=== PATIENT | female | born 1960 | race Caucasian/White ===

== ENCOUNTER → 2017-09-03 14:48 | Outpatient (CLI) | payer MEDICAID, SELFPAY ==
--- NOTE | 2017-09-03 14:54 | MM_ITS ---
MM Dig screening mamm BI w/CAD CAD Screening ORDERING PHYSICIAN : Roge Richard MD PATIENT AGE: 57 years GENDER: Female INDICATION: Takes Premarin.. No new complaints. Noncontributory family history COMPARISON: Previous mammograms: August 2016, August 2015,, November 2010 and 2009 TECHNIQUE: Standard CC and MLO images were obtained. R2 CAD reviewed. FINDINGS:========= Moderate breast density. Bilateral RIGHT BREAST: . Moderately dense but no no new areas of concern. Follow-up right mammogram 1 year. LEFT BREAST: Small 4 mm nodular density deep central left breast.,, with small calcifications. The small additional calcifications here draw attention to this area which may have been present on previous studies, including 2016 MLO view. This most likely is benign features such as a benign fibroadenoma. But it is more apparent with additional small calcifications would recommend close follow-up or additional evaluation. Suggest magnification spot views CC, 90 degree when it is convenient for this patient, left breast ultrasound. A Reasonable alternative would be a 6 month follow-up left mammogram. IMPRESSION: LEFT BREAST: Small 4 mm nodule deep breast with progression of minimal calcification... This nodule more likely this age benign density but would benefit from magnification spot view cc 90 degrees &. Along with ultrasound to further evaluate. Right breast:. Follow-up in one year BI-RADS Category: 0 Need Additional Imaging Evaluaiton . RECOMMENDED FOLLOW-UP: IMM - IMMEDIATE FOLLOW-UP RECOMMENDED Magnification spot views of small 4 mm nodule with additional calcifications (A letter has been sent to the patient regarding results of the study.)
--- NOTE | 2017-09-03 14:54 | XR_ITS ---
XR DEXA axial skeleton HISTORY: ITS.REASON: Post Menopausal ORDERING PHYSICIAN: Roge Richard MD PATIENT AGE: 57 years COMPARISON: 04/27/2017 FINDINGS: The BMD measured at the left femoral neck is 0.818 g/cm squared with a T score of -1.6 . This is considered Osteopenic according to the World Health Organization criteria. Fracture risk is Moderate. Treatment is advised. L1 L4 density has a T score of -0.2 which is within normal limits and has increased by 3.5% compared to the previous exam. The hip density has decreased by 0.7%. IMPRESSION: Osteopenia as described above. Recommend follow-up exam August 2019
== END ==
PROVIDERS: Family Provider Emergency Medicine; PCP Emergency Medicine; Visit Provider Obstetrics & Gynecology
DX: Z78.0 Asymptomatic menopausal state (principal)
CPT/HCPCS: 77067; 77080

== ENCOUNTER → 2017-10-29 12:19 | Outpatient (CLI) | payer MEDICAID, SELFPAY ==
--- NOTE | 2017-10-29 12:20 | MM_ITS ---
MM Dig spot mag LT CAD Screening ORDERING PHYSICIAN : Roge Richard MD PATIENT AGE: 57 years GENDER: Female COMPARISON: Previous mammograms: 3 11/06/2016, 08/30/2016, August 2015 INDICATION: Further evaluate calcifications associated with it small nodular density left breast TECHNIQUE: Standard CC and MLO images were obtained. R2 CAD reviewed. FINDINGS: LEFT BREAST: The patient has had a small nodular density at the medial left breast. Long-standing. Small calcifications seen here since 2016. The dense calcifications associated are nonspecific. More likely benign. Questionable Vague nodular density here measuring 3 mm. Is smaller than 2017 exam At this point I suggest follow-up left mammogram 6 months IMPRESSION: Small most likely benign calcifications associated with the small decreasing 3 mm nodular density at the medial left breast Most likely benign feature. Follow-up left mammogram study 6 months left breast to confirm such BI-RADS Category: 3 Benign Finding Short Term Follow-up RECOMMENDED FOLLOW-UP: 6M - 6 MONTH FOLLOW-UP Left mammogram 6 months (A letter has been sent to the patient regarding results of the study.)
== END ==
PROVIDERS: Family Provider Emergency Medicine; PCP Emergency Medicine; Visit Provider Obstetrics & Gynecology
DX: R92.8 Other abnormal and inconclusive findings on diagnostic imaging of breast (principal)
CPT/HCPCS: 77065

== ENCOUNTER → 2018-04-09 12:51 | Outpatient (CLI) | payer MEDICAID, SELFPAY ==
--- NOTE | 2018-04-09 12:53 | MM_ITS ---
MM Dig mamm DX unilat LT CAD INDICATION: Follow-up abnormal mammogram, calcifications ORDERING PHYSICIAN: Roge Richard MD PATIENT AGE: 57 years COMPARISON: 10/29/2017 and 09/03/2017 TECHNIQUE: Standard images performed along with spot compression mag views FINDINGS: There is average fibroglandular tissue. The calcifications noted in the medial aspect of the left breast are not significant change and are felt to be benign. There is however, an asymmetric density in the medial aspect of left breast which was not noticed when checking the mammograms for the calcifications. This measures 6 x 3 mm and may contain some faint calcifications. This is however only well seen on the cc view and could represent summation artifact. Suggest that the patient return additional problem-solving views of this area at no additional charge. Ultrasound may also be needed. IMPRESSION: The calcifications of original interest are unchanged and benign appearing. There is however, question of a new nodule with faint calcifications in the central aspect of the left breast which was not noticed during the checking of the mammogram. Suggest that the patient return for rolled cc views and a straight ML view and possible breast ultrasound BI-RADS Category: 0 Need Additional Imaging Evaluation RECOMMENDED FOLLOW-UP: IMM - IMMEDIATE FOLLOW-UP RECOMMENDED (A letter has been sent to the patient regarding results of the study.)
--- NOTE | 2018-04-09 12:53 | US_ITS ---
US transvaginal HISTORY: ITS.REASON: abdominal pain ORDERING PHYSICIAN: Roge Richard MD PATIENT AGE: 57 years Comparison: None FINDINGS: The uterus and ovaries are not identified and are presumed surgically absent. No obvious adnexal mass. The vaginal cuff has an unremarkable appearance. No pelvic fluid apparent. IMPRESSION: Prior total hysterectomy otherwise negative ultrasound pelvis
--- NOTE | 2018-04-09 12:53 | XR_ITS ---
XR chest 2V HISTORY: ITS.REASON: cough, smoker ORDERING PHYSICIAN: Roge Richard MD PATIENT AGE: 57 years COMPARISON: 02/17/2017 FINDINGS: Unremarkable cardiovascular structures. There is evidence of old granulomatous disease. There is diffuse coarsening of the bronchovascular markings with faint reticular nodular opacities. Hyperinflation with attenuation of the upper lobe vessels. No lobar consolidation or collapse.. No effusions. No acute bony anomalies. IMPRESSION: COPD with diffuse faint reticular nodular opacities which may be seen with smoking related lung disease/interstitial pneumonitis. Chest CT with high-resolution images may provide further evaluation. No evidence of pneumonia
== END ==
PROVIDERS: Family Provider Emergency Medicine; PCP Emergency Medicine; Visit Provider Obstetrics & Gynecology
DX: R05 Cough (principal); R92.8 Other abnormal and inconclusive findings on diagnostic imaging of breast; Z85.41 Personal history of malignant neoplasm of cervix uteri
CPT/HCPCS: 71046; 76830; 77065

== ENCOUNTER → 2018-05-02 12:56 | Outpatient (CLI) | payer MEDICAID, SELFPAY ==
--- NOTE | 2018-05-02 12:58 | MM_ITS ---
MM Dig mamm DX unilat LT CAD, US breast LT complete INDICATION: Follow-up abnormal mammogram. Possible nodule in the medial aspect of the left breast ORDERING PHYSICIAN: Roge Richard MD PATIENT AGE: 57 years COMPARISON: 04/09/2018, and 09/03/2017, 10/29/2017 TECHNIQUE: Spot compression views rolled views and ML view of the left breast FINDINGS: No discrete nodules evident in the area of interest. No malignant appearing mass or malignant appearing microcalcification. Benign-appearing calcifications noted Left breast ultrasound: Echodense fibroglandular elements. No discrete mass. IMPRESSION: Benign findings, no evidence of malignancy. Recommend resuming screening mammogram in August 2018 BI-RADS Category: 2 Benign Finding(s) RECOMMENDED FOLLOW-UP: 6M - 6 MONTH FOLLOW-UP (A letter has been sent to the patient regarding results of the study.)
== END ==
PROVIDERS: PCP Emergency Medicine; Visit Provider Obstetrics & Gynecology
DX: R92.8 Other abnormal and inconclusive findings on diagnostic imaging of breast (principal)
CPT/HCPCS: 76641; 77065

== ENCOUNTER 2019-11-09 10:17 | Emergency (ER) | payer MEDICAID, SELFPAY ==
[2019-11-09] VITALS (26 sets, daily range): BP systolic 75–134; BP diastolic 45–84; PULSE 78–130; RESP 16–50; TEMP 36.9–37.3; O2SAT 65–100; BMI 32.3; BMI 27.4
--- NOTE | 2019-11-09 10:21 | XR_ITS ---
PROCEDURE: XR CHEST PORTABLE CLINICAL HISTORY: SOA, smoking history COMPARISON: CXR2V XR chest 2V from 04/09/2018 CXR2V XR chest 2V from 09/14/2018 XR CHEST 2V from 05/31/2019 FINDINGS: This is a slightly poor inspiration. Diffuse bilateral primarily interstitial reticulonodular infiltrates are seen in both lung dooley representing a definite change from the most recent chest film 05/31/2019. Review of the previous chest film from 05/31/2019 showed a very subtle diffuse nodular interstitial pattern at that time. Cardiac size is normal. The vascularity is difficult to evaluate due to the diffuse interstitial findings. There are monitor lines overlying the chest. IMPRESSION: Prominent bilateral diffuse primarily interstitial appearing infiltrates and smoking-related chronic interstitial disease is certainly a possibility although in this current environment superimposed covid- 19 pneumonia cannot be excluded Dictated by: Dr. Ever Hooker MD 11/09/2019 11:[address] Ever Hooker MD in [place] 11/09/2019 11:17
--- NOTE | 2019-11-09 10:25 | PC.NURSE ---
Rad at bedside
--- NOTE | 2019-11-09 10:28 | PC.NURSE ---
Rt at bedside
--- NOTE | 2019-11-09 10:41 | PC.NURSE ---
christo nurse called she is calling lab
--- NOTE | 2019-11-09 10:45 | PC.NURSE ---
Pt to rad.
[2019-11-09 10:49] LABS: ABG Base Excess 1.5 mmol/L (-2.4-2.3); ABG HCO3 25.6 mmhg (22.0-26.0); ABG Oxygen Saturation 85 % (90-100); ABG PCO2 38.3 mmhg (35.0-45.0); ABG PH 7.44 mmol/L (7.35-7.45); ABG PO2 50.2 mmhg (80-100); ABG TCO2 26.8 mmhg (23-27)
[2019-11-09 10:50] LABS: Allen's Test ACCEPTABLE; Oxygen 100 %; Source Left Radial
--- NOTE | 2019-11-09 10:51 | CT_ITS ---
PROCEDURE: CT CHEST WO CON CLINICAL INDICATION: sob COMPARISON: No exams were available for comparison TECHNIQUE: Axial images obtained with sagittal and coronal reformats. All CT scans at the facility use one or more dose reduction, viz: automated exposure control, ma/kV adjustment per patient size (including targeted exams where dose is matched to indication, i.e. head), or iterative reconstruction technique. FINDINGS: HEART AND MEDIASTINAL STRUCTURES: There is borderline cardiomegaly with moderate aortic tortuosity. There is no pericardial effusion. LUNGS AND PLEURAL SPACES: Prominent diffuse bilateral interstitial infiltrates are seen primarily involving the lung bases but also diffusely involving the left upper lobe. There are areas of honeycombing and minimal traction bronchiectasis seen as well primarily at the lung bases. There are calcified right hilar nodes. BONY STRUCTURES: No acute bony abnormalities apparent. UPPER ABDOMEN: Unremarkable. ADDITIONAL FINDINGS: There is a moderate-sized sliding hiatal hernia. IMPRESSION: Combination of pulmonary findings most suggestive of Usual interstitial pneumonia particularly in view of the smoking history and previous films showing subtle interstitial nodular appearance. However in this environment testing for Covid-19 pneumonia should be definitely considered. Dictated by: Dr. Ever Hooker MD 11/09/2019 11:[address] Ever Hooker MD in [facility] 11/09/2019 11:30
--- NOTE | 2019-11-09 11:03 | PC.NURSE ---
pt return from ct
--- NOTE | 2019-11-09 11:22 | ECG_ITS ---
APPROVED REPORT Exam: Resting ECG HR:105 bpm ECG Measurements Heart Rate 105 AXES [place] 150 P 60 QRSd 66 QRS 57 QT 332 T 32 QTc 438 <Conclusion> Sinus tachycardia Otherwise normal ECG Electronically signed by : Rahul Gardner, 11/10/2019 14:07:45
--- NOTE | 2019-11-09 11:26 | PC.NURSE ---
RT at bedside as well as MD and nursing staff to intubate pt.
--- NOTE | 2019-11-09 11:34 | PC.NURSE ---
Rad called for tube placement xray.
--- NOTE | 2019-11-09 11:35 | PC.NURSE ---
pt intubated per dr roque
--- NOTE | 2019-11-09 11:35 | XR_ITS ---
PROCEDURE: XR CHEST PORTABLE CLINICAL HISTORY: Tube Placement COMPARISON: CXR2V XR chest 2V from 09/14/2018 XR CHEST 2V from 05/31/2019 CT CHEST WO CON from 11/09/2019 XR CHEST PORTABLE from 11/09/2019 FINDINGS: Endotracheal tube is seen in place with the tip right at the carleen and projecting towards the the left mainstem bronchus. The diffuse bilateral interstitial pulmonary findings are unchanged from the earlier film. IMPRESSION: Somewhat low position of endotracheal tube as noted. Dictated by: Dr. Ever Hooker MD 11/09/2019 11:[address] Ever Hooker MD in [place] 11/09/2019 11:58
--- NOTE | 2019-11-09 11:38 | PC.NURSE ---
dr oz ramirez
--- NOTE | 2019-11-09 11:40 | PC.NURSE ---
propofol drip at 20mcg/kg
[2019-11-09 11:41] LABS: Adenovirus,PCR Not Detected (NotDetected); Basophils % 0.4 % (0.1-2.0); Bordetella Pertussis Not Detected (NotDetected); Chlamydophila Pneumoniae, PCR Not Detected (NotDetected); Coronavirus 19, PCR Not Detected (NotDetected); Coronavirus 229E Not Detected (NotDetected); Coronavirus NL63 Not Detected (NotDetected); Coronavirus OC43 Not Detected (NotDetected); Coronovirus HKU1,PCR Not Detected (NotDetected); Eosinophils # 0.1 K/mm3 (0.0-0.4); Eosinophils % 0.7 % (0.1-12.0); Hematocrit 31.8 % (37.0-47.0); Hemoglobin 10.2 g/dL (12.2-16.2); Human Metapneumovirus Not Detected (NotDetected); Influenza A, PCR Not Detected (NotDetected); Influenza AH1, 2009 Not Detected (NotDetected); Influenza AH1, PCR Not Detected (NotDetected); Influenza AH3,PCR Not Detected (NotDetected); Influenza B, PCR Not Detected (NotDetected); Lymphocytes # 1.8 K/mm3 (0.7-4.5); Lymphocytes % 22.7 % (10-50); Mean Corpuscular HGB Conc 32.2 g/dL (31.8-35.4); Mean Corpuscular Hemoglobin 32.8 pg (27.0-31.2); Mean Corpuscular Volume 101.8 fl (81-99); Mean Platelet Volume 7.6 fl (7.4-10.4); Monocytes # 0.5 K/mm3 (0.1-1.0); Monocytes % 6.8 % (1.7-9.3); Mycoplasma Pneumoniae, PCR Not Detected (NotDected); Neutrophils # 5.6 K/mm3 (1.8-7.8); Neutrophils % 69.5 % (37.0-80.0); Parainfluenza 1, PCR Not Detected (NotDetected); Parainfluenza 2, PCR Not Detected (NotDetected); Parainfluenza 3, PCR Not Detected (NotDetected); Parainfluenza 4, PCR Not Detected (NotDetected); Platelet Count 312 K/mm3 (142-424); Red Blood Count 3.12 M/mm3 (4.20-5.40); Red Cell Distribution Width 13.8 % (11.5-17.5); Respiratory Syncytial Virus Not Detected (NotDetected); Rhinovirus/Enterovirus Not Detected (NotDetected)
--- NOTE | 2019-11-09 11:41 | PC.NURSE ---
xray at bedside
[2019-11-09 11:43] LABS: Chloride 107 mmol/L (98-107); Potassium 3.5 mmoL/L (3.5-5.1); Sodium 135 mmol/L (136-145)
--- NOTE | 2019-11-09 11:43 | PC.NURSE ---
rad at BS for portable xray
--- NOTE | 2019-11-09 11:44 | PC.NURSE ---
ET tube pulled back to 22 lip. pt with navya bs noted cxr obtained
--- NOTE | 2019-11-09 11:44 | XR_ITS ---
PROCEDURE: XR CHEST PORTABLE CLINICAL HISTORY: ETT placement COMPARISON: XR CHEST 2V from 05/31/2019 CT CHEST WO CON from 11/09/2019 XR CHEST PORTABLE from 11/09/2019 XR CHEST PORTABLE from 11/09/2019 FINDINGS: The endotracheal tube is been withdrawn approximately 1.7 cm and is now in good position above the carleen. IMPRESSION: Satisfactory positioning of endotracheal tube Dictated by: Dr. Ever Hooker MD 11/09/2019 11:[address] Ever Hooker MD in [place] 11/09/2019 11:59
--- NOTE | 2019-11-09 11:44 | PC.NURSE ---
XIOMY CASTRO speaking with Dr. Francis who is compensation coordinator for Dr. Wright
[2019-11-09 11:46] LABS: Alanine Aminotransferase 13 U/L (12-78); Albumin Level 3.2 g/dl (3.5-5.0); Albumin/Globulin Ratio 0.9 (1.1-1.8); Alkaline Phosphatase 77 U/L (38-126); Anion Gap 7.5 mEq/L (5-15); Aspartate Amino Transferase 28 U/L (14-36); Bilirubin,Total 0.4 mg/dl (0.2-1.3); Blood Urea Nitrogen 20 mg/dl (7-17); Calcium 8.7 mg/dl (8.4-10.2); Carbon Dioxide 24 mmol/L (22.0-30.0); Creatinine Clearance Estimated 61 mL/min (50-200); Estimated Glomerular Filt Rate 51 ml/min (>60); GFR (African American) 62 ML/MIN (>60); Globulin 3.7 g/dL (1.3-3.2); Glucose 137 mg/dl (74-100); Lactic Acid 1.6 mmol/L (0.7-2.1); Total Protein,Serum 6.9 g/dl (6.3-8.2)
--- NOTE | 2019-11-09 11:46 | PC.NURSE ---
propofol drip increased to 30mcg/kg
--- NOTE | 2019-11-09 12:00 | PC.NURSE ---
propofol drip increased to 40mcg/kg
[2019-11-09 12:03] LABS: Troponin I 0.13 ng/ml (0.00-0.034)
--- NOTE | 2019-11-09 12:07 | PC.NURSE ---
pt coughing, not tolerating et tube propofol drip increased to 50mcg/kg
--- NOTE | 2019-11-09 12:10 | PC.NURSE ---
propofol drip decreased to 40mcg/kg
--- NOTE | 2019-11-09 12:16 | PC.NURSE ---
propofol drip decreased to 35mcg/kg
--- NOTE | 2019-11-09 12:20 | PC.NURSE ---
spoke with Donte in pharmacy for Rocuronium dosing per ER MD request, Donte states 40 mg, ER MD notified
--- NOTE | 2019-11-09 12:25 | [facility].EDSOB ---
ED Disposition Clinical Impression: SARS virus pneumonia, Respiratory failure Disposition: Xfer Short-Term Hosp Condition on Discharge: Critical Referrals: Bright Wright MD [Primary Care Provider] - Forms: Transfer Record - ED - Critical Care Critical Care Time: Yes (Respiratory failure) Attestation: On 11/09/19, the high probability of a clinically significant, sudden or life threatening deterioration of the following system(s) required my full and direct attention, intervention and personal management. The time I documented below is in addition to time spent performing reported procedures but includes the following listed in this critical care notation. Total Critical Care Time: 75 Vital system(s) involved:: Circulatory Failure, Respiratory Failure My critical care processes included: Assessment & monitoring of V/S, Initial and Re-exams, Data Review/Interpretation, Coordinating Care, Medication Orders and management, Documentation Medical Decision Making - Medical Records Medical records reviewed: Yes: I reviewed the patient's medical records. - Narayan Inquiry Pt receiving controlled substance: No Vital Signs: 11/09/19 10:21 11/09/19 11:28 11/09/19 11:35 Temperature 98.5 F Temperature Source Oral Pulse Rate [Left Radial] 85 116 H 115 H Respiratory Rate 50 H Blood Pressure [Right Arm] 88/55 L 114/75 89/52 L Blood Pressure Mean [Right Arm] 66 88 64 Blood Pressure Source [Right Arm] Blood Pressure Position [Right Arm] Sitting 02 Sat by Pulse Oximetry 96 91 L 94 L Oxygen Delivery Method Mechanical Ventilation Non-Rebreather Mechanical Ventilation Oxygen Flow Rate (LPM) 15 15 11/09/19 11:36 11/09/19 11:40 11/09/19 11:44 Temperature Temperature Source Pulse Rate [Left Radial] 117 H 112 H 107 H Respiratory Rate Blood Pressure [Right Arm] 121/74 122/84 Blood Pressure Mean [Right Arm] 89 96 Blood Pressure Source [Right Arm] Blood Pressure Position [Right Arm] Sitting Sitting 02 Sat by Pulse Oximetry 94 L 100 Oxygen Delivery Method Mechanical Ventilation Mechanical Ventilation Oxygen Flow Rate (LPM) 11/09/19 11:52 11/09/19 12:03 11/09/19 12:05 Temperature Temperature Source Pulse Rate [Left Radial] 100 H 107 H 88 Respiratory Rate Blood Pressure [Right Arm] 134/81 103/72 L 107/67 L Blood Pressure Mean [Right Arm] 98 82 80 Blood Pressure Source [Right Arm] Blood Pressure Position [Right Arm] Sitting Sitting 02 Sat by Pulse Oximetry 96 94 L Oxygen Delivery Method Mechanical Ventilation Mechanical Ventilation Oxygen Flow Rate (LPM) 11/09/19 12:10 11/09/19 12:16 11/09/19 12:20 Temperature 99.2 F Temperature Source Rectal Pulse Rate [Left Radial] 105 H 109 H 114 H Respiratory Rate 16 Blood Pressure [Right Arm] 75/45 L 93/59 L 93/59 L Blood Pressure Mean [Right Arm] 55 70 70 Blood Pressure Source [Right Arm] Automatic Cuff Blood Pressure Position [Right Arm] Supine Sitting 02 Sat by Pulse Oximetry 95 94 L Oxygen Delivery Method Mechanical Ventilation Mechanical Ventilation Oxygen Flow Rate (LPM) 11/09/19 12:25 11/09/19 12:30 11/09/19 12:40 Temperature Temperature Source Pulse Rate [Left Radial] 115 H 92 H 93 H Respiratory Rate Blood Pressure [Right Arm] 90/60 L 78/50 L 78/51 L Blood Pressure Mean [Right Arm] 70 59 60 Blood Pressure Source [Right Arm] Blood Pressure Position [Right Arm] 02 Sat by Pulse Oximetry 96 96 96 Oxygen Delivery Method Mechanical Ventilation Mechanical Ventilation Mechanical Ventilation Oxygen Flow Rate (LPM) 11/09/19 12:46 11/09/19 13:03 11/09/19 13:33 Temperature Temperature Source Pulse Rate [Left Radial] 96 H 91 H 88 Respiratory Rate Blood Pressure [Right Arm] 80/56 L 80/52 L 95/60 L Blood Pressure Mean [Right Arm] 64 61 71 Blood Pressure Source [Right Arm] Automatic Cuff Automatic Cuff Blood Pressure Position [Right Arm] Supine Supine 02 Sat by Pulse Ox
--- NOTE | 2019-11-09 12:30 | PC.NURSE ---
propofol drip at 30mcg/kg
--- NOTE | 2019-11-09 12:53 | PC.NURSE ---
Calling [facility] at this time.
--- NOTE | 2019-11-09 13:26 | PC.NURSE ---
XIOMY CASTRO speaking with [facility] at this time.
--- NOTE | 2019-11-09 13:59 | PC.NURSE ---
Bed assignment given by Ludmila at . Contacting [facility] at this time.
--- NOTE | 2019-11-09 14:13 | PC.NURSE ---
[facility] has lifted and en route.
--- NOTE | 2019-11-09 14:17 | PC.NURSE ---
attempted to call report no answer
--- NOTE | 2019-11-09 14:30 | PC.NURSE ---
[facility] at bedside
--- NOTE | 2019-11-09 15:05 | PC.NURSE ---
report to [facility]
== END 2019-11-09 15:32 | disposition short-term general hospital (02) ==
PROVIDERS: Emergency Provider Family Medicine; PCP Emergency Medicine
DX: J12.81 Pneumonia due to SARS-associated coronavirus (principal); F17.210 Nicotine dependence, cigarettes, uncomplicated; J96.00 Acute respiratory failure, unspecified whether with hypoxia or hypercapnia; J44.9 Chronic obstructive pulmonary disease, unspecified; F41.9 Anxiety disorder, unspecified; F20.9 Schizophrenia, unspecified
CPT/HCPCS: 31500; 71045; 71250; 80053; 82803; 83605; 84484; 85025; 87040; 87275; 87276; 87581; 87633; 87798; 93005; 96365; 96367; 96375; 99285; J0330; J0456; J2704

== ENCOUNTER 2019-12-29 10:16 | Outpatient (CLI) | payer MEDICAID, SELFPAY ==
[2019-12-29] VITALS (11 sets, daily range): BP systolic 115–141; BP diastolic 78–91; PULSE 59–109; RESP 18
--- NOTE | 2019-12-29 13:55 | PC.NURSE ---
1345-called bhumika chang for pt ride.
--- NOTE | 2019-12-29 14:15 | PC.NURSE ---
1415-called again to check on pt ride said they would be there in a few mins.
== END 2019-12-29 14:30 | disposition home or self-care (01) ==
LOC: INF 10:16
DX: L95.9 Vasculitis limited to the skin, unspecified (principal); A41.9 Sepsis, unspecified organism; I26.99 Other pulmonary embolism without acute cor pulmonale; R79.89 Other specified abnormal findings of blood chemistry; D64.9 Anemia, unspecified; J10.1 Influenza due to other identified influenza virus with other respiratory manifestations
CPT/HCPCS: 96413; 96415; J9312

== ENCOUNTER 2020-01-05 09:57 | Outpatient (CLI) | payer MEDICAID, SELFPAY ==
[2020-01-05] VITALS (12 sets, daily range): BP systolic 106–134; BP diastolic 73–85; PULSE 81–99; RESP 16–20; TEMP 36.6; O2SAT 94
== END 2020-01-05 13:45 | disposition home or self-care (01) ==
LOC: INF 09:57
PROVIDERS: Visit Provider Emergency Medicine
DX: L95.9 Vasculitis limited to the skin, unspecified (principal); A41.9 Sepsis, unspecified organism; I26.99 Other pulmonary embolism without acute cor pulmonale; R79.89 Other specified abnormal findings of blood chemistry; D64.9 Anemia, unspecified; J10.1 Influenza due to other identified influenza virus with other respiratory manifestations
CPT/HCPCS: 96413; 96415; J9312

== ENCOUNTER 2020-01-09 14:11 | Inpatient (IN) | payer MEDICAID, SELFPAY ==
[2020-01-09] VITALS (40 sets, daily range): BP systolic 90–178; BP diastolic 50–103; PULSE 93–145; RESP 15–35; TEMP 36.3–37.9; O2SAT 78–100; BMI 25.0; BMI 26.6
--- NOTE | 2020-01-09 14:30 | PC.NURSE ---
notified of pt becoming in more RT distress
--- NOTE | 2020-01-09 14:35 | PC.NURSE ---
MD at bedside assessing pt, stated we need to prepare to intubate, RT notified.
[2020-01-09 14:41] LABS: ABG Base Excess -3.8 mmol/L (-2.4-2.3); ABG Oxygen Saturation 99 % (90-100); ABG PCO2 28.7 mmhg (35.0-45.0); ABG PH 7.46 mmol/L (7.35-7.45); ABG PO2 171.9 mmhg (80-100); ABG TCO2 20.9 mmhg (23-27)
--- NOTE | 2020-01-09 14:45 | PC.NURSE ---
Addendum entered by Sarah Meehan RN 01/09/20 18:20: wrong time Original Note: MD notified of pt becoming in more respiratory distress, sats in the 70s.
--- NOTE | 2020-01-09 14:50 | PC.NURSE ---
Called Donte from pharmacy to mix fentanyl drip, stated to start drip out at 5ml/hr (50mcg)
--- NOTE | 2020-01-09 14:50 | PC.NURSE ---
Pt intubated per ER MD with 7 ET 23 @ the lip (see mar for RSI medications for intubation), bilateral breath sounds noted, rad notified of need for xray of verification of ET, 16F NG @ 74 inserted in the right nare auscultation noted and aspiration of gastric contents noted.
--- NOTE | 2020-01-09 14:55 | PC.NURSE ---
Fentanyl drip started at 5ml/hr per MD
--- NOTE | 2020-01-09 14:58 | XR_ITS ---
PROCEDURE: XR CHEST PORTABLE CLINICAL HISTORY: cough Endotracheal tube placement COMPARISON: CT CHEST WO CON from 11/09/2019 XR CHEST PORTABLE from 11/09/2019 XR CHEST PORTABLE from 11/09/2019 XR CHEST PORTABLE from 11/09/2019 FINDINGS: Endotracheal tube tip is at the ostium of the right mainstem bronchus. NG tube tip is not visible on the film but below the GE junction. There is diffuse bilateral alveolar opacification. This appears slightly worse on the right and may be in slightly improved on the left compared to previous exam. No acute bony abnormalities. IMPRESSION: Endotracheal tube tip is low at the ostium of the right mainstem bronchus. Diffuse bilateral alveolar disease slightly worse on the right and slightly improved on left. Nasogastric tube tip not visible on the film but below the diaphragm Dictated by: Ildefonso Durand MD 01/09/2020 16:09 Electronically signed by Ildefonso Durand MD in [place] 01/09/2020 16:09
--- NOTE | 2020-01-09 15:00 | PC.NURSE ---
advised respiratory to put ET 21 @ lip.
[2020-01-09 15:05] LABS: Microscopic, Urine URINE MICROSCOPIC (MICROSCOPIC)
[2020-01-09 15:06] LABS: Appearance,Urine CLOUDY (Clear); Blood, Urine Negative (Negative); Color,Urine YELLOW (Yellow); Glucose,Urine (UA) Negative (Negative); Ketones,Urine TRACE (Negative); Leukocyte Esterase,Urine 1+ (Negative); Nitrate,Urine POSITIVE (Negative); PH,Urine 6.5 (5.0-8.5); Protein,Urine 2+ (Negative); Specific Gravity, Urine >= 1.030 (1.005-1.030)
[2020-01-09 15:13] LABS: Basophils % 0.2 % (0.1-2.0); Eosinophils % 0.3 % (0.1-12.0); Hematocrit 32.9 % (37.0-47.0); Hemoglobin 10.7 g/dL (12.2-16.2); Lymphocytes # 1.5 K/mm3 (0.7-4.5); Lymphocytes % 9.4 % (10-50); Mean Corpuscular HGB Conc 32.6 g/dL (31.8-35.4); Mean Corpuscular Hemoglobin 33.3 pg (27.0-31.2); Mean Platelet Volume 8.3 fl (7.4-10.4); Monocytes # 0.6 K/mm3 (0.1-1.0); Monocytes % 3.9 % (1.7-9.3); Neutrophils # 13.4 K/mm3 (1.8-7.8); Neutrophils % 86.2 % (37.0-80.0); Platelet Count 323 K/mm3 (142-424); Red Blood Count 3.22 M/mm3 (4.20-5.40); Red Cell Distribution Width 15.7 % (11.5-17.5); White Blood Count 15.6 K/mm3 (4.8-10.8)
[2020-01-09 15:14] LABS: Oxygen 100% %
[2020-01-09 15:14] LABS: Bilirubin,Urine Negative (Negative)
[2020-01-09 15:15] LABS: MANUAL DIFFERENTIAL MANUAL DIFFERENTIAL (MANUAL DIFF)
[2020-01-09 15:15] LABS: Source R BRACHIAL
[2020-01-09 15:16] LABS: Chloride 106 mmol/L (98-107); Sodium 137 mmol/L (136-145)
[2020-01-09 15:17] LABS: Potassium 3.9 mmoL/L (3.5-5.1)
--- NOTE | 2020-01-09 15:18 | CT_ITS ---
PROCEDURE: CT ANGIO CHEST CLINCIAL INDICATION: hypoxia Hypoxia, cough, fever COMPARISON: CT CHEST WO CON from 11/09/2019 TECHNIQUE: IV Contrast: 70ML OPTIRAY 350 Axial images obtained with sagittal and coronal reformats. All CT scans at the facility use one or more dose reduction, viz: automated exposure control, ma/kV adjustment per patient size (including targeted exams where dose is matched to indication, i.e. head), or iterative reconstruction technique. FINDINGS: Endotracheal tube is present with the tip at ostium of the right mainstem bronchus. There is fluid in the trachea above inflated cuff. There is no evidence of aortic aneurysm or dissection. The pulmonary arteries are not optimally opacified. However, there does appear to be and occluding thrombus in the proximal aspect of the right upper lobe pulmonary artery. There is an NG tube present with the tip in the region the antrum of the stomach. There is diffuse bilateral alveolar opacification superimposed upon interstitial lung disease resulting in a crazy paving pattern. This is worse on the right and may be slightly improved on the left compared to 11/09/2019. No effusions are evident. The liver demonstrates diffuse heterogeneous decreased attenuation centrally and in the right hepatic lobe. There are some small nodes in the mediastinum not significantly changed. The. No acute bony findings. IMPRESSION: 1. Pulmonary embolus noted in the ascending branch of the right pulmonary artery.. 2. Diffuse bilateral alveolar opacification superimposed upon prominent interstitium resulting in a crazy paving pattern. This is worse on the right and slightly improved on the left. This is nonspecific and could be seen with pneumonia including bacterial and viral pneumonia as well as other etiologies including interstitial lung disease, ARDS. 3. Heterogeneous decreased attenuation of the liver. This is of unknown etiology. 4. Low position of endotracheal tube. 5. The ER was notified of these findings by telephone 01/09/2020 at 4:15 p.m. Dictated by: Ildefonso Durand MD 01/09/2020 16:32 Electronically signed by Ildefonso Durand MD in [place] 01/09/2020 16:32
[2020-01-09 15:19] LABS: Alanine Aminotransferase 36 U/L (12-78); Albumin Level 3.1 g/dl (3.5-5.0); Albumin/Globulin Ratio 1.1 (1.1-1.8); Alkaline Phosphatase 81 U/L (38-126); Anion Gap 11.9 mEq/L (5-15); Aspartate Amino Transferase 29 U/L (14-36); Bilirubin,Total 0.8 mg/dl (0.2-1.3); Blood Urea Nitrogen 20 mg/dl (7-17); Calcium 8.9 mg/dl (8.4-10.2); Carbon Dioxide 23 mmol/L (22.0-30.0); Estimated Glomerular Filt Rate 39 ml/min (>60); GFR (African American) 47 ML/MIN (>60); Globulin 2.9 g/dL (1.3-3.2); Glucose 173 mg/dl (74-100); Lipase 12 U/L (23-300)
--- NOTE | 2020-01-09 15:21 | PC.NURSE ---
notified that pt meets criteria for severe sepsis
[2020-01-09 15:22] LABS: Activated Partial Thrombo Time 20.5 seconds (23.6-34.0); INR 1.11 (0.9-1.1); Lactic Acid 3.9 mmol/L (0.7-2.1); Prothrombin Time 11.3 seconds (9.4-11.8)
[2020-01-09 15:23] LABS: Adenovirus,PCR Not Detected (NotDetected); Bordetella Pertussis Not Detected (NotDetected); Chlamydophila Pneumoniae, PCR Not Detected (NotDetected); Coronavirus 19, PCR Not Detected (NotDetected); Coronavirus 229E Not Detected (NotDetected); Coronavirus NL63 Not Detected (NotDetected); Coronavirus OC43 Not Detected (NotDetected); Coronovirus HKU1,PCR Not Detected (NotDetected); Human Metapneumovirus Not Detected (NotDetected); Influenza AH1, 2009 Not Detected (NotDetected); Influenza AH1, PCR Not Detected (NotDetected); Influenza AH3,PCR Not Detected (NotDetected); Influenza B, PCR Not Detected (NotDetected); Mycoplasma Pneumoniae, PCR Not Detected (NotDected); Parainfluenza 1, PCR Not Detected (NotDetected); Parainfluenza 2, PCR Not Detected (NotDetected); Parainfluenza 3, PCR Not Detected (NotDetected); Parainfluenza 4, PCR Not Detected (NotDetected); Respiratory Syncytial Virus Not Detected (NotDetected); Rhinovirus/Enterovirus Not Detected (NotDetected)
[2020-01-09 15:26] LABS: Bacteria,Urine 1+ /lpf
[2020-01-09 15:28] LABS: Anisocytosis 1+; Lymphocytes % 17 % (10-50); Macrocytosis 1+; Monocytes % 2 % (2-9); NT Pro Brain Natriuretic Pep. 10100 pg/mL (0-125); Neutrophils % 81 % (42-76); Platelet Estimate Normal; Total Cells Counted 100
[2020-01-09 15:29] LABS: Nucleated Red Blood Cells 3
--- NOTE | 2020-01-09 15:29 | HMH.EDSOB ---
ED Disposition Clinical Impression: Community acquired pneumonia, Acute exacerbation of chronic obstructive airways disease, Pulmonary embolism, UTI (urinary tract infection), COPD (chronic obstructive pulmonary disease), Respiratory failure, Sepsis, Influenza A Disposition: Admitted As Inpatient Condition on Discharge: Critical Referrals: Bright Wright MD [Primary Care Provider] - Time of Disposition: 17:07 - Critical Care Critical Care Time: Yes Attestation: On 01/09/20, the high probability of a clinically significant, sudden or life threatening deterioration of the following system(s) required my full and direct attention, intervention and personal management. The time I documented below is in addition to time spent performing reported procedures but includes the following listed in this critical care notation. Vital system(s) involved:: Circulatory Failure, Metabolic Failure, Respiratory Failure, Renal Failure, Shock (Septic) My critical care processes included: Assessment & monitoring of V/S, Initial and Re-exams, Data Review/Interpretation, Coordinating Care, Medication Orders and management, Documentation Medical Decision Making - Narayan Inquiry Pt receiving controlled substance: Yes Narayan was queried for this patient: No Reason not queried -: Emergent pt cond-no time Risks and benefits of using a controlled substance: were discussed with pt by me Vital Signs: 01/09/20 14:12 Temperature 100.2 F H Temperature Source Oral Pulse Rate [Right] 145 H Respiratory Rate 35 H Blood Pressure [Right Arm] 111/73 Blood Pressure Mean [Right Arm] 85 02 Sat by Pulse Oximetry 93 L Oxygen Delivery Method Non-Rebreather Oxygen Flow Rate (LPM) 15 - Lab Data Lab Results 01/09/20 14:26: Urine Color Yellow, Urine Appearance Cloudy, Urine pH 6.5, Ur Specific [place] >= 1.030, Urine Protein 2+, Urine Glucose (UA) Negative, Urine Ketones Trace, Urine Blood Negative, Urine Nitrate Positive, Urine Bilirubin Negative, Urine Urobilinogen 1.0, Ur Leukocyte Esterase 1+ A, Urine WBC 10-20, Ur Squamous Epith Cells 3-5, Urine Bacteria 1+ 01/09/20 14:26: WBC 15.6 H, RBC 3.22 L, Hgb 10.7 L, Hct 32.9 L, MCV 102.0 H, MCH 33.3 H, MCHC 32.6, RDW 15.7, Plt Count 323, MPV 8.3, Neut % (Auto) 86.2 H, Lymph % (Auto) 9.4 L, [place] % (Auto) 3.9, Eos % (Auto) 0.3, Baso % (Auto) 0.2, Neut # (Auto) 13.4 H, Lymph # (Auto) 1.5, [place] # (Auto) 0.6, Eos # (Auto) 0.0, Baso # (Auto) 0.0, Total Counted 100, Neutrophils % (Manual) 81 H, Lymphocytes % (Manual) 17, Monocytes % (Manual) 2, Nucleated RBCs 3, Platelet Estimate Normal, RBC Morphology Not Reportable, Anisocytosis 1+, Macrocytosis 1+ 01/09/20 14:26: Sodium 137, Potassium 3.9, Chloride 106, Carbon Dioxide 23, Anion Gap 11.9, BUN 20 H, Creatinine 1.40 H, Estimated GFR 39 L, Est GFR ( Amer) 47 L, Glucose 173 H, Calcium 8.9, Total Bilirubin 0.8, AST 29, ALT 36, Alkaline Phosphatase 81, Troponin I 0.07 H, Total Protein 6.0 L, Albumin 3.1 L, Globulin 2.9, Albumin/Globulin Ratio 1.1, Lipase 12 L 01/09/20 14:26: Lactate 3.9 H 01/09/20 14:26: PT 11.3, INR 1.11 H, APTT 20.5 L, D-Dimer 664 H* 01/09/20 14:26: NT-Pro-B Natriuret Pep 75130 H 01/09/20 14:39: Specimen Source R brachial, O2 % 100%, ABG pH 7.46 H, ABG pCO2 28.7 L, ABG pO2 171.9 H, ABG HCO3 20.0 L, ABG Total CO2 20.9 L, ABG O2 Saturation 99, ABG Base Excess -3.8 L 01/09/20 15:15: Chlamy pneumoniae PCR Not detected, Adenovirus (PCR) Not detected, B. pertussis DNA (PCR) Not detected, Coronavirus OC43 (PCR) Not detected, Coronavirus HKU1 (PCR) Not detected, Coronavirus 229E (PCR) Not detected, COVID-19 PCR Not detected, Coronavirus NL63 (PCR) Not detected, Human Metapneumovir PCR Not detected, Influenza A (H1) PCR Not detected, Influ A (H1N1/09) PCR Not detected, Influenza A (H3) PCR Not detected, Influenza Type A (PCR) Detected A, Influenza Type B (PCR) Not detected, M. pneumoniae (PCR) Not detected, Parainfluenza 1 (PCR) Not detected, Parainfluenza 2 (PCR) Not detected, P
--- NOTE | 2020-01-09 15:30 | PC.NURSE ---
Pt tolerating vent well, pt responsive to painful stimuli and occasional eye opening, tolerating fentanyl drip well. Lung sound diminished with expiratory wheezes. F/C in place draining dark yellow urine. FIO2 remains at 100%, RR @ 16, TV 400. and in AC. PERRLA present. HOB @ 30 degrees. No distress noted at this time. RT remains at bedside. VSS. Will continue to monitor.
[2020-01-09 15:32] LABS: Troponin I 0.07 ng/ml (0.00-0.034)
--- NOTE | 2020-01-09 15:39 | PC.NURSE ---
Pt left for CT with rad, respiratory and ELENITA Herrera and ELENITA Clayton at bedside
[2020-01-09 15:48] LABS: ABG Base Excess -4.9 mmol/L (-2.4-2.3); ABG HCO3 22.4 mmhg (22.0-26.0); ABG Oxygen Saturation 99 % (90-100); ABG PH 7.25 mmol/L (7.35-7.45)
--- NOTE | 2020-01-09 15:53 | PC.NURSE ---
patient returned to ct, reattached to all monitoring devices, RT at the bedside to reconnect the vent
--- NOTE | 2020-01-09 15:58 | ECG_ITS ---
APPROVED REPORT Exam: Resting ECG HR:125 bpm ECG Measurements Heart Rate 125 AXES MD 140 P 63 QRSd 74 QRS 72 QT 324 T 69 QTc 467 <Conclusion> Sinus tachycardia Low voltage QRS Borderline ECG Electronically signed by : Rahul Gardner, 01/10/2020 09:05:07
[2020-01-09 16:11] LABS: Oxygen 100% %; PEEP 5; Source R BRACHIAL; Tidal Volume 400; Vent Rate 16
[2020-01-09 16:12] LABS: ABG PCO2 52.2 mmhg (35.0-45.0)
--- NOTE | 2020-01-09 16:15 | PC.NURSE ---
No distress noted during transport to CT, RT and Luisana RN remained at bedside during transport. VS remained stable during transport. Pt now back in room resting and tolerating vent well.
[2020-01-09 16:24] LABS: D-Dimer 664 ng/mL (0-400)
--- NOTE | 2020-01-09 16:30 | PC.NURSE ---
Called Ramya from pharmacy for dosing of heparin drip, stated they would mix drip and bring it down.
--- NOTE | 2020-01-09 16:30 | PC.NURSE ---
MD notified that pt is opening her eyes and moving her head to verbal response, MD stated to initiate propofol @ 10mcg/min
--- NOTE | 2020-01-09 16:35 | PC.NURSE ---
Dr. Jacek ramirez
--- NOTE | 2020-01-09 16:45 | PC.NURSE ---
Verified with pharmacy that all medications but propofol is compatible with each other, fentanyl and heparin administering together.
--- NOTE | 2020-01-09 16:47 | PC.NURSE ---
SPEAKING TO AT THIS TIME.
--- NOTE | 2020-01-09 16:50 | PC.NURSE ---
Dr Read agreed to admit if pt COVID19 test came back negative, still waiting for the results of the PCR at this time.
[2020-01-09 16:55] LABS: Influenza A, PCR Detected (NotDetected)
--- NOTE | 2020-01-09 17:05 | PC.NURSE ---
RT turned FIO2 down to 65%, pt tolerating well.
--- NOTE | 2020-01-09 17:20 | PC.NURSE ---
SPT collected at 1500 by RT in ER.
--- NOTE | 2020-01-09 17:40 | PC.NURSE ---
Propofol drip titrated to 20mcg notified
--- NOTE | 2020-01-09 18:00 | PC.NURSE ---
Report given to Aliyah KWONG in ICU
--- NOTE | 2020-01-09 18:10 | PC.NURSE ---
RT notified of pt sats dropping to 88 after initiating FIO2 @ 65% on vent settings.
[2020-01-09 18:17] LABS: Reflex Lactic Add Lactic Reflex
--- NOTE | 2020-01-09 18:20 | PC.NURSE ---
RT here to titrate FIO2, turned it up to 80%
[2020-01-09 18:29] LABS: Lactic Acid Follow Up (RFLX 1) 0.9 mmol/L (0.7-2.1)
--- NOTE | 2020-01-09 18:35 | PC.NURSE ---
Aliyah here to transport pt to ICU
[2020-01-09 18:41] LABS: Troponin I 0.08 ng/ml (0.00-0.034)
--- NOTE | 2020-01-09 19:57 | PC.NURSE ---
Addendum entered by Aliyah Fregoso RN 01/09/20 20:03: received in report that pt was intubated in er at approx 1450 Original Note: pt arrived to unit at approx 1840. intubated and sedated with propofol and fentanyl. heparin drip infusing as well. pt had ns fluids as well. lungs contain rhonchi throughout. zhang catheter present, ng tube present, when connected to liws thick green substance was noted to come out of ng. pt was able to move around in bed and cooperate when asked to turn. rectal temp was obtained 98.6 rectal. bedside report given to s call rn at 1910. drips verified with oncoming rn.
--- NOTE | 2020-01-09 20:10 | PC.NURSE ---
small bug bite areas to navya buttock noted. not opened slightly healed and scarred in appearance. pt skin is pale and has scattered scratches and scabs noted. pt has clubbed fingers and toes as well. hair is oily and dirty in appearance at time of admission.
--- NOTE | 2020-01-09 20:37 | HMH.HP ---
*Admission Date: 01/09/20 *Chief complaint: sob *History of present illness: [facility] - pt has hx of resp illness in 11/18 and was treated at -This is a 59-year-old female presented to the emergency department with difficulty breathing. On initial presentation, the patient is in severe respiratory distress. She is initially hypoxic into the low 80s. She has had a fever at home as well as a cough. Patient states that she was unable to catch her breath and she called EMS today. She denies any chest pain has had some associated palpitations. Denies any abdominal pain or vomiting. No headache, no change in vision, no focal weakness. Patient has a longstanding history of COPD.pt required intubation in the ed and was covid 19 neg -pt was admitted for treatment [facility] History I have reviewed the patient's past medical history: Yes Medical History: Reports:: Anxiety, Chronic Obstructive Pulmonary Disease (COPD), Gastroesophageal Reflux Disease(GERD), Hyperlipidemia Denies:: Diabetes Mellitus Type 1 *Have you ever received a pneumonia vaccine?: Yes *Have you received a flu vaccine this season?: Yes Other Surgeries: Yes: Other Amputation: No Fractures: No - *Social History Smoking Status: Current every day smoker Tobacco Type: cigarettes # Packs/Day (cigarettes): 1 Alcohol Intake: never Alcohol Intake Frequency:: other Substance Use Type: denies use *Occupational Status:: disabled Housing: assisted living facility Household Members: other *Travel in the last 8 weeks: None - Psychiatric History Pschychiatric History:: Reports:: Anxiety, Schizophrenia Family Hx:: No significant family history SEED TECHNICIAN history: No SEED TECHNICIAN history Review of Systems - Review of Systems Review of systems:: unable to obtain - *Neurologic Denies headache(s) Meds Home Medications Medication Instructions Recorded Confirmed Type atorvastatin 40 mg tablet 40 mg PO DAILY 08/02/17 01/09/20 History clonazepam 0.5 mg tablet 0.5 mg PO BID 08/02/17 01/09/20 History ferrous sulfate 325 mg (65 mg 325 mg PO DAILY tab 08/02/17 01/09/20 History iron) tablet haloperidol 10 mg tablet 10 mg PO DAILY 08/02/17 01/09/20 History oxybutynin chloride 10 mg 10 mg PO DAILY 08/02/17 01/09/20 History tablet,extended release 24 hr venlafaxine 150 mg 150 mg PO BID 08/02/17 01/09/20 History capsule,extended release 24 hr venlafaxine 75 mg tablet 75 mg PO BID 08/02/17 01/09/20 History Pantoprazole Sodium [Protonix 40mg 40 mg PO DAILY 05/31/19 01/09/20 History tablet] Cholecalciferol (Vitamin D3) 1,000 unit PO DAILY 01/09/20 01/09/20 History [Vitamin D3 1,000 Unit Cap] Estrogens, Conjugated [Premarin 0.625 mg PO DAILY 01/09/20 01/09/20 History 0.625mg tablet] Triamterene/Hydrochlorothiazid 1 each PO DAILY 01/09/20 01/09/20 History [Triamterene-Hctz 37.5-25 mg Tb] Ziprasidone HCl 60 mg PO BID 01/09/20 01/09/20 History levETIRAcetam [Levetiracetam] 500 mg PO BID 01/09/20 01/09/20 History Allergies Allergy/AdvReac Type Severity Reaction Status Date / Time No Known Allergies Allergy Verified 09/14/18 21:14 Exam Vital signs and Labs for Last 24 Hours: Temp Pulse Resp BP Pulse Ox 98.4 F 108 H 18 107/79 L 95 01/09/20 19:00 01/09/20 19:05 01/09/20 19:05 01/09/20 19:05 01/09/20 19:05 Laboratory Results - last 24 hr 01/09/20 14:26: Urine Color Yellow, Urine Appearance Cloudy, Urine pH 6.5, Ur Specific [place] >= 1.030, Urine Protein 2+, Urine Glucose (UA) Negative, Urine Ketones Trace, Urine Blood Negative, Urine Nitrate Positive, Urine Bilirubin Negative, Urine Urobilinogen 1.0, Ur Leukocyte Esterase 1+ A, Urine WBC 10-20, Ur Squamous Epith Cells 3-5, Urine Bacteria 1+ 01/09/20 14:26: WBC 15.6 H, RBC 3.22 L, Hgb 10.7 L, Hct 32.9 L, MCV 102.0 H, MCH 33.3 H, MCHC 32.6, RDW 15.7, Plt Count 323, MPV 8.3, Neut % (Auto) 86.2 H, Lymph % (Auto) 9.4 L, [place] % (Auto) 3.9, Eos % (Auto) 0.3, Baso % (Auto) 0.2, N
--- NOTE | 2020-01-09 20:52 | PC.NURSE ---
She responds to verbal stimuli and opens her eyes spontaneously. She follows commands and is able to move all extremities. Gag reflex present. She denies pain. Continues in droplet precautions. Ventilator settings SIMV, TV 400, R 16, PEEP 5, PS 7, FiO2 70%. HOB elevated. Oral care and turn and reposition q 2 hours and PRN. NG present in right nare @ 74 with LIWS with yellow drainage present. Voiding per #16 Fr f/c. Urine is yellow, clear. Coarse lung sounds present. Hypoactive bowel sounds. She continues on propofol, fentanyl, heparin, and LR.
[2020-01-09 21:59] LABS: Troponin I 0.06 ng/ml (0.00-0.034)
--- NOTE | 2020-01-09 22:10 | PC.NURSE ---
Urine has changed to yellow and cloudy.
[2020-01-09 22:25] LABS: Activated Partial Thrombo Time 117.8 seconds (23.6-34.0)
--- NOTE | 2020-01-09 23:06 | PC.NURSE ---
Addendum entered by Nancy Paul RN 01/10/20 00:31: Correction: Rate was changed to 14. Original Note: Vent settings changed at this time to SIMV, TV 400, PS 0, PEEP 5, RATE 16, FiO2 60%.
[2020-01-09 23:41] LABS: POC Glucose,Bedside 121 (70-110)
[2020-01-10] VITALS (56 sets, daily range): BP systolic 101–158; BP diastolic 50–99; PULSE 80–130; RESP 14–28; TEMP 36.4–37.7; O2SAT 87–100; BMI 26.6
--- NOTE | 2020-01-10 01:12 | PC.NURSE ---
FiO2 decreased to 55% at this time.
--- NOTE | 2020-01-10 03:27 | PC.NURSE ---
FiO2 decreased to 55%.
--- NOTE | 2020-01-10 05:00 | XR_ITS ---
PROCEDURE: XR CHEST PORTABLE CLINICAL HISTORY: Intubated Respiratory failure COMPARISON: XR CHEST PORTABLE from 11/09/2019 XR CHEST PORTABLE from 11/09/2019 XR CHEST PORTABLE from 01/09/2020 CT ANGIO CHEST from 01/09/2020 FINDINGS: Endotracheal tube is present. The tip is approximately 1.5 cm above the carleen and could be withdrawn 2 cm. Nasogastric tube tip is not visible on the film but is distal to the body of the stomach. There is diffuse bilateral consolidation composed of both interstitial and alveolar component greater on the right compared to the left not significantly changed. There is mild cardiomegaly. IMPRESSION: Overall no significant change in the cardiopulmonary findings as described above Endotracheal tube tip 1.5 cm above the carleen Dictated by: Ildefonso Durand MD 01/10/2020 07:15 Electronically signed by Ildefonso Durand MD in [place] 01/10/2020 07:15
[2020-01-10 06:11] LABS: POC Glucose,Bedside 76 (70-110)
[2020-01-10 06:13] LABS: Chloride 109 mmol/L (98-107)
[2020-01-10 06:14] LABS: Potassium 3.6 mmoL/L (3.5-5.1); Sodium 136 mmol/L (136-145)
[2020-01-10 06:17] LABS: Anion Gap 8.6 mEq/L (5-15); Blood Urea Nitrogen 17 mg/dl (7-17); Carbon Dioxide 22 mmol/L (22.0-30.0); Creatinine Clearance Estimated 77 mL/min (50-200); Estimated Glomerular Filt Rate 65 ml/min (>60); GFR (African American) 78 ML/MIN (>60); Glucose 67 mg/dl (74-100)
[2020-01-10 06:28] LABS: ABG Base Excess -5.5 mmol/L (-2.4-2.3); ABG HCO3 19.5 mmhg (22.0-26.0); ABG Oxygen Saturation 93 % (90-100); ABG PCO2 32.9 mmhg (35.0-45.0); ABG PH 7.39 mmol/L (7.35-7.45); ABG PO2 73.1 mmhg (80-100); ABG TCO2 20.5 mmhg (23-27)
[2020-01-10 06:30] LABS: Oxygen 50% %; Tidal Volume 400; Vent Rate 16
[2020-01-10 06:31] LABS: Allen's Test Non Applicable; PEEP 5; Source Left Radial
[2020-01-10 06:48] LABS: Activated Partial Thrombo Time 82.8 seconds (23.6-34.0)
[2020-01-10 06:49] LABS: Basophils % 0.3 % (0.1-2.0); Eosinophils # 0.2 K/mm3 (0.0-0.4); Hematocrit 24.4 % (37.0-47.0); Lymphocytes % 22.9 % (10-50); Mean Corpuscular HGB Conc 32.7 g/dL (31.8-35.4); Mean Corpuscular Hemoglobin 32.7 pg (27.0-31.2); Mean Corpuscular Volume 100.1 fl (81-99); Mean Platelet Volume 9.6 fl (7.4-10.4); Monocytes # 0.5 K/mm3 (0.1-1.0); Monocytes % 5.6 % (1.7-9.3); Neutrophils # 6.1 K/mm3 (1.8-7.8); Neutrophils % 69.2 % (37.0-80.0); Platelet Count 196 K/mm3 (142-424); Red Blood Count 2.43 M/mm3 (4.20-5.40); White Blood Count 8.9 K/mm3 (4.8-10.8)
--- NOTE | 2020-01-10 08:42 | HMH.ACPN2 ---
Internal Medicine - PN: Subj *Date: 01/10/20 *Time: 21:08 Interval history: alert - discussed with dr steinberg with resp management - urine culture with gram neg and low hgb- will transfuse Exam Vital signs and Labs for Last 24 Hours: Temp Pulse Resp BP Pulse Ox 97.9 F 84 21 122/79 100 01/10/20 07:58 01/10/20 07:58 01/10/20 07:58 01/10/20 07:58 01/10/20 07:58 Laboratory Results - last 24 hr 01/09/20 14:26: Urine Color Yellow, Urine Appearance Cloudy, Urine pH 6.5, Ur Specific [place] >= 1.030, Urine Protein 2+, Urine Glucose (UA) Negative, Urine Ketones Trace, Urine Blood Negative, Urine Nitrate Positive, Urine Bilirubin Negative, Urine Urobilinogen 1.0, Ur Leukocyte Esterase 1+ A, Urine WBC 10-20, Ur Squamous Epith Cells 3-5, Urine Bacteria 1+ 01/09/20 14:26: WBC 15.6 H, RBC 3.22 L, Hgb 10.7 L, Hct 32.9 L, MCV 102.0 H, MCH 33.3 H, MCHC 32.6, RDW 15.7, Plt Count 323, MPV 8.3, Neut % (Auto) 86.2 H, Lymph % (Auto) 9.4 L, [place] % (Auto) 3.9, Eos % (Auto) 0.3, Baso % (Auto) 0.2, Neut # (Auto) 13.4 H, Lymph # (Auto) 1.5, [place] # (Auto) 0.6, Eos # (Auto) 0.0, Baso # (Auto) 0.0, Total Counted 100, Neutrophils % (Manual) 81 H, Lymphocytes % (Manual) 17, Monocytes % (Manual) 2, Nucleated RBCs 3, Platelet Estimate Normal, RBC Morphology Not Reportable, Anisocytosis 1+, Macrocytosis 1+ 01/09/20 14:26: Sodium 137, Potassium 3.9, Chloride 106, Carbon Dioxide 23, Anion Gap 11.9, BUN 20 H, Creatinine 1.40 H, Estimated GFR 39 L, Est GFR ( Amer) 47 L, Glucose 173 H, Calcium 8.9, Total Bilirubin 0.8, AST 29, ALT 36, Alkaline Phosphatase 81, Troponin I 0.07 H, Total Protein 6.0 L, Albumin 3.1 L, Globulin 2.9, Albumin/Globulin Ratio 1.1, Lipase 12 L 01/09/20 14:26: Lactate 3.9 H 01/09/20 14:26: PT 11.3, INR 1.11 H, APTT 20.5 L, D-Dimer 664 H* 01/09/20 14:26: NT-Pro-B Natriuret Pep 72601 H 01/09/20 14:39: Specimen Source R brachial, O2 % 100%, ABG pH 7.46 H, ABG pCO2 28.7 L, ABG pO2 171.9 H, ABG HCO3 20.0 L, ABG Total CO2 20.9 L, ABG O2 Saturation 99, ABG Base Excess -3.8 L 01/09/20 15:15: Chlamy pneumoniae PCR Not detected, Adenovirus (PCR) Not detected, B. pertussis DNA (PCR) Not detected, Coronavirus OC43 (PCR) Not detected, Coronavirus HKU1 (PCR) Not detected, Coronavirus 229E (PCR) Not detected, COVID-19 PCR Not detected, Coronavirus NL63 (PCR) Not detected, Human Metapneumovir PCR Not detected, Influenza A (H1) PCR Not detected, Influ A (H1N1/09) PCR Not detected, Influenza A (H3) PCR Not detected, Influenza Type A (PCR) Detected A, Influenza Type B (PCR) Not detected, M. pneumoniae (PCR) Not detected, Parainfluenza 1 (PCR) Not detected, Parainfluenza 2 (PCR) Not detected, Parainfluenza 3 (PCR) Not detected, Parainfluenza 4 (PCR) Not detected, RSV (PCR) Not detected, Entero/Rhino (PCR) Not detected 01/09/20 15:45: Specimen Source R brachial, O2 % 100%, ABG pH 7.25 L, ABG pCO2 52.2 H, ABG pO2 257.0 H, ABG HCO3 22.4, ABG Total CO2 24.0, ABG O2 Saturation 99, ABG Base Excess -4.9 L, Vent Rate 16, Tidal Volume 400, PEEP 5 01/09/20 18:13: Troponin I 0.08 H 01/09/20 18:13: Lactate 0.9 01/09/20 21:30: Troponin I 0.06 H 01/09/20 21:30: APTT 117.8 H* D 01/09/20 23:25: POC Glucose 121 H 01/10/20 05:05: WBC 8.9 D, RBC 2.43 L, Hgb 8.0 L D, Hct 24.4 L, MCV 100.1 H, MCH 32.7 H, MCHC 32.7, RDW 16.0, Plt Count 196 D, MPV 9.6, Neut % (Auto) 69.2, Lymph % (Auto) 22.9, [place] % (Auto) 5.6, Eos % (Auto) 2.0, Baso % (Auto) 0.3, Neut # (Auto) 6.1, Lymph # (Auto) 2.0, [place] # (Auto) 0.5, Eos # (Auto) 0.2, Baso # (Auto) 0.0 01/10/20 05:05: Sodium 136, Potassium 3.6, Chloride 109 H, Carbon Dioxide 22, Anion Gap 8.6, BUN 17, Creatinine 0.90 D, Estimated Creat Clear 77, Estimated GFR 65, Est GFR ( Amer) 78 D, Glucose 67 L D 01/10/20 05:05: APTT 82.8 H* D 01/10/20 05:05: POC Glucose 76 01/10/20 06:25: Specimen Source Left radial, O2 % 50%, ABG pH 7.39, ABG pCO2 32.9 L, ABG pO2 73.1 L, ABG HCO3 19.5 L, ABG Total CO2 20.5 L, ABG O2 Saturation 93, ABG Base Excess -5.5 L, Ildefonso Test
--- NOTE | 2020-01-10 08:48 | PC.NURSE ---
Dr. Read phoned about pt's current vent settings. States to decrease FIO2 to 40%. RT notified at this time.
--- NOTE | 2020-01-10 09:10 | PC.NURSE ---
0900- FIO2 decreased to 40% at this time and suctioned by RT. Pt tolerated well. SPO2 now at 98%. Propofol decreased to 15 mcg/kg/min
--- NOTE | 2020-01-10 09:28 | PC.NURSE ---
0928 - Propofol off at this time per Dr. Read. Pt tolerating well, VSS, no agitation at this time.
[2020-01-10 09:49] LABS: POC Glucose,Bedside 83 (70-110)
--- NOTE | 2020-01-10 10:07 | DIET.NUTRFU ---
Nutritional assessment completed. Upon MD's order, recommend initiating continuous tube feeding regimen of Jevity 1.2 at 20ml/hr and advance by 10ml/hr q 8 hours as tolerated until goal rate of 67 ml/hr is reached. Additional fluid needs are met through IV and 30ml water flushes woth TF/meds. If IV is discontinued, add water flushes of 150 ml q 6 hours. This regimen will provide 1780 kcal, 82 g protein, 251 g carbohydrates, 58 g fat, and 1197 ml free water.
[2020-01-10 10:20] LABS: Calcium 7.5 mg/dl (8.4-10.2)
--- NOTE | 2020-01-10 10:30 | PC.NURSE ---
1030 - Breathing trial initiated by RT Daisy at this time. Pt tolerating well. VSS Will continue to monitor.
--- NOTE | 2020-01-10 10:47 | HMH.PHAHEP ---
[facility] Pharmacy Heparin Dosing - Demographic Data Admission date:: 01/09/20 Date: 01/10/20 Time: 10:47 Allergies/Adverse Reactions: Allergies Allergy/AdvReac Type Severity Reaction Status Date / Time No Known Allergies Allergy Verified 09/14/18 21:14 Height: 1.63 m Weight: 70.9 kg - Indication Medication therapy:: Heparin Current Indications:: PE Patient Problems: Current Active Problems UTI (urinary tract infection) (Acute) COPD (chronic obstructive pulmonary disease) (Acute) Respiratory failure (Acute) Community acquired pneumonia (Acute) Acute exacerbation of chronic obstructive airways disease (Acute) Pulmonary embolism (Acute) Sepsis (Acute) Influenza A (Acute) Severe sepsis with acute organ dysfunction (Acute) Anemia (Acute) Elevated troponin level not due myocardial infarction (Acute) CVA?: No Bleeding problem?: No Kidney disease?: No [place]?: No Desired PTT range:: 60-80 seconds - Labs Anticoagulation Lab Results:: 01/09/20 01/10/20 14:26 05:05 Hgb 10.7 L 8.0 L D Hct 32.9 L 24.4 L Plt Count 323 196 D - Monitoring Dose Monitor 1 Date: 01/09/20 Time: 16:30 PTT Result:: 20.5 (BASELINE) Infusion Rate:: 24 ML/HR Comment:: 5000 UNIT BOLUS Dose Monitor 2 Date: 01/09/20 Time: 22:00 PTT Result:: 117.8 Infusion Rate:: RATE DECREASED TO 21 ML/HR Dose Monitor 3 Date: 01/10/20 Time: 05:00 PTT Result:: 82.8 Infusion Rate:: 21 ML/HR Dose Monitor 4 Date: 01/10/20 Time: 12:00 Dose Monitor 5 Date: 01/10/20 Time: 18:00 PTT Result:: 47.5 Infusion Rate:: INCREASE RATE TO 24 ML/HR Dose Monitor 6 Date: 01/11/20 Time: 00:25 PTT Result:: 82.8 Infusion Rate:: DECREASE RATE TO 23 ML/HR Dose Monitor 7 Date: 01/11/20 Time: 07:20 PTT Result:: 74.3 Infusion Rate:: CONTINUE CURRENT RATE Comment:: DRIP STOPPED 01/10 @ 0830 AND PATIENT STARTED ON ELIQUIS - Core Measures Is INR > or = 2 at discharge?: No Most Recent Labs:: Laboratory Results - last 24 hr 01/09/20 14:26: Urine Color Yellow, Urine Appearance Cloudy, Urine pH 6.5, Ur Specific [place] >= 1.030, Urine Protein 2+, Urine Glucose (UA) Negative, Urine Ketones Trace, Urine Blood Negative, Urine Nitrate Positive, Urine Bilirubin Negative, Urine Urobilinogen 1.0, Ur Leukocyte Esterase 1+ A, Urine WBC 10-20, Ur Squamous Epith Cells 3-5, Urine Bacteria 1+ 01/09/20 14:26: WBC 15.6 H, RBC 3.22 L, Hgb 10.7 L, Hct 32.9 L, MCV 102.0 H, MCH 33.3 H, MCHC 32.6, RDW 15.7, Plt Count 323, MPV 8.3, Neut % (Auto) 86.2 H, Lymph % (Auto) 9.4 L, [place] % (Auto) 3.9, Eos % (Auto) 0.3, Baso % (Auto) 0.2, Neut # (Auto) 13.4 H, Lymph # (Auto) 1.5, [place] # (Auto) 0.6, Eos # (Auto) 0.0, Baso # (Auto) 0.0, Total Counted 100, Neutrophils % (Manual) 81 H, Lymphocytes % (Manual) 17, Monocytes % (Manual) 2, Nucleated RBCs 3, Platelet Estimate Normal, RBC Morphology Not Reportable, Anisocytosis 1+, Macrocytosis 1+ 01/09/20 14:26: Sodium 137, Potassium 3.9, Chloride 106, Carbon Dioxide 23, Anion Gap 11.9, BUN 20 H, Creatinine 1.40 H, Estimated GFR 39 L, Est GFR ( Amer) 47 L, Glucose 173 H, Calcium 8.9, Total Bilirubin 0.8, AST 29, ALT 36, Alkaline Phosphatase 81, Troponin I 0.07 H, Total Protein 6.0 L, Albumin 3.1 L, Globulin 2.9, Albumin/Globulin Ratio 1.1, Lipase 12 L 01/09/20 14:26: Lactate 3.9 H 01/09/20 14:26: PT 11.3, INR 1.11 H, APTT 20.5 L, D-Dimer 664 H* 01/09/20 14:26: NT-Pro-B Natriuret Pep 95300 H 01/09/20 14:39: Specimen Source R brachial, O2 % 100%, ABG pH 7.46 H, ABG pCO2 28.7 L, ABG pO2 171.9 H, ABG HCO3 20.0 L, ABG Total CO2 20.9 L, ABG O2 Saturation 99, ABG Base Excess -3.8 L 01/09/20 15:15: Chlamy pneumoniae PCR Not detected, Adenovirus (PCR) Not detected, B. pertussis DNA (PCR) Not detected, Coronavirus OC43 (PCR) Not detected, Coronavirus HKU1 (PCR) Not detected, Coronavirus 229E (PCR) Not detected, COVID-19 PCR Not detected, Coronavirus NL63 (PCR) Not detected, Human Metapneumovir
--- NOTE | 2020-01-10 11:51 | P.PN_ITS ---
Critical Care Event Note Code activated: No Narrative: This case had a high probability of a clinically significant, sudden, or life threatening deterioration of this patient's condition which required my full and direct attention, intervention and personal management. 59-year-old female admitted for acute on chronic respiratory failure with hypercarbia. Has had recent similar episodes needing intubation. Reviewed previous imaging shows usual interstitial pneumonia on CT performed last month. We are consulted by Dr. Wright for ventilator management. Patient's current settings of volume control, rate of 16, volume of 400, PEEP of 5, have done well overnight with improvement in her blood gas and decrease in her hypercarbia. Respiratory acidosis is resolved. On exam this morning she has diffuse crackles bilaterally consistent with her image findings. Is on antibiotics and antiviral medication for flu. She is alert and oriented, following directions well. Oxygen support has decreased to 40% overnight with saturations in the mid 90s. Discussed transitioning to pressure support for spontaneous breathing trial this morning with respiratory therapist. Patient tolerated pressure support for over an hour with an RSBI less than 50. Given her minimal pressure needs, normalization of blood gas, FiO2 requirement of 40 or less, decision was made to extubate. Patient able to follow commands, cough, stick tongue out. On no sedation. Extubated to Ventimask initially with poor oxygenation. Transitioned to BiPAP. We will continue to monitor through the day. Additionally initiated steroids and breathing treatments with mt pack for her UIP and COPD/extensive smoking history. Recommend continuing steroids with taper over 4 to 6 weeks. Would benefit from referral to pulmonology. Anticipate she will likely need continuous oxygen at time of discharge. Heart rate tachycardic, regular, no murmurs. Lungs with diffuse coarse crackles but no rhonchi. Abdomen soft, nondistended. Alert and oriented to person and place. Cooperative on exam. Capillary refill of 2 to 3 seconds peripherally. Pulses palpable on peripheral extremities. 1+ edema in bilateral lower extremities. Will defer management for chronic conditions to the admitting provider. Please get the opportunity to assist in patient care. Critical care time: 30 - 74 mins [facility] Critical Care Exam Vital signs: Temp Pulse Resp BP Pulse Ox 97.9 F 106 H 25 H 108/60 L 96 01/10/20 07:58 01/10/20 11:00 01/10/20 11:00 01/10/20 11:00 01/10/20 11:00
--- NOTE | 2020-01-10 12:07 | PC.NURSE ---
1140 - Pt extubated @ this time. RT at bedside. Pt suctioned, tolerated well. Pt placed on 50% venturi mask, SPO2 only in mid 80's. Dr. Read aware of this and states to place pt on Bipap. 1156 - BIPAP initiated at this time @ 100% by RT.
--- NOTE | 2020-01-10 12:08 | P.CONPHA_ITS ---
[facility] Pharmacy VTE Monitoring - Patient Demographics Admission date: 01/09/20 Report Date: 01/10/20 Time: 12:08 Allergies/Adverse Reactions: Patient Allergies No Known Allergies Allergy (Verified 09/14/18 21:14) Height: 1.63 m Weight: 70.9 kg Patient Problems: Current Active Problems UTI (urinary tract infection) (Acute) COPD (chronic obstructive pulmonary disease) (Acute) Respiratory failure (Acute) Community acquired pneumonia (Acute) Acute exacerbation of chronic obstructive airways disease (Acute) Pulmonary embolism (Acute) Sepsis (Acute) Influenza A (Acute) Severe sepsis with acute organ dysfunction (Acute) Anemia (Acute) Elevated troponin level not due myocardial infarction (Acute) - VTE Risk Labs: VTE Related Lab Results Hgb 8.0 g/dL (12.2-16.2) L D 01/10/20 05:05 Hct 24.4 % (37.0-47.0) L 01/10/20 05:05 Plt Count 196 K/mm3 (142-424) D 01/10/20 05:05 PT 11.3 seconds (9.4-11.8) 01/09/20 14:26 INR 1.11 (0.9-1.1) H 01/09/20 14:26 APTT 82.8 seconds (23.6-34.0) H* D 01/10/20 05:05 BUN 17 mg/dl (7-17) 01/10/20 05:05 Creatinine 0.90 mg/dl (0.52-1.04) D 01/10/20 05:05 Estimated Creat Clear 77 mL/min (50-200) 01/10/20 05:05 Was VTE Risk Assessment Performed: Yes VTE Score: 9 VTE Risk Level: Moderate Risk - Prophylaxis VTE Prophylaxis Ordered?: Yes Types of VTE Prophylaxis: TEDS Knee High, Pharmacological Location of Applied Device: Bilateral Lower Extremeties Pharmacologic Type: Heparin - VTE Diagnosis Confirmed Treatment or plan recommended: Continue Current Treatment
[2020-01-10 13:02] LABS: Activated Partial Thrombo Time 62.6 seconds (23.6-34.0)
--- NOTE | 2020-01-10 13:35 | PC.NURSE ---
1322 - Heparin increased to 22 mls/hr per Ildefonso Montalvo PharmD
[2020-01-10 14:28] LABS: ABG Base Excess -7.1 mmol/L (-2.4-2.3); ABG HCO3 18.2 mmhg (22.0-26.0); ABG Oxygen Saturation 99 % (90-100); ABG PCO2 31.9 mmhg (35.0-45.0); ABG PH 7.37 mmol/L (7.35-7.45); ABG PO2 192.4 mmhg (80-100); ABG TCO2 19.1 mmhg (23-27)
[2020-01-10 14:30] LABS: Allen's Test Acceptable; Oxygen 100% %; PEEP 6; Pressure Support 14; Vent Rate 14
[2020-01-10 14:31] LABS: Source Left Radial
--- NOTE | 2020-01-10 14:50 | HMH.PHAINT ---
MEDICATION RECONCILIATION COMPLETED ON PATIENT USING MAR FROM LONGTERM. -AME [place], NATALID
--- NOTE | 2020-01-10 14:56 | XR_ITS ---
PROCEDURE: XR CHEST PORTABLE CLINICAL HISTORY: Increase work of breathing Respiratory failure COMPARISON: XR CHEST PORTABLE from 11/09/2019 CT ANGIO CHEST from 01/09/2020 XR CHEST PORTABLE from 01/09/2020 XR CHEST PORTABLE from 01/10/2020 FINDINGS: Endotracheal tube is been removed. Nasogastric tube is present with the tip not visible on the film mid at least at or distal to the gastric antrum. Mild cardiomegaly without failure There remains diffuse bilateral alveolar opacification consistent with diffuse bilateral pneumonia which is greater on the right compared to the left with some increased opacification in the right mid to lower lung zone compared to the previous exam. IMPRESSION: 1. Endotracheal tube removed. 2. Diffuse bilateral alveolar disease consistent with diffuse pneumonia slightly worse on the right Dictated by: Ildefonso Durand MD 01/10/2020 15:23 Electronically signed by Ildefonso Durand MD in [place] 01/10/2020 15:23
[2020-01-10 15:07] LABS: POC Glucose,Bedside 112 (70-110)
--- NOTE | 2020-01-10 15:10 | PC.NURSE ---
1500 -Bipap decreased to 60% by RT
--- NOTE | 2020-01-10 15:59 | PC.NURSE ---
Addendum entered by Kathi Meehan RN 01/10/20 16:53: Oral care performed Q2h, as well as suctioning as needed. Original Note: Pt resting comfortably at this time. HOB remains atleast 30 degrees for aspiration precautions. Remains on BIPAP @ 60%, tolerating well, SPO2 currently 97%. Pt is A&O x4. Pt does have noted tremor, that she states she has always had. NG remains in place to (R) nare to ittermitent low-wall suction, has had 250 cc of bile colored contents out thus far this shift. Has been NSR/sinus tach w/ pulse rate ranging 100-120 at times since pt has been extubated, is aware of this. Pt has been asymptomatic and denies chest pain. Abdomen soft w/ hypo BS. No BM this shift, but is passing flatus. Pt's coccyx area is C/D/I. Has been turned and repositioned q2h. Pt is able to participate in repositioning. Pt follows direction very well and has been cooperative w/ care this shift. Dorantes cath to drain at bedside w/ cloudy bright yellow urine, has had 268 cc out thus far. FC care performed per protocol by staff. Heel protectors in place, have been removed this shift and replaced for skin integrity. Meds given per AUG. Bed alarm in place. Call oneyda w/in reach. Will continue to monitor.
[2020-01-10 18:32] LABS: Activated Partial Thrombo Time 47.5 seconds (23.6-34.0)
--- NOTE | 2020-01-10 18:37 | PC.NURSE ---
Heparin gtt increased to 24 mls/hr per Humble Fregoso. Repeat PTT to be gotten in 6 hours.
--- NOTE | 2020-01-10 18:41 | PC.NURSE ---
1814 - BIPAP weaned to 50% FIO2 at this time by Liam Roberts,RT
[2020-01-10 20:29] LABS: POC Glucose,Bedside 165 (70-110)
[2020-01-10 21:02] LABS: Hematocrit 33.8 % (37.0-47.0)
[2020-01-10 21:07] LABS: Hemoglobin 11.5 g/dL (12.2-16.2)
[2020-01-11] VITALS (26 sets, daily range): BP systolic 121–154; BP diastolic 43–96; PULSE 70–110; RESP 14–30; TEMP 36.7–37.1; O2SAT 89–97; BMI 27.3
[2020-01-11 01:00] LABS: Activated Partial Thrombo Time 82.8 seconds (23.6-34.0)
--- NOTE | 2020-01-11 01:09 | PC.NURSE ---
0100 new order received from pharmacist, Ildefonso Montalvo, to decrease heparin drip to 23 mL/hr, per PTT results
[2020-01-11 03:20] LABS: POC Glucose,Bedside 155 (70-110)
--- NOTE | 2020-01-11 05:27 | PC.NURSE ---
shift summary, pt desats to 79% during coughing spells, respirations 35-40 per minute, becomes anxious, tachycardic, and slow to recover, pt remains neurologically intact except for tremor in RUE, which is baseline for pt, blood transfusion completed earlier in the shift with no reactions noted
[2020-01-11 08:00] LABS: Activated Partial Thrombo Time 74.3 seconds (23.6-34.0)
[2020-01-11 08:49] LABS: POC Glucose,Bedside 143 (70-110)
--- NOTE | 2020-01-11 09:23 | XR_ITS ---
PROCEDURE: XR CHEST PORTABLE CLINICAL HISTORY: sob COMPARISON: CT ANGIO CHEST from 01/09/2020 XR CHEST PORTABLE from 01/09/2020 XR CHEST PORTABLE from 01/10/2020 XR CHEST PORTABLE from 01/10/2020 FINDINGS: Cardiomegaly. No change diffuse bilateral alveolar disease. Nasogastric tube is present with tip in the region of the antrum of the stomach No acute bony abnormalities. IMPRESSION: No change diffuse bilateral airspace disease Dictated by: Ildefonso Durand MD 01/11/2020 12:53 Electronically signed by Ildefonso Durand MD in [place] 01/11/2020 12:53
--- NOTE | 2020-01-11 09:24 | HMH.ACPN2 ---
Internal Medicine - PN: Subj *Date: 01/12/20 *Time: 06:48 Interval history: doing better - positive uti and will start xarelto Exam Vital signs and Labs for Last 24 Hours: Temp Pulse Resp BP Pulse Ox 98.5 F 81 22 143/88 H 94 L 01/11/20 08:00 01/11/20 09:00 01/11/20 09:00 01/11/20 09:00 01/11/20 09:00 Laboratory Results - last 24 hr 01/10/20 05:05: Calcium 7.5 L D 01/10/20 08:50: Blood Type A Positive, Antibody Screen Negative, Crossmatch (AHG) See Detail 01/10/20 09:40: POC Glucose 83 01/10/20 09:50: Blood Type Confirm A Positive 01/10/20 12:30: APTT 62.6 H* D 01/10/20 14:26: Specimen Source Left radial, O2 % 100%, ABG pH 7.37, ABG pCO2 31.9 L, ABG pO2 192.4 H, ABG HCO3 18.2 L, ABG Total CO2 19.1 L, ABG O2 Saturation 99, ABG Base Excess -7.1 L, Ildefonso Test Acceptable, Vent Rate 14, PEEP 6 01/10/20 15:00: POC Glucose 112 H 01/10/20 18:10: APTT 47.5 H D 01/10/20 20:21: POC Glucose 165 H 01/10/20 20:50: Hgb 11.5 L D, Hct 33.8 L 01/11/20 00:25: APTT 82.8 H* D 01/11/20 03:12: POC Glucose 155 H 01/11/20 07:20: APTT 74.3 H* D 01/11/20 08:34: POC Glucose 143 H I & O for Last 24 hours: Intake & Output 01/08/20 01/09/20 01/10/20 01/11/20 11:59 11:59 11:59 11:59 Intake Total 8920 / 9729 3511 / 3511 Output Total 718 / 733 1311 / 1311 Balance 4172 / 4286 2200 / 2200 Weight 156 lb 4.924 oz 160 lb Microbiology Reports for the Last 24 Hours: Microbiology 01/09/20 14:26 Urine,Catheterized Urine Culture - Final Providencia stuartii - Constitutional no acute distress - *Routine HEENT Exam Head: Present: normocephalic Eye: Present: EOMI, PERRL ENT: Present: mucous membranes dry - *Routine Neck Exam Absent: JVD - *Routine Respiratory Exam Present: decreased breath sounds - *Routine Cardiovascular Exam Present: RRR - *Routine Abdominal Exam Present: soft - *Routine Extremities Exam Absent: calf tenderness - *Routine Skin Exam Present: intact - *Routine Neurological Exam Present: alert, CN II-XII intact - Routine Psychiatric Exam Present: normal affect Assessment and Plan (1) Acute exacerbation of chronic obstructive airways disease Current visit: Yes Status: Acute Category: Medical Code(s): J44.1 - Chronic obstructive pulmonary disease with (acute) exacerbation (2) Community acquired pneumonia Current visit: Yes Status: Acute Qualifiers: Laterality: unspecified laterality Qualified Code(s): J18.9 - Pneumonia, unspecified organism Category: Medical Code(s): J18.9 - Pneumonia, unspecified organism (3) Influenza A Current visit: Yes Status: Acute Category: Medical Code(s): J10.1 - Influenza due to other identified influenza virus with other respiratory manifestations (4) Pulmonary embolism Current visit: Yes Status: Acute Qualifiers: Pulmonary embolism type: single subsegmental (without acute cor pulmonale) Qualified Code(s): I26.93 - Single subsegmental pulmonary embolism without acute cor pulmonale Category: Medical Code(s): I26.99 - Other pulmonary embolism without acute cor pulmonale (5) Respiratory failure Current visit: Yes Status: Acute Qualifiers: Chronicity: acute Respiratory failure complication: unspecified whether with hypoxia or hypercapnia Qualified Code(s): J96.00 - Acute respiratory failure, unspecified whether with hypoxia or hypercapnia Category: Medical Code(s): J96.90 - Respiratory failure, unspecified, unspecified whether with hypoxia or hypercapnia (6) UTI (urinary tract infection) Current visit: Yes Status: Acute Qualifiers: Urinary tract infection type: site unspecified Hematuria presence: without hematuria Qualified Code(s): N39.0 - Urinary tract infection, site not specified Category: Medical Code(s): N39.0 - Urinary tract infection, site not specified (7) Severe sepsis with acute organ dysfunction Current visit: Yes
[2020-01-11 10:11] LABS: Chloride 107 mmol/L (98-107); Potassium 3.5 mmoL/L (3.5-5.1); Sodium 137 mmol/L (136-145)
[2020-01-11 10:14] LABS: Anion Gap 9.5 mEq/L (5-15); Blood Urea Nitrogen 16 mg/dl (7-17); Carbon Dioxide 24 mmol/L (22.0-30.0); Creatinine Clearance Estimated 89 mL/min (50-200); Estimated Glomerular Filt Rate 74 ml/min (>60); GFR (African American) 89 ML/MIN (>60); Glucose 136 mg/dl (74-100)
[2020-01-11 10:15] LABS: Calcium 8.9 mg/dl (8.4-10.2)
[2020-01-11 10:17] LABS: Eosinophils % 0.1 % (0.1-12.0); Hematocrit 33.4 % (37.0-47.0); Hemoglobin 11.4 g/dL (12.2-16.2); Lymphocytes # 0.8 K/mm3 (0.7-4.5); Lymphocytes % 7.4 % (10-50); Mean Corpuscular HGB Conc 34.1 g/dL (31.8-35.4); Mean Corpuscular Hemoglobin 31.4 pg (27.0-31.2); Mean Corpuscular Volume 92.1 fl (81-99); Mean Platelet Volume 9.2 fl (7.4-10.4); Monocytes # 0.4 K/mm3 (0.1-1.0); Monocytes % 3.6 % (1.7-9.3); Neutrophils % 88.8 % (37.0-80.0); Platelet Count 189 K/mm3 (142-424); Red Blood Count 3.63 M/mm3 (4.20-5.40); Red Cell Distribution Width 18.8 % (11.5-17.5); White Blood Count 10.2 K/mm3 (4.8-10.8)
[2020-01-11 10:19] LABS: MANUAL DIFFERENTIAL MANUAL DIFFERENTIAL (MANUAL DIFF)
[2020-01-11 10:47] LABS: Lymphocytes % 7 % (10-50); Monocytes % 5 % (2-9); Neutrophils % 88 % (42-76); Platelet Estimate Normal; RBC Morphology Normal; Total Cells Counted 100
[2020-01-11 15:22] LABS: POC Glucose,Bedside 129 (70-110)
--- NOTE | 2020-01-11 15:30 | PC.NURSE ---
Pt transferred from ICU to step-down per MD orders this shift. Pt is resting in bed at this time. Has been awake majority of shift, only resting for short periods of time. Remains on BIPAP, currently on 40% w/ SPO2 92%. Resp rate ranges 20-24. Denies being SOA. When pt has coughing episodes her sats do decrease to low 80's, and high 70's, pt is slow to recover during this time. Oral care has been performed by staff q2hp, along w/ suctioning as needed or at pt's request. Pt's heart rate while resting has typically been in the 80's but has increased as much as to 120 during coughing episodes. NG remains in place to (R) nare to intermittent low wall suction. No BM this shift. Pt is passing flatus. Dorantes cath to drain at bedside w/ clear yellow urine. Cath care provided by staff this shift. Bed bath and linen change provided this shift by staff, pt tolerated well. Has been turned q2hp by staff. Pt is able to assist staff w/ turning herself. Heel protectors in place. Bed alarm in place. Call call w/in reach. Will continue to monitor.
[2020-01-11 20:11] LABS: POC Glucose,Bedside 130 (70-110)
[2020-01-12] VITALS (18 sets, daily range): BP systolic 136–183; BP diastolic 66–101; PULSE 46–84; RESP 14–24; TEMP 36.4–36.7; O2SAT 89–99; BMI 27.5
[2020-01-12 02:48] LABS: POC Glucose,Bedside 125 (70-110)
[2020-01-12 06:15] LABS: ABG Base Excess -1.3 mmol/L (-2.4-2.3); ABG HCO3 23.1 mmhg (22.0-26.0); ABG Oxygen Saturation 95 % (90-100); ABG PCO2 36.1 mmhg (35.0-45.0); ABG PH 7.42 mmol/L (7.35-7.45); ABG PO2 83.1 mmhg (80-100); ABG TCO2 24.2 mmhg (23-27)
[2020-01-12 06:18] LABS: Oxygen 40 %
[2020-01-12 06:19] LABS: Allen's Test Patient Unable; Pressure Support 8; Source Right Brachial
--- NOTE | 2020-01-12 06:26 | PC.NURSE ---
shift summary, pt has rested well t/o the shift, maintained O2 sat of 88-92% on 40% FiO2, maintained O2 sat of 85-89% on 5L NC during oral care lasting about 10 minutes
--- NOTE | 2020-01-12 08:29 | HMH.ACPN ---
Internal Medicine - PN: Subj *Date: 01/12/20 *Time: 08:29 Exam Vital signs and Labs for Last 24 Hours: Temp Pulse Resp BP Pulse Ox 97.9 F 80 24 153/80 H 94 L 01/12/20 04:00 01/12/20 06:00 01/12/20 06:00 01/12/20 06:00 01/12/20 06:00 Laboratory Results - last 24 hr 01/11/20 08:34: POC Glucose 143 H 01/11/20 09:51: WBC 10.2, RBC 3.63 L D, Hgb 11.4 L, Hct 33.4 L, MCV 92.1, MCH 31.4 H, MCHC 34.1, RDW 18.8 H, Plt Count 189, MPV 9.2, Neut % (Auto) 88.8 H, Lymph % (Auto) 7.4 L, Porter % (Auto) 3.6, Eos % (Auto) 0.1, Baso % (Auto) 0.0 L, Neut # (Auto) 9.0 H, Lymph # (Auto) 0.8, Porter # (Auto) 0.4, Eos # (Auto) 0.0, Baso # (Auto) 0.0, Total Counted 100, Neutrophils % (Manual) 88 H, Lymphocytes % (Manual) 7 L, Monocytes % (Manual) 5, Platelet Estimate Normal, RBC Morphology Normal 01/11/20 09:51: Sodium 137, Potassium 3.5, Chloride 107, Carbon Dioxide 24, Anion Gap 9.5, BUN 16, Creatinine 0.80, Estimated Creat Clear 89, Estimated GFR 74, Est GFR ( Amer) 89, Glucose 136 H, Calcium 8.9 D 01/11/20 15:09: POC Glucose 129 H 01/11/20 20:04: POC Glucose 130 H 01/12/20 02:40: POC Glucose 125 H 01/12/20 06:00: Specimen Source Right brachial, O2 % 40, ABG pH 7.42, ABG pCO2 36.1, ABG pO2 83.1, ABG HCO3 23.1, ABG Total CO2 24.2, ABG O2 Saturation 95, ABG Base Excess -1.3, Ildefonso Test Patient unable I & O for Last 24 hours: Intake & Output 01/09/20 01/10/20 01/11/20 07/13/20 23:59 23:59 23:59 23:59 Intake Total 3443 / 3547 3202 / 3202 2939 / 2939 1118 / 1118 Output Total 155 / 165 1153 / 1178 1591 / 1591 125 / 125 Balance 3288 / 3382 2048 1348 / 1348 993 / 993 Weight 70.534 kg 70.9 kg 72.575 kg 73.085 kg Microbiology Reports for the Last 24 Hours: Microbiology 01/09/20 14:26 Blood Blood Culture - Preliminary NO GROWTH AFTER 48 HOURS 01/09/20 14:26 Blood Blood Culture - Preliminary NO GROWTH AFTER 48 HOURS 01/09/20 14:26 Urine,Catheterized Urine Culture - Final Providencia stuartii Assessment and Plan (1) Acute exacerbation of chronic obstructive airways disease Current visit: Yes Status: Acute Category: Medical Code(s): J44.1 - Chronic obstructive pulmonary disease with (acute) exacerbation (2) Community acquired pneumonia Current visit: Yes Status: Acute Qualifiers: Laterality: unspecified laterality Qualified Code(s): J18.9 - Pneumonia, unspecified organism Category: Medical Code(s): J18.9 - Pneumonia, unspecified organism (3) Influenza A Current visit: Yes Status: Acute Category: Medical Code(s): J10.1 - Influenza due to other identified influenza virus with other respiratory manifestations (4) Pulmonary embolism Current visit: Yes Status: Acute Qualifiers: Pulmonary embolism type: single subsegmental (without acute cor pulmonale) Qualified Code(s): I26.93 - Single subsegmental pulmonary embolism without acute cor pulmonale Category: Medical Code(s): I26.99 - Other pulmonary embolism without acute cor pulmonale (5) Respiratory failure Current visit: Yes Status: Acute Qualifiers: Chronicity: acute Respiratory failure complication: unspecified whether with hypoxia or hypercapnia Qualified Code(s): J96.00 - Acute respiratory failure, unspecified whether with hypoxia or hypercapnia Category: Medical Code(s): J96.90 - Respiratory failure, unspecified, unspecified whether with hypoxia or hypercapnia (6) UTI (urinary tract infection) Current visit: Yes Status: Acute Qualifiers: Urinary tract infection type: site unspecified Hematuria presence: without hematuria Qualified Code(s): N39.0 - Urinary tract infection, site not specified Category: Medical Code(s): N39.0 - Urinary tract infection, site not specified (7) Severe sepsis with acute organ dysfunction Current visit: Yes Status: Acute Category: Medical Code(s): A41.9
--- NOTE | 2020-01-12 08:57 | HMH.ACPN2 ---
Internal Medicine - PN: Subj *Date: 01/12/20 *Time: 08:15 Interval history: Patient sitting up in the bed nods head when asked questions. Exam Vital signs and Labs for Last 24 Hours: Temp Pulse Resp BP Pulse Ox 97.6 F 56 L 20 165/69 H 95 01/12/20 08:00 01/12/20 08:00 01/12/20 08:00 01/12/20 08:00 01/12/20 08:00 Laboratory Results - last 24 hr 01/11/20 09:51: WBC 10.2, RBC 3.63 L D, Hgb 11.4 L, Hct 33.4 L, MCV 92.1, MCH 31.4 H, MCHC 34.1, RDW 18.8 H, Plt Count 189, MPV 9.2, Neut % (Auto) 88.8 H, Lymph % (Auto) 7.4 L, [place] % (Auto) 3.6, Eos % (Auto) 0.1, Baso % (Auto) 0.0 L, Neut # (Auto) 9.0 H, Lymph # (Auto) 0.8, [place] # (Auto) 0.4, Eos # (Auto) 0.0, Baso # (Auto) 0.0, Total Counted 100, Neutrophils % (Manual) 88 H, Lymphocytes % (Manual) 7 L, Monocytes % (Manual) 5, Platelet Estimate Normal, RBC Morphology Normal 01/11/20 09:51: Sodium 137, Potassium 3.5, Chloride 107, Carbon Dioxide 24, Anion Gap 9.5, BUN 16, Creatinine 0.80, Estimated Creat Clear 89, Estimated GFR 74, Est GFR ( Amer) 89, Glucose 136 H, Calcium 8.9 D 01/11/20 15:09: POC Glucose 129 H 01/11/20 20:04: POC Glucose 130 H 01/12/20 02:40: POC Glucose 125 H 01/12/20 06:00: Specimen Source Right brachial, O2 % 40, ABG pH 7.42, ABG pCO2 36.1, ABG pO2 83.1, ABG HCO3 23.1, ABG Total CO2 24.2, ABG O2 Saturation 95, ABG Base Excess -1.3, Ildefonso Test Patient unable I & O for Last 24 hours: Intake & Output 07/04/2001/10/20 01/11/20 01/12/20 11:59 11:59 11:59 11:59 Intake Total 4890 / 5019 3665 / 3665 2147 / 2147 Output Total 718 / 733 1386 / 1386 920 / 920 Balance 4172 / 4286 2279 / 2279 1227 / 1227 Weight 156 lb 4.924 oz 160 lb 161 lb 2 oz Microbiology Reports for the Last 24 Hours: Microbiology 01/09/20 14:26 Blood Blood Culture - Preliminary NO GROWTH AFTER 48 HOURS 01/09/20 14:26 Blood Blood Culture - Preliminary NO GROWTH AFTER 48 HOURS 01/09/20 14:26 Urine,Catheterized Urine Culture - Final Providencia stuartii - Constitutional mild distress, obese - *Routine HEENT Exam Head: Present: normocephalic Eye: Present: PERRL ENT: Present: mucous membranes moist Comments: NG tube to right nare - *Routine Neck Exam Present: supple. Absent: lymphadenopathy - *Routine Respiratory Exam Present: wheezes, diminished air movement Comments: On BiPAP - *Routine Cardiovascular Exam Present: RRR - *Routine Abdominal Exam Present: soft, normoactive bowel sounds. Absent: tenderness - *Routine Extremities Exam Absent: cyanosis, clubbing, edema - *Routine Skin Exam Present: warm, ecchymosis. Absent: rash - *Routine Neurological Exam Present: alert, oriented X3 - Routine Psychiatric Exam Present: normal affect Assessment and Plan (1) Acute exacerbation of chronic obstructive airways disease Current visit: Yes Status: Acute Category: Medical Code(s): J44.1 - Chronic obstructive pulmonary disease with (acute) exacerbation (2) Community acquired pneumonia Current visit: Yes Status: Acute Qualifiers: Laterality: unspecified laterality Qualified Code(s): J18.9 - Pneumonia, unspecified organism Category: Medical Code(s): J18.9 - Pneumonia, unspecified organism (3) Influenza A Current visit: Yes Status: Acute Category: Medical Code(s): J10.1 - Influenza due to other identified influenza virus with other respiratory manifestations (4) Pulmonary embolism Current visit: Yes Status: Acute Qualifiers: Pulmonary embolism type: single subsegmental (without acute cor pulmonale) Qualified Code(s): I26.93 - Single subsegmental pulmonary embolism without acute cor pulmonale Category: Medical Code(s): I26.99 - Other pulmonary embolism without acute cor pulmonale (5) Respiratory failure Current visit: Yes Status: Acute Qualifiers: Chronicity: acute Respiratory failur
[2020-01-12 09:45] LABS: POC Glucose,Bedside 127 (70-110)
--- NOTE | 2020-01-12 10:07 | PC.NURSE ---
ng tube has been dc'd
--- NOTE | 2020-01-12 10:34 | SW/DCPLANNER ---
Addendum entered by [facility] 01/13/20 15:12: [facility] has denied this patient. Addendum entered by [facility] 01/13/20 10:28: Radha with [facility] has called stating they can accept this patient pending no nebs ordered at discharge. I have informed Radha this patient is NOT ready for discharge at this time. [facility] is also reviewing this referral. I will continue to follow up with both facilities. Addendum entered by [facility] 01/13/20 08:46: Patient information has also been faxed to [facility] to Tigist/Judy. Addendum entered by [facility] 01/12/20 14:53: Alexandra at [facility] has stated they can NOT meet this patients needs at this time. [facility] and [facility] do NOT have beds at this time. Patient information has been faxed to [facility] and [facility]. Original Note: This patient currently resides at [facility]. I have spoke with MD and due to respiratory failure patient will need a higher level of care at time of discharge. Patient information will be faxed to Alexandra with [facility]. Once patient information I will follow up with Alexandra. Patient is not ready for discharge at this time.
[2020-01-12 15:38] LABS: POC Glucose,Bedside 124 (70-110)
--- NOTE | 2020-01-12 17:25 | PC.NURSE ---
PT IS RESTING IN BED. PT TOLERATED SITTING UP IN THE CHAIR FOR 4 HOURS THIS SHIFT. PT WAS 1 ASSIST TO GET OOB TO CHAIR. ALERT AND ORIENTED X4. PT'S O2 SATURATION DROPPED TO THE LOW 80'S ON 5 L NC WITHIN 5 MIN DURING ORAL CARE AND DRINKING WATER THIS SHIFT. SWELLING AND SCATTERED BRUISING NOTED TO BUE/BLE. BOTH IV ACCESSES TO THE LEFT HAND AND WRIST STARTED LEAKING. NEW IV ACCESS NOTED TO RAC WITH LR @ 100 ML'S/HR. BIPAP IS SET AT 40% FI02. O2 SATURATION MAINTAINING AT 91-95% ON BIPAP. LUNG SOUNDS HAVE SCATTERED WHEEZES. ABDOMEN SOFT/NON TENDER WITH NORMAL BOWEL SOUNDS. WILL CONTINUE TO MONITOR.
--- NOTE | 2020-01-12 18:51 | PC.NURSE ---
notified pcp about pt only having 110 ml's uop this shift. pcp ordered iv lasix 40 mg one time. turn off ivf's for now. notify pcp around 2200 to let him know how much pt diuresed.
--- NOTE | 2020-01-12 19:23 | PC.NURSE ---
report given to nasir
[2020-01-12 21:25] LABS: POC Glucose,Bedside 118 (70-110)
[2020-01-13] VITALS (20 sets, daily range): BP systolic 118–188; BP diastolic 55–98; PULSE 48–122; RESP 14–22; TEMP 36.1–37.2; O2SAT 84–100; BMI 26.7
--- NOTE | 2020-01-13 00:28 | PC.NURSE ---
She continues in droplet precautions for influenza A. She has been afebrile. She got up to the BSC at the beginning of the shift and disconnected the bipap tubing. Her O2 sats decreased and took several minutes to increase from low to mid 80s to 90s. She continues with 40% FiO2 at this time. Safety was set and pure wick placed. Her urine is clear. She is being turned and repositioned per staff.
[2020-01-13 03:12] LABS: POC Glucose,Bedside 134 (70-110)
[2020-01-13 05:46] LABS: ABG Base Excess 1.6 mmol/L (-2.4-2.3); ABG HCO3 25.9 mmhg (22.0-26.0); ABG Oxygen Saturation 96 % (90-100); ABG PCO2 40.1 mmhg (35.0-45.0); ABG PH 7.43 mmol/L (7.35-7.45); ABG PO2 90.6 mmhg (80-100); ABG TCO2 27.1 mmhg (23-27)
[2020-01-13 05:49] LABS: Allen's Test Patient Unable; Oxygen 40 %; Pressure Support 8; Source Right Radial
[2020-01-13 06:13] LABS: Chloride 100 mmol/L (98-107); Potassium 3.6 mmoL/L (3.5-5.1); Sodium 139 mmol/L (136-145)
[2020-01-13 06:14] LABS: Basophils % 0.1 % (0.1-2.0); Eosinophils % 0.1 % (0.1-12.0); Hematocrit 36.4 % (37.0-47.0); Hemoglobin 11.9 g/dL (12.2-16.2); Lymphocytes # 0.8 K/mm3 (0.7-4.5); Lymphocytes % 6.2 % (10-50); Mean Corpuscular HGB Conc 32.6 g/dL (31.8-35.4); Mean Corpuscular Volume 94.9 fl (81-99); Mean Platelet Volume 8.8 fl (7.4-10.4); Monocytes # 0.7 K/mm3 (0.1-1.0); Monocytes % 6.1 % (1.7-9.3); Neutrophils # 10.5 K/mm3 (1.8-7.8); Neutrophils % 87.5 % (37.0-80.0); Platelet Count 175 K/mm3 (142-424); Red Blood Count 3.83 M/mm3 (4.20-5.40); Red Cell Distribution Width 18.4 % (11.5-17.5); White Blood Count 11.9 K/mm3 (4.8-10.8)
[2020-01-13 06:16] LABS: Anion Gap 12.6 mEq/L (5-15); Blood Urea Nitrogen 33 mg/dl (7-17); Calcium 9.2 mg/dl (8.4-10.2); Carbon Dioxide 30 mmol/L (22.0-30.0); Creatinine Clearance Estimated 80 mL/min (50-200); Estimated Glomerular Filt Rate 65 ml/min (>60); GFR (African American) 78 ML/MIN (>60); Glucose 132 mg/dl (74-100)
[2020-01-13 06:21] LABS: MANUAL DIFFERENTIAL MANUAL DIFFERENTIAL (MANUAL DIFF)
[2020-01-13 07:53] LABS: Lymphocytes % 7 % (10-50); Monocytes % 3 % (2-9); Neutrophils % 90 % (42-76); Platelet Estimate Normal; Total Cells Counted 100
[2020-01-13 07:54] LABS: RBC Morphology Normal
[2020-01-13 08:34] LABS: POC Glucose,Bedside 128 (70-110)
--- NOTE | 2020-01-13 08:40 | PC.NURSE ---
PATIENT PLACED ON 5L NASAL CANNULA FOR ORAL MED ADMINISTRATION AT 0800. 0840 PATIENT O2 DECREASED TO 4LNC WITH O2 SAT 95%
--- NOTE | 2020-01-13 08:45 | HMH.ACPN2 ---
Internal Medicine - PN: Subj *Date: 01/13/20 *Time: 10:29 Interval history: 59-year-old female patient sitting up in bed denies any pain or needs at this time. Oxygenation saturation is 96% on 4 L per nasal cannula, patient tolerated BiPAP all night. She did have a great decreased urinary output yesterday on second shift, she was given 40 mg IV Lasix. She did have a good urinary response after administration and approximately 800 cc during the night. Urine culture grew Providencia Stuartii and she is receiving cefepime IV Exam Vital signs and Labs for Last 24 Hours: Temp Pulse Resp BP Pulse Ox 97.7 F 51 L 21 160/72 H 96 01/13/20 08:00 01/13/20 08:00 01/13/20 08:00 01/13/20 08:00 01/13/20 08:00 Laboratory Results - last 24 hr 01/10/20 14:26: Tidal Volume Not Reportable 01/12/20 09:38: POC Glucose 127 H 01/12/20 15:29: POC Glucose 124 H 01/12/20 20:54: POC Glucose 118 H 01/13/20 03:05: POC Glucose 134 H 01/13/20 05:48: WBC 11.9 H, RBC 3.83 L, Hgb 11.9 L, Hct 36.4 L, MCV 94.9, MCH 31.0, MCHC 32.6, RDW 18.4 H, Plt Count 175, MPV 8.8, Neut % (Auto) 87.5 H, Lymph % (Auto) 6.2 L, Jay % (Auto) 6.1, Eos % (Auto) 0.1, Baso % (Auto) 0.1, Neut # (Auto) 10.5 H, Lymph # (Auto) 0.8, [place] # (Auto) 0.7, Eos # (Auto) 0.0, Baso # (Auto) 0.0, Total Counted 100, Neutrophils % (Manual) 90 H, Lymphocytes % (Manual) 7 L, Monocytes % (Manual) 3, Platelet Estimate Normal, RBC Morphology Normal 01/13/20 05:48: Sodium 139, Potassium 3.6, Chloride 100, Carbon Dioxide 30 D, Anion Gap 12.6, BUN 33 H D, Creatinine 0.90, Estimated Creat Clear 80, Estimated GFR 65, Est GFR ( Amer) 78, Glucose 132 H, Calcium 9.2 01/13/20 06:00: Specimen Source Right radial, O2 % 40, ABG pH 7.43, ABG pCO2 40.1, ABG pO2 90.6, ABG HCO3 25.9, ABG Total CO2 27.1 H, ABG O2 Saturation 96, ABG Base Excess 1.6, Ildefonso Test Patient unable 01/13/20 08:19: POC Glucose 128 H I & O for Last 24 hours: Intake & Output 01/10/20 01/11/20 01/12/20 01/13/20 23:59 23:59 23:59 23:59 Intake Total 3202 / 3202 2939 / 2939 2661 / 2661 180 / 180 Output Total 1153 / 1178 1591 / 1591 1895 / 1895 800 / 800 Balance 2048 / 2023 1348 / 1348 766 / 766 -620 / -620 Weight 156 lb 4.924 oz 160 lb 161 lb 2 oz 156 lb 11.2 oz - Constitutional no acute distress, chronically ill appearing - *Routine HEENT Exam Head: Present: normocephalic ENT: Present: mucous membranes dry - *Routine Neck Exam Present: trachea midline. Absent: JVD, tracheal deviation - *Routine Respiratory Exam Present: decreased breath sounds, wheezes - *Routine Cardiovascular Exam Present: RRR - *Routine Abdominal Exam Present: soft, normoactive bowel sounds. Absent: tenderness, firm - *Routine Extremities Exam Present: pulses intact. Absent: edema - *Routine Skin Exam Present: intact, warm, cracked Comments: Lips dry and cracked - *Routine Neurological Exam Present: alert, altered mental status - Routine Psychiatric Exam Present: unable to assess Assessment and Plan (1) Acute exacerbation of chronic obstructive airways disease Current visit: Yes Status: Acute Category: Medical Code(s): J44.1 - Chronic obstructive pulmonary disease with (acute) exacerbation (2) Community acquired pneumonia Current visit: Yes Status: Acute Qualifiers: Laterality: unspecified laterality Qualified Code(s): J18.9 - Pneumonia, unspecified organism Category: Medical Code(s): J18.9 - Pneumonia, unspecified organism (3) Influenza A Current visit: Yes Status: Acute Category: Medical Code(s): J10.1 - Influenza due to other identified influenza virus with other respiratory manifestations (4) Pulmonary embolism Current visit: Yes Status: Acute Qualifiers: Pulmonary embolism type: single subsegmental (without acute cor pulmonale) Qualified Code(s): I26.93 - Single subsegmental pulmonary embolism without acute cor pulmonale Category: Medical Code(s): I26.99 - Other pul
--- NOTE | 2020-01-13 11:57 | PC.NURSE ---
ASSISTED PATIENT TO CHAIR FOR LUNCH. DURING MOVE SHE BECAME HYPOXIC WITH O2 SATS IN LOWER 70S. I INCREASED HER O2 TO 6LNC WHILE SHE RECOVERED. HAS A DRY NONPRODUCTIVE COUGH WHEN SITTING UP.
--- NOTE | 2020-01-13 13:50 | CA_ITS ---
APPROVED REPORT EXAM: Comprehensive 2D, Doppler, and color-flow Echocardiogram Manager Marketing Communications: Rekha Aldridge RVT Ht: 5 ft 4 in Wt: 156lbs BSA: 1.76 BP: 160/72 mmHg Indications: chf,copd,sepsis,pneumonia 2D Dimensions LVOT 1.48 cm (M/F) 1.5-2.5 M-Mode Dimensions RVDd 1.91 cm (0.9-2.6) LVDd 4.08 cm (3.5-5.7) LVDs 2.61 cm (3.5-5.7) IVSd 0.70 cm (0.6-1.1) PWd 0.74 cm (0.6-1.1) EF (Teich) 66.20% FS 36.00% EDV (Teich) 73.40 mL ESV (Teich) 24.80 mL LV Diastology E/A Ratio 1.20 Mitral Valve MV A Velocity 53.00 (40-130 cm/s) Left Ventricle Left atrium is mildly enlarged, left ventricle is normal size, hyperdynamic left ventricular systolic function, visually estimated ejection fraction over 65% with no regional wall motion abnormality, Doppler evidence of low cardiac output state seen. Diastolic parameters are inconclusive. Right Ventricle Right atrium and right ventricle moderately enlarged, contractility right ventricle is mildly reduced. Aortic Valve Aortic valve is minimally thickened and fibrosed leaflet continue to display good mobility, there is no aortic stenosis. There is no aortic insufficiency. Mitral Valve Mitral valve is grossly normal, there is mild mitral regurgitation. Tricuspid Valve Tricuspid valve is not well visualized, there is severe tricuspid regurgitation, calculated right ventricular systolic pressure is 72 mmHg. Pulmonic Valve Pulmonic valve is poorly visualized. Great Vessels Aortic root is normal size. Pericardium No significant pericardial effusion noted. Conclusion 1. Normal left ventricular size, hyperdynamic left ventricular systolic function, visually estimated ejection fraction over 65% with no regional wall motion abnormality, Doppler evidence of low cardiac output state seen. 2. Moderately enlarged right ventricle mild reduced contractility. 3. Mild mitral and severe tricuspid regurgitation, calculated right ventricular systolic pressure 72 mmHg. 4. No significant pericardial effusion noted. Electronically signed by : Patricio Fields, 01/13/2020 20:05:30
--- NOTE | 2020-01-13 16:16 | ECG_ITS ---
APPROVED REPORT Exam: Resting ECG HR:118 bpm ECG Measurements Heart Rate 118 AXES AL 136 P 50 QRSd 72 QRS 37 QT 342 T 56 QTc 479 <Conclusion> Sinus tachycardia Left atrial abnormality Low voltage QRS Borderline ECG Electronically signed by : Marcos Rodriguez, 01/16/2020 17:14:22
--- NOTE | 2020-01-13 16:19 | CT_ITS ---
PROCEDURE: CT ANGIO CHEST CLINCIAL INDICATION: Hypoxia, Pulmonary embolus Hypoxia, follow-up pulmonary embolus, shortness of breath COMPARISON: CT ANGIO CHEST from 01/09/2020 TECHNIQUE: IV Contrast: 70ML OPTIRAY 350 Axial images obtained with sagittal and coronal reformats. All CT scans at the facility use one or more dose reduction, viz: automated exposure control, ma/kV adjustment per patient size (including targeted exams where dose is matched to indication, i.e. head), or iterative reconstruction technique. FINDINGS: HEART AND MEDIASTINAL STRUCTURES: Filling defect once again noted within segmental and subsegmental pulmonary arteries to the right upper lobe with decreased clot burden compared to the previous exam. No new filling defects evident. LUNGS AND PLEURAL SPACES: Diffuse ground-glass opacity is noted with some improvement in the reticular opacities/septal thickening. The diffuse ground-glass opacity is somewhat worse compared to the previous exam in the upper lobes. No effusions. BONY STRUCTURES: No acute bony abnormalities apparent. UPPER ABDOMEN: Small hiatal hernia. The heterogeneous attenuation of the liver has shown improvement now having a more homogeneous appearance. There is some caliceal dilatation in the upper pole of the right kidney. ADDITIONAL FINDINGS: No other significant abnormalities. IMPRESSION: 1. Persistent filling defects within segmental and subsegmental pulmonary arteries within the right upper lobe with decreased clot burden compared to the previous exam consistent with some improvement in the pulmonary emboli. 2. Diffuse ground-glass opacification of both lungs which appears slightly worse. The interlobular septal thickening/reticular densities appears somewhat improved. Findings may be related to diffuse pneumonia which could be viral/covid 19 or bacterial. Resolving ARDS is also consideration. Dictated by: Ildefonso Durand MD 01/14/2020 06:11 Electronically signed by Ildefonso Durand MD in [place] 01/14/2020 06:11
--- NOTE | 2020-01-13 16:21 | HMH.CNCARD ---
History of Present Illness Consult date: 01/13/20 Requesting physician: Bright Wright Chief complaint: Hypoxia, PE, elevated troponins, severe TR with right heart enlargement Additional Medical History:: 1. COPD with continued tobacco use 2. Pulmonary embolus, RUL, 12/2019 A. Eliquis therapy 3. Elevated troponins likely secondary to COPD exacerbation on top of pulmonary embolus creating hypoxic situation, 12/2019 4. GERD 5. Hyperlipidemia 6. Anxiety 7. Bipolar disorder History of present illness: 59-year-old white female seen in the emergency department on 01/09/2020 for shortness of breath. Noted to be markedly hypoxic and was subsequently intubated. CT scan of the chest showed evidence of pneumonia and right upper lobe pulmonary embolus. Patient was started on appropriate therapy and was subsequently extubated the next day on the 01/10/2020. Patient has continued to require oxygen but has made some slow improvement. Echocardiogram today showed preserved ejection fraction but with evidence of severe tricuspid regurgitation and right heart enlargement. Cardiology was consulted for evaluation and recommendations. [facility] History Medical History: Reports:: Anxiety, Chronic Obstructive Pulmonary Disease (COPD), Gastroesophageal Reflux Disease(GERD), Hyperlipidemia Denies:: Diabetes Mellitus Type 1 *Have you ever received a pneumonia vaccine?: Yes *Have you received a flu vaccine this season?: Yes Other Surgeries: Yes: Other Amputation: No Fractures: No - *Social History Smoking Status: Current every day smoker Tobacco Type: cigarettes # Packs/Day (cigarettes): 1 Alcohol Intake: never Alcohol Intake Frequency:: other Substance Use Type: denies use *Occupational Status:: disabled Housing: assisted living facility Household Members: other *Travel in the last 8 weeks: None - Psychiatric History Pschychiatric History:: Reports:: Anxiety, Schizophrenia Family Hx:: No significant family history VIDEOTAPE OPERATOR history: No VIDEOTAPE OPERATOR history Meds Home Medications Medication Instructions Recorded Confirmed Type atorvastatin 40 mg tablet 40 mg PO DAILY 08/02/17 01/09/20 History clonazepam 0.5 mg tablet 0.5 mg PO BID 08/02/17 01/09/20 History ferrous sulfate 325 mg (65 mg 325 mg PO DAILY tab 08/02/17 01/09/20 History iron) tablet haloperidol 10 mg tablet 10 mg PO TID 08/02/17 01/10/20 History oxybutynin chloride 10 mg 10 mg PO DAILY 08/02/17 01/09/20 History tablet,extended release 24 hr venlafaxine 150 mg 150 mg PO DAILY 08/02/17 01/10/20 History capsule,extended release 24 hr venlafaxine 75 mg tablet 75 mg PO DAILY 08/02/17 01/10/20 History Pantoprazole Sodium [Protonix 40mg 40 mg PO DAILY 05/31/19 01/09/20 History tablet] Cholecalciferol (Vitamin D3) 1,000 unit PO DAILY 01/09/20 01/09/20 History [Vitamin D3 1,000 Unit Cap] Estrogens, Conjugated [Premarin 0.625 mg PO DAILY 01/09/20 01/09/20 History 0.625mg tablet] Ziprasidone HCl 60 mg PO BID 01/09/20 01/09/20 History levETIRAcetam [Levetiracetam] 500 mg PO BID 01/09/20 01/09/20 History Allergies Allergy/AdvReac Type Severity Reaction Status Date / Time No Known Allergies Allergy Verified 09/14/18 21:14 Review of Systems - Review of Systems Review of systems:: pertinent systems reviewed and negative unless documented below - *Cardiovascular Denies chest pain - *Respiratory Reports shortness of breath - *Neurologic Denies headache(s) Exam Vital signs and Labs for Last 24 Hours: Temp Pulse Resp BP Pulse Ox 97.6 F 85 22 139/79 96 01/13/20 14:00 01/13/20 14:00 01/13/20 14:00 01/13/20 14:00 01/13/20 14:00 Laboratory Results - last 24 hr 01/10/20 14:26: Tidal Volume Not Reportable 01/12/20 20:54: POC Glucose 118 H 01/13/20 03:05: POC Glucose 134 H 01/13/20 05:48: WBC 11.9 H, RBC 3.83 L, Hgb 11.9 L, Hct 36.4 L, MCV 94.9, MCH 31.0, MCHC 32.6, RDW 18.4 H, Plt Count 175, MPV 8.8, Neut % (Auto) 87.5 H, Lymph % (Auto)
--- NOTE | 2020-01-13 17:02 | PC.NURSE ---
PATIENT HAS RESTED T/O SHIFT. SHE WAS UP TO THE CHAIR FOR LUNCH. SHE DID DESAT WHEN GETTING TO THE CHAIR AND BACK TO BED. BOTH TIMES HER O2 DROPPED INTO MID 70S ON 6LNC. WHEN PATIENT IS SLEEPING HER O2 HAS BEEN DECREASED TO LOW 3LNC WITH SATS AROUND 96. HOWEVER, WHEN SHE IS AWAKE SHE RANDOMLY DROPS INTO THE MID 80S EVEN WITH NO ACTIVITY. SHE IS ALSO HAVING COUGHING EPISODES WHICH CAUSE HER O2 TO DROP INTO THE LOWER 80S WELL. I HAVE BEEN TITRATING HER O2 BETWEEN 3-6LNC THIS SHIFT BASED ON HER O2 SAT. DENIES PAIN AT THIS TIME. CALL LIGHT WITHIN REACH WILL CONTINUE TO MONITOR
--- NOTE | 2020-01-13 18:58 | PC.NURSE ---
RT monitored pt during RA sat=88%, returned pt to 4L NC
[2020-01-14] VITALS (19 sets, daily range): BP systolic 116–155; BP diastolic 66–93; PULSE 50–110; RESP 19–26; TEMP 36.4–37.1; O2SAT 92–100; BMI 27.0
--- NOTE | 2020-01-14 03:34 | PC.NURSE ---
She continues in droplet precautions r/t influenza A. Intermittent non-productive cough witness. She reports having some white sputum at times. She continues on 4LPM n/c. She is voiding per the purewick. Her urine is yellow, clear. She received PRN medication for abdominal pain. VSS.
[2020-01-14 06:14] LABS: Basophils % 0.1 % (0.1-2.0); Eosinophils % 0.1 % (0.1-12.0); Hematocrit 33.8 % (37.0-47.0); Hemoglobin 10.8 g/dL (12.2-16.2); Lymphocytes # 0.7 K/mm3 (0.7-4.5); Lymphocytes % 6.2 % (10-50); Mean Corpuscular Hemoglobin 30.7 pg (27.0-31.2); Mean Corpuscular Volume 95.8 fl (81-99); Mean Platelet Volume 8.9 fl (7.4-10.4); Monocytes # 0.5 K/mm3 (0.1-1.0); Monocytes % 4.9 % (1.7-9.3); Neutrophils # 9.1 K/mm3 (1.8-7.8); Neutrophils % 88.6 % (37.0-80.0); Platelet Count 181 K/mm3 (142-424); Red Blood Count 3.53 M/mm3 (4.20-5.40); Red Cell Distribution Width 17.8 % (11.5-17.5); White Blood Count 10.3 K/mm3 (4.8-10.8)
[2020-01-14 06:19] LABS: MANUAL DIFFERENTIAL MANUAL DIFFERENTIAL (MANUAL DIFF)
[2020-01-14 06:25] LABS: Chloride 97 mmol/L (98-107); Sodium 136 mmol/L (136-145)
[2020-01-14 06:26] LABS: Potassium 3.4 mmoL/L (3.5-5.1)
[2020-01-14 06:28] LABS: Anion Gap 10.4 mEq/L (5-15); Blood Urea Nitrogen 42 mg/dl (7-17); Carbon Dioxide 32 mmol/L (22.0-30.0); Creatinine Clearance Estimated 78 mL/min (50-200); Estimated Glomerular Filt Rate 65 ml/min (>60); GFR (African American) 78 ML/MIN (>60)
[2020-01-14 06:29] LABS: Calcium 8.7 mg/dl (8.4-10.2); Glucose 157 mg/dl (74-100)
[2020-01-14 07:45] LABS: Lymphocytes % 10 % (10-50); Monocytes % 6 % (2-9); Neutrophils % 83 % (42-76); Total Cells Counted 100
[2020-01-14 07:46] LABS: Hypochromasia 1+; Platelet Estimate Normal; RBC Morphology Normal
[2020-01-14 07:47] LABS: Anisocytosis 1+
--- NOTE | 2020-01-14 08:01 | HMH.PNCARD ---
Subjective Date: 01/14/20 Time: 08:01 Principal diagnosis: Respiratory distress, severe TR Interval history: 59-year-old white female in bed eating breakfast in no acute distress. Patient does have some coughing. Telemetry reveals a 3.5-4 second pause during this time. Patient denies any chest pain, pressure or tightness. Repeat CT scan of the chest yesterday shows improvement in her pulmonary embolus. She has diffuse groundglass opacities which are slightly worse compared to previous scan 4 days ago. Exam Vital signs and Labs for Last 24 Hours: Temp Pulse Resp BP Pulse Ox 97.5 F L 93 H 22 134/75 93 L 01/14/20 07:45 01/14/20 07:45 01/14/20 07:45 01/14/20 07:45 01/14/20 07:45 Laboratory Results - last 24 hr 01/13/20 08:19: POC Glucose 128 H 01/14/20 05:30: WBC 10.3, RBC 3.53 L, Hgb 10.8 L, Hct 33.8 L, MCV 95.8, MCH 30.7, MCHC 32.0, RDW 17.8 H, Plt Count 181, MPV 8.9, Neut % (Auto) 88.6 H, Lymph % (Auto) 6.2 L, [place] % (Auto) 4.9, Eos % (Auto) 0.1, Baso % (Auto) 0.1, Neut # (Auto) 9.1 H, Lymph # (Auto) 0.7, [place] # (Auto) 0.5, Eos # (Auto) 0.0, Baso # (Auto) 0.0, Total Counted 100, Neutrophils % (Manual) 83 H, Band Neutrophils % 1.0, Lymphocytes % (Manual) 10, Monocytes % (Manual) 6, Platelet Estimate Normal, RBC Morphology Normal, Hypochromasia 1+, Anisocytosis 1+ 01/14/20 05:30: Sodium 136, Potassium 3.4 L, Chloride 97 L, Carbon Dioxide 32 H, Anion Gap 10.4, BUN 42 H D, Creatinine 0.90, Estimated Creat Clear 78, Estimated GFR 65, Est GFR ( Amer) 78, Glucose 157 H, Calcium 8.7 I & O for Last 24 hours: Intake & Output 01/11/20 01/12/20 01/13/20 07/15/20 11:59 11:59 11:59 11:59 Intake Total 3665 / 3665 2147 / 2147 1723 / 1733 190 / 190 Output Total 1386 / 1386 920 / 980 2570 / 2570 2200 / 2200 Balance 2279 / 2279 1227 / 1167 -847 / -837 -2009 / Weight 160 lb 161 lb 2 oz 156 lb 11.2 oz 158 lb 6 oz - *Routine HEENT Exam Head: Present: normocephalic Eye: Present: EOMI, PERRL ENT: Present: mucous membranes moist - *Routine Respiratory Exam Present: CTA bilaterally. Absent: accessory muscle use, rales, rhonchi, wheezes - *Routine Cardiovascular Exam Present: RRR. Absent: murmur, gallop, rubs - *Routine Neurological Exam Present: alert, oriented X3, moving all extremities Progress Note: A&P (1) Acute exacerbation of chronic obstructive airways disease Status: Acute Current Visit: Yes (2) Community acquired pneumonia Status: Acute Current Visit: Yes (3) Influenza A Status: Acute Current Visit: Yes (4) Pulmonary embolism Status: Acute Current Visit: Yes (5) Respiratory failure Status: Acute Current Visit: Yes (6) UTI (urinary tract infection) Problem details: Providencia Stuartii Status: Acute Current Visit: Yes (7) Severe sepsis with acute organ dysfunction Status: Acute Current Visit: Yes (8) Anemia Status: Acute Current Visit: Yes (9) Elevated troponin level not due myocardial infarction Status: Acute Current Visit: Yes Assessment and Plan for All Diagnoses:: 1. Pulmonary embolus, improving, continue anticoagulation with Eliquis. 2. Pneumonia, on antiviral and antibiotic therapy. COVID negative. 3. Severe tricuspid regurgitation with evidence of pulmonary hypertension. Avoid diuretics and keep patient hydrated for blood pressure support. 4. Anemia, status post blood transfusion, stable. 5. Hypokalemia, begin supplementation.
[2020-01-14 08:23] LABS: Magnesium 2.3 mg/dl (1.6-2.3)
--- NOTE | 2020-01-14 10:32 | SW/DCPLANNER ---
Addendum entered by Cira Esteban 01/15/20 14:48: Patient information has also been faxed to [facility]. I will continue to follow up with [facility] and [facility]. Original Note: This patient has been accepted to [facility] once medically stable for discharge. Discharge date is unknown at this time. Updated patient information has been faxed to Radha at [facility].
--- NOTE | 2020-01-14 12:36 | HMH.ACPN2 ---
Internal Medicine - PN: Subj *Date: 01/14/20 *Time: 09:00 Interval history: 59-year-old female patient sitting up in bed resting quietly oxygen on 4 L per nasal cannula, oxygen saturations 98%. She has tolerated 4 l per NC all night. Staff reports she was up in chair sats dropped into the low 70s and it took approximately 1 hour for sats resume back to low 90s. 01/13/20: IMPRESSION: 1. Persistent filling defects within segmental and subsegmental pulmonary arteries within the right upper lobe with decreased clot burden compared to the previous exam consistent with some improvement in the pulmonary emboli. 2. Diffuse ground-glass opacification of both lungs which appears slightly worse. The interlobular septal thickening/reticular densities appears somewhat improved. Findings may be related to diffuse pneumonia which could be viral/covid 19 or bacterial. Resolving ARDS is also consideration. Dictated by: Ladarius, 01/13/20 ECHO: Conclusion 1. Normal left ventricular size, hyperdynamic left ventricular systolic function, visually estimated ejection fraction over 65% with no regional wall motion abnormality, Doppler evidence of low cardiac output state seen. 2. Moderately enlarged right ventricle mild reduced contractility. 3. Mild mitral and severe tricuspid regurgitation, calculated right ventricular systolic pressure 72 mmHg. 4. No significant pericardial effusion noted. Electronically signed by : Patricio Fields Cardiology has seen and rec: 1. Severe tricuspid regurgitation with right heart enlargement on echocardiogram in setting of influenza A/pneumonia and pulmonary embolus. Patient is on both antibiotics and anticoagulation. Recommend repeating CTA of the chest to evaluate for pulmonary embolus burden worsening since admission. Cautious use of diuretics recommended in order not to exacerbate the effect of the pulmonary embolus. Patient's blood pressure remained stable would not recommend therapy to control heart rate at this time. Supportive measures as needed to maintain systolic blood pressure above 90 mmHg. Nothing further to add at this time. Discussed with Dr. Fields. 2. Exacerbation of COPD 3. Anemia status post 2 units of blood transfused 4. Influenza type a on Tamiflu 5. UTI, on antibiotics 6. Bipolar disorder on multiple medication Exam Vital signs and Labs for Last 24 Hours: Temp Pulse Resp BP Pulse Ox 97.5 F L 60 19 146/86 H 100 01/14/20 08:00 01/14/20 12:00 01/14/20 12:00 01/14/20 12:00 01/14/20 12:00 Laboratory Results - last 24 hr 01/14/20 05:30: WBC 10.3, RBC 3.53 L, Hgb 10.8 L, Hct 33.8 L, MCV 95.8, MCH 30.7, MCHC 32.0, RDW 17.8 H, Plt Count 181, MPV 8.9, Neut % (Auto) 88.6 H, Lymph % (Auto) 6.2 L, [place] % (Auto) 4.9, Eos % (Auto) 0.1, Baso % (Auto) 0.1, Neut # (Auto) 9.1 H, Lymph # (Auto) 0.7, [place] # (Auto) 0.5, Eos # (Auto) 0.0, Baso # (Auto) 0.0, Total Counted 100, Neutrophils % (Manual) 83 H, Band Neutrophils % 1.0, Lymphocytes % (Manual) 10, Monocytes % (Manual) 6, Platelet Estimate Normal, RBC Morphology Normal, Hypochromasia 1+, Anisocytosis 1+ 01/14/20 05:30: Sodium 136, Potassium 3.4 L, Chloride 97 L, Carbon Dioxide 32 H, Anion Gap 10.4, BUN 42 H D, Creatinine 0.90, Estimated Creat Clear 78, Estimated GFR 65, Est GFR ( Amer) 78, Glucose 157 H, Calcium 8.7 01/14/20 05:30: Magnesium 2.3 I & O for Last 24 hours: Intake & Output 01/11/20 01/12/20 01/13/20 01/14/20 23:59 23:59 23:59 23:59 Intake Total 2939 / 2939 2661 / 2661 250 / 310 360 / 360 Output Total 1591 / 1591 1895 / 1895 2650 / 2650 350 / 350 Balance 1348 / 1348 766 / 766 -2400 / -2340 Weight 160 lb 161 lb 2 oz 156 lb 11.2 oz 158 lb 6 oz - Constitutional no acute distress, chronically ill appearing - *Routine HEENT Exam ENT: Present: mucous membranes moist - *Routine Neck Exam Present: trachea midline. Absent: tracheal deviation - *Routine Respiratory Exam Pr
--- NOTE | 2020-01-14 13:52 | HMH.SLDYSPHA ---
Speech & Language Evaluation Speech/Language Dysphagia Evaluation Start: 01/14/20 13:39 Freq: ONCE Status: Active Protocol: Document 01/14/20 13:39 RADHA (Rec: 01/14/20 13:52 RADHA [id number]) Dysphagia Assess/Goals/Plan Assessment Date of Evaluation: 01/14/20 Evaluation Type Initial Certification Assessment/Problems Dysphagia Does Patient Qualify for Service Yes Qualify/Failure Comment Patient does exhibit s/s of dysphagia. Modified diet and will complete MBS tomorrow. Recommendations PHYSICIAN CERTIFICATION: The specified therapy services are required, authorized, and reviewed every 30 days. Diet Recommendations Pureed Liquid Type Recommendations [place] Consistency Plan Pt/Guardian verbally ack understanding Yes: RN notified of dx/prognosis/goals G -code Required No General Information General Current Food Consistancy Mechanical Soft,Thin Liquids Dentition Edentulous Oxygen Status Nasal Cannula Facial Symmetry Symmetrical Patient Orientation Person,Place,Time Ability to Follow Directions Good Dysphagia:Food Presentation Evaluation Food Type Pureed,Mechanical Soft,Liquid, Pudding Normal/Thin Liquid Response Coughing after swallow,Wet voice Dysphagia Evaluation Mechanical Soft Coughing after swallow,Clears Food Behavior Response throat,Wet voice Dysphagia Evaluation Summary Ms. Epps's RN reports that she is exhibiting excessive coughing after eating and drinking. She was given the following consistencies: thins via straw and open cup with chin tuck, nectar, pudding, pureed, mechanical soft. The following consistencies: excessive coughing after thins and mechanical cough. She will be placed on pureed with nectar thick liquids. Modified barium swallow will be conducted tomorrow after 24 hours of new diet. Stroke Dysphagia Assessment PHYSICIAN CERTIFICATION: I certify the specified therapy services for Starr Epps are required, authorized, and reviewed every 30 days.
--- NOTE | 2020-01-14 14:02 | CT_ITS ---
PROCEDURE: CT HEAD/BRAIN WO CON CLINICAL INDICATION: Altered mental status Altered mental status, altered level of consciousness, confusion, disorientation COMPARISON: HEADWO CT head/brain wo con from 10/29/2018 TECHNIQUE: Axial images obtained. All CT scans at the facility use one or more dose reduction, viz: automated exposure control, ma/kV adjustment per patient size (including targeted exams where dose is matched to indication, i.e. head), or iterative reconstruction technique. FINDINGS: No midline shift, mass effect, intracranial hemorrhage, hydrocephalus, or extra-axial fluid collection is evident. There is generalized atrophy with hypoattenuation of the periventricular white matter consistent with microangiopathic changes. The calvarium has an unremarkable appearance. No mastoid effusion. No sinus air-fluid level. IMPRESSION: No acute intracranial finding Dictated by: Ildeofnso Durand MD 01/14/2020 14:46 Electronically signed by Ildefonso Durand MD in [facility] 01/14/2020 14:46
--- NOTE | 2020-01-14 15:44 | DIET.NUTRFU ---
Diet has been changed to puree dt dysphagia per speech. Intakes have been 25-50%, weight is stable. Continuing to monitor.
--- NOTE | 2020-01-14 16:37 | CA_ITS ---
APPROVED REPORT Bilateral Lower Extremity Venous Study for DVT. Lap Maker: CT Indications Pulmonary Embolism PE Medications Eliquis Vein Imaging CFV (R): compressive, spontaneous, phasic, augmentation SFJ (R): compressive, spontaneous, phasic, augmentation FEM (R): compressive, spontaneous, phasic, augmentation POP (R): compressive, spontaneous, phasic, augmentation DFV (R): compressive, spontaneous, phasic, augmentation PTV (R): compressive, spontaneous, phasic, augmentation GSV (R): compressive, spontaneous, phasic, augmentation Peroneals (R):compressive, spontaneous, phasic, augmentation GAS (R): compressive, spontaneous, phasic, augmentation CFV (L): compressive, spontaneous, phasic, augmentation SFJ (L): compressive, spontaneous, phasic, augmentation FEM (L): compressive, spontaneous, phasic, augmentation POP (L): compressive, spontaneous, phasic, augmentation DFV (L): compressive, spontaneous, phasic, augmentation PTV (L): compressive, spontaneous, phasic, augmentation GSV (L): compressive, spontaneous, phasic, augmentation Peroneals (L):compressive, spontaneous, phasic, augmentation GAS (L): compressive, spontaneous, phasic, augmentation Findings Bilareral venous neg for dvt/svt. Vessels fully compressible. No reflux noted. Conclusion No evidence of DVT or superficial thrombophlebitis in the veins scanned of the right lower extremity. No evidence of DVT or superficial thrombophlebitis in the veins scanned of the left lower extremity. Electronically signed by : Ildefonso Durand MD 01/14/2020 15:56:34
--- NOTE | 2020-01-14 17:29 | PC.NURSE ---
Patient has rested intermittently this shift, remains on 4LNC, oxygen saturations drop very quickly with even minimal exertion, patient has been up to chair this shift for around 3 hours, when transferring from bed to chair patients o2 saturations dropped to 70%, after being seated she did recover quickly to mid 90's on 4LNC, Patient is alert and oriented, perrla, tremor to RUE noted, pt states she has had this for sometime. Pt has had intermittent dry cough this shift that is worse when eating or drinking, patient was encouraged to slow down her pace of eating and drinking, to take smaller bites, and deep breathe when she feels SOA, speech was at bedside to complete swallow eval, patients diet was downgraded pureed with nectar thick liquids, crush all meds and no straws, will complete modium barium swallow in am. 1+ nonpitting generalized edema noted to extremities with scattered bruising, pt has denied any pain this shift, vss, no s/s of distress noted at this time, will continue to monitor for changes.
--- NOTE | 2020-01-14 19:05 | PC.NURSE ---
report given to edward
--- NOTE | 2020-01-14 20:57 | PC.NURSE ---
initital assessment, patient neurologically intact except for tremor in right upper extremity which is baseline for patient. patient oxygen increased to 6 l nc during shift change due to low o2 sats of 82. patient requires 15-20 min to o2 sats, heart rate and rr to recover after any activity including coughing. will continue to monitor. 2014 patient continues to desat to as low as 78% even on 6 l nc with each coughing episode. patient sustains sats lower than 85% fro greater than 15min, due to patient breathing through her mouth. venturi mask placed at 40% to assist with keeping o2 sats up. will continue to monitor.
[2020-01-15] VITALS (15 sets, daily range): BP systolic 144–162; BP diastolic 67–95; PULSE 60–119; RESP 22–28; TEMP 36.4–37.1; O2SAT 90–100; BMI 25.9
--- NOTE | 2020-01-15 01:12 | PC.NURSE ---
patient continues to have persistant, nonproductive cough during which sats will drop to 82% with venturi mask on 35%. patients sats will recover within 5 minutes of coughing episode.
--- NOTE | 2020-01-15 04:24 | PC.NURSE ---
Addendum entered by Claudia Romero RN 01/15/20 04:53: immediately after last note patient had coughing spell, sats dropping to 77% and sustaining sats of 80% on 35%. venturi mask increased to 40% and respiratory therapy called for breathing treatment. patient recovery time approximately 20 min with intervention before sats returned back to 88%. currently patient is getting breathing treatment and on 40% on venturi mask. Original Note: patient continues to have a dry non productive persistant cough, o2 sats drop to 80%, takes patient approximately 10 minutes for o2 sats to recover back to 88% on 35% venturi mask.
--- NOTE | 2020-01-15 05:46 | PC.NURSE ---
patient has recovered from coughig spell, sats have remained 99% on 40% venturi mask, decreased now to 35%
[2020-01-15 06:23] LABS: Basophils % 0.1 % (0.1-2.0); Eosinophils % 0.1 % (0.1-12.0); Hematocrit 37.7 % (37.0-47.0); Hemoglobin 12.6 g/dL (12.2-16.2); Lymphocytes # 0.9 K/mm3 (0.7-4.5); Lymphocytes % 6.7 % (10-50); Mean Corpuscular HGB Conc 33.5 g/dL (31.8-35.4); Mean Corpuscular Hemoglobin 31.9 pg (27.0-31.2); Mean Corpuscular Volume 95.2 fl (81-99); Mean Platelet Volume 8.7 fl (7.4-10.4); Monocytes # 0.6 K/mm3 (0.1-1.0); Monocytes % 4.9 % (1.7-9.3); Neutrophils # 11.5 K/mm3 (1.8-7.8); Neutrophils % 88.2 % (37.0-80.0); Platelet Count 189 K/mm3 (142-424); Red Blood Count 3.95 M/mm3 (4.20-5.40); Red Cell Distribution Width 17.5 % (11.5-17.5)
[2020-01-15 06:24] LABS: MANUAL DIFFERENTIAL MANUAL DIFFERENTIAL (MANUAL DIFF)
[2020-01-15 06:32] LABS: Anion Gap 11.6 mEq/L (5-15); Blood Urea Nitrogen 37 mg/dl (7-17); Calcium 9.4 mg/dl (8.4-10.2); Carbon Dioxide 28 mmol/L (22.0-30.0); Chloride 104 mmol/L (98-107); Creatinine Clearance Estimated 113 mL/min (50-200); Estimated Glomerular Filt Rate 103 ml/min (>60); GFR (African American) 125 ML/MIN (>60); Glucose 148 mg/dl (74-100); Potassium 4.6 mmoL/L (3.5-5.1); Sodium 139 mmol/L (136-145)
[2020-01-15 07:46] LABS: Lymphocytes % 5 % (10-50); Monocytes % 4 % (2-9); Neutrophils % 91 % (42-76); Platelet Estimate Normal; RBC Morphology Normal; Total Cells Counted 100
--- NOTE | 2020-01-15 08:51 | HMH.ACPN2 ---
Internal Medicine - PN: Subj *Date: 01/15/20 *Time: 08:00 Interval history: Sitting up in the bed with difficulty breathing on 45% nonrebreather. Exam Vital signs and Labs for Last 24 Hours: Temp Pulse Resp BP Pulse Ox 98.7 F 90 26 H 152/92 H 92 L 01/15/20 04:00 01/15/20 08:00 01/15/20 06:00 01/15/20 06:00 01/15/20 06:00 Laboratory Results - last 24 hr 01/15/20 05:38: WBC 13.0 H D, RBC 3.95 L, Hgb 12.6, Hct 37.7, MCV 95.2, MCH 31.9 H, MCHC 33.5, RDW 17.5, Plt Count 189, MPV 8.7, Neut % (Auto) 88.2 H, Lymph % (Auto) 6.7 L, [place] % (Auto) 4.9, Eos % (Auto) 0.1, Baso % (Auto) 0.1, Neut # (Auto) 11.5 H, Lymph # (Auto) 0.9, [place] # (Auto) 0.6, Eos # (Auto) 0.0, Baso # (Auto) 0.0, Total Counted 100, Neutrophils % (Manual) 91 H, Lymphocytes % (Manual) 5 L, Monocytes % (Manual) 4, Platelet Estimate Normal, RBC Morphology Normal 01/15/20 05:38: Sodium 139, Potassium 4.6 D, Chloride 104, Carbon Dioxide 28, Anion Gap 11.6, BUN 37 H, Creatinine 0.60 D, Estimated Creat Clear 113, Estimated GFR 103, Est GFR ( Amer) 125 D, Glucose 148 H, Calcium 9.4 I & O for Last 24 hours: Intake & Output 01/12/20 01/13/20 01/14/20 01/15/20 11:59 11:59 11:59 11:59 Intake Total 2147 / 2147 1723 / 1733 430 / 430 940 / 940 Output Total 920 / 980 2570 / 2570 2200 / 2200 600 / 600 Balance 1227 / 1167 -847 / -837 -1770 / -1770 340 / 340 Weight 161 lb 2 oz 156 lb 11.2 oz 158 lb 6 oz 152 lb 1.903 oz Microbiology Reports for the Last 24 Hours: Microbiology 01/09/20 14:26 Blood Blood Culture - Final NO GROWTH AFTER 5 DAYS 01/09/20 14:26 Blood Blood Culture - Final NO GROWTH AFTER 5 DAYS - Constitutional no acute distress, chronically ill appearing - *Routine HEENT Exam Head: Present: normocephalic Eye: Present: PERRL ENT: Present: mucous membranes moist - *Routine Neck Exam Present: supple. Absent: lymphadenopathy - *Routine Respiratory Exam Present: decreased breath sounds, rhonchi - *Routine Cardiovascular Exam Present: RRR - *Routine Abdominal Exam Present: soft, normoactive bowel sounds. Absent: tenderness - *Routine Extremities Exam Present: normal capillary refill. Absent: cyanosis, clubbing, edema - *Routine Skin Exam Present: warm. Absent: rash - *Routine Neurological Exam Present: alert, oriented X3 - Routine Psychiatric Exam Present: normal affect Assessment and Plan (1) Acute exacerbation of chronic obstructive airways disease Current visit: Yes Status: Acute Category: Medical Code(s): J44.1 - Chronic obstructive pulmonary disease with (acute) exacerbation (2) Community acquired pneumonia Current visit: Yes Status: Acute Qualifiers: Laterality: unspecified laterality Qualified Code(s): J18.9 - Pneumonia, unspecified organism Category: Medical Code(s): J18.9 - Pneumonia, unspecified organism (3) Influenza A Current visit: Yes Status: Acute Category: Medical Code(s): J10.1 - Influenza due to other identified influenza virus with other respiratory manifestations (4) Pulmonary embolism Current visit: Yes Status: Acute Qualifiers: Pulmonary embolism type: single subsegmental (without acute cor pulmonale) Qualified Code(s): I26.93 - Single subsegmental pulmonary embolism without acute cor pulmonale Category: Medical Code(s): I26.99 - Other pulmonary embolism without acute cor pulmonale (5) Respiratory failure Current visit: Yes Status: Acute Qualifiers: Chronicity: acute Respiratory failure complication: unspecified whether with hypoxia or hypercapnia Qualified Code(s): J96.00 - Acute respiratory failure, unspecified whether with hypoxia or hypercapnia Category: Medical Code(s): J96.90 - Respiratory failure, unspecified, unspecified whether with hypoxia or hypercapnia (6) UTI (urinary tract infection) Problem details: Providencia Stuartii Current visi
--- NOTE | 2020-01-15 09:25 | SW/DCPLANNER ---
Updated patient information has been faxed to Radha at [facility].
--- NOTE | 2020-01-15 10:27 | PC.NURSE ---
TITRATED REMINGTON MASK TO 35 % WITH O2 @ 9LPM, O2 SATS CURRENTLY 95 %
--- NOTE | 2020-01-15 11:11 | HMH.PNCARD ---
Subjective Date: 01/15/20 Time: 11:12 Principal diagnosis: Respiratory distress, severe TR Interval history: 59 yo WF in bed. Still with cough and chest pain with cough. Exam Vital signs and Labs for Last 24 Hours: Temp Pulse Resp BP Pulse Ox 98.7 F 90 22 158/95 H 94 L 01/15/20 04:00 01/15/20 08:00 01/15/20 08:00 01/15/20 08:00 01/15/20 08:00 Laboratory Results - last 24 hr 01/15/20 05:38: WBC 13.0 H D, RBC 3.95 L, Hgb 12.6, Hct 37.7, MCV 95.2, MCH 31.9 H, MCHC 33.5, RDW 17.5, Plt Count 189, MPV 8.7, Neut % (Auto) 88.2 H, Lymph % (Auto) 6.7 L, [place] % (Auto) 4.9, Eos % (Auto) 0.1, Baso % (Auto) 0.1, Neut # (Auto) 11.5 H, Lymph # (Auto) 0.9, [place] # (Auto) 0.6, Eos # (Auto) 0.0, Baso # (Auto) 0.0, Total Counted 100, Neutrophils % (Manual) 91 H, Lymphocytes % (Manual) 5 L, Monocytes % (Manual) 4, Platelet Estimate Normal, RBC Morphology Normal 01/15/20 05:38: Sodium 139, Potassium 4.6 D, Chloride 104, Carbon Dioxide 28, Anion Gap 11.6, BUN 37 H, Creatinine 0.60 D, Estimated Creat Clear 113, Estimated GFR 103, Est GFR ( Amer) 125 D, Glucose 148 H, Calcium 9.4 I & O for Last 24 hours: Intake & Output 01/12/20 01/13/20 01/14/20 01/15/20 11:59 11:59 11:59 11:59 Intake Total 2147 / 2147 1723 / 1733 430 / 430 940 / 940 Output Total 920 / 980 2570 / 2570 2200 / 2200 600 / 600 Balance 1227 / 1167 -847 / -837 -1770 / -1770 340 / 340 Weight 161 lb 2 oz 156 lb 11.2 oz 158 lb 6 oz 152 lb 1.903 oz Microbiology Reports for the Last 24 Hours: Microbiology 01/09/20 14:26 Blood Blood Culture - Final NO GROWTH AFTER 5 DAYS 01/09/20 14:26 Blood Blood Culture - Final NO GROWTH AFTER 5 DAYS - *Routine Respiratory Exam Present: CTA bilaterally. Absent: accessory muscle use, rales, rhonchi, wheezes - *Routine Cardiovascular Exam Present: RRR. Absent: murmur, gallop, rubs - *Routine Extremities Exam Absent: edema, calf tenderness - *Routine Neurological Exam Present: alert, oriented X3, moving all extremities Progress Note: A&P (1) Acute exacerbation of chronic obstructive airways disease Status: Acute Current Visit: Yes (2) Community acquired pneumonia Status: Acute Current Visit: Yes (3) Influenza A Status: Acute Current Visit: Yes (4) Pulmonary embolism Status: Acute Current Visit: Yes (5) Respiratory failure Status: Acute Current Visit: Yes (6) UTI (urinary tract infection) Problem details: Providencia Stuartii Status: Acute Current Visit: Yes (7) Severe sepsis with acute organ dysfunction Status: Acute Current Visit: Yes (8) Anemia Status: Acute Current Visit: Yes (9) Elevated troponin level not due myocardial infarction Status: Acute Current Visit: Yes (10) Tricuspid regurgitation Status: Acute Current Visit: Yes (11) Right heart enlargement Status: Acute Current Visit: Yes (12) Right heart failure Status: Acute Current Visit: Yes Assessment and Plan for All Diagnoses:: 1. PE, continue eliquis 10 mg BID for a total of 7 days then reduce to 5 mg BID. Recommend continuing therapy for 6 months at least. 2. Right heart enlargement with severe TR due to #1 3. Influenza and COPD exacerbation with pneumonia, on anti-viral and antibiotic therapy per Dr. Wright Nothing further to add. Please call again if needed.
--- NOTE | 2020-01-15 13:00 | FL_ITS ---
PROCEDURE: FL BARIUM SWALLOW MODIFIED CLINICAL INDICATION: Dysphagia COMPARISON: No exams were available for comparison TECHNIQUE: Patient administered varying consistencies of barium contrast, while viewed in lateral position under real-time fluoroscopy with cine recording. FLUOROSCOPY TIME:1 minutes and 42 seconds The study was performed in conjunction with speech pathologist. Please see that report & recommendations. FINDINGS: Patient was given varying consistencies of barium. No penetration or aspiration is evident. There is some minimal delay in initiation of the swallowing mechanism. Minimal stasis.. There was some mild early spillage .. IMPRESSION: No aspiration or penetration. Please see above and please see speech pathologist report Please see speech pathologist report and recommendations. Dictated by: Ildefonso Durand MD 01/19/2020 11:45 Electronically signed by Ildefonso Durand MD in [facility] 01/19/2020 11:45
--- NOTE | 2020-01-15 13:58 | HMH.SLMBS2 ---
Speech & Language Evaluation Speech/Language Mod Barium Swallow Start: 01/14/20 14:49 Freq: ONCE Status: Complete Protocol: Document 01/15/20 13:53 RADHA (Rec: 01/15/20 13:58 RADHA [id number]) General Information General Current Food Consistancy Pureed,[place] Liquids Dentition Edentulous Oxygen Status Nasal Cannula Facial Symmetry Symmetrical Patient Orientation Person,Place Ability to Follow Directions Good Communication Ability Mild Impairment MBS Recommendations Diet Dietary Recommendations Dysphagia Mechanical Soft, Ground Meats,Thin Liquids Mod Barium Swallow Impressions Summary and Impressions Oral Phase Impression No Impairment (WFL) Oral Phase Summary Ms. Epps was given the following consistencies: thins via straw and open cup, pudding, pureed, mechanical soft, and pill with thin wash. No oral phase impairments noted. Pharyngeal Phase Impression Minimal Impairment Pharyngeal Phase Summary Minimal vallecular residue noted with mechanical soft but was cleared with natural 2nd swallow. Speech/Language MBS Assessment/Goals/Plan Assessment Date of Evaluation: 01/15/20 Evaluation Type Re-Evaluation/Revise POC Assessment/Problems Dysphagia Does Patient Qualify for Service No Qualify/Failure Comment Patient does not require 1:1 therapy at this time. Recommendations PHYSICIAN CERTIFICATION: The specified therapy services are required, authorized, and reviewed every 30 days. Diet Recommendations Mechanical Soft Liquid Type Recommendations Normal/Thin SL Swallow Guidelines Standard Aspiration Prec. Dysphagia Swallow Precautions/Strategies Sitting Upright (90 deg),Small Bites and Sips,Alternate Liquids/Solids Plan Pt/Guardian verbally ack understanding Yes of dx/prognosis/goals G -code Required No Mod Barium Swallow Setup Exam Setup Radiologist Ildefonso Durand Level of Consciousness Awake,Alert,Appropriate, Follows Commands Position (degrees) 90 Mod Barium Swallow-Lat View Textures Lateral View Food Presentation Thin Liquid via Cup,Thin Liquid via Straw,Pureed Food- Thick,Ground Food- Regular, Barium Tablet,Pudding Oral Phase Labial Closure No Impairment (WFL) Bolus
--- NOTE | 2020-01-15 17:07 | PC.NURSE ---
PT HAS BEEN UP TO CHAIR FOR MOST OF THE DAY, BUT DOES HAVE EPISODES IN WHICH HER O2 DROPS UPON EXERTION, AT THIS TIME HER O2 SAT IS 96 ON 4L NC, PT DIET ADJUSTED TO MECH SOFT FOLLOWING BARIUM SWALLOW THIS AFTERNOON, VSS, NO COMPLAINTS OF PAIN THIS SHIFT, PT HAD BOWEL MOVEMENT FOLLOWING DULCOLAX SUPPOSITORY, SINUS TACH ON HEART MONITOR, GUAIFENESIN PRN ADMIN FOR COUGH WITH GOOD RESULTS,
[2020-01-16] VITALS (13 sets, daily range): BP systolic 124–181; BP diastolic 74–93; PULSE 67–120; RESP 15–30; TEMP 36.4–36.7; O2SAT 94–97; BMI 25.6
[2020-01-16 06:08] LABS: Basophils % 0.2 % (0.1-2.0); Eosinophils # 0.1 K/mm3 (0.0-0.4); Eosinophils % 0.4 % (0.1-12.0); Hematocrit 41.6 % (37.0-47.0); Hemoglobin 13.3 g/dL (12.2-16.2); Lymphocytes # 0.7 K/mm3 (0.7-4.5); Lymphocytes % 5.3 % (10-50); Mean Corpuscular HGB Conc 31.9 g/dL (31.8-35.4); Mean Corpuscular Hemoglobin 30.7 pg (27.0-31.2); Mean Corpuscular Volume 96.2 fl (81-99); Mean Platelet Volume 9.3 fl (7.4-10.4); Monocytes # 0.6 K/mm3 (0.1-1.0); Monocytes % 4.3 % (1.7-9.3); Neutrophils % 89.8 % (37.0-80.0); Platelet Count 195 K/mm3 (142-424); Red Blood Count 4.33 M/mm3 (4.20-5.40); Red Cell Distribution Width 17.2 % (11.5-17.5); White Blood Count 13.4 K/mm3 (4.8-10.8)
[2020-01-16 06:09] LABS: MANUAL DIFFERENTIAL MANUAL DIFFERENTIAL (MANUAL DIFF)
[2020-01-16 06:21] LABS: Chloride 100 mmol/L (98-107); Sodium 133 mmol/L (136-145)
--- NOTE | 2020-01-16 06:23 | PC.NURSE ---
shift summary, coughing spells have decreased in frequency and severity, pt recovers quicker than previously, pt has remained on 2L for majority of shift, room air sat after 15 minutes 88%
[2020-01-16 06:24] LABS: Blood Urea Nitrogen 27 mg/dl (7-17); Creatinine Clearance Estimated 111 mL/min (50-200); Estimated Glomerular Filt Rate 103 ml/min (>60); GFR (African American) 125 ML/MIN (>60)
[2020-01-16 06:25] LABS: Anion Gap 14.3 mEq/L (5-15); Calcium 9.4 mg/dl (8.4-10.2); Carbon Dioxide 25 mmol/L (22.0-30.0); Glucose 126 mg/dl (74-100)
[2020-01-16 07:00] LABS: Potassium 6.3 mmoL/L (3.5-5.1)
[2020-01-16 08:19] LABS: Lymphocytes % 8 % (10-50); Monocytes % 5 % (2-9); Neutrophils % 87 % (42-76); Platelet Estimate Normal; RBC Morphology Normal; Total Cells Counted 100
--- NOTE | 2020-01-16 09:04 | HMH.ACPN2 ---
Internal Medicine - PN: Subj *Date: 01/16/20 *Time: 09:04 Interval history: Patient sitting up in bed states she is feeling really well today. On nasal cannula at 2 L. Exam Vital signs and Labs for Last 24 Hours: Temp Pulse Resp BP Pulse Ox 97.9 F 107 H 30 H 140/81 97 01/16/20 08:00 01/16/20 08:00 01/16/20 08:00 01/16/20 08:00 01/16/20 08:00 Laboratory Results - last 24 hr 01/16/20 05:43: WBC 13.4 H, RBC 4.33, Hgb 13.3, Hct 41.6, MCV 96.2, MCH 30.7, MCHC 31.9, RDW 17.2, Plt Count 195, MPV 9.3, Neut % (Auto) 89.8 H, Lymph % (Auto) 5.3 L, [place] % (Auto) 4.3, Eos % (Auto) 0.4, Baso % (Auto) 0.2, Neut # (Auto) 12.0 H, Lymph # (Auto) 0.7, [place] # (Auto) 0.6, Eos # (Auto) 0.1, Baso # (Auto) 0.0, Total Counted 100, Neutrophils % (Manual) 87 H, Lymphocytes % (Manual) 8 L, Monocytes % (Manual) 5, Platelet Estimate Normal, RBC Morphology Normal 01/16/20 05:43: Sodium 133 L, Potassium 6.3 H* D, Chloride 100, Carbon Dioxide 25, Anion Gap 14.3, BUN 27 H D, Creatinine 0.60, Estimated Creat Clear 111, Estimated GFR 103, Est GFR ( Amer) 125, Glucose 126 H, Calcium 9.4 I & O for Last 24 hours: Intake & Output 01/13/20 01/14/20 01/15/20 01/16/20 11:59 11:59 11:59 11:59 Intake Total 1723 / 1733 430 / 430 940 / 940 700 / 700 Output Total 2570 / 2570 2200 / 2200 600 / 600 1101 / 1101 Balance -847 / -837 -1770 / -1770 340 / 340 -401 / -401 Weight 156 lb 11.2 oz 158 lb 6 oz 152 lb 1.903 oz 150 lb 4 oz - Constitutional no acute distress, chronically ill appearing - *Routine HEENT Exam Head: Present: normocephalic Eye: Present: PERRL ENT: Present: mucous membranes moist - *Routine Neck Exam Present: supple. Absent: lymphadenopathy - *Routine Respiratory Exam Present: diminished air movement - *Routine Cardiovascular Exam Present: RRR - *Routine Abdominal Exam Present: soft, normoactive bowel sounds. Absent: tenderness - *Routine Extremities Exam Present: normal capillary refill. Absent: cyanosis, clubbing, edema - *Routine Skin Exam Present: warm, wounds. Absent: rash Comments: Scattered scabs - *Routine Neurological Exam Present: alert, oriented X3 - Routine Psychiatric Exam Present: normal affect Assessment and Plan (1) Acute exacerbation of chronic obstructive airways disease Current visit: Yes Status: Acute Category: Medical Code(s): J44.1 - Chronic obstructive pulmonary disease with (acute) exacerbation (2) Community acquired pneumonia Current visit: Yes Status: Acute Qualifiers: Laterality: unspecified laterality Qualified Code(s): J18.9 - Pneumonia, unspecified organism Category: Medical Code(s): J18.9 - Pneumonia, unspecified organism (3) Influenza A Current visit: Yes Status: Acute Category: Medical Code(s): J10.1 - Influenza due to other identified influenza virus with other respiratory manifestations (4) Pulmonary embolism Current visit: Yes Status: Acute Qualifiers: Pulmonary embolism type: single subsegmental (without acute cor pulmonale) Qualified Code(s): I26.93 - Single subsegmental pulmonary embolism without acute cor pulmonale Category: Medical Code(s): I26.99 - Other pulmonary embolism without acute cor pulmonale (5) Respiratory failure Current visit: Yes Status: Acute Qualifiers: Chronicity: acute Respiratory failure complication: unspecified whether with hypoxia or hypercapnia Qualified Code(s): J96.00 - Acute respiratory failure, unspecified whether with hypoxia or hypercapnia Category: Medical Code(s): J96.90 - Respiratory failure, unspecified, unspecified whether with hypoxia or hypercapnia (6) UTI (urinary tract infection) Problem details: Providencia Stuartii Current visit: Yes Status: Acute Qualifiers: Urinary tract infection type: site unspecified Hematuria presence: without hematuria Qualified Code(s): N39.0 - Urinary tract infection, site not specified Category: Med
--- NOTE | 2020-01-16 09:17 | PC.NURSE ---
per Dr. Wright, pt has a resting tremor in right arm.
--- NOTE | 2020-01-16 09:43 | SW/DCPLANNER ---
Addendum entered by Cira Esteban 01/19/20 17:05: NEGATIVE COVID screen has been faxed to Radha at [facility]. Addendum entered by Cira Esteban 01/19/20 13:53: Radha Butler has requested a negative COVID NASAL swab within 24 hours of admitting. This will be ordered per Dr Wright. Addendum entered by Cira Esteban 01/19/20 10:10: I have informed Radha Butler that this patient will have PT/OT evaluation today and the plan is to discharge tomorrow. Original Note: Radha from [facility] has accepted this patient once stable for discharge. I will notify Radha with [facility] to update her on discharge plans. preferred that patient stay local to follow. I will also informed Robert Grijalva.
--- NOTE | 2020-01-16 11:38 | HMH.ACPN ---
Internal Medicine - PN: Subj *Date: 01/16/20 *Time: 11:38 Exam Vital signs and Labs for Last 24 Hours: Temp Pulse Resp BP Pulse Ox 97.9 F 107 H 30 H 140/81 97 01/16/20 08:00 01/16/20 08:00 01/16/20 08:00 01/16/20 08:00 01/16/20 08:00 Laboratory Results - last 24 hr 01/16/20 05:43: WBC 13.4 H, RBC 4.33, Hgb 13.3, Hct 41.6, MCV 96.2, MCH 30.7, MCHC 31.9, RDW 17.2, Plt Count 195, MPV 9.3, Neut % (Auto) 89.8 H, Lymph % (Auto) 5.3 L, [place] % (Auto) 4.3, Eos % (Auto) 0.4, Baso % (Auto) 0.2, Neut # (Auto) 12.0 H, Lymph # (Auto) 0.7, [place] # (Auto) 0.6, Eos # (Auto) 0.1, Baso # (Auto) 0.0, Total Counted 100, Neutrophils % (Manual) 87 H, Lymphocytes % (Manual) 8 L, Monocytes % (Manual) 5, Platelet Estimate Normal, RBC Morphology Normal 01/16/20 05:43: Sodium 133 L, Potassium 6.3 H* D, Chloride 100, Carbon Dioxide 25, Anion Gap 14.3, BUN 27 H D, Creatinine 0.60, Estimated Creat Clear 111, Estimated GFR 103, Est GFR ( Amer) 125, Glucose 126 H, Calcium 9.4 I & O for Last 24 hours: Intake & Output 01/13/20 01/14/20 01/15/20 01/16/20 23:59 23:59 23:59 23:59 Intake Total 250 / 310 890 / 890 1060 / 1060 170 / 170 Output Total 2650 / 2650 350 / 350 1200 / 1200 501 / 501 Balance -2400 / -2340 540 / 540 -140 / -140 -331 / -331 Weight 71.078 kg 71.838 kg 69 kg 68.152 kg Assessment and Plan (1) Acute exacerbation of chronic obstructive airways disease Current visit: Yes Status: Acute Category: Medical Code(s): J44.1 - Chronic obstructive pulmonary disease with (acute) exacerbation (2) Community acquired pneumonia Current visit: Yes Status: Acute Qualifiers: Laterality: unspecified laterality Qualified Code(s): J18.9 - Pneumonia, unspecified organism Category: Medical Code(s): J18.9 - Pneumonia, unspecified organism (3) Influenza A Current visit: Yes Status: Acute Category: Medical Code(s): J10.1 - Influenza due to other identified influenza virus with other respiratory manifestations (4) Pulmonary embolism Current visit: Yes Status: Acute Qualifiers: Pulmonary embolism type: single subsegmental (without acute cor pulmonale) Qualified Code(s): I26.93 - Single subsegmental pulmonary embolism without acute cor pulmonale Category: Medical Code(s): I26.99 - Other pulmonary embolism without acute cor pulmonale (5) Respiratory failure Current visit: Yes Status: Acute Qualifiers: Chronicity: acute Respiratory failure complication: unspecified whether with hypoxia or hypercapnia Qualified Code(s): J96.00 - Acute respiratory failure, unspecified whether with hypoxia or hypercapnia Category: Medical Code(s): J96.90 - Respiratory failure, unspecified, unspecified whether with hypoxia or hypercapnia (6) UTI (urinary tract infection) Problem details: Providencia Stuartii Current visit: Yes Status: Acute Qualifiers: Urinary tract infection type: site unspecified Hematuria presence: without hematuria Qualified Code(s): N39.0 - Urinary tract infection, site not specified Category: Medical Code(s): N39.0 - Urinary tract infection, site not specified (7) Severe sepsis with acute organ dysfunction Current visit: Yes Status: Acute Category: Medical Code(s): A41.9 - Sepsis, unspecified organism; R65.20 - Severe sepsis without septic shock (8) Anemia Current visit: Yes Status: Acute Qualifiers: Anemia type: unspecified type Qualified Code(s): D64.9 - Anemia, unspecified Category: Medical Code(s): D64.9 - Anemia, unspecified (9) Elevated troponin level not due myocardial infarction Current visit: Yes Status: Acute Category: Medical Code(s): R79.89 - Other specified abnormal findings of blood chemistry (10) Tricuspid regurgitation Current visit: Yes Status: Acute Category: Medical Code(s): I07.1 - Rheumatic tricuspid insufficiency (11) Right heart enlargement Current visit: Yes Status: Acute Cat
[2020-01-16 14:33] LABS: Chloride 99 mmol/L (98-107); Potassium 4.6 mmoL/L (3.5-5.1); Sodium 138 mmol/L (136-145)
[2020-01-16 14:36] LABS: Anion Gap 15.6 mEq/L (5-15); Blood Urea Nitrogen 29 mg/dl (7-17); Calcium 9.7 mg/dl (8.4-10.2); Carbon Dioxide 28 mmol/L (22.0-30.0); Creatinine Clearance Estimated 74 mL/min (50-200); Estimated Glomerular Filt Rate 65 ml/min (>60); GFR (African American) 78 ML/MIN (>60); Glucose 123 mg/dl (74-100)
--- NOTE | 2020-01-16 17:53 | PC.NURSE ---
Pt stable this shift. Has been transferred to med surg from step-down. Tolerated a shower well. Gets up to BSC with 1 assist. Has had 3 BMs this shift. Has maintained O2 sat above 90% on 2L all day. Pulls 750 on IS. Has been NSR all shift. Plan is to transfer to [place] on Sunday.
--- NOTE | 2020-01-16 19:16 | PC.NURSE ---
report given to nasir
[2020-01-16 22:19] LABS: Anion Gap 11.3 mEq/L (5-15); Blood Urea Nitrogen 34 mg/dl (7-17); Carbon Dioxide 29 mmol/L (22.0-30.0); Chloride 99 mmol/L (98-107); Creatinine Clearance Estimated 83 mL/min (50-200); Estimated Glomerular Filt Rate 74 ml/min (>60); GFR (African American) 89 ML/MIN (>60); Potassium 4.3 mmoL/L (3.5-5.1); Sodium 135 mmol/L (136-145)
[2020-01-16 22:22] LABS: Glucose 212 mg/dl (74-100)
[2020-01-17] VITALS (10 sets, daily range): BP systolic 120–149; BP diastolic 67–87; PULSE 70–120; RESP 17–24; TEMP 36.4–37; O2SAT 92–98; BMI 25.7
[2020-01-17 06:20] LABS: Basophils % 0.2 % (0.1-2.0); Eosinophils % 0.1 % (0.1-12.0); Hematocrit 38.8 % (37.0-47.0); Hemoglobin 12.5 g/dL (12.2-16.2); Lymphocytes # 0.9 K/mm3 (0.7-4.5); Lymphocytes % 4.7 % (10-50); MANUAL DIFFERENTIAL MANUAL DIFFERENTIAL (MANUAL DIFF); Mean Corpuscular HGB Conc 32.1 g/dL (31.8-35.4); Mean Corpuscular Hemoglobin 30.4 pg (27.0-31.2); Mean Corpuscular Volume 94.7 fl (81-99); Mean Platelet Volume 8.4 fl (7.4-10.4); Monocytes # 0.8 K/mm3 (0.1-1.0); Neutrophils # 17.5 K/mm3 (1.8-7.8); Neutrophils % 90.9 % (37.0-80.0); Platelet Count 305 K/mm3 (142-424); Red Blood Count 4.09 M/mm3 (4.20-5.40); Red Cell Distribution Width 16.9 % (11.5-17.5); White Blood Count 19.3 K/mm3 (4.8-10.8)
[2020-01-17 06:22] LABS: Chloride 99 mmol/L (98-107)
[2020-01-17 06:23] LABS: Potassium 4.2 mmoL/L (3.5-5.1); Sodium 134 mmol/L (136-145)
[2020-01-17 06:26] LABS: Anion Gap 14.2 mEq/L (5-15); Blood Urea Nitrogen 29 mg/dl (7-17); Calcium 9.4 mg/dl (8.4-10.2); Carbon Dioxide 25 mmol/L (22.0-30.0); Creatinine Clearance Estimated 96 mL/min (50-200); Estimated Glomerular Filt Rate 86 ml/min (>60); GFR (African American) 104 ML/MIN (>60); Glucose 145 mg/dl (74-100)
[2020-01-17 06:28] LABS: Lymphocytes % 6 % (10-50); Monocytes % 1 % (2-9); Neutrophils % 89 % (42-76); Platelet Estimate Normal; RBC Morphology Normal; Total Cells Counted 100
--- NOTE | 2020-01-17 06:42 | PC.NURSE ---
shift summary, pt is currently on room air, after making failed attempts t/o shift to keep O2 sats greater than 88%, O2 has remained room air to 2L t/o shift, continues to have intermittent non-productive cough
--- NOTE | 2020-01-17 09:02 | HMH.ACPN2 ---
Internal Medicine - PN: Subj *Date: 01/17/20 *Time: 09:02 Interval history: pt doing better with slow improvent Exam Vital signs and Labs for Last 24 Hours: Temp Pulse Resp BP Pulse Ox 97.6 F 116 H 17 120/73 96 01/17/20 08:00 01/17/20 08:00 01/17/20 08:00 01/17/20 08:00 01/17/20 08:00 Laboratory Results - last 24 hr 01/16/20 14:00: Sodium 138, Potassium 4.6 D, Chloride 99, Carbon Dioxide 28, Anion Gap 15.6 H, BUN 29 H, Creatinine 0.90 D, Estimated Creat Clear 74, Estimated GFR 65, Est GFR ( Amer) 78 D, Glucose 123 H, Calcium 9.7 01/16/20 21:48: Sodium 135 L, Potassium 4.3, Chloride 99, Carbon Dioxide 29, Anion Gap 11.3, BUN 34 H, Creatinine 0.80, Estimated Creat Clear 83, Estimated GFR 74, Est GFR ( Amer) 89, Glucose 212 H D, Calcium 9.0 01/17/20 05:35: WBC 19.3 H D, RBC 4.09 L, Hgb 12.5, Hct 38.8, MCV 94.7, MCH 30.4, MCHC 32.1, RDW 16.9, Plt Count 305 D, MPV 8.4, Neut % (Auto) 90.9 H, Lymph % (Auto) 4.7 L, [place] % (Auto) 4.0, Eos % (Auto) 0.1, Baso % (Auto) 0.2, Neut # (Auto) 17.5 H, Lymph # (Auto) 0.9, [place] # (Auto) 0.8, Eos # (Auto) 0.0, Baso # (Auto) 0.0, Total Counted 100, Neutrophils % (Manual) 89 H, Band Neutrophils % 4.0, Lymphocytes % (Manual) 6 L, Monocytes % (Manual) 1 L, Platelet Estimate Normal, RBC Morphology Normal 01/17/20 05:35: Sodium 134 L, Potassium 4.2, Chloride 99, Carbon Dioxide 25, Anion Gap 14.2, BUN 29 H, Creatinine 0.70, Estimated Creat Clear 96, Estimated GFR 86, Est GFR ( Amer) 104, Glucose 145 H D, Calcium 9.4 I & O for Last 24 hours: Intake & Output 01/14/20 01/15/20 01/16/20 01/17/20 11:59 11:59 11:59 11:59 Intake Total 430 / 430 940 / 940 820 / 820 1060 / 1060 Output Total 2200 / 2200 600 / 600 1101 / 1101 1227 / 1227 Balance -1770 / -1770 340 / 340 -281 / -281 -167 / -167 Weight 158 lb 6 oz 152 lb 1.903 oz 150 lb 4 oz 150 lb 9 oz Microbiology Reports for the Last 24 Hours: Microbiology 01/09/20 15:00 Sputum - Endotracheal Tube Aspirate Gram Stain - Final 01/09/20 15:00 Sputum - Endotracheal Tube Aspirate Sputum Culture - Final NO GROWTH AFTER 48 HOURS - Constitutional no acute distress - *Routine HEENT Exam Head: Present: normocephalic Eye: Present: EOMI, PERRL ENT: Present: mucous membranes dry - *Routine Neck Exam Present: supple. Absent: JVD - *Routine Respiratory Exam Present: decreased breath sounds - *Routine Cardiovascular Exam Present: RRR, murmur - *Routine Abdominal Exam Present: soft - *Routine Extremities Exam Absent: calf tenderness - *Routine Skin Exam Present: intact - *Routine Neurological Exam Present: alert, CN II-XII intact - Routine Psychiatric Exam Present: normal affect Assessment and Plan (1) Acute exacerbation of chronic obstructive airways disease Current visit: Yes Status: Acute Category: Medical Code(s): J44.1 - Chronic obstructive pulmonary disease with (acute) exacerbation (2) Community acquired pneumonia Current visit: Yes Status: Acute Qualifiers: Laterality: unspecified laterality Qualified Code(s): J18.9 - Pneumonia, unspecified organism Category: Medical Code(s): J18.9 - Pneumonia, unspecified organism (3) Influenza A Current visit: Yes Status: Acute Category: Medical Code(s): J10.1 - Influenza due to other identified influenza virus with other respiratory manifestations (4) Pulmonary embolism Current visit: Yes Status: Acute Qualifiers: Pulmonary embolism type: single subsegmental (without acute cor pulmonale) Qualified Code(s): I26.93 - Single subsegmental pulmonary embolism without acute cor pulmonale Category: Medical Code(s): I26.99 - Other pulmonary embolism without acute cor pulmonale (5) Respiratory failure Current visit: Yes Status: Acute Qualifiers: Chronicity: acute Respiratory failure complication: unspecified whether with hypoxia or hypercapnia Qualified Code(s)
--- NOTE | 2020-01-17 09:09 | XR_ITS ---
PROCEDURE: XR CHEST PORTABLE CLINICAL INDICATION: sob The shortness of air COMPARISON: XR CHEST PORTABLE from 11/09/2019 XR CHEST PORTABLE from 01/10/2020 XR CHEST PORTABLE from 01/10/2020 XR CHEST PORTABLE from 01/11/2020 CT ANGIO CHEST from 01/13/2020 FINDINGS: Cardiomegaly with low lung volumes. There is diffuse interstitial changes with improvement in the bilateral airspace disease.. No acute bony findings. IMPRESSION: Interstitial lung disease with persistent but improving bilateral pneumonia Dictated by: Ildefonso Durand MD 01/17/2020 09:49 Electronically signed by Ildefonso Durand MD in [facility] 01/17/2020 09:49
--- NOTE | 2020-01-17 19:47 | PC.NURSE ---
PATIENT A&O X4, LUNGS CLEAR AND DIMINISHED, PULSES EQUAL, SEVERAL BRUISES THROUGHOUT LIMBS. PATIENT REMAINED ON RA THRU THIS RN SHIFT. UP TO CHAIR AND TOLERATED WELL. PATIENT ABLE TO USE BEDSIDE COMMODE WITH 1X ASSIST. PATIENT ATE ALL MEALS DURING SHIFT AND TOLERATED WELL. NO NEEDS OR CONCERNS AT THIS TIME.
[2020-01-18] VITALS (8 sets, daily range): BP systolic 120–147; BP diastolic 72–98; PULSE 70–115; RESP 17–20; TEMP 36.6–37.1; O2SAT 90–100; BMI 25.7
--- NOTE | 2020-01-18 02:25 | PC.NURSE ---
She continues in droplet precautions r/t influenza A. She is A&Ox4. Continues on RA. VSS. Safety set. Incontinent of bladder at times but got up to the BSC independently for BM. She has a brief on. Trace edema and bruising to her left and right ahnds. She has an intermittent cough. She reports it is non-productive. Dried blood present on 5th digit on left foot. She refused a snack and requested a bed bath in the morning. Demonstrated use of incentive spirometer.
[2020-01-18 06:19] LABS: Basophils % 0.1 % (0.1-2.0); Hematocrit 39.6 % (37.0-47.0); Hemoglobin 12.3 g/dL (12.2-16.2); Lymphocytes % 5.1 % (10-50); Mean Corpuscular HGB Conc 31.1 g/dL (31.8-35.4); Mean Corpuscular Hemoglobin 30.3 pg (27.0-31.2); Mean Corpuscular Volume 97.5 fl (81-99); Mean Platelet Volume 8.7 fl (7.4-10.4); Monocytes # 0.7 K/mm3 (0.1-1.0); Monocytes % 3.5 % (1.7-9.3); Neutrophils # 17.5 K/mm3 (1.8-7.8); Neutrophils % 91.2 % (37.0-80.0); Platelet Count 350 K/mm3 (142-424); Red Blood Count 4.06 M/mm3 (4.20-5.40); Red Cell Distribution Width 17.1 % (11.5-17.5); White Blood Count 19.2 K/mm3 (4.8-10.8)
[2020-01-18 06:20] LABS: MANUAL DIFFERENTIAL MANUAL DIFFERENTIAL (MANUAL DIFF)
[2020-01-18 06:38] LABS: Anisocytosis 1+; Hypochromasia 1+; Lymphocytes % 5 % (10-50); Microcytosis 1+; Monocytes % 1 % (2-9); Neutrophils % 90 % (42-76); Platelet Estimate Normal; Total Cells Counted 100
[2020-01-18 06:41] LABS: Anion Gap 11.6 mEq/L (5-15); Blood Urea Nitrogen 32 mg/dl (7-17); Calcium 9.1 mg/dl (8.4-10.2); Carbon Dioxide 27 mmol/L (22.0-30.0); Chloride 101 mmol/L (98-107); Creatinine Clearance Estimated 112 mL/min (50-200); Estimated Glomerular Filt Rate 103 ml/min (>60); GFR (African American) 125 ML/MIN (>60); Potassium 4.6 mmoL/L (3.5-5.1); Sodium 135 mmol/L (136-145)
[2020-01-18 07:03] LABS: Glucose 110 mg/dl (74-100)
--- NOTE | 2020-01-18 10:01 | HMH.ACPN2 ---
Internal Medicine - PN: Subj *Date: 01/19/20 *Time: 06:59 Interval history: looks better - sitting in chair Exam Vital signs and Labs for Last 24 Hours: Temp Pulse Resp BP Pulse Ox 97.9 F 115 H 20 127/98 H 92 L 01/18/20 08:00 01/18/20 08:00 01/18/20 08:00 01/18/20 08:00 01/18/20 08:00 Laboratory Results - last 24 hr 01/18/20 05:25: WBC 19.2 H, RBC 4.06 L, Hgb 12.3, Hct 39.6, MCV 97.5, MCH 30.3, MCHC 31.1 L, RDW 17.1, Plt Count 350, MPV 8.7, Neut % (Auto) 91.2 H, Lymph % (Auto) 5.1 L, [place] % (Auto) 3.5, Eos % (Auto) 0.0 L, Baso % (Auto) 0.1, Neut # (Auto) 17.5 H, Lymph # (Auto) 1.0, [place] # (Auto) 0.7, Eos # (Auto) 0.0, Baso # (Auto) 0.0, Total Counted 100, Neutrophils % (Manual) 90 H, Band Neutrophils % 4.0, Lymphocytes % (Manual) 5 L, Monocytes % (Manual) 1 L, Platelet Estimate Normal, Hypochromasia 1+, Anisocytosis 1+, Microcytosis 1+ 01/18/20 05:25: Sodium 135 L, Potassium 4.6, Chloride 101, Carbon Dioxide 27, Anion Gap 11.6, BUN 32 H, Creatinine 0.60, Estimated Creat Clear 112, Estimated GFR 103, Est GFR ( Amer) 125 D, Glucose 110 H D, Calcium 9.1 I & O for Last 24 hours: Intake & Output 01/15/20 01/16/20 01/17/20 01/18/20 11:59 11:59 11:59 11:59 Intake Total 940 / 940 820 / 820 1060 / 1060 660 / 660 Output Total 600 / 600 1101 / 1101 1227 / 1227 300 / 300 Balance 340 / 340 -281 / -281 -167 / -167 360 / 360 Weight 152 lb 1.903 oz 150 lb 4 oz 150 lb 9 oz 150 lb 11.2 oz - Constitutional no acute distress - *Routine HEENT Exam Head: Present: normocephalic Eye: Present: EOMI, PERRL ENT: Present: mucous membranes dry - *Routine Neck Exam Present: supple. Absent: JVD - *Routine Respiratory Exam Present: decreased breath sounds - *Routine Cardiovascular Exam Present: RRR, murmur - *Routine Abdominal Exam Present: soft - *Routine Extremities Exam Present: edema. Absent: calf tenderness - *Routine Skin Exam Present: intact - *Routine Neurological Exam Present: alert, CN II-XII intact - Routine Psychiatric Exam Present: normal affect Assessment and Plan (1) Acute exacerbation of chronic obstructive airways disease Current visit: Yes Status: Acute Category: Medical Code(s): J44.1 - Chronic obstructive pulmonary disease with (acute) exacerbation (2) Community acquired pneumonia Current visit: Yes Status: Acute Qualifiers: Laterality: unspecified laterality Qualified Code(s): J18.9 - Pneumonia, unspecified organism Category: Medical Code(s): J18.9 - Pneumonia, unspecified organism (3) Influenza A Current visit: Yes Status: Acute Category: Medical Code(s): J10.1 - Influenza due to other identified influenza virus with other respiratory manifestations (4) Pulmonary embolism Current visit: Yes Status: Acute Qualifiers: Pulmonary embolism type: single subsegmental (without acute cor pulmonale) Qualified Code(s): I26.93 - Single subsegmental pulmonary embolism without acute cor pulmonale Category: Medical Code(s): I26.99 - Other pulmonary embolism without acute cor pulmonale (5) Respiratory failure Current visit: Yes Status: Acute Qualifiers: Chronicity: acute Respiratory failure complication: unspecified whether with hypoxia or hypercapnia Qualified Code(s): J96.00 - Acute respiratory failure, unspecified whether with hypoxia or hypercapnia Category: Medical Code(s): J96.90 - Respiratory failure, unspecified, unspecified whether with hypoxia or hypercapnia (6) UTI (urinary tract infection) Problem details: Providencia Stuartii Current visit: Yes Status: Acute Qualifiers: Urinary tract infection type: site unspecified Hematuria presence: without hematuria Qualified Code(s): N39.0 - Urinary tract infection, site not specified Category: Medical Code(s): N39.0 - Urinary tract infection, site not specified (7) Severe sepsis with acute organ dysfunction Current visit: Yes Status: Ac
--- NOTE | 2020-01-18 17:42 | PC.NURSE ---
Alert and oriented this shift. Lungs were clear but diminished. She remains on RA with O2 sats staying in the 90's. She was up to the chair for most of the day with one assist. Two episodes of urinary incontinence. NSR to sinus tach on telemetry. No complaints verbalized.
--- NOTE | 2020-01-18 17:56 | PC.NURSE ---
Attempted to change patients IV per protocol. She refused. IV flushes easily, she denies pain at site and when flushing. She was instructed to report any pain immediately to the nurse, she verbalized understanding.
[2020-01-19] VITALS (11 sets, daily range): BP systolic 115–158; BP diastolic 76–95; PULSE 70–120; RESP 18–24; TEMP 36.4–36.9; O2SAT 91–99; BMI 24.7
--- NOTE | 2020-01-19 01:24 | PC.NURSE ---
She is A&Ox4. She denies pain. She reports SOA. She reports having a BM on 01/18/20. NSR on telemetry. She refuses for her IV to be changed.
[2020-01-19 05:58] LABS: Basophils % 0.1 % (0.1-2.0); Eosinophils % 0.1 % (0.1-12.0); Hematocrit 39.3 % (37.0-47.0); Hemoglobin 12.9 g/dL (12.2-16.2); Lymphocytes # 1.1 K/mm3 (0.7-4.5); Lymphocytes % 6.2 % (10-50); Mean Corpuscular HGB Conc 32.8 g/dL (31.8-35.4); Mean Corpuscular Hemoglobin 30.4 pg (27.0-31.2); Mean Corpuscular Volume 92.8 fl (81-99); Mean Platelet Volume 8.2 fl (7.4-10.4); Monocytes # 0.8 K/mm3 (0.1-1.0); Monocytes % 4.4 % (1.7-9.3); Neutrophils # 16.6 K/mm3 (1.8-7.8); Neutrophils % 89.3 % (37.0-80.0); Platelet Count 383 K/mm3 (142-424); Red Blood Count 4.23 M/mm3 (4.20-5.40); Red Cell Distribution Width 16.7 % (11.5-17.5); White Blood Count 18.6 K/mm3 (4.8-10.8)
[2020-01-19 06:04] LABS: MANUAL DIFFERENTIAL MANUAL DIFFERENTIAL (MANUAL DIFF)
[2020-01-19 06:05] LABS: Chloride 101 mmol/L (98-107); Sodium 134 mmol/L (136-145)
[2020-01-19 06:06] LABS: Potassium 4.1 mmoL/L (3.5-5.1)
[2020-01-19 06:08] LABS: Blood Urea Nitrogen 31 mg/dl (7-17); Creatinine Clearance Estimated 107 mL/min (50-200); Estimated Glomerular Filt Rate 103 ml/min (>60); GFR (African American) 125 ML/MIN (>60)
[2020-01-19 06:09] LABS: Anion Gap 13.1 mEq/L (5-15); Calcium 9.2 mg/dl (8.4-10.2); Carbon Dioxide 24 mmol/L (22.0-30.0); Glucose 121 mg/dl (74-100)
[2020-01-19 06:16] LABS: Lymphocytes % 6 % (10-50); Monocytes % 3 % (2-9); Neutrophils % 90 % (42-76); Platelet Estimate Normal; RBC Morphology Normal; Total Cells Counted 100
--- NOTE | 2020-01-19 11:34 | HMH.PTEV ---
Physical Therapy Evaluation Rehab PT IP Evaluation Start: 01/19/20 08:46 Freq: ONCE Status: Active Protocol: Document 01/19/20 11:31 LANDY (Rec: 01/19/20 11:34 LANDY [id number]) Subjective/History History History this pt from [facility] -who became sob - pt has hx of resp illness in 11/18 and was treated at -This is a 59- year-old female presented to the emergency department with difficulty breathing. On initial presentation, the patient is in severe respiratory distress. She is initially hypoxic into the low 80s. She has had a fever at home as well as a cough. Patient states that she was unable to catch her breath and she called EMS today. She denies any chest pain has had some associated palpitations. Denies any abdominal pain or vomiting. No headache, no change in vision, no focal weakness. Patient has a longstanding history of COPD. pt required intubation in the ed and was covid 19 neg -pt was admitted for treatment Subjective Subjective Pt reports she is willing to participate Rehab PT IP Eval Objective Appearance Patient Behavior Cooperative,Passive Patient Orientation Person,Place,Time Difficulty following instructions mild Speech Pattern Appropriate Ambulation Patient Able to Ambulate Yes Ambulation Observation IP General Gait Pattern Observation Shuffling Step Ambulation Distance (feet) 25 Ambulation Assistive Device None Ambulation Ability Contact Guard/Hand Hold Balance Ability to Arise Able, uses arms to help Sitting Balance Steady, safe Standing Balance Narrow stance w/o support Dynamic Sitting Balance Ability Good Dynamic Standing Balance Ability Fair Transfers Bed Transfer Ability Supervision/Stand by Chair Transfer Ability Supervision/Stand by Sit to Stand Bed Transfer Ability Contact Guard/Hand Hold Sit to Stand Chair Transfer Ability Contact Guard/Hand Hold ROM All Extremities PT ROM Status WFL MMT All Extremities
--- NOTE | 2020-01-19 12:22 | HMH.ACPN2 ---
Internal Medicine - PN: Subj *Date: 01/19/20 *Time: 12:22 Interval history: doing better - off o2 - will do ot and pt eval Exam Vital signs and Labs for Last 24 Hours: Temp Pulse Resp BP Pulse Ox 97.7 F 100 H 24 127/76 96 01/19/20 11:52 01/19/20 11:52 01/19/20 11:52 01/19/20 11:52 01/19/20 11:52 Laboratory Results - last 24 hr 01/19/20 05:32: WBC 18.6 H, RBC 4.23, Hgb 12.9, Hct 39.3, MCV 92.8, MCH 30.4, MCHC 32.8, RDW 16.7, Plt Count 383, MPV 8.2, Neut % (Auto) 89.3 H, Lymph % (Auto) 6.2 L, [place] % (Auto) 4.4, Eos % (Auto) 0.1, Baso % (Auto) 0.1, Neut # (Auto) 16.6 H, Lymph # (Auto) 1.1, [place] # (Auto) 0.8, Eos # (Auto) 0.0, Baso # (Auto) 0.0, Total Counted 100, Neutrophils % (Manual) 90 H, Band Neutrophils % 1.0, Lymphocytes % (Manual) 6 L, Monocytes % (Manual) 3, Platelet Estimate Normal, RBC Morphology Normal 01/19/20 05:32: Sodium 134 L, Potassium 4.1, Chloride 101, Carbon Dioxide 24, Anion Gap 13.1, BUN 31 H, Creatinine 0.60, Estimated Creat Clear 107, Estimated GFR 103, Est GFR ( Amer) 125, Glucose 121 H, Calcium 9.2 I & O for Last 24 hours: Intake & Output 01/17/20 01/18/20 01/19/20 01/20/20 11:59 11:59 11:59 11:59 Intake Total 1060 / 1060 660 / 660 530 / 530 Output Total 1227 / 1227 300 / 300 Balance -167 / -167 360 / 360 530 / 530 Weight 150 lb 9 oz 150 lb 11.2 oz 145 lb 1 oz - Constitutional no acute distress - *Routine HEENT Exam Head: Present: normocephalic Eye: Present: EOMI, PERRL ENT: Present: mucous membranes dry - *Routine Neck Exam Absent: JVD - *Routine Respiratory Exam Present: decreased breath sounds, rhonchi - *Routine Cardiovascular Exam Present: RRR, murmur, S4. Absent: rubs - *Routine Abdominal Exam Present: soft - *Routine Extremities Exam Present: edema - *Routine Skin Exam Present: intact - *Routine Neurological Exam Present: alert, CN II-XII intact - Routine Psychiatric Exam Present: normal affect Assessment and Plan (1) Acute exacerbation of chronic obstructive airways disease Current visit: Yes Status: Acute Category: Medical Code(s): J44.1 - Chronic obstructive pulmonary disease with (acute) exacerbation (2) Community acquired pneumonia Current visit: Yes Status: Acute Qualifiers: Laterality: unspecified laterality Qualified Code(s): J18.9 - Pneumonia, unspecified organism Category: Medical Code(s): J18.9 - Pneumonia, unspecified organism (3) Influenza A Current visit: Yes Status: Acute Category: Medical Code(s): J10.1 - Influenza due to other identified influenza virus with other respiratory manifestations (4) Pulmonary embolism Current visit: Yes Status: Acute Qualifiers: Pulmonary embolism type: single subsegmental (without acute cor pulmonale) Qualified Code(s): I26.93 - Single subsegmental pulmonary embolism without acute cor pulmonale Category: Medical Code(s): I26.99 - Other pulmonary embolism without acute cor pulmonale (5) Respiratory failure Current visit: Yes Status: Acute Qualifiers: Chronicity: acute Respiratory failure complication: unspecified whether with hypoxia or hypercapnia Qualified Code(s): J96.00 - Acute respiratory failure, unspecified whether with hypoxia or hypercapnia Category: Medical Code(s): J96.90 - Respiratory failure, unspecified, unspecified whether with hypoxia or hypercapnia (6) UTI (urinary tract infection) Problem details: Providencia Stuartii Current visit: Yes Status: Acute Qualifiers: Urinary tract infection type: site unspecified Hematuria presence: without hematuria Qualified Code(s): N39.0 - Urinary tract infection, site not specified Category: Medical Code(s): N39.0 - Urinary tract infection, site not specified (7) Severe sepsis with acute organ dysfunction Current visit: Yes Status: Acute Category: Medical Code(s): A41.9 - Sepsis, unspecified organism; R65.20 - Severe sepsis withou
--- NOTE | 2020-01-19 13:22 | HMH.OTOPEV ---
PHYSICIAN CERTIFICATION: I certify the specified therapy services for St[facility] Day are required, authorized, and reviewed every 30 days.
--- NOTE | 2020-01-19 13:23 | HMH.OTEV ---
OT Inpatient Evaluation Rehab OT IP Evaluation Start: 01/19/20 08:46 Freq: ONCE Status: Complete Protocol: Document 01/19/20 13:04 TITIFALLON (Rec: 01/19/20 13:20 LIZBET [id number]) Rehab OT IP Assessment Subjective History 59 year old female admitted to [facility] on 01/09/20 for SOB. Patient currently lived in independent [facility] and was brought to [facility] through EMS for decline medical condition. Due to difficulty breathing, patient was currently on vent. OT orders this date, due to patient possible d/c to [facility]. Admin dx: Influenza, acquired B PNA, COPD, anxiety, GERD, HLD and pul embolism. Subjective I need help. Objective Patient Orientation Person,Place,Time,Name,Age, Birthday,Month,Year Upper Extremity Gross ROM WFL Transfer Training Sit/Stand/Step Transfer,Sit/ Stand/Pivot Transfer Assist Level Contact Guard/Hand Hold Chair Transfer Ability Contact Guard/Hand Hold Chair Transfer Technique Sit to/from Ambulatory Chair Transfer Assistive Devices None Feeding Ability Assist with Tray Set Up Lower Body Dressing Ability Standby Assistance Performing Toilet Hygiene Ability Independent Overall Commode/Toilet Transfer Ability Independent,Standby Assistance Commode/Toilet Transfer Technique Sit to/from Ambulatory Commode/Toilet Transfer Assistive Raised Toilet Seat Devices Rehab OT IP prob,goals,plan Problems Date of Evaluation: 01/19/20 OT IP Problems Bed Mobility,Transfers,Balance ,Self care Rehab Potential Rehab Potential Good Equipment Needs Assistive Devices Rolling / Wheeled Walker Plan OT intervention Plan Transfers,Gait,Balance,Self care,Safety,Therapeutic Exercise OT Plan Frequency Daily Duration LOS Discharge Goals Bed Mobility Ability Standby Assistance Sit to Stand Chair Transfer Ability Supervision/Stand by Chair Transfer Ability Supervision/Stand by Chair Transfer Technique Sit to/from Ambulatory Chair Transfer Assistive Devices None Self care skills dressing/undressing independently Lower Body Dressing Ability Standby Assistance
[2020-01-19 14:47] LABS: Adenovirus,PCR Not Detected (NotDetected); Bordetella Pertussis Not Detected (NotDetected); Chlamydophila Pneumoniae, PCR Not Detected (NotDetected); Coronavirus 19, PCR Not Detected (NotDetected); Coronavirus 229E Not Detected (NotDetected); Coronavirus NL63 Not Detected (NotDetected); Coronavirus OC43 Not Detected (NotDetected); Coronovirus HKU1,PCR Not Detected (NotDetected); Human Metapneumovirus Not Detected (NotDetected); Influenza A, PCR Not Detected (NotDetected); Influenza AH1, 2009 Not Detected (NotDetected); Influenza AH1, PCR Not Detected (NotDetected); Influenza AH3,PCR Not Detected (NotDetected); Influenza B, PCR Not Detected (NotDetected); Mycoplasma Pneumoniae, PCR Not Detected (NotDected); Parainfluenza 1, PCR Not Detected (NotDetected); Parainfluenza 2, PCR Not Detected (NotDetected); Parainfluenza 3, PCR Not Detected (NotDetected); Parainfluenza 4, PCR Not Detected (NotDetected); Respiratory Syncytial Virus Not Detected (NotDetected); Rhinovirus/Enterovirus Not Detected (NotDetected)
--- NOTE | 2020-01-19 15:51 | PC.NURSE ---
Patient has been up to chair for most of shift today and tolerated well, PT/OT assessed patient today, pt has been able to ambulate with standby assist to bathroom, remains on RA at this time, lung sounds clear with diminished bs with bl bases, vss, to discharge to [place] tomorrow, will continue to monitor for changes.
--- NOTE | 2020-01-19 19:11 | PC.NURSE ---
report given to jitendra
--- NOTE | 2020-01-19 20:19 | PC.NURSE ---
RT monitored pt during RA sat=88%, returned pt to 2L NC
[2020-01-20] VITALS: BP 149/69; PULSE 100; PULSE 98; RESP 18; TEMP 36.6; O2SAT 90
[2020-01-20 04:00] VITALS: BP 116/69; PULSE 100; PULSE 87; RESP 18; TEMP 36.7; O2SAT 94
[2020-01-20 05:00] VITALS: BMI 24.5
--- NOTE | 2020-01-20 05:07 | PC.NURSE ---
A&OX4. pt denies any pain or SOA. Pt has ambulated to Br with standby assistance. Pt has rested quietly in bed for majority of shift. NSR and sinus on tele. pt hs performed IS several times this shift. Pt O2 sats maintained well on 2L NC
[2020-01-20 05:46] VITALS: PULSE 82; PULSE 84
[2020-01-20 07:19] LABS: Chloride 101 mmol/L (98-107); Potassium 4.6 mmoL/L (3.5-5.1); Sodium 131 mmol/L (136-145)
[2020-01-20 07:22] LABS: Anion Gap 11.6 mEq/L (5-15); Blood Urea Nitrogen 45 mg/dl (7-17); Calcium 9.2 mg/dl (8.4-10.2); Carbon Dioxide 23 mmol/L (22.0-30.0); Creatinine Clearance Estimated 91 mL/min (50-200); Estimated Glomerular Filt Rate 86 ml/min (>60); GFR (African American) 104 ML/MIN (>60); Glucose 160 mg/dl (74-100)
[2020-01-20 07:24] LABS: Basophils % 0.2 % (0.1-2.0); Eosinophils % 0.1 % (0.1-12.0); Hematocrit 40.7 % (37.0-47.0); Lymphocytes % 4.4 % (10-50); Mean Corpuscular Volume 96.9 fl (81-99); Mean Platelet Volume 8.5 fl (7.4-10.4); Monocytes # 0.8 K/mm3 (0.1-1.0); Monocytes % 3.6 % (1.7-9.3); Neutrophils % 91.7 % (37.0-80.0); Platelet Count 392 K/mm3 (142-424); Red Blood Count 4.21 M/mm3 (4.20-5.40); Red Cell Distribution Width 16.5 % (11.5-17.5)
[2020-01-20 07:33] LABS: White Blood Count 22.9 K/mm3 (4.8-10.8)
[2020-01-20 07:35] LABS: MANUAL DIFFERENTIAL MANUAL DIFFERENTIAL (MANUAL DIFF)
[2020-01-20 08:00] VITALS: BP 134/79; PULSE 101; RESP 20; TEMP 36.6; O2SAT 93
[2020-01-20 08:21] LABS: Hypochromasia 1+; Lymphocytes % 3 % (10-50); Macrocytosis 1+; Monocytes % 2 % (2-9); Neutrophils % 95 % (42-76); Platelet Estimate Normal; Total Cells Counted 100
--- NOTE | 2020-01-20 08:53 | HMH.DCSUM ---
General - General Admission date:: 01/09/20 Discharge date: 01/20/20 HPI HPI: this pt from long-term -who became sob - pt has hx of resp illness in 11/18 and was treated at -This is a 59-year-old female presented to the emergency department with difficulty breathing. On initial presentation, the patient is in severe respiratory distress. She is initially hypoxic into the low 80s. She has had a fever at home as well as a cough. Patient states that she was unable to catch her breath and she called EMS today. She denies any chest pain has had some associated palpitations. Denies any abdominal pain or vomiting. No headache, no change in vision, no focal weakness. Patient has a longstanding history of COPD.pt required intubation in the ed and was covid 19 neg -pt was admitted for treatment Hospital Course Hospital Course: 59-year-old female patient presented to the emergency room with increasing shortness of breath and difficulty breathing, initially sats were in the low 80s she reports having a fever at home and a cough for several days. She denies chest pain but does report some palpitations in the past several days. Denies N/V/D, headache, change in vision,. Patient has a history of respiratory distress in 11/18, and was treated at . While in the emergency room patient developed severe respiratory distress and required intubation with transfer to ICU. COVID-19 was negative. Patient remained intubated for approximately 24 hours, was extubated to BiPAP. Required BiPAP for approximately 3 days, then was gradually decreased to nasal cannula, currently she is satting 92% on room air denies any shortness of breath or chest pain. Initial chest CT showed a pulmonary embolism and a sending branch of the right pulmonary artery she was started on Eliquis for this. Bilateral venous Doppler showed no evidence of DVT or superficial thrombophlebitis in either lower extremity. Head CT showed no midline shift, intracranial hemorrhage, hydrocephalus, or extra axial fluid collection. It did show generalized atrophy with hypoattenuation of the periventricular white matter consistent with micro-angiographic changes (Per Dr. Durand). Chest x-ray showed diffuse pneumonia slightly worse on the right, now chest x-rays are showing improving pneumonia Urine culture grew Providencia stuartii and she has completed a course of cefepime IV for this she is also completed azithromycin IV for pneumonia. She was also flu a positive and received antivirals. Blood cultures negative x2 and sputum culture negative Barium swallow showed no penetration or aspiration present with minimal delay in initiation of the swallowing mechanism, minimal stasis, mild early spillage. Impression was no aspiration or penetration. 01/14/20 Speech Eval: Speech/Language Dysphagia Evaluation Start: 01/14/20 13:39 Freq: ONCE Status: Active Protocol: Document 01/14/20 13:39 RADHA (Rec: 01/14/20 13:52 RADHA [id number]) Dysphagia Assess/Goals/Plan Assessment Date of Evaluation: 01/14/20 Evaluation Type Initial Certification Assessment/Problems Dysphagia Does Patient Qualify for Service Yes Qualify/Failure Comment Patient does exhibit s/s of dysphagia. Modified diet and will complete MBS tomorrow. Recommendations PHYSICIAN CERTIFICATION: The specified therapy services are required, authorized, and reviewed every 30 days. Diet Recommendations Pureed Liquid Type Recommendations [place] Consistency Plan Pt/Guardian ve
--- NOTE | 2020-01-20 09:22 | SW/DCPLANNER ---
I have notified Radha at [facility] regarding this patient. Patient will discharge to [facility] level of care. Robert Grijalva has been notified. I will fax discharge summary once completed.
[2020-01-20 10:09] VITALS: O2SAT 90
== END 2020-01-20 10:55 | DRG 208 ==
LOC: ER 17:08 → 2ND 19:45
PROVIDERS: Internal Medicine Adolescent Medicine; Nurse Practitioner Family; Physician Assistant; Admitting Provider Internal Medicine Adolescent Medicine; Emergency Provider Emergency Medicine; PCP Emergency Medicine; Visit Provider Emergency Medicine
DX: J96.22 Acute and chronic respiratory failure with hypercapnia (principal); I26.99 Other pulmonary embolism without acute cor pulmonale; J10.00 Influenza due to other identified influenza virus with unspecified type of pneumonia; N39.0 Urinary tract infection, site not specified; J44.1 Chronic obstructive pulmonary disease with (acute) exacerbation; I07.1 Rheumatic tricuspid insufficiency; I50.810 Right heart failure, unspecified; Z72.0 Tobacco use; I27.20 Pulmonary hypertension, unspecified; D64.9 Anemia, unspecified
CPT/HCPCS: 31500; 94002; 94660; 36415; 70371; 70450; 71045; 71275; 80048; 80053; 81001; 82803; 82962; 83605; 83690; 83735; 83880; 84484; 85007; 85014; 85018; 85025; 85378; 85610; 85730; 86850; 87040; 87070; 87086; 87088; 87186; 87205; 87581; 87633; 87798; 92610; 92611; 93005; 93306; 93970; 94003; 94640; 94760; 94761; 96365; 96366; 96367; 96375; 97110; 97161; 97165; 97530; 97535; 99285; J0692; J2704; J3370; P9016; Q9967

== ENCOUNTER 2020-01-30 22:35 | Inpatient (IN) | payer MEDICAID, SELFPAY ==
--- NOTE | 2020-01-30 22:38 | ECG_ITS ---
APPROVED REPORT Exam: Resting ECG HR:151 bpm ECG Measurements Heart Rate 151 AXES WY 128 P 3 QRSd 52 QRS 42 QT 258 T 41 QTc 408 <Conclusion> Sinus tachycardia with fusion complexes Low voltage QRS Borderline ECG Electronically signed by : Marcos Rodriguez, 02/01/2020 21:15:34
[2020-01-30 22:43] VITALS: BP 115/74; PULSE 148; RESP 20; TEMP 38.9; O2SAT 96; BMI 25.6
[2020-01-30 22:44] VITALS: BMI 25.6
[2020-01-30 22:51] LABS: ABG Base Excess -6.9 mmol/L (-2.4-2.3); ABG HCO3 17.3 mmhg (22.0-26.0); ABG Oxygen Saturation 94 % (90-100); ABG PH 7.44 mmol/L (7.35-7.45); ABG PO2 73.7 mmhg (80-100); ABG TCO2 18.1 mmhg (23-27)
[2020-01-30 22:54] LABS: Allen's Test Patient Unable; Oxygen 80% %; Source Right Radial
[2020-01-30 23:03] VITALS: PULSE 134; PULSE 142
[2020-01-30 23:03] LABS: Basophils # 0.1 K/mm3 (0-0.2); Basophils % 0.2 % (0.1-2.0); Eosinophils # 0.1 K/mm3 (0.0-0.4); Eosinophils % 0.3 % (0.1-12.0); Hematocrit 35.6 % (37.0-47.0); Hemoglobin 11.6 g/dL (12.2-16.2); Lymphocytes # 1.1 K/mm3 (0.7-4.5); Lymphocytes % 3.8 % (10-50); Mean Corpuscular HGB Conc 32.5 g/dL (31.8-35.4); Mean Corpuscular Hemoglobin 31.7 pg (27.0-31.2); Mean Corpuscular Volume 97.3 fl (81-99); Mean Platelet Volume 7.5 fl (7.4-10.4); Monocytes % 3.4 % (1.7-9.3); Neutrophils # 26.8 K/mm3 (1.8-7.8); Neutrophils % 92.3 % (37.0-80.0); Platelet Count 208 K/mm3 (142-424); Red Blood Count 3.66 M/mm3 (4.20-5.40); Red Cell Distribution Width 17.5 % (11.5-17.5)
[2020-01-30 23:11] LABS: Alanine Aminotransferase 43 U/L (12-78); Albumin Level 3.5 g/dl (3.5-5.0); Alkaline Phosphatase 105 U/L (38-126); Anion Gap 19.6 mEq/L (5-15); Aspartate Amino Transferase 34 U/L (14-36); Bilirubin,Direct 0.1 mg/dl (0.0-0.4); Bilirubin,Indirect 0.6 mg/dL (0.0-0.9); Bilirubin,Total 0.7 mg/dl (0.2-1.3); Bilirubin,Unconjugated 0.6 mg/dL (0.0-1.1); Blood Urea Nitrogen 17 mg/dl (7-17); Calcium 9.5 mg/dl (8.4-10.2); Carbon Dioxide 24 mmol/L (22.0-30.0); Chloride 102 mmol/L (98-107); Creatinine Clearance Estimated 69 mL/min (50-200); Estimated Glomerular Filt Rate 65 ml/min (>60); GFR (African American) 78 ML/MIN (>60); Glucose 171 mg/dl (74-100); Potassium 4.6 mmoL/L (3.5-5.1); Sodium 141 mmol/L (136-145); Total Protein,Serum 6.5 g/dl (6.3-8.2)
[2020-01-30 23:15] VITALS: BP 105/53; PULSE 136; RESP 18; O2SAT 97
[2020-01-30 23:21] LABS: Lactic Acid 6.5 mmol/L (0.7-2.1)
[2020-01-30 23:22] LABS: MANUAL DIFFERENTIAL MANUAL DIFFERENTIAL (MANUAL DIFF)
[2020-01-30 23:23] LABS: Lymphocytes % 3 % (10-50); Monocytes % 3 % (2-9); Neutrophils % 89 % (42-76); Total Cells Counted 100
--- NOTE | 2020-01-30 23:23 | PC.NURSE ---
lactic acid critical reported.
[2020-01-30 23:24] LABS: Anisocytosis 1+; Macrocytosis 1+; NT Pro Brain Natriuretic Pep. 235 pg/mL (0-125); Platelet Estimate Normal; Rouleaux 1+; Toxic Granulation 1+; Troponin I 0.03 ng/ml (0.00-0.034)
--- NOTE | 2020-01-30 23:27 | PC.NURSE ---
placed on vapotherm per rad at this time.
[2020-01-30 23:30] VITALS: BP 111/78; PULSE 136; RESP 20; O2SAT 97
[2020-01-30 23:43] VITALS: O2SAT 98
[2020-01-30 23:53] LABS: Coronavirus 19 IgG Antibody Negative (Negative); Coronavirus 19 IgM Antibody Negative (Negative)
[2020-01-31] VITALS (36 sets, daily range): BP systolic 92–111; BP diastolic 52–77; PULSE 65–130; RESP 16–42; TEMP 36.5–37.9; O2SAT 85–100; BMI 27.3
--- NOTE | 2020-01-31 00:02 | XR_ITS ---
PROCEDURE: XR CHEST PORTABLE Patient Age:59Y CLINICAL HISTORY: SOB Dyspnea COMPARISON: XR CHEST PORTABLE from 01/10/2020 XR CHEST PORTABLE from 01/11/2020 CT ANGIO CHEST from 01/13/2020 XR CHEST PORTABLE from 01/17/2020 FINDINGS: Upright portable CXR performed today and compared to previous portable studies most recent 12/18/[address] chest from 01/13/2020 Additional opacity/infiltrate seen today at RLL-. This extends from right perihilar region 2 the right lung base. Diffuse bilateral interstitial prominence and infiltrate is again noted and slightly pronounced than on previous studies-although this is in part reflects a washer hand technique. However question slight additional interstitial infiltrate or edema particularly towards the inferior lung dooley.. Possible mild component of CHF given the septal lines present versus chronic changes but no definitive pleural effusion; only question slight blunting right CP angle. However The heart appears normal in size. Fullness right paratracheal region again noted but this is been seen previously and seems to be due generous mediastinal fat as seen on prior CT. Chest wall satisfactory. vehicle monitor technician leads in place. The apices of lungs appear relatively stable IMPRESSION: Right Lower Lobe Pneumonia superimposed upon significant underlying interstitial lung disease. . Interstitial lung disease pattern, perhaps slight more pronounced. Could reflect mild additional the diffuse interstitial infiltrate or edema since 01/17/2020 Findings warrants close follow-up Dictated by: Andry Montenegro MD 01/31/2020 09:15 Electronically signed by Andry Montenegro MD in [place] 01/31/2020 09:15
--- NOTE | 2020-01-31 00:25 | HMH.EDSOB ---
ED Disposition Clinical Impression: Severe sepsis, Right lower lobe pneumonia, Respiratory distress Disposition: Admitted as Observation Condition on Discharge: Good - Critical Care Critical Care Time: No Attestation: On 01/30/20, the high probability of a clinically significant, sudden or life threatening deterioration of the following system(s) required my full and direct attention, intervention and personal management. The time I documented below is in addition to time spent performing reported procedures but includes the following listed in this critical care notation. Medical Decision Making - Medical Records Medical records reviewed: Yes: I reviewed the patient's medical records. - Narayan Inquiry Pt receiving controlled substance: No Vital Signs: 01/30/20 22:43 01/30/20 23:03 01/30/20 23:15 Temperature 102.1 F H Temperature Source Rectal Pulse Rate 134 H Pulse Rate [Right Brachial] 148 H 136 H Respiratory Rate 20 18 Blood Pressure [Right Arm] 115/74 105/53 L Blood Pressure Mean [Right Arm] 87 70 Blood Pressure Source [Right Arm] Automatic Cuff Automatic Cuff Blood Pressure Position [Right Arm] Sitting Sitting 02 Sat by Pulse Oximetry 96 97 Oxygen Delivery Method Non-Rebreather Non-Rebreather Oxygen Flow Rate (LPM) 01/30/20 23:30 01/30/20 23:43 01/31/20 00:09 Temperature Temperature Source Pulse Rate Pulse Rate [Right Brachial] 136 H 130 H Respiratory Rate 20 20 Blood Pressure [Right Arm] 111/78 108/70 L Blood Pressure Mean [Right Arm] 89 82 Blood Pressure Source [Right Arm] Automatic Cuff Automatic Cuff Blood Pressure Position [Right Arm] Sitting Sitting 02 Sat by Pulse Oximetry 97 98 97 Oxygen Delivery Method Vapotherm Vapotherm Room Air Oxygen Flow Rate (LPM) 90 - Lab Data Lab results reviewed: Yes: I reviewed the patient's lab results. Lab Results 01/30/20 22:48: Specimen Source Right radial, O2 % 80%, ABG pH 7.44, ABG pCO2 26.0 L, ABG pO2 73.7 L, ABG HCO3 17.3 L, ABG Total CO2 18.1 L, ABG O2 Saturation 94, ABG Base Excess -6.9 L, I[place] Test Patient unable 01/30/20 22:51: WBC 29.0 H*, RBC 3.66 L, Hgb 11.6 L, Hct 35.6 L, MCV 97.3, MCH 31.7 H, MCHC 32.5, RDW 17.5, Plt Count 208, MPV 7.5, Neut % (Auto) 92.3 H, Lymph % (Auto) 3.8 L, [place] % (Auto) 3.4, Eos % (Auto) 0.3, Baso % (Auto) 0.2, Neut # (Auto) 26.8 H, Lymph # (Auto) 1.1, [place] # (Auto) 1.0, Eos # (Auto) 0.1, Baso # (Auto) 0.1, Total Counted 100, Neutrophils % (Manual) 89 H, Band Neutrophils % 5.0, Lymphocytes % (Manual) 3 L, Monocytes % (Manual) 3, Toxic Granulation 1+, Platelet Estimate Normal, Anisocytosis 1+, Macrocytosis 1+, Rouleaux 1+ 01/30/20 22:51: Sodium 141, Potassium 4.6, Chloride 102, Carbon Dioxide 24, Anion Gap 19.6 H, BUN 17, Creatinine 0.90, Estimated Creat Clear 69, Estimated GFR 65, Est GFR ( Amer) 78, Glucose 171 H, Calcium 9.5, Total Bilirubin 0.7, Direct Bilirubin 0.1, Conjugated Bilirubin 0.0, Indirect Bilirubin 0.6, Unconjugated Bilirubin 0.6, AST 34, ALT 43, Alkaline Phosphatase 105, Troponin I 0.03, NT-Pro-B Natriuret Pep 235 H, Total Protein 6.5, Albumin 3.5 01/30/20 22:51: Lactate 6.5 H 01/30/20 22:57: SARS-CoV-2 IgG Ab (Rapid) Negative, SARS-CoV-2 IgM Ab (Rapid) Negative Result diagrams: 01/30/20 22:51 01/30/20 22:51 Orders (Tests/Meds): ED MEDICATIONS Generic Name Dose Route Start Last Admin Trade Name Freq PRN Reason Stop Dose Admin Sodium Chloride 1,000 mls @ 999 mls/hr 01/30/20 23:15 01/30/20 23:02 Sod Chlor 0.9% 1000ml Bag IV 01/31/20 00:15 999 mls/hr .Q1H1M MERY Administration Ceftriaxone Sodium 1 gm/ 50 mls @ 100 mls/hr 01/30/20 23:45 01/30/20 23:48 Sodium Chloride IV 02/13/20 23:44 100 mls/hr Q24H MERY Administration Protocol Azithromycin 500 mg/ Sodium 250 mls @ 250 mls/hr 01/30/20 23:45 Chloride IV 02/13/20 23:44 Q24H MERY Protocol Discontinued Medications Generic Name Dose Route Start Last Admin Trade Name
--- NOTE | 2020-01-31 01:19 | PC.NURSE ---
PT ARRIVED TO THE FLOOR VIA STRETCHER FROM ED AT 0115.
[2020-01-31 01:39] LABS: Reflex Lactic Add Lactic Reflex
[2020-01-31 02:24] LABS: Lactic Acid Follow Up (RFLX 1) 1.9 mmol/L (0.7-2.1)
[2020-01-31 02:36] LABS: Troponin I 0.09 ng/ml (0.00-0.034)
--- NOTE | 2020-01-31 02:55 | PC.NURSE ---
ED NOTIFIED THAT PT NEEDS TISSUE REPERFUSION ASSESSMENT. NO NEW ORDERS AT THIS TIME. BOLUS CONTINUING AT THIS TIME, MONITORING PT VITAL SIGNS Q 30 MINS.
--- NOTE | 2020-01-31 03:20 | PC.NURSE ---
A&OX4. PT TOLERATING VAPOTHERM T/O THIS SHIFT. PT HAS HAD NO C/O PAIN, ONLY FEELING SOA AT TIMES. PT HAS HAD A SNACK THIS SHIFT, TOLERATED WELL. PT RESTING IN BED WITH EYES CLOSED MAJORITY OF SHIFT. NO FURTHER C/O THUS FAR. PT SINUS TACH ON TELE AND BEING MONITORED WITH CONTINUOUS PULSE OX. SEPSIS BOLUS CONTINUING TO ADMINISTER AT THIS TIME, V/S BEING CHECKED Q30 MINS. WILL CONTINUE TO MONITOR.
[2020-01-31 06:40] LABS: Eosinophils % 0.2 % (0.1-12.0); Hematocrit 27.6 % (37.0-47.0); Lymphocytes # 0.6 K/mm3 (0.7-4.5); Lymphocytes % 5.2 % (10-50); Mean Corpuscular HGB Conc 31.9 g/dL (31.8-35.4); Mean Corpuscular Hemoglobin 30.8 pg (27.0-31.2); Mean Corpuscular Volume 96.5 fl (81-99); Mean Platelet Volume 7.4 fl (7.4-10.4); Monocytes # 0.2 K/mm3 (0.1-1.0); Monocytes % 1.5 % (1.7-9.3); Neutrophils # 11.2 K/mm3 (1.8-7.8); Platelet Count 149 K/mm3 (142-424); Red Blood Count 2.86 M/mm3 (4.20-5.40); Red Cell Distribution Width 17.4 % (11.5-17.5)
[2020-01-31 06:51] LABS: Hemoglobin 8.9 g/dL (12.2-16.2)
[2020-01-31 07:05] LABS: Chloride 106 mmol/L (98-107)
[2020-01-31 07:06] LABS: Potassium 4.5 mmoL/L (3.5-5.1); Sodium 138 mmol/L (136-145)
[2020-01-31 07:08] LABS: Alanine Aminotransferase 37 U/L (12-78); Alkaline Phosphatase 71 U/L (38-126); Anion Gap 11.5 mEq/L (5-15); Aspartate Amino Transferase 35 U/L (14-36); Bilirubin,Total 0.3 mg/dl (0.2-1.3); Blood Urea Nitrogen 18 mg/dl (7-17); Carbon Dioxide 25 mmol/L (22.0-30.0); Creatinine Clearance Estimated 95 mL/min (50-200); Estimated Glomerular Filt Rate 86 ml/min (>60); GFR (African American) 104 ML/MIN (>60)
[2020-01-31 07:09] LABS: Albumin Level 2.3 g/dl (3.5-5.0); Globulin 2.2 g/dL (1.3-3.2); Glucose 179 mg/dl (74-100); Total Protein,Serum 4.5 g/dl (6.3-8.2)
[2020-01-31 07:18] LABS: Troponin I 0.06 ng/ml (0.00-0.034)
[2020-01-31 08:35] LABS: Calcium 7.9 mg/dl (8.4-10.2)
--- NOTE | 2020-01-31 10:25 | HMH.PHAVTE ---
[facility] Pharmacy VTE Monitoring - Patient Demographics Admission date: 01/31/20 Report Date: 01/31/20 Time: 10:25 Allergies/Adverse Reactions: Patient Allergies No Known Allergies Allergy (Verified 09/14/18 21:14) Height: 1.57 m Weight: 67.84 kg Patient Problems: Current Active Problems Severe sepsis (Acute) Right lower lobe pneumonia (Acute) Respiratory distress (Acute) - VTE Risk Labs: VTE Related Lab Results Hgb 8.9 g/dL (12.2-16.2) L D 01/31/20 05:45 Hct 27.6 % (37.0-47.0) L 01/31/20 05:45 Plt Count 149 K/mm3 (142-424) D 01/31/20 05:45 BUN 18 mg/dl (7-17) H 01/31/20 05:45 Creatinine 0.70 mg/dl (0.52-1.04) D 01/31/20 05:45 Estimated Creat Clear 95 mL/min (50-200) 01/31/20 05:45 - Prophylaxis VTE Prophylaxis Ordered?: Yes Types of VTE Prophylaxis: TEDS Knee High, Pharmacological Location of Applied Device: Bilateral Lower Extremeties Pharmacologic Type: Other (ELIQUIS) - VTE Diagnosis Confirmed Treatment or plan recommended: Continue Current Treatment
--- NOTE | 2020-01-31 11:13 | HMH.PHAINT ---
MEDICATION RECONCILIATION COMPLETED ON PATIENT USING MAR FROM LONG TERM. -AME [place], NATALID
--- NOTE | 2020-01-31 11:16 | HMH.HP ---
*Admission Date: 01/31/20 *Chief complaint: pneumonia and sepsis *History of present illness: Patient is a 59-year-old female, jail resident, was admitted through the emergency room for pneumonia, dyspnea, sepsis. I received a call earlier from the nurse on duty, she relayed tachypnea, labored breathing. Evaluation in the emergency room revealed an elevated white count at 29,000. She was febrile to 102.1. Her lactate was elevated at 6.5. She responded nicely to application of vapor Therm. She is admitted for further evaluation and treatment. She is a poor historian. She looks much older than her chronological age. [facility] History Medical History: Reports:: Anxiety, Chronic Obstructive Pulmonary Disease (COPD), Gastroesophageal Reflux Disease(GERD), Hyperlipidemia Denies:: Diabetes Mellitus Type 1, Diabetes Mellitus Type 2 *Have you ever received a pneumonia vaccine?: Yes *Have you received a flu vaccine this season?: Yes Other Surgeries: Yes: Hysterectomy-Total, Other Amputation: No Fractures: No - *Social History Last grade of school completed: Some college Smoking Status: Current every day smoker Tobacco Type: cigarettes # Packs/Day (cigarettes): 1 Alcohol Intake: never Alcohol Intake Frequency:: other Substance Use Type: denies use *Occupational Status:: disabled Housing: assisted living facility Household Members: other *Travel in the last 8 weeks: None - Psychiatric History Pschychiatric History:: Reports:: Anxiety, Schizophrenia Family Hx:: No significant family history AIRPORT GUIDE history: No AIRPORT GUIDE history Review of Systems - Constitutional Reports chills, Reports fatigue, Reports lack of energy - Eyes Denies loss of vision - ENT Denies abnormal hearing, Denies difficulty swallowing, Denies neck pain - *Cardiovascular Reports shortness of breath when lying down, Denies chest pain, Denies excessive sweating - *Respiratory Reports chest congestion, Reports cough, Reports shortness of breath, Denies coughing up blood, Denies pain on inspiration - *Gastrointestinal Denies abdominal pain, Denies difficulty swallowing, Denies vomiting - *Genitourinary Denies difficulty urinating - *Musculoskeletal Reports decreased muscle mass, Reports limited joint movement, Reports muscle weakness - Integumentary/Breasts Reports unusual bruising, Denies yellowing of the skin - *Neurologic Reports behavioral changes, Reports lack of coordination, Reports tremor(s) - Psychiatric Reports other Comments: history of schizophrenia - Endocrine Denies cold intolerance, Denies heat intolerance, Denies increased urination - Hematologic/Lymphatic Reports easy bruising - Allergic/Immunologic Denies hives Meds Home Medications Medication Instructions Recorded Confirmed Type ferrous sulfate 325 mg (65 mg 325 mg PO DAILY tab 08/02/17 01/31/20 History iron) tablet haloperidol 10 mg tablet 5 mg PO 0900,1300 08/02/17 01/31/20 History oxybutynin chloride 10 mg 10 mg PO DAILY 08/02/17 01/31/20 History tablet,extended release 24 hr venlafaxine 150 mg 150 mg PO DAILY 08/02/17 01/31/20 History capsule,extended release 24 hr venlafaxine 75 mg tablet 75 mg PO DAILY 08/02/17 01/31/20 History Pantoprazole Sodium [Protonix 40mg 40 mg PO DAILY 05/31/19 01/31/20 History tablet] Cholecalciferol (Vitamin D3) 1,000 unit PO DAILY 01/09/20 01/31/20 History [Vitamin D3 1,000 Unit Cap] Estrogens, Conjugated [Premarin 0.625 mg PO DAILY 01/09/20 01/31/20 History 0.625mg tablet] Ziprasidone HCl 60 mg PO BID 01/09/20 01/31/20 History levetiracetam 500 mg tablet 500 mg PO BID #60 tab 01/20/20 01/31/20 Rx atorvastatin 40 mg tablet 40 mg PO HS 01/22/20 01/31/20 History clonazepam 0.5 mg tablet 0.5 mg PO BID #60 tab 01/22/20 01/31/20 Rx Acetaminophen [Tylenol 500mg 500 mg PO Q4HP PRN 01/31/20 01/31/20 History tablet] Apixaban [Eliquis 5mg tab] 5 mg PO BID 01/31/20 01/31/20 History haloperidoL [Haloperido
--- NOTE | 2020-01-31 12:49 | PC.NURSE ---
Spoke with Dr. Crespo in RE to pt coughing excessively and was concerned of possible aspiration. Have made pt NPO at this time and ordered a st consult. Have also spoke with RT in eva to request pt to have a duobeb, she is on floor at this time. MX continues.
--- NOTE | 2020-01-31 13:45 | PC.NURSE ---
Spoke with Dr. Crespo and made him aware that pts rr are labored and effor to breathe is increased. Her HR is tachy and and sats mid 80's to low 90's. Have made eva in RT aware of order for abg.
[2020-01-31 14:35] LABS: ABG Base Excess -3.8 mmol/L (-2.4-2.3); ABG HCO3 20.5 mmhg (22.0-26.0); ABG Oxygen Saturation 98 % (90-100); ABG PCO2 31.1 mmhg (35.0-45.0); ABG PH 7.44 mmol/L (7.35-7.45); ABG PO2 132.4 mmhg (80-100); ABG TCO2 21.4 mmhg (23-27)
[2020-01-31 14:38] LABS: Allen's Test Acceptable; Oxygen 100 %; Pressure Support 10; Source Left Radial; Vent Rate 16
--- NOTE | 2020-01-31 17:47 | PC.NURSE ---
Pt resting at this time. Has been alert and oriented. Napping currently. Pt did have to go on bipap per rt, r/t sats in 70-80's and tachycardia, rr labored. X 1 dose of morphine given and has helped pt rest and slow rr. She appears comfortable at this time. 40 mg lasix given and pt has diuresed 2000 ml, zhang draining per gravity. VSS. Will cont to mx pt. Continues to be NPO at this time.
--- NOTE | 2020-01-31 18:11 | PC.NURSE ---
Spoke with Mary in speech regarding speech evaluation. She is aware of pt history. Pt currently on Bi-pap. She will attempt eval in the AM, if pt can tolerate it. Mary said to give night time meds in apple sauce, crushed if possible and honey thick liquid in a spoon only with meds. Dr. Crespo notified and agreeable.
[2020-02-01] VITALS (27 sets, daily range): BP systolic 88–155; BP diastolic 44–84; PULSE 60–120; RESP 18–34; TEMP 36.3–37.1; O2SAT 92–100; BMI 27.5
--- NOTE | 2020-02-01 02:42 | PC.NURSE ---
Addendum entered by Nelsy Lino RN 02/01/20 03:12: PER NC* Original Note: PT IS A&O X4. SHE HAS RESTED WELL WITH EYES CLOSED THIS SHIFT WITH NO COMPLAINTS. BIPAP REMAINS SOURCE OF O2 T/O SHIFT. PT HAS TOLERATED BIPAP WELL. AT BEGINNING OF SHIFT PT WAS ABLE TO ADEQUATELY SWALLOW HER MEDS CRUSHED WITH APPLESAUCE AND TWO SMALL SIPS OF HONEY THICK OJ. HIGH FLOW 02 PER NS ADMIN DURING MED ADMINISTRATION PERIOD, NOTED < 2 MINS. AFTER SWALLOWING, PT BEGAN TO COUGH INTERMITTENTLY AND BECAME SOA, BIPAP IN PLACE AT THIS TIME. THIS RN REMAINED AT BEDSIDE AND WAS ABLE TO DO DEEP BREATHING EXERCISED WITH PT DURING/AFTER HER COUGHING. PT'S RR DECREASED ALONG WITH O2 INCREASED AFTER DEEP BREATHING EXERCISES WERE PERFORMED. RIGHT UPPER LOBE NOTED WITH MILD EXPIRATORY WHEEZES WITH AUSCULTATION. LEFT LOBE NOTED CLEAR T/O. Q2H TURN WITH STANDBY ASSIST FROM STAFF. HOB REMAINED ELEVATED T/O SHIFT. NO EDEMA NOTED. TEDS ON BLE. VSS. REMAINS SAFE. CALL LIGHT WITHIN REACH. WILL CONTINUE TO MONITOR.
[2020-02-01 05:58] LABS: Basophils % 0.1 % (0.1-2.0); Eosinophils # 0.1 K/mm3 (0.0-0.4); Eosinophils % 0.6 % (0.1-12.0); Hemoglobin 8.4 g/dL (12.2-16.2); Lymphocytes # 1.5 K/mm3 (0.7-4.5); Mean Corpuscular HGB Conc 32.5 g/dL (31.8-35.4); Mean Corpuscular Hemoglobin 31.3 pg (27.0-31.2); Mean Corpuscular Volume 96.4 fl (81-99); Mean Platelet Volume 7.8 fl (7.4-10.4); Monocytes # 0.7 K/mm3 (0.1-1.0); Monocytes % 5.3 % (1.7-9.3); Neutrophils # 11.6 K/mm3 (1.8-7.8); Platelet Count 143 K/mm3 (142-424); Red Blood Count 2.67 M/mm3 (4.20-5.40); Red Cell Distribution Width 18.1 % (11.5-17.5); White Blood Count 13.9 K/mm3 (4.8-10.8)
[2020-02-01 05:59] LABS: Hematocrit 25.7 % (37.0-47.0)
--- NOTE | 2020-02-01 06:00 | XR_ITS ---
PROCEDURE: XR CHEST PORTABLE Patient Age:59Y CLINICAL HISTORY: pneumonia follow-up pneumonia Nurse/technologist note patient too unstable to come down for two view chest COMPARISON: XR CHEST PORTABLE from 01/11/2020 CT ANGIO CHEST from 01/13/2020 XR CHEST PORTABLE from 01/17/2020 XR CHEST PORTABLE from 01/31/2020 FINDINGS: AP portable upright chest performed. (Nurse/technologist noted patient was too unstable to come down for two view chest) Slightly better inspiration today versus yesterday.-Diaphragm down to the anterior 5th rib. With this the lungs appear slightly better expanded and clear bilaterally particularly here on right midlung and right lower lobe. The hazy infiltrate seen yesterday's P CXR at right mid lung and right base appearimproved since yesterday. Prominent coarse diffuse interstitial pattern is again seen bilaterally but most evident at right mid lung and right base reflecting residual primarily interstitial infiltrate along with ground-glass opacities previously noted through this region... Likely some minimal wispy infiltrate also at medial left lung base--as the descending aorta contour is partially obscured and not as sharp as some previous studies. Also question very minimal wispy infiltrate left suprahilar region towards left upper lobe (this area projected over anterior 2nd rib) The heart appears normal in size. Pulmonary vascularity appears slightly less pronounced of this in part may reflect a better inspiration. Septal lines most evident on the left could reflect chronic septal thickening and changes rather than CHF.. Period prominence right paratracheal region is again noted and could reflect prominent common distended azygos vein particularly if evident JVD. Again the recent CT showed no adenopathy here.. ekg monitor leads are in place chest wall unremarkable. IMPRESSION: . Better inspiration with slight improvement expansion with overall improvement bilaterally. . Right lower lobe pneumonia has improved since yesterday CXR- residual superimposed interstitial infiltrate RLL now less dense and clearly improved radiographically . Overall left lung bases better expanded and clearer. However suspect, question very minor scant wispy areas infiltrate medial left base, and possibly periphery TABBY lobe. . Diffuse interstitial coarsening pattern again seen and appears similar to slightly improved since yesterday Dictated by: Andry Montenegro MD 02/01/2020 09:57 Electronically signed by Andry Montenegro MD in [place] 02/01/2020 09:57
[2020-02-01 06:04] LABS: Alanine Aminotransferase 29 U/L (12-78); Albumin Level 2.5 g/dl (3.5-5.0); Alkaline Phosphatase 73 U/L (38-126); Anion Gap 10.5 mEq/L (5-15); Aspartate Amino Transferase 30 U/L (14-36); Bilirubin,Total 0.4 mg/dl (0.2-1.3); Blood Urea Nitrogen 25 mg/dl (7-17); Calcium 8.4 mg/dl (8.4-10.2); Carbon Dioxide 27 mmol/L (22.0-30.0); Chloride 107 mmol/L (98-107); Creatinine Clearance Estimated 95 mL/min (50-200); Estimated Glomerular Filt Rate 86 ml/min (>60); GFR (African American) 104 ML/MIN (>60); Globulin 2.4 g/dL (1.3-3.2); Potassium 3.5 mmoL/L (3.5-5.1); Sodium 141 mmol/L (136-145); Total Protein,Serum 4.9 g/dl (6.3-8.2)
[2020-02-01 06:13] LABS: Glucose 101 mg/dl (74-100)
--- NOTE | 2020-02-01 10:56 | HMH.SLDYSPHA ---
Speech & Language Evaluation Speech/Language Dysphagia Evaluation Start: 02/01/20 10:44 Freq: ONCE Status: Active Protocol: Document 02/01/20 10:44 [email or web address] (Rec: 02/01/20 10:56 [email or web address] [id number]) Dysphagia Assess/Goals/Plan Assessment Date of Evaluation: 02/01/20 Evaluation Type Initial Certification Assessment/Problems RLL pneumonia resulting in coughing after eating/drinking Does Patient Qualify for Service Yes Qualify/Failure Comment Diet modifications made, therapy on hold due to need for Bi-Pap breather Recommendations PHYSICIAN CERTIFICATION: The specified therapy services are required, authorized, and reviewed every 30 days. Diet Recommendations Mechanical Soft Liquid Type Recommendations Honey Consistency SL Swallow Guidelines Assist w/all meals,High aspiration risk,Liquids given* Crush Meds Crush all meds Dysphagia Swallow Precautions/Strategies Sitting Upright (90 deg), Liquids from Spoon Plan Pt/Guardian verbally ack understanding Yes of dx/prognosis/goals G -code Required No Speech & Language HPI Language Primary Language Wolof General Information General Current Food Consistancy NPO Dentition Edentulous Oxygen Status BiPAP Patient Orientation Person,Place,Time,Situation Ability to Follow Directions Excellent Communication Ability No Impairment Dysphagia:Food Presentation Evaluation Food Type Pureed,Mechanical Soft,Liquid, Pudding Normal/Thin Liquid Response Absent laryngeal elevate,Wet voice [place] Consistency Liquid Response Absent laryngeal elevate, Clears throat,Wet voice Dysphagia Evaluation Summary Ms. Epps was given thin liquids via spoon and straw, nectar via spoon, honey via spoon, pureed, and mechanical soft. THe following signs of dysphagia were noted during the evaluation: decreased laryngeal elevation and wet vocal quality with thins and nectar. She will be placed on mechanical ground diet due to lack of dentition with honey thick liquids via spoon only. Due to her being on the BiPap, she is not a candidate for
--- NOTE | 2020-02-01 13:46 | HMH.ACPN2 ---
Internal Medicine - PN: Subj *Date: 02/01/20 *Time: 13:46 Interval history: Use to do very well on BiPAP. She has been evaluated by speech therapy. He is getting thickened liquids. He has been in no significant respiratory distress. He is awake and alert. She had a great diuresis yesterday. She is anemic at 8.4, we will transfuse her 1 unit of packed red cells. She remains on Rocephin, azithromycin and clindamycin, all IV. Exam Vital signs and Labs for Last 24 Hours: Temp Pulse Resp BP Pulse Ox 97.3 F L 110 H 20 133/79 92 L 02/01/20 11:15 02/01/20 12:00 02/01/20 11:15 02/01/20 11:15 02/01/20 11:15 Laboratory Results - last 24 hr 01/31/20 13:45: Specimen Source Left radial, O2 % 100, ABG pH 7.44, ABG pCO2 31.1 L, ABG pO2 132.4 H, ABG HCO3 20.5 L, ABG Total CO2 21.4 L, ABG O2 Saturation 98, ABG Base Excess -3.8 L, Ildefonso Test Acceptable, Vent Rate 16, Tidal Volume bipap 16/6 02/01/20 05:35: Sodium 141, Potassium 3.5 D, Chloride 107, Carbon Dioxide 27, Anion Gap 10.5, BUN 25 H D, Creatinine 0.70, Estimated Creat Clear 95, Estimated GFR 86, Est GFR ( Amer) 104, Glucose 101 H D, Calcium 8.4, Total Bilirubin 0.4, AST 30, ALT 29, Alkaline Phosphatase 73, Total Protein 4.9 L, Albumin 2.5 L, Globulin 2.4, Albumin/Globulin Ratio 1.0 L 02/01/20 05:35: WBC 13.9 H, RBC 2.67 L, Hgb 8.4 L, Hct 25.7 L, MCV 96.4, MCH 31.3 H, MCHC 32.5, RDW 18.1 H, Plt Count 143, MPV 7.8, Neut % (Auto) 83.0 H, Lymph % (Auto) 11.0, [place] % (Auto) 5.3, Eos % (Auto) 0.6, Baso % (Auto) 0.1, Neut # (Auto) 11.6 H, Lymph # (Auto) 1.5, [place] # (Auto) 0.7, Eos # (Auto) 0.1, Baso # (Auto) 0.0 02/01/20 12:23: Blood Type A Positive, Antibody Screen Negative, Crossmatch (AHG) See Detail I & O for Last 24 hours: Intake & Output 01/29/20 01/30/20 01/31/20 02/01/20 23:59 23:59 23:59 23:59 Intake Total 2215 / 2215 520 / 520 Output Total 3250 / 3250 350 / 350 Balance -1035 / -1035 170 / 170 Weight 140 lb 149 lb 9 oz 149 lb 9 oz - Constitutional no acute distress, chronically ill appearing - *Routine HEENT Exam Head: Present: normocephalic, atraumatic Eye: Absent: conjunctival icterus - *Routine Neck Exam Present: supple, trachea midline. Absent: tracheal deviation - *Routine Respiratory Exam Present: crackles. Absent: accessory muscle use, respiratory distress - *Routine Cardiovascular Exam Present: RRR. Absent: murmur - *Routine Abdominal Exam Present: soft. Absent: tenderness, mass - *Routine Extremities Exam Present: edema, NIHARIKA stockings. Absent: cyanosis, clubbing, pallor - *Routine Skin Exam Present: intact, warm. Absent: cyanosis, rash - *Routine Neurological Exam Present: alert, moving all extremities, tremors - Routine Psychiatric Exam Present: normal affect. Absent: good insight, good judgment Assessment and Plan (1) Pneumonia Current visit: Yes Status: Acute Category: Medical Code(s): J18.9 - Pneumonia, unspecified organism (2) Respiratory failure Current visit: Yes Status: Acute Qualifiers: Chronicity: acute on chronic Respiratory failure complication: hypoxia Qualified Code(s): J96.21 - Acute and chronic respiratory failure with hypoxia Category: Medical Code(s): J96.90 - Respiratory failure, unspecified, unspecified whether with hypoxia or hypercapnia (3) Sepsis Current visit: Yes Status: Acute Category: Medical Code(s): A41.9 - Sepsis, unspecified organism (4) Fever Current visit: Yes Status: Acute Qualifiers: Fever type: due to other condition Qualified Code(s): R50.81 - Fever presenting with conditions classified elsewhere Category: Medical Code(s): R50.9 - Fever, unspecified (5) Leukocytosis Current visit: Yes Status: Acute Category: Medical Code(s): D72.829 - Elevated white blood cell count, unspecified (6) History of pulmonary embolism Current visit: Yes Status: Chronic Category: Medical Code(s): Z86.711 - Personal hi
--- NOTE | 2020-02-01 16:38 | PC.NURSE ---
Blood was attempted to be verified with Raymundo Quintana RN and Iman Kirby RN. unable to save verification. informed Shayy Fregoso RN of issue. blood started at 1455.
--- NOTE | 2020-02-01 18:30 | ECG_ITS ---
APPROVED REPORT Exam: Resting ECG HR:83 bpm ECG Measurements Heart Rate 83 AXES HI 144 P 39 QRSd 66 QRS 30 QT 358 T 31 QTc 420 <Conclusion> Normal sinus rhythm Low voltage QRS Borderline ECG Electronically signed by : Marcos Rodriguez, 02/07/2020 08:35:43
[2020-02-01 19:09] LABS: Hematocrit 32.7 % (37.0-47.0)
[2020-02-01 19:12] LABS: Hemoglobin 10.7 g/dL (12.2-16.2)
--- NOTE | 2020-02-01 20:08 | PC.NURSE ---
Pt alert and oriented and able to make needs known. Pt has been on bipap all of this shift, was going to attempt to wean to vapotherm and pt desatted when coughing earlier this shift. Pt is currently on 70 % vapotherm. Have made Will RT aware of this. Currently satting 90's. Pt has been sinus tach as well this shift. Also has tremors, more pronounced this shift. Did make Dr. Crespo aware as well as ED doc of EKG's - SEE CHART. ED MD Dr Verma stated if pt complained of chest pain - to repeat ekg and trop's could be checked. PT denies chest pain. Rhythm looked as if it was artifact and was consistent with tremor. Dr. Crespo stated to d/c Tele. Did make Shayy Fregoso RN, aware of this as well. Unit of blood infused and finished at 1755. VSS at this time. Continues on continuos pulse ox. Scattered bruising noted to zain.
[2020-02-02] VITALS (9 sets, daily range): BP systolic 99–128; BP diastolic 47–85; PULSE 81–104; RESP 20–28; TEMP 36.4–37; O2SAT 95–100; BMI 27.5
--- NOTE | 2020-02-02 03:18 | PC.NURSE ---
A&OX4 T/O SHIFT. PT TOLERATING BIPAP WITH NO ISSUES THUS FAR. PT PUT ON HIGH FLOW NC WHEN BIPAP REMOVED TO TAKE MEDS OR EAT/ DRINK. PT TOLERATES WELL. PT ATE APPLE SAUCE THIS SHIFT AND DRANK HONEY THICKENED LIQUIDS, TOLERATED WELL. F/C PRESENT DRAINING CLEAR URINE. PT HAS HAD NO C/O PAIN, NA/VO OR SOA THIS SHIFT. PT HAS HAD SOME INTERMITTENT COUGH. PT RESTING IN BED WITH EYES CLOSED AT THIS TIME. VSS WILL CONTINUE TO MONITOR.
--- NOTE | 2020-02-02 06:00 | XR_ITS ---
PROCEDURE: XR CHEST PORTABLE CLINICAL HISTORY: pneumonia Follow-up pneumonia COMPARISON: CT ANGIO CHEST from 01/13/2020 XR CHEST PORTABLE from 01/17/2020 XR CHEST PORTABLE from 01/31/2020 XR CHEST PORTABLE from 02/01/2020 FINDINGS: The cardiomediastinal silhouette and pulmonary vascularity are within normal limits. There is diffuse interstitial lung disease with superimposed infiltrate in the right and left lower lobe overall not significantly changed. No acute bony abnormalities. IMPRESSION: No change interstitial disease with superimposed pneumonia Dictated by: Ildefonso Durand MD 02/02/2020 08:53 Electronically signed by Ildefonso Durand MD in [facility] 02/02/2020 08:53
[2020-02-02 08:44] LABS: Basophils % 0.1 % (0.1-2.0); Eosinophils # 0.3 K/mm3 (0.0-0.4); Eosinophils % 2.4 % (0.1-12.0); Hematocrit 30.7 % (37.0-47.0); Lymphocytes # 2.3 K/mm3 (0.7-4.5); Lymphocytes % 20.7 % (10-50); Mean Corpuscular HGB Conc 32.7 g/dL (31.8-35.4); Mean Corpuscular Volume 94.7 fl (81-99); Mean Platelet Volume 7.8 fl (7.4-10.4); Monocytes # 0.6 K/mm3 (0.1-1.0); Monocytes % 4.9 % (1.7-9.3); Neutrophils % 71.9 % (37.0-80.0); Platelet Count 141 K/mm3 (142-424); Red Blood Count 3.24 M/mm3 (4.20-5.40); Red Cell Distribution Width 17.6 % (11.5-17.5); White Blood Count 11.1 K/mm3 (4.8-10.8)
--- NOTE | 2020-02-02 09:01 | HMH.ACPN2 ---
Internal Medicine - PN: Subj *Date: 02/02/20 *Time: 09:01 Interval history: pt still on bipap, alert and answers question when asked Exam Vital signs and Labs for Last 24 Hours: Temp Pulse Resp BP Pulse Ox 98.0 F 99 H 24 121/85 100 02/02/20 07:49 02/02/20 07:49 02/02/20 07:49 02/02/20 07:49 02/02/20 07:49 Laboratory Results - last 24 hr 02/01/20 12:23: Blood Type A Positive, Antibody Screen Negative, Crossmatch (AHG) See Detail 02/01/20 18:57: Hgb 10.7 L D, Hct 32.7 L 02/02/20 08:29: WBC 11.1 H, RBC 3.24 L, Hgb 10.0 L, Hct 30.7 L, MCV 94.7, MCH 31.0, MCHC 32.7, RDW 17.6 H, Plt Count 141 L, MPV 7.8, Neut % (Auto) 71.9, Lymph % (Auto) 20.7, Lane % (Auto) 4.9, Eos % (Auto) 2.4, Baso % (Auto) 0.1, Neut # (Auto) 8.0 H, Lymph # (Auto) 2.3, Lane # (Auto) 0.6, Eos # (Auto) 0.3, Baso # (Auto) 0.0 I & O for Last 24 hours: Intake & Output 01/30/20 01/31/20 02/01/20 02/02/20 11:59 11:59 11:59 11:59 Intake Total 645 / 645 1969 / 1969 1020 / 1020 Output Total 350 / 350 3250 / 3250 2800 / 2800 Balance 295 / 295 -1280 / -1280 -1780 / -1780 Weight 149 lb 9 oz 149 lb 9 oz 149 lb 9 oz Microbiology Reports for the Last 24 Hours: Microbiology 01/30/20 22:51 Blood Blood Culture - Preliminary NO GROWTH AFTER 48 HOURS 01/30/20 22:51 Blood Blood Culture - Preliminary NO GROWTH AFTER 48 HOURS - Constitutional obese, chronically ill appearing - *Routine HEENT Exam Head: Present: normocephalic Eye: Present: PERRL ENT: Present: mucous membranes moist - *Routine Neck Exam Present: supple. Absent: lymphadenopathy - *Routine Respiratory Exam Present: crackles - *Routine Cardiovascular Exam Present: RRR - *Routine Abdominal Exam Present: soft, normoactive bowel sounds. Absent: tenderness - *Routine Extremities Exam Present: normal capillary refill. Absent: cyanosis, clubbing, edema - *Routine Skin Exam Present: warm. Absent: rash - *Routine Neurological Exam Present: alert, oriented X3 - Routine Psychiatric Exam Present: normal affect Assessment and Plan (1) Pneumonia Current visit: Yes Status: Acute Category: Medical Code(s): J18.9 - Pneumonia, unspecified organism (2) Respiratory failure Current visit: Yes Status: Acute Qualifiers: Chronicity: acute on chronic Respiratory failure complication: hypoxia Qualified Code(s): J96.21 - Acute and chronic respiratory failure with hypoxia Category: Medical Code(s): J96.90 - Respiratory failure, unspecified, unspecified whether with hypoxia or hypercapnia (3) Sepsis Current visit: Yes Status: Acute Category: Medical Code(s): A41.9 - Sepsis, unspecified organism (4) Fever Current visit: Yes Status: Acute Qualifiers: Fever type: due to other condition Qualified Code(s): R50.81 - Fever presenting with conditions classified elsewhere Category: Medical Code(s): R50.9 - Fever, unspecified (5) Leukocytosis Current visit: Yes Status: Acute Category: Medical Code(s): D72.829 - Elevated white blood cell count, unspecified (6) History of pulmonary embolism Current visit: Yes Status: Chronic Category: Medical Code(s): Z86.711 - Personal history of pulmonary embolism (7) Anemia Current visit: Yes Status: Acute Category: Medical Code(s): D64.9 - Anemia, unspecified (8) Tremor Current visit: Yes Status: Acute Category: Medical Code(s): R25.1 - Tremor, unspecified (9) Schizophrenia Current visit: Yes Status: Acute Qualifiers: Schizophrenia type: unspecified Qualified Code(s): F20.9 - Schizophrenia, unspecified Category: Medical Code(s): F20.9 - Schizophrenia, unspecified (10) Tobacco abuse Current visit: Yes Status: Acute Category: Medical Code(s): Z72.0 - Tobacco use - Assessment and plan all Dx Assessment and Plan for all problems:: rounded with dr baeza all
--- NOTE | 2020-02-02 09:17 | SW/DCPLANNER ---
Addendum entered by Cira Esteban 02/06/20 11:18: I have updated Radha with [facility] that the plan is to discharge this patient on Sunday pending no setback and NEGATIVE COVID results. Addendum entered by Cira Esteban 02/05/20 11:54: Radha has also stated that this patient will need a negative COVID prior to discharge. Addendum entered by Cira [place] 02/05/20 10:59: I have updated Radha with [facility] regarding this patient. Original Note: This patient currently resides at [facility]. I have spoke with Radha this morning and she has stated this patient is [facility] level of care. I will continue to follow up with [facility] until patient is stable for discharge.
--- NOTE | 2020-02-02 09:52 | HMH.PULMCON ---
*Admission Date: 01/31/20 *Reason for consult:: pneumonia *History of present illness: Ms. Epps is a 59-[facility]-old female [facility] resident with a history of left pulmonary embolism diagnosed in December 2019 and diastolic heart failure presented to the hospital with acute worsening respiratory failure for the last 2 days. On further questioning patient states that she is in her usual state of health in the [facility] handling her activities of daily living on her own, not using any supplemental oxygen noticed acute decline in her respiratory status before coming to the emergency department. Patient denies any fevers chills cough or sputum production before her decline in respiratory status. Patient admits compliance with her medications. Shortness of breath gets worse with exertion and improves with rest. She was a previous smoker with more than 29-[id number]-tmnw smoking history. Denies any family of lung diseases or lung cancer. No significant occupational exposure. Denies any dry eyes dry mouth skin rash or joint pains. Denies any family history of autoimmune diseases. Hospital course: She is on presentation to the ED was found to be in acute hypoxic respiratory failure was initiated on BiPAP. Ceftriaxone and azithromycin were started to cover for community-acquired pneumonia. Her lactate was also found to be elevated at 6.5 which improved after resuscitation. Patient is still BiPAP dependent as of this morning, tolerating well. [facility] History Medical History: Reports:: Anxiety, Chronic Obstructive Pulmonary Disease (COPD), Gastroesophageal Reflux Disease(GERD), Hyperlipidemia Denies:: Diabetes Mellitus Type 1, Diabetes Mellitus Type 2 *Have you ever received a pneumonia vaccine?: Yes *Have you received a flu vaccine this season?: Yes Other Surgeries: Yes: Hysterectomy-Total, Other Amputation: No Fractures: No - *Social History Last grade of school completed: Some college Smoking Status: Current every day smoker Tobacco Type: cigarettes # Packs/Day (cigarettes): 1 Alcohol Intake: never Alcohol Intake Frequency:: other Substance Use Type: denies use *Occupational Status:: disabled Housing: assisted living facility Household Members: other *Travel in the last 8 weeks: None - Psychiatric History Pschychiatric History:: Reports:: Anxiety, Schizophrenia Family Hx:: No significant family history ACCOUNT GROUP SUPERVISOR history: No ACCOUNT GROUP SUPERVISOR history Review of Systems - Constitutional Denies body ache(s), Denies chills, Denies excessive sweating, Denies night sweats - Eyes Denies blurry vision, Denies change in vision - ENT Denies abnormal hearing, Denies bleeding gums, Denies change in voice, Denies headache(s), Denies hearing loss, Denies lip swelling - *Cardiovascular Denies chest pain, Denies chest pain with activity, Denies shortness of breath when lying down - *Respiratory Denies change in phlegm color, Denies chest congestion, Denies cough, Denies excessive phlegm production, Denies coughing up blood, Denies pain on inspiration, Denies pain with cough - *Gastrointestinal Denies abdominal pain, Denies cramping - *Musculoskeletal Denies abnormal walking, Denies joint pain - Integumentary/Breasts Denies change in skin color, Denies dry skin, Denies sensitivity to light - *Neurologic Reports behavioral changes, Reports lack of coordination, Reports tremor(s), Denies abnormal hearing, Denies loss of vision - Hematologic/Lymphatic Denies easy bleeding, Denies easy bruising Meds Home Medications Medication Instructions Recorded Confirmed Type ferrous sulfate 325 mg (65 mg 325 mg PO DAILY tab 08/02/17 01/31/20 History iron) tablet haloperidol 10 mg tablet 5 mg PO 0900,1300 08/02/17 01/31/20 History oxybutynin chloride 10 mg 10 mg PO DAILY 08/02/17 01/31/20 History tablet,extended release 24 hr venlafaxine 150 mg 150 mg PO DAILY 08/02/17 01/31/20 History capsule,extended release 24 hr venlafaxine 75 mg tablet 75 mg PO SHANE
--- NOTE | 2020-02-02 10:39 | PC.NURSE ---
Spoke w/Dr Crespo about conflicting orders. Cornelio had put in an order to wean off bipap to RA but joiner helper had told respiratory to place patient on vapotherm. Dr Crespo states to place pt on vapotherm if that is the pulmonologists recommendation. I relayed that message to the respiratory therapist.
--- NOTE | 2020-02-02 15:38 | PC.NURSE ---
RT administered Hypertonic Saline to pt to try to induce cough for sputum sample, pt stated after the treatment she was still not able to cough up any sputum at this time. Cup left at bedside.
--- NOTE | 2020-02-02 16:05 | CA_ITS ---
APPROVED REPORT Bilateral Lower Extremity Venous Study for DVT. Modeling Director: SARA Indications Pulmonary Embolism Shortness of breath Current Smoker Risk for DVT. Patient had PE 01/14/20. Venous dopplers done 01/14/20 revealed no evidence of DVT. Patient is taking Eliquis. Vein Imaging CFV (R): compressive, spontaneous, phasic, augmentation FEM (R): compressive, spontaneous, phasic, augmentation POP (R): compressive, spontaneous, phasic, augmentation PTV (R): Compressible GSV (R): compressive, spontaneous, phasic, augmentation SSV (R): Compressible Peroneals (R):Compressible GAS (R): Compressible CFV (L): compressive, spontaneous, phasic, augmentation FEM (L): compressive, spontaneous, phasic, augmentation POP (L): compressive, spontaneous, phasic, augmentation PTV (L): Compressible GSV (L): compressive, spontaneous, phasic, augmentation SSV (L): Compressible Peroneals (L):Compressible GAS (L): Compressible Findings No evidence of DVT or superficial thrombophlebitis in the veins scanned of the right lower extremity. No evidence of DVT or superficial thrombophlebitis in the veins scanned of the left lower extremity. Conclusion No evidence of DVT or superficial thrombophlebitis in the veins scanned of the right lower extremity. No evidence of DVT or superficial thrombophlebitis in the veins scanned of the left lower extremity. Electronically signed by : Ildefonso Durand MD 02/04/2020 16:22:47
--- NOTE | 2020-02-02 16:30 | PC.NURSE ---
Pt is alert and oriented. She has rested in bed this shift w/no complaints. She has had 2100 mls of urine out thus far. Scheduled duonebs and Venous doppler ordered per Dr Peterson's request. Pt placed back on Vapotherm per his request as well. O2 sats have been in the 90's. She has a non productive cough, unable to obtain sputum at this time. Cup is at bedside. She didn't eat much breakfast but ate 75% of lunch. Will continue to monitor.
--- NOTE | 2020-02-02 20:59 | XR_ITS ---
PROCEDURE: XR CHEST PORTABLE CLINICAL HISTORY: pneumonia Worsening pneumonia COMPARISON: CT CT ANGIO CHEST from 01/13/2020 CR XR CHEST PORTABLE from 01/17/2020 CR XR CHEST PORTABLE from 01/31/2020 CR XR CHEST PORTABLE from 02/01/2020 CR XR CHEST PORTABLE from 02/02/2020 FINDINGS: The cardiomediastinal silhouette and pulmonary vascularity are within normal limits. Diffuse interstitial lung disease/pulmonary fibrosis is noted with suspected superimposed infiltrate in the lower lobes which may be slightly improved. No acute bony abnormalities. IMPRESSION: Chronic interstitial lung disease with suspected superimposed infiltrate in the lower lobes which may be slightly improved Dictated b Ildefonso Durand MD 02/03/2020 07:51 Ildefonso Durand MD in [facility] 02/03/2020 07:51
[2020-02-03] VITALS (9 sets, daily range): BP systolic 111–131; BP diastolic 64–80; PULSE 76–111; RESP 19–22; TEMP 36.6–36.9; O2SAT 93–100; BMI 26.9
[2020-02-03 06:41] LABS: Basophils % 0.1 % (0.1-2.0); Eosinophils % 0.1 % (0.1-12.0); Hematocrit 32.1 % (37.0-47.0); Hemoglobin 10.7 g/dL (12.2-16.2); Lymphocytes # 0.6 K/mm3 (0.7-4.5); Lymphocytes % 6.2 % (10-50); Mean Corpuscular HGB Conc 33.4 g/dL (31.8-35.4); Mean Corpuscular Hemoglobin 31.5 pg (27.0-31.2); Mean Corpuscular Volume 94.3 fl (81-99); Mean Platelet Volume 8.5 fl (7.4-10.4); Monocytes # 0.2 K/mm3 (0.1-1.0); Monocytes % 1.8 % (1.7-9.3); Neutrophils # 9.3 K/mm3 (1.8-7.8); Neutrophils % 91.9 % (37.0-80.0); Platelet Count 147 K/mm3 (142-424); Red Cell Distribution Width 17.2 % (11.5-17.5); White Blood Count 10.1 K/mm3 (4.8-10.8)
[2020-02-03 06:43] LABS: MANUAL DIFFERENTIAL MANUAL DIFFERENTIAL (MANUAL DIFF)
[2020-02-03 07:02] LABS: Chloride 100 mmol/L (98-107); Potassium 3.8 mmoL/L (3.5-5.1); Sodium 138 mmol/L (136-145)
[2020-02-03 07:05] LABS: Anion Gap 9.8 mEq/L (5-15); Blood Urea Nitrogen 30 mg/dl (7-17); Calcium 9.1 mg/dl (8.4-10.2); Carbon Dioxide 32 mmol/L (22.0-30.0); Creatinine Clearance Estimated 81 mL/min (50-200); Estimated Glomerular Filt Rate 74 ml/min (>60); GFR (African American) 89 ML/MIN (>60); Glucose 154 mg/dl (74-100)
[2020-02-03 08:18] LABS: Lymphocytes % 5 % (10-50); Monocytes % 3 % (2-9); Neutrophils % 92 % (42-76); Total Cells Counted 100
[2020-02-03 08:19] LABS: RBC Morphology Normal
[2020-02-03 08:20] LABS: Platelet Estimate Normal
--- NOTE | 2020-02-03 10:48 | HMH.ACPN ---
Internal Medicine - PN: Subj *Date: 02/03/20 *Time: 10:48 Exam Vital signs and Labs for Last 24 Hours: Temp Pulse Resp BP Pulse Ox 97.8 F 87 22 131/80 97 02/03/20 07:37 02/03/20 10:10 02/03/20 07:37 02/03/20 07:37 02/03/20 10:10 Laboratory Results - last 24 hr 02/03/20 06:25: WBC 10.1, RBC 3.40 L, Hgb 10.7 L, Hct 32.1 L, MCV 94.3, MCH 31.5 H, MCHC 33.4, RDW 17.2, Plt Count 147, MPV 8.5, Neut % (Auto) 91.9 H, Lymph % (Auto) 6.2 L, [place] % (Auto) 1.8, Eos % (Auto) 0.1, Baso % (Auto) 0.1, Neut # (Auto) 9.3 H, Lymph # (Auto) 0.6 L, [place] # (Auto) 0.2, Eos # (Auto) 0.0, Baso # (Auto) 0.0, Total Counted 100, Neutrophils % (Manual) 92 H, Lymphocytes % (Manual) 5 L, Monocytes % (Manual) 3, Platelet Estimate Normal, RBC Morphology Normal 02/03/20 06:25: Sodium 138, Potassium 3.8, Chloride 100, Carbon Dioxide 32 H, Anion Gap 9.8, BUN 30 H, Creatinine 0.80, Estimated Creat Clear 81, Estimated GFR 74, Est GFR ( Amer) 89, Glucose 154 H, Calcium 9.1 I & O for Last 24 hours: Intake & Output 01/31/20 02/01/20 02/02/20 02/03/20 23:59 23:59 23:59 23:59 Intake Total 2215 / 2215 720 / 720 1260 / 1260 525 / 525 Output Total 3250 / 3250 1350 / 1350 3900 / 3900 Balance -1035 / -1035 -630 / -630 -2640 / -2640 525 / 525 Weight 67.84 kg 67.84 kg 67.84 kg 66.366 kg Assessment and Plan (1) Pneumonia Current visit: Yes Status: Acute Category: Medical Code(s): J18.9 - Pneumonia, unspecified organism (2) Respiratory failure Start date: 02/02/20 Problem details: Noted to have acute on chronic respiratory failure likely from pneumonia being treated with ceftriaxone and azithromycin. Chest x-ray on admission showed lateral lower lobe infiltrates concerning for right lower lobe pneumonia. Chest x-ray is also concerning for bilateral interstitial lung disease. No peripheral eosinophilia noted on this visit on also prior visit. CAT scan from her recent admission in December 2019 also showed changes concerning for interstitial lung disease. Also complained that her breathing rapidly declined prior to this visit without any associated fevers or chills makes the possibility of recurrent PE likely, however she was noted to be febrile on ED admission points towards infectious etiology. Echo from December 2019 showed normal systolic function with diastolic dysfunction. No pedal edema noted today. Her current respiratory failure is likely from pneumonia, however recurrent PE and a flare of underlying interstitial lung disease as possible etiologies cannot be completely ruled out. Blood infectious work-up was so far negative. No sputum studies available. Plan: -Continue ceftriaxone and azithromycin for a total of 5 days - Initiate Solu-Medrol 125 mg twice daily -Please obtain lower extremity venous Doppler. -Optimize volume status with diuresis -6 hours after the initiation of Lasix and appropriate urine output - transition the patient to high flow nasal cannula at 50 L and 60% FiO2. -Continue albuterol and ipratropium nebulizations every 4 hours scheduled and also as needed for shortness of breath and wheezing -We will continue to monitor her clinical imrovement on this hospital admission -however on discharge patient needs extensive pulmonary work-up including full PFTs, HRCT scan to evaluate for interstitial lung disease, and possible autoimmune work-up as I have a suspicion that her respiratory failure is not entirely secondary to COPD exacerbation or pneumonia. Current visit: Yes Status: Acute Qualifiers: Chronicity: acute on chronic Respiratory failure complication: hypoxia Qualified Code(s): J96.21 - Acute and chronic respiratory failure with hypoxia Category: Medical Code(s): J96.90 - Respiratory failure, unspecified, unspecified whether with hypoxia or hypercapnia (3) Sepsis Current visit: Yes Status: Acute Category: Medical Code(s): A41.9 - Sepsis, unspecified organism (4) Fever Current visit: Yes Statu
--- NOTE | 2020-02-03 12:30 | HMH.ACPN2 ---
Internal Medicine - PN: Subj *Date: 02/03/20 *Time: 12:39 Interval history: Patient's respiratory status significantly improved from yesterday, she is now off BiPAP, and currently on high flow nasal cannula at 40 L and 90% FiO2 Exam Vital signs and Labs for Last 24 Hours: Temp Pulse Resp BP Pulse Ox 98.4 F 103 H 22 116/77 98 02/03/20 11:17 02/03/20 11:17 02/03/20 11:17 02/03/20 11:17 02/03/20 11:17 Laboratory Results - last 24 hr 02/03/20 06:25: WBC 10.1, RBC 3.40 L, Hgb 10.7 L, Hct 32.1 L, MCV 94.3, MCH 31.5 H, MCHC 33.4, RDW 17.2, Plt Count 147, MPV 8.5, Neut % (Auto) 91.9 H, Lymph % (Auto) 6.2 L, [place] % (Auto) 1.8, Eos % (Auto) 0.1, Baso % (Auto) 0.1, Neut # (Auto) 9.3 H, Lymph # (Auto) 0.6 L, [place] # (Auto) 0.2, Eos # (Auto) 0.0, Baso # (Auto) 0.0, Total Counted 100, Neutrophils % (Manual) 92 H, Lymphocytes % (Manual) 5 L, Monocytes % (Manual) 3, Platelet Estimate Normal, RBC Morphology Normal 02/03/20 06:25: Sodium 138, Potassium 3.8, Chloride 100, Carbon Dioxide 32 H, Anion Gap 9.8, BUN 30 H, Creatinine 0.80, Estimated Creat Clear 81, Estimated GFR 74, Est GFR ( Amer) 89, Glucose 154 H, Calcium 9.1 I & O for Last 24 hours: Intake & Output 01/31/20 02/01/20 02/02/20 02/03/20 23:59 23:59 23:59 23:59 Intake Total 2215 / 2215 720 / 720 1260 / 1260 525 / 525 Output Total 3250 / 3250 1350 / 1350 3900 / 3900 Balance -1035 / -1035 -630 / -630 -2640 / -2640 525 / 525 Weight 149 lb 9 oz 149 lb 9 oz 149 lb 9 oz 146 lb 5 oz Microbiology Reports for the Last 24 Hours: Blood cultures no growth so far - *Routine HEENT Exam Head: Present: normocephalic, atraumatic - *Routine Neck Exam Absent: lymphadenopathy - *Routine Respiratory Exam Present: decreased breath sounds, prolonged expiratory phase, rhonchi - *Routine Cardiovascular Exam Present: RRR, Normal S1, Normal S2 - *Routine Abdominal Exam Absent: organomegaly Assessment and Plan (1) Pneumonia Current visit: Yes Status: Acute Category: Medical Code(s): J18.9 - Pneumonia, unspecified organism (2) Respiratory failure Start date: 02/02/20 Problem details: Noted to have acute on chronic respiratory failure likely from pneumonia being treated with ceftriaxone and azithromycin. Chest x-ray on admission showed lateral lower lobe infiltrates concerning for right lower lobe pneumonia. Chest x-ray is also concerning for bilateral interstitial lung disease. No peripheral eosinophilia noted on this visit on also prior visit. CAT scan from her recent admission in December 2019 also showed changes concerning for interstitial lung disease. Also complained that her breathing rapidly declined prior to this visit without any associated fevers or chills makes the possibility of recurrent PE likely, however she was noted to be febrile on ED admission points towards infectious etiology. Echo from December 2019 showed normal systolic function with diastolic dysfunction. No pedal edema noted today. Her current respiratory failure is likely from pneumonia, however recurrent PE and a flare of underlying interstitial lung disease as possible etiologies cannot be completely ruled out. Blood infectious work-up was so far negative. No sputum studies available. Plan: -Continue ceftriaxone and azithromycin for a total of 5 days -Continue Solu-Medrol 125 mg twice daily -Follow-up with lower extremity venous Doppler read. -Optimize volume status with strict ins and outs documentation. Will recommend 40 mg IV Lasix once -Continue albuterol and ipratropium nebulizations every 4 hours scheduled and also as needed for shortness of breath and wheezing -We will continue to monitor her clinical imrovement on this hospital admission -however on discharge patient needs extensive pulmonary work-up including full PFTs, HRCT scan to evaluate for interstitial lung disease, and possible autoimmune work-up as I have a suspicion that her respiratory failure is not entirely secondary
[2020-02-03 13:29] LABS: C-Reactive Protein 28.7 mg/L (0-4)
--- NOTE | 2020-02-03 21:00 | PC.NURSE ---
PT TOLERATED MEDICATION ADMINISTRATION WELL AT THIS TIME. MEDS CRUSHED AND ADMIN IN APPLESAUCE WITH FOLLOWING SIPS OF HONEY THICK APPLE JUICE. PT ADEQUATELY SWALLOWED WITH NO RESPIRATORY DISTRESS NOTED POST ADMIN. HOB REMAINS ELEVATED >30 DEGREES.
[2020-02-04] VITALS (12 sets, daily range): BP systolic 110–150; BP diastolic 71–96; PULSE 67–108; RESP 18–26; TEMP 36.6–37; O2SAT 91–99; BMI 26.9
--- NOTE | 2020-02-04 04:17 | PC.NURSE ---
A&O X4. PT RESTED WELL WITH EYES CLOSED THIS SHIFT WITH NO C/O. TOLERATED 30 LPM / 70% O2 WELL T/O SHIFT. O2 RANGE NOTED 93-99% WITH NO C/O SOA. DIMINISHED BREATH SOUNDS NOTED IN RIGHT UPPER LOBE UPON AUSCULTATION. RR NOTED EVEN AND UNLABORED. DRY INTERMITTENT COUGH NOTED T/O SHIFT. SPUTUM STILL NEEDED FOR COLLECTION. NO EDEMA NOTED. TEDS NOTED ON BLE. REMAINS INCONT OF B&B, WEARING BRIEF. VSS. REMAINS SAFE. CALL LIGHT WITHIN REACH. WILL CONTINUE TO MONITOR.
--- NOTE | 2020-02-04 06:30 | PC.NURSE ---
rt decreased vapotherm to 60% FIO2 at this time. pt tolerating well.
[2020-02-04 06:37] LABS: Eosinophils % 0.2 % (0.1-12.0); Hematocrit 30.1 % (37.0-47.0); Hemoglobin 9.9 g/dL (12.2-16.2); Lymphocytes # 0.6 K/mm3 (0.7-4.5); Lymphocytes % 5.1 % (10-50); Mean Corpuscular HGB Conc 32.9 g/dL (31.8-35.4); Mean Corpuscular Hemoglobin 30.8 pg (27.0-31.2); Mean Corpuscular Volume 93.7 fl (81-99); Mean Platelet Volume 8.3 fl (7.4-10.4); Monocytes # 0.3 K/mm3 (0.1-1.0); Monocytes % 3.1 % (1.7-9.3); Neutrophils % 91.5 % (37.0-80.0); Platelet Count 153 K/mm3 (142-424); Red Blood Count 3.21 M/mm3 (4.20-5.40); Red Cell Distribution Width 17.2 % (11.5-17.5); White Blood Count 10.9 K/mm3 (4.8-10.8)
[2020-02-04 06:42] LABS: Anion Gap 11.7 mEq/L (5-15); Blood Urea Nitrogen 27 mg/dl (7-17); Calcium 9.2 mg/dl (8.4-10.2); Carbon Dioxide 29 mmol/L (22.0-30.0); Chloride 102 mmol/L (98-107); Creatinine Clearance Estimated 93 mL/min (50-200); Estimated Glomerular Filt Rate 86 ml/min (>60); GFR (African American) 104 ML/MIN (>60); Glucose 158 mg/dl (74-100); Potassium 3.7 mmoL/L (3.5-5.1); Sodium 139 mmol/L (136-145)
[2020-02-04 06:44] LABS: MANUAL DIFFERENTIAL MANUAL DIFFERENTIAL (MANUAL DIFF)
[2020-02-04 07:56] LABS: Eosinophils % 1 % (0-3); Lymphocytes % 5 % (10-50); Monocytes % 4 % (2-9); Neutrophils % 90 % (42-76); Total Cells Counted 100
[2020-02-04 07:57] LABS: Platelet Estimate Normal
[2020-02-04 07:58] LABS: RBC Morphology Normal
--- NOTE | 2020-02-04 08:24 | HMH.ACPN2 ---
Internal Medicine - PN: Subj *Date: 02/04/20 *Time: 08:32 Interval history: Patient continues to improve. She remains more awake and alert. She has been off of the BiPAP, down to 60% on high flow oxygen, we are planning to wean down to her baseline nasal cannula. There is some cough, very scant sputum production. She denies chest pain or dyspnea at rest. Pulmonary is on board, put is appreciated. Work-up after discharge would ideally include PFT, high resolution CAT scan and an autoimmune work-up. Exam Vital signs and Labs for Last 24 Hours: Temp Pulse Resp BP Pulse Ox 97.9 F 75 19 138/81 98 02/04/20 04:00 02/04/20 06:03 02/04/20 04:00 02/04/20 04:00 02/04/20 06:03 Laboratory Results - last 24 hr 02/03/20 06:25: C-Reactive Protein 28.7 H 02/04/20 06:22: WBC 10.9 H, RBC 3.21 L, Hgb 9.9 L, Hct 30.1 L, MCV 93.7, MCH 30.8, MCHC 32.9, RDW 17.2, Plt Count 153, MPV 8.3, Neut % (Auto) 91.5 H, Lymph % (Auto) 5.1 L, [place] % (Auto) 3.1, Eos % (Auto) 0.2, Baso % (Auto) 0.0 L, Neut # (Auto) 10.0 H, Lymph # (Auto) 0.6 L, [place] # (Auto) 0.3, Eos # (Auto) 0.0, Baso # (Auto) 0.0, Total Counted 100, Neutrophils % (Manual) 90 H, Lymphocytes % (Manual) 5 L, Monocytes % (Manual) 4, Eosinophils % (Manual) 1, Platelet Estimate Normal, RBC Morphology Normal 02/04/20 06:22: Sodium 139, Potassium 3.7, Chloride 102, Carbon Dioxide 29, Anion Gap 11.7, BUN 27 H, Creatinine 0.70, Estimated Creat Clear 93, Estimated GFR 86, Est GFR ( Amer) 104, Glucose 158 H, Calcium 9.2 I & O for Last 24 hours: Intake & Output 02/01/20 02/02/20 02/03/20 02/04/20 23:59 23:59 23:59 23:59 Intake Total 720 / 720 1260 / 1260 765 / 765 550 / 550 Output Total 1350 / 1350 3900 / 3900 Balance -630 / -630 -2640 / -2640 765 / 765 550 / 550 Weight 149 lb 9 oz 149 lb 9 oz 146 lb 5 oz 146 lb 6 oz - Constitutional no acute distress, chronically ill appearing - *Routine HEENT Exam Head: Present: normocephalic, atraumatic ENT: Present: mucous membranes moist - *Routine Neck Exam Present: supple. Absent: JVD, tenderness, tracheal deviation - *Routine Respiratory Exam Present: decreased breath sounds, rhonchi, distant breath sounds. Absent: accessory muscle use - *Routine Cardiovascular Exam Present: RRR, Normal S1, Normal S2 - *Routine Abdominal Exam Present: soft. Absent: tenderness, distended, rebound, guarding, organomegaly, mass - *Routine Extremities Exam Absent: cyanosis, clubbing, edema - *Routine Skin Exam Present: intact. Absent: cyanosis, erythema, lesions, jaundice - *Routine Neurological Exam Present: alert, oriented X3, moving all extremities - Routine Psychiatric Exam Present: cooperative, depressed Assessment and Plan (1) Pneumonia Current visit: Yes Status: Acute Category: Medical Code(s): J18.9 - Pneumonia, unspecified organism (2) Respiratory failure Start date: 02/02/20 Problem details: Noted to have acute on chronic respiratory failure likely from pneumonia being treated with ceftriaxone and azithromycin. Chest x-ray on admission showed lateral lower lobe infiltrates concerning for right lower lobe pneumonia. Chest x-ray is also concerning for bilateral interstitial lung disease. No peripheral eosinophilia noted on this visit on also prior visit. CAT scan from her recent admission in December 2019 also showed changes concerning for interstitial lung disease. Also complained that her breathing rapidly declined prior to this visit without any associated fevers or chills makes the possibility of recurrent PE likely, however she was noted to be febrile on ED admission points towards infectious etiology. Echo from December 2019 showed normal systolic function with diastolic dysfunction. No pedal edema noted today. Her current respiratory failure is likely from pneumonia, however recurrent PE and a flare of underlying interstitial lung disease as possible etiologies cannot be completely ruled out. Blood infectious
--- NOTE | 2020-02-04 08:33 | XR_ITS ---
PROCEDURE: XR CHEST 2V CLINICAL HISTORY: pneumonia COMPARISON: CT CT ANGIO CHEST from 01/13/2020 CR XR CHEST PORTABLE from 02/01/2020 CR XR CHEST PORTABLE from 02/02/2020 CR XR CHEST PORTABLE from 02/02/2020 FINDINGS: The cardiomediastinal silhouette and pulmonary vascularity are within normal limits. There is diffuse bilateral alveolar disease which is superimposed upon chronic interstitial lung disease. Findings are overall not significantly changed. No acute bony abnormalities. IMPRESSION: No change chronic interstitial lung disease with superimposed pneumonia Dictated b Ildefonso Durand MD 02/04/2020 12:54 Ildefonso Durand MD in [facility] 02/04/2020 12:54
--- NOTE | 2020-02-04 09:39 | HMH.ACPN2 ---
Internal Medicine - PN: Subj *Date: 02/04/20 *Time: 09:39 Interval history: There is clinically improving and today she is on 60% FiO2 at 30 L. We will continue to wean her oxygen requirements as tolerated. Exam Vital signs and Labs for Last 24 Hours: Temp Pulse Resp BP Pulse Ox 98.3 F 103 H 18 122/79 97 02/04/20 08:56 02/04/20 08:57 02/04/20 08:56 02/04/20 08:56 02/04/20 08:56 Laboratory Results - last 24 hr 02/03/20 06:25: C-Reactive Protein 28.7 H 02/04/20 06:22: WBC 10.9 H, RBC 3.21 L, Hgb 9.9 L, Hct 30.1 L, MCV 93.7, MCH 30.8, MCHC 32.9, RDW 17.2, Plt Count 153, MPV 8.3, Neut % (Auto) 91.5 H, Lymph % (Auto) 5.1 L, [place] % (Auto) 3.1, Eos % (Auto) 0.2, Baso % (Auto) 0.0 L, Neut # (Auto) 10.0 H, Lymph # (Auto) 0.6 L, [place] # (Auto) 0.3, Eos # (Auto) 0.0, Baso # (Auto) 0.0, Total Counted 100, Neutrophils % (Manual) 90 H, Lymphocytes % (Manual) 5 L, Monocytes % (Manual) 4, Eosinophils % (Manual) 1, Platelet Estimate Normal, RBC Morphology Normal 02/04/20 06:22: Sodium 139, Potassium 3.7, Chloride 102, Carbon Dioxide 29, Anion Gap 11.7, BUN 27 H, Creatinine 0.70, Estimated Creat Clear 93, Estimated GFR 86, Est GFR ( Amer) 104, Glucose 158 H, Calcium 9.2 I & O for Last 24 hours: Intake & Output 02/01/20 02/02/20 02/03/20 02/04/20 23:59 23:59 23:59 23:59 Intake Total 720 / 720 1260 / 1260 765 / 765 550 / 550 Output Total 1350 / 1350 3900 / 3900 Balance -630 / -630 -2640 / -2640 765 / 765 550 / 550 Weight 149 lb 9 oz 149 lb 9 oz 146 lb 5 oz 146 lb 6 oz - Routine Chest/Breast/Axilla Exam Chest wall: Absent: tenderness - *Routine Respiratory Exam Absent: accessory muscle use Comments: Bilateral coarse breath sounds noted - *Routine Cardiovascular Exam Present: Normal S1, Normal S2 - *Routine Abdominal Exam Absent: organomegaly - *Routine Extremities Exam Absent: cyanosis, edema - *Routine Skin Exam Absent: cyanosis, erythema Assessment and Plan (1) Pneumonia Current visit: Yes Status: Acute Category: Medical Code(s): J18.9 - Pneumonia, unspecified organism (2) Respiratory failure Start date: 02/02/20 Problem details: Patient came in with acute respiratory failure with chest x-ray showing bilateral lower lobe worsening opacities. Also concern for aspiration. However after reviewing the patient's prior CT scans there is definitely a component of interstitial lung disease that striving her respiratory failure and this needs to be further worked up. Patient also had a recent PE and on anticoagulation and the venous Doppler was performed on this admission awaiting radiology read. X-ray showed gradual improvement in her infiltrates since admission. Plan: -Continue antibiotics for a total of 7 days to treat for hospital-acquired pneumonia -Change Solu-Medrol to prednisone 40 mg oral daily for a total of 5 days -Basic autoimmune work-up for possible interstitial lung disease including TUNDE, ANCA, SSA, SSB, RF and CCP (ordered) -Optimize volume status with strict ins and outs documentation. -Continue albuterol and ipratropium nebulizations every 4 hours scheduled and also as needed for shortness of breath and wheezing -We will continue to monitor her clinical imrovement on this hospital admission -however on discharge patient needs extensive pulmonary work-up including full PFTs, HRCT scan to evaluate for interstitial lung disease as I have a suspicion that her respiratory failure is not entirely secondary to COPD exacerbation or pneumonia. Current visit: Yes Status: Acute Qualifiers: Chronicity: acute on chronic Respiratory failure complication: hypoxia Qualified Code(s): J96.21 - Acute and chronic respiratory failure with hypoxia Category: Medical Code(s): J96.90 - Respiratory failure, unspecified, unspecified whether with hypoxia or hypercapnia (3) Sepsis Current visit: Yes Status: Acute Category: Medical Code(s): A41.9 - Sepsis, unspecified organism
--- NOTE | 2020-02-04 10:58 | HMH.PTEV ---
Physical Therapy Evaluation Rehab PT IP Evaluation Start: 02/04/20 09:17 Freq: .once Status: Active Protocol: Document 02/04/20 10:55 ANKIT (Rec: 02/04/20 10:58 PHORLAURA [id number]) Subjective/History History History 59 yowf adm to [facility] with PNA, uses oxygen via [place] at baseline . She resides in a [facility]. Subjective Subjective Pt with no new c/o this am. Rehab PT IP Eval Objective Appearance Patient Behavior Appropriate Patient Orientation Person,Place Difficulty following instructions none Speech Pattern Clear Ambulation Patient Able to Ambulate No Balance Ability to Arise Able, uses arms to help Sitting Balance Steady, safe Standing Balance Steady, wide stance Dynamic Sitting Balance Ability Good Dynamic Standing Balance Ability Fair Transfers Bed Transfer Ability Minimal x 1 (25% assist) Chair Transfer Ability Minimal x 1 (25% assist) Sit to Stand Bed Transfer Ability Minimal x 1 (25% assist) Sit to Stand Chair Transfer Ability Minimal x 1 (25% assist) ROM All Extremities PT ROM Status WFL MMT All Extremities PT MMT WFL Rehab PT IP prob,goals,plan Problems Date of Evaluation: 02/04/20 PT IP Problems Bed Mobility,Transfers,Gait Rehab Potential Rehab Potential Good Plan PT Intervention Plan Bed Mobility,Transfers,Gait, Therapeutic Exercise PT Plan Frequency BID Duration LOS Discharge Goals Bed Transfer Ability Contact Guard/Hand Hold Sit to Stand Chair Transfer Ability Minimal x 1 (25% assist) Ambulation Assistive Device Rolling Walker Ambulation Distance (feet) 5 Discharge Plan PT Discharge Plan Pt is most appropriate to return to [facility]. G -code Required No Eval Complexity Eval Charge Codes 95204 - Moderate Complexity PHYSICIAN CERTIFICATION: I certify the specified therapy services for are required, authorized, and reviewed every 30 days.
--- NOTE | 2020-02-04 11:23 | PC.NURSE ---
HYPERTONIC SALINE TREATMENT GIVEN. VERY STRONG COUGH WITH NO SPUTUM PRODUCTION
--- NOTE | 2020-02-04 12:03 | HMH.OTEV ---
OT Inpatient Evaluation Rehab OT IP Evaluation Start: 02/04/20 09:18 Freq: ONCE Status: Complete Protocol: Document 02/04/20 10:46 [email or web address] (Rec: 02/04/20 11:00 LIZBET [id number]) Rehab OT IP Assessment Subjective History 59 year old female who is a resident at [facility] facility came to ER after SOB. Finding were: B PNA, Respiratory failure, sepsis and admitted for further testing. Subjective I need to use the restroom. Objective Patient Orientation Person,Place,Birthday Upper Extremity Gross ROM WNL Bed Mobility bed mobility - rolling Assist Level Maximum x 1 (75% assist) Upper Body Dressing Ability Unable/Dependant Performing Toilet Hygiene Ability Unable/Dependant Overall Commode/Toilet Transfer Ability Total Dependance Commode/Toilet Transfer Technique bed gill 2* Fi02 Rehab OT IP prob,goals,plan Problems Date of Evaluation: 02/04/20 OT IP Problems Bed Mobility,Transfers,Balance ,Self care,Safety Rehab Potential Rehab Potential Good Plan OT intervention Plan Bed Mobility,Transfers,Balance ,Self care,Safety,Therapeutic Exercise OT Plan Frequency Daily Duration LOS Discharge Goals Bed Mobility Ability Total Dependance Lower Body Dressing Ability Unable/Dependant Performing Toilet Hygiene Ability Unable/Dependant Overall Commode/Toilet Transfer Ability Total Dependance Discharge Plan OT Discharge Plan D/c back to long-term care facility. Eval Complexity Eval Charge Codes 66362 - Low Complexity G Codes G -code Required No PHYSICIAN CERTIFICATION: I certify the specified therapy services for are required, authorized, and reviewed every 30 days.
--- NOTE | 2020-02-04 20:06 | PC.NURSE ---
PATIENT DID VERY WELL TODAY. ABLE TO FEED SELF AND DRINK. PATIENT HAD TWO IV THAT INFILTRATED. PATIENT ABLE TO STAND AND WALK FROM CHAIR TO BED. PATIENT UP TO CHAIR FOR 3HRS DURING THIS RN SHIFT. SPUTUM SENT TO LAB. PATIENT CONTINUES TO HAVE A DRY HACKING COUGH. NO OTHER CONCERNS AT THIS TIME.
[2020-02-05] VITALS (11 sets, daily range): BP systolic 121–144; BP diastolic 77–95; PULSE 56–126; RESP 18–22; TEMP 36.6–37.1; O2SAT 89–96; BMI 27.6
--- NOTE | 2020-02-05 04:10 | PC.NURSE ---
after a coughing spell pt's o2 steadily decreased from 90% to 69%. notified rt. increased vapotherm to 30 lpm and 50% FIO2 at this time. 02 range now 88-92%. no respiratory distress noted. pt sitting upright in bed. will continue to monitor.
[2020-02-05 07:08] LABS: Eosinophils % 0.2 % (0.1-12.0); Hematocrit 30.3 % (37.0-47.0); Lymphocytes # 0.8 K/mm3 (0.7-4.5); Lymphocytes % 6.9 % (10-50); Mean Corpuscular HGB Conc 33.1 g/dL (31.8-35.4); Mean Corpuscular Hemoglobin 31.3 pg (27.0-31.2); Mean Corpuscular Volume 94.6 fl (81-99); Mean Platelet Volume 8.3 fl (7.4-10.4); Monocytes # 0.4 K/mm3 (0.1-1.0); Monocytes % 3.5 % (1.7-9.3); Neutrophils # 9.9 K/mm3 (1.8-7.8); Neutrophils % 89.3 % (37.0-80.0); Platelet Count 177 K/mm3 (142-424); Red Cell Distribution Width 17.3 % (11.5-17.5)
[2020-02-05 07:14] LABS: MANUAL DIFFERENTIAL MANUAL DIFFERENTIAL (MANUAL DIFF)
[2020-02-05 07:16] LABS: Anion Gap 10.9 mEq/L (5-15); Blood Urea Nitrogen 29 mg/dl (7-17); Calcium 9.3 mg/dl (8.4-10.2); Carbon Dioxide 31 mmol/L (22.0-30.0); Chloride 100 mmol/L (98-107); Creatinine Clearance Estimated 95 mL/min (50-200); Estimated Glomerular Filt Rate 86 ml/min (>60); GFR (African American) 104 ML/MIN (>60); Glucose 133 mg/dl (74-100); Potassium 3.9 mmoL/L (3.5-5.1); Sodium 138 mmol/L (136-145)
--- NOTE | 2020-02-05 07:51 | PC.NURSE ---
A&O X4. PT RESTED WELL WITH EYES CLOSED INTERMITTENTLY T/O SHIFT. REFUSED TO BE TURNED Q2H BY THIS RN. TOLERATED VAPOTHERM WELL THIS AM, O2 SATS RANGING > 92% AT THIS TIME. RR NOTED EVEN AND UNLABORED. DENIES SOA. HOB REMAINED ELEVATED T/O SHIFT. INTERMITTENT DRY COUGH NOTED THIS SHIFT. NO EDEMA NOTED. REMAINS INCONTINENT OF BLADDER THIS SHIFT. NO BM NOTED. VSS. PT REFUSED A BATH BUT DID ALLOW THIS RN TO GIVE HER A PARTIAL BATH WHILE CHANGING HER BRIEF. REMAINS SAFE. CALL LIGHT WITHIN REACH. WILL CONTINUE TO MONITOR.
[2020-02-05 08:14] LABS: Lymphocytes % 7 % (10-50); Monocytes % 5 % (2-9); Neutrophils % 88 % (42-76); Total Cells Counted 100
[2020-02-05 08:15] LABS: Platelet Estimate Normal; RBC Morphology Normal
--- NOTE | 2020-02-05 09:04 | HMH.ACPN2 ---
Internal Medicine - PN: Subj *Date: 02/05/20 *Time: 09:04 Interval history: pt states doing well. flowvent 30 lpm-50%. will give lasix 40 mg iv x 1 try to wean o2 to nc poss transfer back to [place] Exam Vital signs and Labs for Last 24 Hours: Temp Pulse Resp BP Pulse Ox 98.1 F 94 H 19 140/95 H 95 02/05/20 08:00 02/05/20 08:00 02/05/20 08:00 02/05/20 08:00 02/05/20 08:00 Laboratory Results - last 24 hr 02/05/20 06:35: WBC 11.0 H, RBC 3.20 L, Hgb 10.0 L, Hct 30.3 L, MCV 94.6, MCH 31.3 H, MCHC 33.1, RDW 17.3, Plt Count 177, MPV 8.3, Neut % (Auto) 89.3 H, Lymph % (Auto) 6.9 L, [place] % (Auto) 3.5, Eos % (Auto) 0.2, Baso % (Auto) 0.0 L, Neut # (Auto) 9.9 H, Lymph # (Auto) 0.8, [place] # (Auto) 0.4, Eos # (Auto) 0.0, Baso # (Auto) 0.0, Total Counted 100, Neutrophils % (Manual) 88 H, Lymphocytes % (Manual) 7 L, Monocytes % (Manual) 5, Platelet Estimate Normal, RBC Morphology Normal 02/05/20 06:35: Sodium 138, Potassium 3.9, Chloride 100, Carbon Dioxide 31 H, Anion Gap 10.9, BUN 29 H, Creatinine 0.70, Estimated Creat Clear 95, Estimated GFR 86, Est GFR ( Amer) 104, Glucose 133 H, Calcium 9.3 I & O for Last 24 hours: Intake & Output 02/02/20 02/03/20 02/04/20 02/05/20 11:59 11:59 11:59 11:59 Intake Total 1020 / 1020 1085 / 1085 790 / 790 1380 / 1380 Output Total 2900 / 2900 1999 Balance -1880 / -1880 -915 / -915 790 / 790 1380 / 1380 Weight 149 lb 9 oz 146 lb 5 oz 146 lb 6 oz 150 lb 2 oz Microbiology Reports for the Last 24 Hours: Microbiology 02/04/20 11:05 Sputum - Expectorated Sputum Gram Stain - Final 02/04/20 11:05 Sputum - Expectorated Sputum Sputum Culture - Preliminary 01/30/20 22:51 Blood Blood Culture - Final NO GROWTH AFTER 5 DAYS 01/30/20 22:51 Blood Blood Culture - Final NO GROWTH AFTER 5 DAYS - Constitutional chronically ill appearing - *Routine HEENT Exam Head: Present: normocephalic Eye: Present: PERRL ENT: Present: mucous membranes moist - *Routine Neck Exam Present: supple. Absent: lymphadenopathy - *Routine Respiratory Exam Present: crackles - *Routine Cardiovascular Exam Present: RRR - *Routine Abdominal Exam Present: soft, normoactive bowel sounds. Absent: tenderness - *Routine Extremities Exam Present: normal capillary refill. Absent: cyanosis, clubbing, edema - *Routine Skin Exam Present: warm. Absent: rash - *Routine Neurological Exam Present: alert, oriented X3 - Routine Psychiatric Exam Present: normal affect Assessment and Plan (1) Pneumonia Current visit: Yes Status: Acute Category: Medical Code(s): J18.9 - Pneumonia, unspecified organism (2) Respiratory failure Start date: 02/02/20 Problem details: Patient came in with acute respiratory failure with chest x-ray showing bilateral lower lobe worsening opacities. Also concern for aspiration. However after reviewing the patient's prior CT scans there is definitely a component of interstitial lung disease that striving her respiratory failure and this needs to be further worked up. Patient also had a recent PE and on anticoagulation and the venous Doppler was performed on this admission awaiting radiology read. X-ray showed gradual improvement in her infiltrates since admission. Plan: -Continue antibiotics for a total of 7 days to treat for hospital-acquired pneumonia -Change Solu-Medrol to prednisone 40 mg oral daily for a total of 5 days -Basic autoimmune work-up for possible interstitial lung disease including TUNDE, ANCA, SSA, SSB, RF and CCP (ordered) -Optimize volume status with strict ins and outs documentation. -Continue albuterol and ipratropium nebulizations every 4 hours scheduled and also as needed for shortness of breath and wheezing -We will continue to monitor her clinical imrovement on this hospital admission -however on discharge patient needs extensive pulmonary work-up including full PFT
--- NOTE | 2020-02-05 09:38 | HMH.ACPN2 ---
Internal Medicine - PN: Subj *Date: 02/05/20 *Time: 09:38 Interval history: Today denies any new complaints today. She appears comfortable sitting upright in the chair. O2 requirements improved from yesterday and now she is on high flow nasal cannula at 30% on 50 L Exam Vital signs and Labs for Last 24 Hours: Temp Pulse Resp BP Pulse Ox 98.1 F 94 H 19 140/95 H 95 02/05/20 08:00 02/05/20 08:00 02/05/20 08:00 02/05/20 08:00 02/05/20 08:00 Laboratory Results - last 24 hr 02/05/20 06:35: WBC 11.0 H, RBC 3.20 L, Hgb 10.0 L, Hct 30.3 L, MCV 94.6, MCH 31.3 H, MCHC 33.1, RDW 17.3, Plt Count 177, MPV 8.3, Neut % (Auto) 89.3 H, Lymph % (Auto) 6.9 L, [place] % (Auto) 3.5, Eos % (Auto) 0.2, Baso % (Auto) 0.0 L, Neut # (Auto) 9.9 H, Lymph # (Auto) 0.8, [place] # (Auto) 0.4, Eos # (Auto) 0.0, Baso # (Auto) 0.0, Total Counted 100, Neutrophils % (Manual) 88 H, Lymphocytes % (Manual) 7 L, Monocytes % (Manual) 5, Platelet Estimate Normal, RBC Morphology Normal 02/05/20 06:35: Sodium 138, Potassium 3.9, Chloride 100, Carbon Dioxide 31 H, Anion Gap 10.9, BUN 29 H, Creatinine 0.70, Estimated Creat Clear 95, Estimated GFR 86, Est GFR ( Amer) 104, Glucose 133 H, Calcium 9.3 I & O for Last 24 hours: Intake & Output 02/02/20 02/03/20 02/04/20 02/05/20 23:59 23:59 23:59 23:59 Intake Total 1260 / 1260 765 / 765 1150 / 1150 780 / 780 Output Total 3900 / 3900 Balance -2640 / -2640 765 / 765 1150 / 1150 780 / 780 Weight 149 lb 9 oz 146 lb 5 oz 146 lb 6 oz 150 lb 2 oz Microbiology Reports for the Last 24 Hours: Microbiology 02/04/20 11:05 Sputum - Expectorated Sputum Gram Stain - Final 02/04/20 11:05 Sputum - Expectorated Sputum Sputum Culture - Preliminary 01/30/20 22:51 Blood Blood Culture - Final NO GROWTH AFTER 5 DAYS 01/30/20 22:51 Blood Blood Culture - Final NO GROWTH AFTER 5 DAYS Radiology Reports for the Last 24 Hours: I have personally reviewed the chest x-ray, showed improvement in consolidation but still shows persistent interstitial opacities - *Routine HEENT Exam Head: Present: normocephalic, atraumatic - *Routine Respiratory Exam Absent: accessory muscle use Comments: Bilateral coarse breath sounds. No use of accessory muscles, on high flow nasal cannula, appears comfortable - *Routine Cardiovascular Exam Present: Normal S1, Normal S2 - *Routine Abdominal Exam Absent: organomegaly - *Routine Extremities Exam Comments: No clubbing no cyanosis no edema Assessment and Plan (1) Pneumonia Current visit: Yes Status: Acute Category: Medical Code(s): J18.9 - Pneumonia, unspecified organism (2) Respiratory failure Start date: 02/02/20 Problem details: Patient came in with acute respiratory failure with chest x-ray showing bilateral lower lobe worsening opacities. Also concern for aspiration. However after reviewing the patient's prior CT scans there is definitely a component of interstitial lung disease that striving her respiratory failure and this needs to be further worked up. Chest x-ray from [address] abdomen in 2014 showed normal lower lung dooley without any evidence of interstitial lung disease. Patient is a chronic smoker not more than 30 packs a day currently smoking, denies any significant changes in her life, any significant exposure, any change in smoking habit since 2014. X-ray from May 2019 showed bilateral lower lobe infiltrates however no CT was available to evaluate for interstitial process. Chest x-ray from October 2019 showed significant interstitial opacities in the bilateral lower lobe and subsequent CTs also showed interstitial lung disease. Upon chart review and further questioning patient denies any acute respiratory illness or any hospital admissions noted around October 2019. Patient also had a recent PE on CTA from December 2019 and on anticoagulation and the venous Doppler was performed again
--- NOTE | 2020-02-05 11:21 | XR_ITS ---
PROCEDURE: XR CHEST PORTABLE PICC PLAC CLINICAL HISTORY: PICC line placement COMPARISON: CT CT ANGIO CHEST from 01/13/2020 CR XR CHEST PORTABLE from 02/02/2020 CR XR CHEST PORTABLE from 02/02/2020 CR XR CHEST 2V from 02/04/2020 FINDINGS: Left upper extremity PICC line has been inserted. The tip is in good position in the region of the superior vena cava. No change in the diffuse interstitial lung disease with superimposed pneumonia with low lung volumes and mild cardiomegaly. IMPRESSION: Left upper extremity PICC line in good position. Dictated b Ildefonso Durand MD 02/05/2020 14:22 Ildefonso Durand MD in [facility] 02/05/2020 14:22
--- NOTE | 2020-02-05 15:16 | FL_ITS ---
PROCEDURE: FL BARIUM SWALLOW MODIFIED CLINICAL INDICATION: Dysphagia COMPARISON: No exams were available for comparison TECHNIQUE: Patient administered varying consistencies of barium contrast, while viewed in lateral position under real-time fluoroscopy with cine recording. FLUOROSCOPY TIME:1 minutes and 56 seconds The study was performed in conjunction with speech pathologist. Please see that report & recommendations. FINDINGS: Patient was given varying consistencies of barium. There was premature spillage. Into the vallecula and piriform sinus. There was some minimal penetration without priscilla tracheal aspiration. This was with thin liquids. There was delay in initiation of the swallowing mechanism with mechanical soft IMPRESSION: There was some delay in initiation of the swallowing mechanism with premature spillage. There was some penetration with thin liquids but no priscilla tracheal aspiration. Please see speech pathologist report and recommendations. Dictated b Ildefonso Durand MD 02/06/2020 13:07 Ildefonso Durand MD in [facility] 02/06/2020 13:07
--- NOTE | 2020-02-05 15:16 | HMH.ACPN ---
Internal Medicine - PN: Subj *Date: 02/05/20 *Time: 15:16 Exam Vital signs and Labs for Last 24 Hours: Temp Pulse Resp BP Pulse Ox 98.4 F 84 18 121/87 94 L 02/05/20 15:00 02/05/20 15:00 02/05/20 15:00 02/05/20 15:00 02/05/20 14:31 Laboratory Results - last 24 hr 02/05/20 06:35: WBC 11.0 H, RBC 3.20 L, Hgb 10.0 L, Hct 30.3 L, MCV 94.6, MCH 31.3 H, MCHC 33.1, RDW 17.3, Plt Count 177, MPV 8.3, Neut % (Auto) 89.3 H, Lymph % (Auto) 6.9 L, [place] % (Auto) 3.5, Eos % (Auto) 0.2, Baso % (Auto) 0.0 L, Neut # (Auto) 9.9 H, Lymph # (Auto) 0.8, [place] # (Auto) 0.4, Eos # (Auto) 0.0, Baso # (Auto) 0.0, Total Counted 100, Neutrophils % (Manual) 88 H, Lymphocytes % (Manual) 7 L, Monocytes % (Manual) 5, Platelet Estimate Normal, RBC Morphology Normal 02/05/20 06:35: Sodium 138, Potassium 3.9, Chloride 100, Carbon Dioxide 31 H, Anion Gap 10.9, BUN 29 H, Creatinine 0.70, Estimated Creat Clear 95, Estimated GFR 86, Est GFR ( Amer) 104, Glucose 133 H, Calcium 9.3 I & O for Last 24 hours: Intake & Output 02/02/20 02/03/20 02/04/20 02/05/20 23:59 23:59 23:59 23:59 Intake Total 1260 / 1260 765 / 765 1150 / 1150 780 / 780 Output Total 3900 / 3900 500 / 500 Balance -2640 / -2640 765 / 765 1150 / 1150 280 / 280 Weight 67.84 kg 66.366 kg 66.395 kg 68.096 kg Microbiology Reports for the Last 24 Hours: Microbiology 02/04/20 11:05 Sputum - Expectorated Sputum Gram Stain - Final 02/04/20 11:05 Sputum - Expectorated Sputum Sputum Culture - Preliminary 01/30/20 22:51 Blood Blood Culture - Final NO GROWTH AFTER 5 DAYS 01/30/20 22:51 Blood Blood Culture - Final NO GROWTH AFTER 5 DAYS Assessment and Plan (1) Pneumonia Current visit: Yes Status: Acute Category: Medical Code(s): J18.9 - Pneumonia, unspecified organism (2) Respiratory failure Start date: 02/02/20 Problem details: Patient came in with acute respiratory failure with chest x-ray showing bilateral lower lobe worsening opacities. Also concern for aspiration. However after reviewing the patient's prior CT scans there is definitely a component of interstitial lung disease that striving her respiratory failure and this needs to be further worked up. Chest x-ray from [address] abdomen in 2014 showed normal lower lung dooley without any evidence of interstitial lung disease. Patient is a chronic smoker not more than 30 packs a day currently smoking, denies any significant changes in her life, any significant exposure, any change in smoking habit since 2014. X-ray from May 2019 showed bilateral lower lobe infiltrates however no CT was available to evaluate for interstitial process. Chest x-ray from October 2019 showed significant interstitial opacities in the bilateral lower lobe and subsequent CTs also showed interstitial lung disease. Upon chart review and further questioning patient denies any acute respiratory illness or any hospital admissions noted around October 2019. Patient also had a recent PE on CTA from December 2019 and on anticoagulation and the venous Doppler was performed again on this admission which was negative for DVT X-ray showed gradual improvement in her infiltrates since admission. Plan: -Continue antibiotic coverage with Zosyn for 7 days to treat for hospital-acquired pneumonia -Change Solu-Medrol to prednisone 40 mg oral daily for a total of 5 days -Basic autoimmune work-up for possible interstitial lung disease including TUNDE, ANCA, SSA, SSB, RF and CCP (ordered) -awaiting results -Echocardiogram to evaluate for cardiac function -Follow-up with speech and swallow recommendations to avoid any further aspiration events -as patient is currently not needing BiPAP , recommend speech and swallow therapy to come and reevaluate the patient for swallow training. -Optimize volume status with strict ins and outs documentation. -Continue albuterol and ipratropium nebulizations every 4 hours sc
--- NOTE | 2020-02-05 16:10 | HMH.SLMBS2 ---
Speech & Language Evaluation Speech/Language Mod Barium Swallow Start: 02/02/20 17:25 Freq: ONCE Status: Complete Protocol: Document 02/05/20 16:02 RADHA (Rec: 02/05/20 16:10 RADHA [id number]) General Information General Current Food Consistancy Mechanical Soft,[place] Liquids Dentition Edentulous Oxygen Status Venturi Mask Facial Symmetry Symmetrical Patient Orientation Person,Place,Time Ability to Follow Directions Excellent Communication Ability No Impairment MBS Recommendations Diet Dietary Recommendations Dysphagia Mechanical Soft, Ground Meats,Thin Liquids Treatment/Strategies Strategy/Precaution Recommend Sitting Upright (90 deg),No Straw,Small Bites and Sips, Alternate Liquids/Solids Mod Barium Swallow Impressions Summary and Impressions Oral Phase Impression Moderate Impairment Oral Phase Summary Ms. Day was given the following consistencies: honey and nectar thick liquids via open cup, thin liquids via open cup and straw, pudding, mechanical soft, mixed, and pill with thin wash. Decreased mastication noted with mechanical soft. Pharyngeal Phase Impression Mild Impairment Pharyngeal Phase Summary Premature spillage resulting in flash penetration with thin liquids via straw and mixed consistencies. Speech/Language MBS Assessment/Goals/Plan Assessment Date of Evaluation: 02/05/20 Evaluation Type Re-Evaluation/Revise POC Assessment/Problems Dysphagia Does Patient Qualify for Service Yes Qualify/Failure Comment Diet recommendations made. Therapy will be attempted however O2 SATS will have to be closely monitored. Recommendations PHYSICIAN CERTIFICATION: The specified therapy services are required, authorized, and reviewed every 30 days. Pt will be seen # times/week 1 for # weeks 1 Diet Recommendations Mechanical Soft Liquid Type Recommendations Normal/Thin SL Swallow Guidelines Standard Aspiration Prec. Dysphagia Swallow Precautions/Strategies Sitting Upright (90 deg),No Straw,Small Bites and Sips, Alternate Liquids/Solids Plan Pt/Guardian verbally ack understanding Yes of dx/prognosis/goals G -code Required No STG-Asp Before/Tongue Control
--- NOTE | 2020-02-05 20:50 | PC.NURSE ---
PATIENT A&O X4, PULSES EQUAL. PATIENT HAD PICC PLACEMENT, TOLERATED WELL. PATIENT PUT ON NON RE-BREATHER O2 AT 15L FOR BARRIUM TEST. PATIENT TOLERATED WELL. RESPIRATORY ACCOMPANIED RADIOLOGY. PATIENT UP TO CHAIR FOR 2 HOURS DURING THIS RN SHIFT. PATIENT ASKS TO GO BACK TO BED. THIS RN EDUCATED PATIENT THE IMPORTANCE OF GETTING UP OUT OF BED AND MOVING. PATIENT STATED OKAY. THIS RN EDUCATED PATIENT THE IMPORTANCE OF STOPPING SMOKING. PATIENT STATED OKAY. DIET CHANGED TO THIN LIQUIDS WITH NO STRAW. NO OTHER CONCERNS AT THIS TIME.
[2020-02-06] VITALS (15 sets, daily range): BP systolic 111–155; BP diastolic 68–97; PULSE 84–115; RESP 16–22; TEMP 36.7–37.2; O2SAT 89–99; BMI 26.9
--- NOTE | 2020-02-06 04:13 | PC.NURSE ---
PT. DESAT WITH RANGE FROM 77%-80% WITH INTERMITTENT NON-PRODUCTIVE COUGHING EPISODES. PT. NOW 90% ON VAPOTHERM. PT. TOLERATED HS MEDS WELL. PT. REPORTS LRQ ABD TENDERNESS; ACTIVE BOWEL SOUNDS NOTED.
--- NOTE | 2020-02-06 08:15 | HMH.ACPN2 ---
Internal Medicine - PN: Subj *Date: 02/06/20 *Time: 17:56 Interval history: making very steady progress, clinically improving spoke with pulmonary sustainability consultant Exam Vital signs and Labs for Last 24 Hours: Temp Pulse Resp BP Pulse Ox 98.2 F 115 H 18 148/86 H 97 02/06/20 08:00 02/06/20 08:00 02/06/20 08:00 02/06/20 08:00 02/06/20 08:00 Laboratory Results - last 24 hr 02/05/20 06:35: Total Counted 100, Neutrophils % (Manual) 88 H, Lymphocytes % (Manual) 7 L, Monocytes % (Manual) 5, Platelet Estimate Normal, RBC Morphology Normal I & O for Last 24 hours: Intake & Output 02/03/20 02/04/20 02/05/20 02/06/20 23:59 23:59 23:59 23:59 Intake Total 765 / 765 1150 / 1150 1140 / 1140 120 / 120 Output Total 500 / 500 200 / 200 Balance 765 / 765 1150 / 1150 640 / 640 -80 / -80 Weight 146 lb 5 oz 146 lb 6 oz 150 lb 2 oz 146 lb 1 oz Microbiology Reports for the Last 24 Hours: Microbiology 02/04/20 11:05 Sputum - Expectorated Sputum Gram Stain - Final 02/04/20 11:05 Sputum - Expectorated Sputum Sputum Culture - Preliminary - Constitutional no acute distress, chronically ill appearing - *Routine HEENT Exam Head: Present: normocephalic, atraumatic Eye: Absent: conjunctival icterus, periorbital swelling ENT: Present: mucous membranes moist - *Routine Neck Exam Present: supple. Absent: lymphadenopathy - *Routine Respiratory Exam Present: crackles, distant breath sounds, diminished air movement. Absent: accessory muscle use, respiratory distress - *Routine Cardiovascular Exam Present: RRR - *Routine Abdominal Exam Present: soft, normoactive bowel sounds. Absent: tenderness - *Routine Extremities Exam Present: NIHARIKA stockings. Absent: cyanosis, clubbing, edema - *Routine Skin Exam Present: warm. Absent: rash - *Routine Neurological Exam Present: alert, oriented X3. Absent: facial asymmetry - Routine Psychiatric Exam Present: depressed Assessment and Plan (1) Pneumonia Current visit: Yes Status: Acute Category: Medical Code(s): J18.9 - Pneumonia, unspecified organism (2) Respiratory failure Start date: 02/02/20 Problem details: Patient came in with acute respiratory failure with chest x-ray showing bilateral lower lobe worsening opacities. Also concern for aspiration. However after reviewing the patient's prior CT scans there is definitely a component of interstitial lung disease contributing to her respiratory failure and this needs to be further worked up. Chest x-ray from [address] abdomen in 2014 showed normal lower lung dooley without any evidence of interstitial lung disease. Patient is a chronic smoker not more than 30 packs a day currently smoking, denies any significant changes in her life, any significant exposure, any change in smoking habit since 2014. X-ray from May 2019 showed bilateral lower lobe infiltrates however no CT was available to evaluate for interstitial process. Chest x-ray from October 2019 showed significant interstitial opacities in the bilateral lower lobe and subsequent CTs also showed interstitial lung disease. Upon chart review and further questioning patient denies any acute respiratory illness or any hospital admissions noted around October 2019. Patient also had a recent PE on CTA from December 2019 and on anticoagulation and the venous Doppler was performed again on this admission which was negative for DVT. Echo from previous admission on December 2019 showed normal LV systolic function cannot evaluate the diastolic function. Severe TR along with increased RV size and RVSP of 72 mm Hg was noted at the time. X-ray showed gradual improvement in her infiltrates since admission. Plan: -Continue antibiotic coverage with Zosyn for 7 days to treat for hospital-acquired pneumonia -Change Solu-Medrol to prednisone 40 mg oral daily for a total of 5 days -Basic autoimmune work-up for possible interstitial lung disease including TUNDE, ANCA, SSA, SSB, RF
--- NOTE | 2020-02-06 09:29 | HMH.PULMPN ---
Internal Medicine - PN: Subj *Date: 02/06/20 *Time: 09:29 Interval history: Patient denies any new complaints today. Her breathing is improving. She is currently on high flow at 20 L and 35% FiO2. No acute events overnight. Exam Vital signs and Labs for Last 24 Hours: Temp Pulse Resp BP Pulse Ox 98.2 F 115 H 18 148/86 H 92 L 02/06/20 08:00 02/06/20 08:00 02/06/20 08:00 02/06/20 08:00 02/06/20 09:05 I & O for Last 24 hours: Intake & Output 02/03/20 02/04/20 02/05/20 02/06/20 23:59 23:59 23:59 23:59 Intake Total 765 / 765 1150 / 1150 1140 / 1140 120 / 120 Output Total 500 / 500 200 / 200 Balance 765 / 765 1150 / 1150 640 / 640 -80 / -80 Weight 146 lb 5 oz 146 lb 6 oz 150 lb 2 oz 146 lb 1 oz Microbiology Reports for the Last 24 Hours: Microbiology 02/04/20 11:05 Sputum - Expectorated Sputum Gram Stain - Final 02/04/20 11:05 Sputum - Expectorated Sputum Sputum Culture - Preliminary - *Routine HEENT Exam Head: Present: normocephalic, atraumatic ENT: Present: mucous membranes moist - *Routine Neck Exam Absent: thyromegaly - *Routine Respiratory Exam Present: decreased breath sounds Comments: Bilateral coarse and decreased breath sounds bilaterally. Chest expansion symmetrical. - *Routine Cardiovascular Exam Present: Normal S1, Normal S2 - *Routine Abdominal Exam Comments: Soft nondistended, no organomegaly noted - *Routine Extremities Exam Comments: No clubbing, no cyanosis, no edema - *Routine Skin Exam Present: normal turgor - *Routine Neurological Exam Present: oriented X3 - Routine Psychiatric Exam Present: normal thought process Assessment and Plan (1) Pneumonia Current visit: Yes Status: Acute Category: Medical Code(s): J18.9 - Pneumonia, unspecified organism (2) Respiratory failure Start date: 02/02/20 Problem details: Patient came in with acute respiratory failure with chest x-ray showing bilateral lower lobe worsening opacities. Also concern for aspiration. However after reviewing the patient's prior CT scans there is definitely a component of interstitial lung disease contributing to her respiratory failure and this needs to be further worked up. Chest x-ray from [address] abdomen in 2014 showed normal lower lung dooley without any evidence of interstitial lung disease. Patient is a chronic smoker not more than 30 packs a day currently smoking, denies any significant changes in her life, any significant exposure, any change in smoking habit since 2014. X-ray from May 2019 showed bilateral lower lobe infiltrates however no CT was available to evaluate for interstitial process. Chest x-ray from October 2019 showed significant interstitial opacities in the bilateral lower lobe and subsequent CTs also showed interstitial lung disease. Upon chart review and further questioning patient denies any acute respiratory illness or any hospital admissions noted around October 2019. Patient also had a recent PE on CTA from December 2019 and on anticoagulation and the venous Doppler was performed again on this admission which was negative for DVT. Echo from previous admission on December 2019 showed normal LV systolic function cannot evaluate the diastolic function. Severe TR along with increased RV size and RVSP of 72 mm Hg was noted at the time. X-ray showed gradual improvement in her infiltrates since admission. Plan: -Continue antibiotic coverage with Zosyn for 7 days to treat for hospital-acquired pneumonia -Change Solu-Medrol to prednisone 40 mg oral daily for a total of 5 days -Basic autoimmune work-up for possible interstitial lung disease including TUNDE, ANCA, SSA, SSB, RF and CCP (ordered) -awaiting results -Follow-up with speech and swallow recommendations to avoid any further aspiration events -Optimize volume status with strict ins and outs documentation -consider giving 40 mg IV Lasix today to optimize volume status -Continue albuterol and ipratropium
--- NOTE | 2020-02-06 18:13 | PC.NURSE ---
Pt alert and oriented x 4 and able to make needs known. Pt has done well on 4 L NC. CB in reach. Pt did have a lg soft bm x 1 today. Did educate pt not to transfer alone r/t to be fall risk. Verbs understanding and bed alarm placed on. PICC dsg changed to LUE, looked good with no s/s problems per sterile technique. Will cont to mx this shift. VSS.
[2020-02-07] VITALS (10 sets, daily range): BP systolic 118–141; BP diastolic 68–89; PULSE 89–100; RESP 16–22; TEMP 36.4–36.9; O2SAT 90–99; BMI 26.2
--- NOTE | 2020-02-07 03:46 | PC.NURSE ---
pt has rested well this shift. pt has remained on 4 L NC this shift and has tolerated well. Pt sats remain in the low 90's. No other acute changes this shift. Call light within reach, will continue to monitor.
[2020-02-07 06:18] LABS: Anti-Cyclic Citrullinated Pept 4 units (0-19)
[2020-02-07 07:08] LABS: Chloride 98 mmol/L (98-107); Potassium 3.1 mmoL/L (3.5-5.1); Sodium 138 mmol/L (136-145)
[2020-02-07 07:11] LABS: Anion Gap 11.1 mEq/L (5-15); Blood Urea Nitrogen 29 mg/dl (7-17); Calcium 9.3 mg/dl (8.4-10.2); Carbon Dioxide 32 mmol/L (22.0-30.0); Creatinine Clearance Estimated 79 mL/min (50-200); Estimated Glomerular Filt Rate 74 ml/min (>60); GFR (African American) 89 ML/MIN (>60); Glucose 90 mg/dl (74-100)
--- NOTE | 2020-02-07 09:14 | PC.NURSE ---
Rounded w/ Dr. Wright - cont current care. Pt OOB up to chair during day.
--- NOTE | 2020-02-07 09:36 | HMH.ACPN2 ---
Internal Medicine - PN: Subj *Date: 02/08/20 *Time: 09:02 Interval history: doing better at this time - Exam Vital signs and Labs for Last 24 Hours: Temp Pulse Resp BP Pulse Ox 97.5 F L 93 H 18 123/79 97 02/07/20 08:00 02/07/20 08:00 02/07/20 08:00 02/07/20 08:00 02/07/20 08:00 Laboratory Results - last 24 hr 02/04/20 06:22: Anti-Cycl Citrul Peptide 4 02/07/20 06:06: Sodium 138, Potassium 3.1 L D, Chloride 98, Carbon Dioxide 32 H, Anion Gap 11.1, BUN 29 H, Creatinine 0.80, Estimated Creat Clear 79, Estimated GFR 74, Est GFR ( Amer) 89, Glucose 90, Calcium 9.3 I & O for Last 24 hours: Intake & Output 02/04/20 02/05/20 02/06/20 02/07/20 11:59 11:59 11:59 11:59 Intake Total 790 / 790 1380 / 1380 480 / 480 1420 / 1420 Output Total 500 / 500 200 / 200 1830 / 1830 Balance 790 / 790 880 / 880 280 / 280 -410 / -410 Weight 146 lb 6 oz 150 lb 2 oz 146 lb 1 oz 142 lb 6 oz Microbiology Reports for the Last 24 Hours: Microbiology 02/04/20 11:05 Sputum - Expectorated Sputum Gram Stain - Final 02/04/20 11:05 Sputum - Expectorated Sputum Sputum Culture - Preliminary - Constitutional no acute distress - *Routine HEENT Exam Head: Present: normocephalic Eye: Present: EOMI, PERRL ENT: Present: mucous membranes dry - *Routine Neck Exam Present: supple - *Routine Respiratory Exam Present: decreased breath sounds - *Routine Cardiovascular Exam Present: RRR, murmur - *Routine Abdominal Exam Present: soft - *Routine Extremities Exam Present: edema - *Routine Skin Exam Present: intact - *Routine Neurological Exam Present: alert, CN II-XII intact - Routine Psychiatric Exam Present: normal affect Assessment and Plan (1) Pneumonia Current visit: Yes Status: Acute Category: Medical Code(s): J18.9 - Pneumonia, unspecified organism (2) Respiratory failure Start date: 02/02/20 Problem details: Patient came in with acute respiratory failure with chest x-ray showing bilateral lower lobe worsening opacities. Also concern for aspiration. However after reviewing the patient's prior CT scans there is definitely a component of interstitial lung disease contributing to her respiratory failure and this needs to be further worked up. Chest x-ray from [address] abdomen in 2014 showed normal lower lung dooley without any evidence of interstitial lung disease. Patient is a chronic smoker not more than 30 packs a day currently smoking, denies any significant changes in her life, any significant exposure, any change in smoking habit since 2014. X-ray from May 2019 showed bilateral lower lobe infiltrates however no CT was available to evaluate for interstitial process. Chest x-ray from October 2019 showed significant interstitial opacities in the bilateral lower lobe and subsequent CTs also showed interstitial lung disease. Upon chart review and further questioning patient denies any acute respiratory illness or any hospital admissions noted around October 2019. Patient also had a recent PE on CTA from December 2019 and on anticoagulation and the venous Doppler was performed again on this admission which was negative for DVT. Echo from previous admission on December 2019 showed normal LV systolic function cannot evaluate the diastolic function. Severe TR along with increased RV size and RVSP of 72 mm Hg was noted at the time. X-ray showed gradual improvement in her infiltrates since admission. Plan: -Continue antibiotic coverage with Zosyn for 7 days to treat for hospital-acquired pneumonia -Change Solu-Medrol to prednisone 40 mg oral daily for a total of 5 days -Basic autoimmune work-up for possible interstitial lung disease including TUNDE, ANCA, SSA, SSB, RF and CCP (ordered) -awaiting results -Follow-up with speech and swallow recommendations to avoid any further aspiration events -Optimize volume status with strict ins and outs documentation -consider giving 40 mg IV Lasix today to optimize
[2020-02-08] VITALS (11 sets, daily range): BP systolic 103–140; BP diastolic 70–74; PULSE 72–110; RESP 19–22; TEMP 36.6–37; O2SAT 90–97; BMI 26.6
--- NOTE | 2020-02-08 05:21 | PC.NURSE ---
pt has rested well this shift. pt has been on 4 L NC this shift and has tolerated well. No other acute changes at this time. Call light within reach. Will continue to monitor.
[2020-02-08 07:44] LABS: Chloride 102 mmol/L (98-107); Sodium 138 mmol/L (136-145)
[2020-02-08 07:45] LABS: Potassium 3.5 mmoL/L (3.5-5.1)
[2020-02-08 07:48] LABS: Anion Gap 10.5 mEq/L (5-15); Blood Urea Nitrogen 24 mg/dl (7-17); Calcium 9.4 mg/dl (8.4-10.2); Carbon Dioxide 29 mmol/L (22.0-30.0); Creatinine Clearance Estimated 72 mL/min (50-200); Estimated Glomerular Filt Rate 65 ml/min (>60); GFR (African American) 78 ML/MIN (>60); Glucose 71 mg/dl (74-100)
[2020-02-08 09:19] LABS: Basophils % 0.2 % (0.1-2.0); Eosinophils # 0.4 K/mm3 (0.0-0.4); Eosinophils % 3.2 % (0.1-12.0); Hematocrit 35.2 % (37.0-47.0); Hemoglobin 11.4 g/dL (12.2-16.2); Lymphocytes # 1.8 K/mm3 (0.7-4.5); Lymphocytes % 15.7 % (10-50); Mean Corpuscular HGB Conc 32.4 g/dL (31.8-35.4); Mean Corpuscular Hemoglobin 30.5 pg (27.0-31.2); Mean Platelet Volume 8.6 fl (7.4-10.4); Monocytes # 0.6 K/mm3 (0.1-1.0); Monocytes % 5.5 % (1.7-9.3); Neutrophils # 8.7 K/mm3 (1.8-7.8); Neutrophils % 75.5 % (37.0-80.0); Platelet Count 253 K/mm3 (142-424); Red Blood Count 3.74 M/mm3 (4.20-5.40); White Blood Count 11.6 K/mm3 (4.8-10.8)
--- NOTE | 2020-02-08 10:43 | HMH.ACPN2 ---
Internal Medicine - PN: Subj *Date: 02/09/20 *Time: 00:41 Interval history: sl better today no specific c/o Exam Vital signs and Labs for Last 24 Hours: Temp Pulse Resp BP Pulse Ox 97.9 F 85 22 103/70 L 96 02/08/20 08:00 02/08/20 09:38 02/08/20 08:00 02/08/20 08:00 02/08/20 08:00 Laboratory Results - last 24 hr 02/08/20 07:10: Sodium 138, Potassium 3.5, Chloride 102, Carbon Dioxide 29, Anion Gap 10.5, BUN 24 H, Creatinine 0.90, Estimated Creat Clear 72, Estimated GFR 65, Est GFR ( Amer) 78, Glucose 71 L, Calcium 9.4 02/08/20 07:10: WBC 11.6 H, RBC 3.74 L, Hgb 11.4 L, Hct 35.2 L, MCV 94.0, MCH 30.5, MCHC 32.4, RDW 17.0, Plt Count 253 D, MPV 8.6, Neut % (Auto) 75.5, Lymph % (Auto) 15.7, [place] % (Auto) 5.5, Eos % (Auto) 3.2, Baso % (Auto) 0.2, Neut # (Auto) 8.7 H, Lymph # (Auto) 1.8, [place] # (Auto) 0.6, Eos # (Auto) 0.4, Baso # (Auto) 0.0 I & O for Last 24 hours: Intake & Output 02/05/20 02/06/20 02/07/20 02/08/20 11:59 11:59 11:59 11:59 Intake Total 1380 / 1380 480 / 480 1420 / 1420 1010 / 1010 Output Total 500 / 500 200 / 200 1830 / 1830 320 / 320 Balance 880 / 880 280 / 280 -410 / -410 690 / 690 Weight 150 lb 2 oz 146 lb 1 oz 142 lb 6 oz 145 lb 1.6 oz Microbiology Reports for the Last 24 Hours: Microbiology 02/04/20 11:05 Sputum - Expectorated Sputum Gram Stain - Final 02/04/20 11:05 Sputum - Expectorated Sputum Sputum Culture - Final Normal Respiratory Sujatha - Constitutional no acute distress - *Routine HEENT Exam Head: Present: normocephalic Eye: Present: EOMI, PERRL ENT: Present: mucous membranes dry - *Routine Neck Exam Present: supple - *Routine Respiratory Exam Present: decreased breath sounds - *Routine Cardiovascular Exam Present: RRR, murmur, S4 - *Routine Abdominal Exam Present: soft - *Routine Extremities Exam Present: edema. Absent: calf tenderness - *Routine Skin Exam Present: intact - *Routine Neurological Exam Present: alert, CN II-XII intact - Routine Psychiatric Exam Present: normal affect Assessment and Plan (1) Pneumonia Current visit: Yes Status: Acute Category: Medical Code(s): J18.9 - Pneumonia, unspecified organism (2) Respiratory failure Start date: 02/02/20 Problem details: Patient came in with acute respiratory failure with chest x-ray showing bilateral lower lobe worsening opacities. Also concern for aspiration. However after reviewing the patient's prior CT scans there is definitely a component of interstitial lung disease contributing to her respiratory failure and this needs to be further worked up. Chest x-ray from [address] abdomen in 2014 showed normal lower lung dooley without any evidence of interstitial lung disease. Patient is a chronic smoker not more than 30 packs a day currently smoking, denies any significant changes in her life, any significant exposure, any change in smoking habit since 2014. X-ray from May 2019 showed bilateral lower lobe infiltrates however no CT was available to evaluate for interstitial process. Chest x-ray from October 2019 showed significant interstitial opacities in the bilateral lower lobe and subsequent CTs also showed interstitial lung disease. Upon chart review and further questioning patient denies any acute respiratory illness or any hospital admissions noted around October 2019. Patient also had a recent PE on CTA from December 2019 and on anticoagulation and the venous Doppler was performed again on this admission which was negative for DVT. Echo from previous admission on December 2019 showed normal LV systolic function cannot evaluate the diastolic function. Severe TR along with increased RV size and RVSP of 72 mm Hg was noted at the time. X-ray showed gradual improvement in her infiltrates since admission. Plan: -Continue antibiotic coverage with Zosyn for 7 days to treat for hospital-acquired pneumonia -Change Solu-Medrol to prednisone 40 mg
--- NOTE | 2020-02-08 10:56 | PC.NURSE ---
Rounded w/ Dr. Wright. No changes to plan of care, pt up to chair OOB.
--- NOTE | 2020-02-08 18:34 | PC.NURSE ---
PT IS ALERT AND ORIENTED X3. PT REFUSED TO GET OOB AND UP TO CHAIR. STAFF TURNED Q2 . PT DENIES PAIN. NO COMPLAINTS VOICED. O2 SATURATION HAS REMAINED IN MID 90'S ON 4LNC. LUNGS REMAIN DIMINISHED THROUGHOUT.VSS. NO DISTRESS NOTED. EDUCATION PROVIDED TO PT ON IMPORTANCE OF GETTING OUT OF BED. SAFETY MEASURES IN PLACE. WILL CONTINUE TO MONITOR
[2020-02-09] VITALS (9 sets, daily range): BP systolic 100–116; BP diastolic 60–77; PULSE 75–118; RESP 16–22; TEMP 36.5–36.8; O2SAT 2–97; BMI 26.9
[2020-02-09 06:28] LABS: Chloride 102 mmol/L (98-107); Sodium 138 mmol/L (136-145)
[2020-02-09 06:29] LABS: Potassium 3.8 mmoL/L (3.5-5.1)
[2020-02-09 06:32] LABS: Anion Gap 11.8 mEq/L (5-15); Blood Urea Nitrogen 25 mg/dl (7-17); Calcium 9.4 mg/dl (8.4-10.2); Carbon Dioxide 28 mmol/L (22.0-30.0); Creatinine Clearance Estimated 81 mL/min (50-200); Estimated Glomerular Filt Rate 74 ml/min (>60); GFR (African American) 89 ML/MIN (>60); Glucose 85 mg/dl (74-100)
--- NOTE | 2020-02-09 09:50 | SW/DCPLANNER ---
PATIENT IS GOING TO DISCHARGE BACK TO [facility] IF COVID19 TEST IS NEGATIVE...PATIENT IS A LONGSTANDING RESIDENT OF [facility] AND THEY ARE EXPECTING HER RETURN...
--- NOTE | 2020-02-09 12:16 | HMH.DCSUM ---
General - General Admission date:: 01/31/20 Discharge date: 02/09/20 HPI HPI: Patient is a 59-year-old female, correction resident, was admitted through the emergency room for pneumonia, dyspnea, sepsis. I received a call earlier from the nurse on duty, she relayed tachypnea, labored breathing. Evaluation in the emergency room revealed an elevated white count at 29,000. She was febrile to 102.1. Her lactate was elevated at 6.5. She responded nicely to application of vapor Therm. She is admitted for further evaluation and treatment. She is a poor historian. She looks much older than her chronological age. Hospital Course Hospital Course: Laboratory Tests 01/30/20 01/30/20 01/30/20 22:48 22:51 22:51 WBC 29.0 H* RBC 3.66 L Hgb 11.6 L Hct 35.6 L MCV 97.3 MCH 31.7 H MCHC 32.5 RDW 17.5 Plt Count 208 MPV 7.5 Neut % (Auto) 92.3 H Lymph % (Auto) 3.8 L Holt % (Auto) 3.4 Eos % (Auto) 0.3 Baso % (Auto) 0.2 Neut # (Auto) 26.8 H Lymph # (Auto) 1.1 Holt # (Auto) 1.0 Eos # (Auto) 0.1 Baso # (Auto) 0.1 Total Counted 100 Neutrophils % (Manual) 89 H Band Neutrophils % 5.0 Lymphocytes % (Manual) 3 L Monocytes % (Manual) 3 Eosinophils % (Manual) Toxic Granulation 1+ Platelet Estimate Normal RBC Morphology Anisocytosis 1+ Macrocytosis 1+ Rouleaux 1+ Specimen Source Right radial O2 % 80% ABG pH 7.44 ABG pCO2 26.0 L ABG pO2 73.7 L ABG HCO3 17.3 L ABG Total CO2 18.1 L ABG O2 Saturation 94 ABG Base Excess -6.9 L Ildefonso Test Patient unable Vent Rate Tidal Volume Sodium 141 Potassium 4.6 Chloride 102 Carbon Dioxide 24 Anion Gap 19.6 H BUN 17 Creatinine 0.90 Estimated Creat Clear 69 Estimated GFR 65 Est GFR ( Amer) 78 Glucose 171 H Lactate Calcium 9.5 Total Bilirubin 0.7 Direct Bilirubin 0.1 Conjugated Bilirubin 0.0 Indirect Bilirubin 0.6 Unconjugated Bilirubin 0.6 AST 34 ALT 43 Alkaline Phosphatase 105 Troponin I 0.03 C-Reactive Protein NT-Pro-B Natriuret Pep 235 H Total Protein 6.5 Albumin 3.5 Globulin Albumin/Globulin Ratio Anti-Cycl Citrul Peptide SARS-CoV-2 IgG Ab (Rapid) SARS-CoV-2 IgM Ab (Rapid) Blood Type Antibody Screen Crossmatch ([facility]) 01/30/20 01/30/20 01/31/20 22:51 22:57 02:00 WBC RBC Hgb Hct MCV MCH MCHC RDW Plt Count MPV Neut % (Auto) Lymph % (Auto) Holt % (Auto) Eos % (Auto) Baso % (Auto) Neut # (Auto) Lymph # (Auto) Holt # (Auto) Eos # (Auto) Baso # (Auto) Total Counted Neutrophils % (Manual) Band Neutrophils % Lymphocytes % (Manual) Monocytes % (Manual) Eosinophils % (Manual) Toxic Granulation Platelet Estimate RBC Morphology Anisocytosis Macrocytosis Rouleaux Specimen Source O2 % ABG pH ABG pCO2 ABG pO2 ABG HCO3 ABG Total CO2 ABG O2 Saturation ABG Base Excess Ildefonso Test Vent Rate Tidal Volume Sodium Potassium Chloride Carbon Dioxide Anion Gap BUN Creatinine Estimated Creat Clear Estimated GFR Est GFR ( Amer) Glucose Lactate 6.5 H Calcium Total Bilirubin Direct Bilirubin Conjugated Bilirubin Indirect Bilirubin Unconjugated Bilirubin AST ALT Alkaline Phosphatase Troponin I 0.09 H C-Reactive Protein NT-Pro-B Natriuret Pep Total Protein Albumin Globulin Albumin/Globulin Ratio Anti-Cycl Citrul Peptide SARS-CoV-2 IgG Ab (Rapid) Negative SARS-CoV-2 IgM Ab (Rapid) Negative Blood Type Antibody Screen Crossmatch ([facility]) 01/31/20 01/31/20 01/31/20 02:00 05:45 05:45 WBC 12.0 H D RBC 2.86 L Hgb 8.9 L D Hct 27.6 L MCV 96.5 MCH 30.8 MCHC
--- NOTE | 2020-02-09 20:26 | PC.NURSE ---
PT WEIGHT ON DISCHARGE DATE 141/6 LBS. SCALE # [id number]
[2020-03-04 09:22] LABS: Sjogren's Anti-SS-A <0.2; Sjogren's Anti-SS-B <0.2
[2020-03-04 09:23] LABS: Antinuclear Antibodies (ANA) Negative
[2020-03-04 09:24] LABS: Antinuclear Antibodies (ANA) NEGATIVE
== END 2020-02-09 18:24 | DRG 189 ==
LOC: ER 22:57 → 2ND 01-31 00:37
PROVIDERS: Internal Medicine Pulmonary Disease; Nurse Practitioner Family; Admitting Provider Family Medicine; Emergency Provider Family Medicine; PCP Emergency Medicine; Visit Provider Family Medicine
DX: J18.9 Pneumonia, unspecified organism (principal); J96.21 Acute and chronic respiratory failure with hypoxia; I26.99 Other pulmonary embolism without acute cor pulmonale; I50.30 Unspecified diastolic (congestive) heart failure; Z79.01 Long term (current) use of anticoagulants; Z72.0 Tobacco use; R25.1 Tremor, unspecified; F20.9 Schizophrenia, unspecified; R13.10 Dysphagia, unspecified; J44.9 Chronic obstructive pulmonary disease, unspecified
CPT/HCPCS: 94660; 36415; 36569; 70371; 71045; 71046; 80048; 80053; 80076; 82803; 83605; 83880; 84484; 85007; 85014; 85018; 85025; 86038; 86140; 86200; 86235; 86328; 86431; 86850; 87040; 87070; 87205; 92507; 92526; 92610; 92611; 93005; 93970; 94640; 94760; 94761; 96365; 96375; 97110; 97162; 97165; 97530; 97535; 99285; C1751; J0456; J1956; J2543; P9016; U0003

== ENCOUNTER 2020-02-20 02:32 | Emergency (ER) | payer MEDICAID, SELFPAY ==
[2020-02-20] VITALS (9 sets, daily range): BP systolic 105–136; BP diastolic 74–85; PULSE 90–128; RESP 16–22; TEMP 37.2–38.1; O2SAT 87–98; BMI 29.2
[2020-02-20 02:37] LABS: ABG Base Excess 0.7 mmol/L (-2.4-2.3); ABG HCO3 24.8 mmhg (22.0-26.0); ABG Oxygen Saturation 95 % (90-100); ABG PH 7.44 mmol/L (7.35-7.45); ABG PO2 76.1 mmhg (80-100); ABG TCO2 25.9 mmhg (23-27)
[2020-02-20 02:38] LABS: Allen's Test Patient Unable; Oxygen 2 LPM NC %
--- NOTE | 2020-02-20 02:42 | PC.NURSE ---
pt to radiology
--- NOTE | 2020-02-20 02:46 | XR_ITS ---
PROCEDURE: XR CHEST AP CLINICAL HISTORY: fall Posttraumatic pain, shortness of air COMPARISON: CT CT ANGIO CHEST from 01/13/2020 CR XR CHEST PORTABLE from 02/02/2020 CR XR CHEST 2V from 02/04/2020 CR XR CHEST PORTABLE PICC PLAC from 02/05/2020 FINDINGS: Mild cardiomegaly without failure. Left upper extremity PICC line is present. The tip is in the region the SVC. There is diffuse pulmonary fibrotic change with low lung volumes. Cannot exclude underlying consolidation/pneumonia. No obvious effusion. No acute bony findings. IMPRESSION: Diffuse pulmonary fibrosis. Cannot exclude superimposed infiltrate Dictated by: Ildefonso Durand MD 02/20/2020 07:13 Ildefonso Durand MD in [facility] 02/20/2020 07:13
--- NOTE | 2020-02-20 02:46 | XR_ITS ---
PROCEDURE: XR PELVIS 1-2V CLINICAL INDICATION: fall Posttraumatic pain, fall with injury and pain COMPARISON: No exams were available for comparison TECHNIQUE: XR Pelvis AP View FINDINGS: No fracture or dislocation is evident. Scattered clips are present in the pelvis. A Dorantes catheter Is present. IMPRESSION: No acute findings. Dictated by: Ildefonso Durand MD 02/20/2020 07:13 Ildefonso Durand MD in [facility] 02/20/2020 07:13
--- NOTE | 2020-02-20 02:46 | CT_ITS ---
PROCEDURE: CT CERVICAL SPINE WO CON CLINICAL INDICATION: fall Neck injury with pain, contusion/abrasion or hematoma, cervical sprain/strain the COMPARISON: No exams were available for comparison TECHNIQUE: Axial images obtained with sagittal and coronal reformats. All CT scans at the facility use one or more dose reduction, viz: automated exposure control, ma/kV adjustment per patient size (including targeted exams where dose is matched to indication, i.e. head), or iterative reconstruction technique. Axial spiral CT scanning performed of the cervical spine beginning at the base of the skull and continuing to the upper T-spine. 3-D multiplanar reconstruction with 3-D manipulation of volumetric data set in image rendering was completed by the radiologist and/or technologist with the supervision of the radiologist on independent workstation. FINDINGS: No acute fracture or dislocation. There is alignment. Degenerative disc disease C5-C6 endplate hypertrophic change and bilateral foraminal narrowing with canal stenosis 10 mm. Degenerative disc disease C6-C7 with bilateral foraminal narrowing and canal stenosis. Lung apices are clear. IMPRESSION: 1. No acute fracture. 2. Degenerative changes Dictated by: Ildefonso Durand MD 02/20/2020 06:23 Ildefonso Durand MD in [facility] 02/20/2020 06:23
--- NOTE | 2020-02-20 02:46 | CT_ITS ---
PROCEDURE: CT HEAD/BRAIN WO CON CLINICAL INDICATION: fall Head injury with headache/pain, contusion, abrasion or hematoma COMPARISON: No exams were available for comparison TECHNIQUE: Axial images obtained. All CT scans at the facility use one or more dose reduction, viz: automated exposure control, ma/kV adjustment per patient size (including targeted exams where dose is matched to indication, i.e. head), or iterative reconstruction technique. FINDINGS: No midline shift, mass effect, intracranial hemorrhage, hydrocephalus, or extra-axial fluid collection is evident. There is generalized atrophy with hypoattenuation of the periventricular white matter consistent with microangiopathic changes. The calvarium has an unremarkable appearance. No mastoid effusion. No sinus air-fluid level. IMPRESSION: No acute intracranial finding Dictated by: Ildefonso Durand MD 02/20/2020 06:21 Ildefonso Durand MD in [facility] 02/20/2020 06:21
[2020-02-20 02:56] LABS: Basophils # 0.1 K/mm3 (0-0.2); Basophils % 0.4 % (0.1-2.0); Eosinophils # 0.1 K/mm3 (0.0-0.4); Eosinophils % 0.8 % (0.1-12.0); Hematocrit 32.7 % (37.0-47.0); Hemoglobin 10.5 g/dL (12.2-16.2); Lymphocytes # 1.9 K/mm3 (0.7-4.5); Lymphocytes % 10.5 % (10-50); Mean Corpuscular Hemoglobin 30.7 pg (27.0-31.2); Mean Corpuscular Volume 96.1 fl (81-99); Mean Platelet Volume 7.8 fl (7.4-10.4); Monocytes # 0.8 K/mm3 (0.1-1.0); Monocytes % 4.5 % (1.7-9.3); Neutrophils # 14.7 K/mm3 (1.8-7.8); Neutrophils % 83.9 % (37.0-80.0); Platelet Count 193 K/mm3 (142-424); Red Blood Count 3.41 M/mm3 (4.20-5.40); Red Cell Distribution Width 17.4 % (11.5-17.5); White Blood Count 17.6 K/mm3 (4.8-10.8)
[2020-02-20 02:59] LABS: Chloride 105 mmol/L (98-107)
[2020-02-20 03:00] LABS: Potassium 3.8 mmoL/L (3.5-5.1); Sodium 138 mmol/L (136-145)
[2020-02-20 03:02] LABS: Alanine Aminotransferase 39 U/L (12-78); Aspartate Amino Transferase 27 U/L (14-36); Blood Urea Nitrogen 17 mg/dl (7-17); Creatinine Clearance Estimated 89 mL/min (50-200); Estimated Glomerular Filt Rate 74 ml/min (>60); GFR (African American) 89 ML/MIN (>60)
[2020-02-20 03:03] LABS: Albumin Level 2.9 g/dl (3.5-5.0); Albumin/Globulin Ratio 1.1 (1.1-1.8); Alkaline Phosphatase 64 U/L (38-126); Anion Gap 10.8 mEq/L (5-15); Bilirubin,Total 0.5 mg/dl (0.2-1.3); Carbon Dioxide 26 mmol/L (22.0-30.0); Globulin 2.7 g/dL (1.3-3.2); Glucose 147 mg/dl (74-100); Total Protein,Serum 5.6 g/dl (6.3-8.2)
[2020-02-20 03:15] LABS: Lactic Acid 2.6 mmol/L (0.7-2.1)
[2020-02-20 03:16] LABS: MANUAL DIFFERENTIAL MANUAL DIFFERENTIAL (MANUAL DIFF); Microscopic, Urine URINE MICROSCOPIC (MICROSCOPIC)
--- NOTE | 2020-02-20 03:19 | ECG_ITS ---
APPROVED REPORT Exam: Resting ECG HR:121 bpm ECG Measurements Heart Rate 121 AXES ND 144 P 59 QRSd 58 QRS 55 QT 306 T 35 QTc 434 <Conclusion> Sinus tachycardia Otherwise normal ECG Electronically signed by : Marcos Rodriguez, 02/20/2020 17:43:30
[2020-02-20 03:20] LABS: Appearance,Urine CLEAR (Clear); Bilirubin,Urine Negative (Negative); Blood, Urine TRACE-I (Negative); Color,Urine YELLOW (Yellow); Glucose,Urine (UA) Negative (Negative); Ketones,Urine Negative (Negative); Leukocyte Esterase,Urine Negative (Negative); Nitrate,Urine Negative (Negative); Protein,Urine Negative (Negative); Specific Gravity, Urine 1.015 (1.005-1.030); Urobilinogen,Urine 0.2 EU/dl (0.2)
[2020-02-20 03:33] LABS: Bacteria,Urine Trace /lpf; RBC,Urine Occasional #/hpf (0-3); WBC,Urine Occasional #/hpf (0-3)
[2020-02-20 03:35] LABS: Eosinophils % 2 % (0-3); Lymphocytes % 16 % (10-50); Monocytes % 2 % (2-9); Neutrophils % 80 % (42-76); Platelet Estimate Normal; Total Cells Counted 100
[2020-02-20 03:36] LABS: Stomatocytes 1+
[2020-02-20 03:54] LABS: Coronavirus 19 IgG Antibody Negative (Negative); Coronavirus 19 IgM Antibody Negative (Negative)
[2020-02-20 03:55] LABS: Troponin I 0.01 ng/ml (0.00-0.034)
[2020-02-20 04:15] LABS: Erythrocyte Sedimentation Rate 89 mm/hr (0-30)
--- NOTE | 2020-02-20 04:17 | HMH.EDSOB ---
ED Disposition Clinical Impression: Acute exacerbation of chronic obstructive airways disease Tricuspid regurgitation Qualifiers: Cardiac valve disease etiology: etiology unspecified Qualified Code(s): I07.1 - Rheumatic tricuspid insufficiency Disposition: Home, Self-Care Condition on Discharge: Good Instructions: DI for Shortness of Breath Additional Instructions: continue care at psychiatric hospital at this time Referrals: Bright Wright MD [Primary Care Provider] - - Critical Care Critical Care Time: No Attestation: On 02/20/20, the high probability of a clinically significant, sudden or life threatening deterioration of the following system(s) required my full and direct attention, intervention and personal management. The time I documented below is in addition to time spent performing reported procedures but includes the following listed in this critical care notation. Medical Decision Making - Medical Records Medical records reviewed: Yes: I reviewed the patient's medical records. - Narayan Inquiry Pt receiving controlled substance: No Vital Signs: 02/20/20 02:33 02/20/20 03:25 02/20/20 03:42 Temperature 100.6 F H Temperature Source Rectal Pulse Rate [Right] 128 H 125 H 122 H Respiratory Rate 22 18 20 Blood Pressure [Right Arm] 118/75 126/85 130/78 Blood Pressure Mean [Right Arm] 89 98 95 Blood Pressure Source [Right Arm] Automatic Cuff Blood Pressure Position [Right Arm] Supine 02 Sat by Pulse Oximetry 87 L 94 L 98 Oxygen Delivery Method Room Air Nasal Cannula Nasal Cannula Oxygen Flow Rate (LPM) 2 2 02/20/20 04:47 02/20/20 06:07 02/20/20 06:46 Temperature 99.1 F Temperature Source Oral Pulse Rate [Right] 108 H 112 H 96 H Respiratory Rate 18 18 16 Blood Pressure [Right Arm] 129/83 136/84 119/82 Blood Pressure Mean [Right Arm] 98 101 94 Blood Pressure Source [Right Arm] Blood Pressure Position [Right Arm] 02 Sat by Pulse Oximetry 93 L 96 95 Oxygen Delivery Method Nasal Cannula Nasal Cannula Nasal Cannula Oxygen Flow Rate (LPM) 2 2 2 02/20/20 07:08 02/20/20 07:30 Temperature Temperature Source Pulse Rate [Right] 116 H 100 H Respiratory Rate 18 18 Blood Pressure [Right Arm] 121/76 105/74 L Blood Pressure Mean [Right Arm] 91 84 Blood Pressure Source [Right Arm] Blood Pressure Position [Right Arm] 02 Sat by Pulse Oximetry 94 L 92 L Oxygen Delivery Method Nasal Cannula Nasal Cannula Oxygen Flow Rate (LPM) 2 2 - Lab Data Lab results reviewed: Yes: I reviewed the patient's lab results. Lab Results 02/20/20 02:34: O2 % 2 lpm nc, ABG pH 7.44, ABG pCO2 37.0, ABG pO2 76.1 L, ABG HCO3 24.8, ABG Total CO2 25.9, ABG O2 Saturation 95, ABG Base Excess 0.7, Ildefonso Test Patient unable 02/20/20 02:35: Urine Color Yellow, Urine Appearance Clear, Urine pH 7.0, Ur Specific [place] 1.015, Urine Protein Negative, Urine Glucose (UA) Negative, Urine Ketones Negative, Urine Blood Trace-i, Urine Nitrate Negative, Urine Bilirubin Negative, Urine Urobilinogen 0.2, Ur Leukocyte Esterase Negative, Urine RBC Occasional, Urine WBC Occasional, Urine Bacteria Trace 02/20/20 02:35: WBC 17.6 H, RBC 3.41 L, Hgb 10.5 L, Hct 32.7 L, MCV 96.1, MCH 30.7, MCHC 32.0, RDW 17.4, Plt Count 193, MPV 7.8, Neut % (Auto) 83.9 H, Lymph % (Auto) 10.5, [place] % (Auto) 4.5, Eos % (Auto) 0.8, Baso % (Auto) 0.4, Neut # (Auto) 14.7 H, Lymph # (Auto) 1.9, [place] # (Auto) 0.8, Eos # (Auto) 0.1, Baso # (Auto) 0.1, Total Counted 100, Neutrophils % (Manual) 80 H, Lymphocytes % (Manual) 16, Monocytes % (Manual) 2, Eosinophils % (Manual) 2, Platelet Estimate Normal, Stomatocytes 1+, ESR 89 H 02/20/20 02:35: Sodium 138, Potassium 3.8, Chloride 105, Carbon Dioxide 26, Anion Gap 10.8, BUN 17, Creatinine 0.80, Estimated Creat Clear 89, Estimated GFR 74, Est GFR ( Amer) 89, Glucose 147 H, Calcium 9.0, Total Bilirubin 0.5, AST 27, ALT 39, Alkaline Phosphatase 64, C-Reactive Protein 41.0 H, Total Protein 5.6 L, Albumin 2.9 L, Globulin 2.7, Album
[2020-02-20 06:39] LABS: Reflex Lactic Add Lactic Reflex
[2020-02-20 06:50] LABS: Lactic Acid Follow Up (RFLX 1) 2.5 mmol/L (0.7-2.1)
[2020-02-20 07:00] LABS: Troponin I 0.03 ng/ml (0.00-0.034)
--- NOTE | 2020-02-20 07:15 | PC.NURSE ---
pt changed into hospital gown. pt's belongings double bagged and placed outside of ER
--- NOTE | 2020-02-20 08:32 | PC.NURSE ---
report called to marina
[2020-02-20 08:40] LABS: Reflex Lactic (2 hrs) Add Lactic Reflex
--- NOTE | 2020-02-20 08:49 | PC.NURSE ---
report to [facility]
== END 2020-02-20 08:53 | disposition home or self-care (01) ==
PROVIDERS: Emergency Provider Emergency Medicine; PCP Emergency Medicine
DX: J44.1 Chronic obstructive pulmonary disease with (acute) exacerbation (principal); I07.1 Rheumatic tricuspid insufficiency; K21.9 Gastro-esophageal reflux disease without esophagitis; E78.5 Hyperlipidemia, unspecified; F41.9 Anxiety disorder, unspecified; F20.9 Schizophrenia, unspecified; Z90.49 Acquired absence of other specified parts of digestive tract; Z90.710 Acquired absence of both cervix and uterus; F17.210 Nicotine dependence, cigarettes, uncomplicated; Z79.899 Other long term (current) drug therapy
CPT/HCPCS: 70450; 71045; 72125; 72170; 80053; 81001; 82803; 83605; 84484; 85007; 85025; 85651; 86140; 86328; 87040; 87077; 87186; 93005; 96365; 96367; 96375; 99285; J2543

== ENCOUNTER 2020-02-21 10:43 | Inpatient (IN) | payer OTHER, MEDICAID, SELFPAY ==
[2020-02-21] VITALS (31 sets, daily range): BP systolic 99–159; BP diastolic 51–98; PULSE 65–114; RESP 20–32; TEMP 36.7–37.8; O2SAT 93–100; BMI 25.0; BMI 27.8
--- NOTE | 2020-02-21 10:20 | ECG_ITS ---
APPROVED REPORT Exam: Resting ECG HR:121 bpm ECG Measurements Heart Rate 121 AXES NH 136 P 51 QRSd 66 QRS 39 QT 314 T 41 QTc 445 <Conclusion> Sinus tachycardia with fusion complexes Low voltage QRS Borderline ECG Electronically signed by : Marcos Rodriguez, 02/22/2020 06:04:22
--- NOTE | 2020-02-21 10:39 | XR_ITS ---
PROCEDURE: XR CHEST PORTABLE CLINICAL HISTORY: hypoxia COMPARISON: CT CT ANGIO CHEST from 01/13/2020 CR XR CHEST 2V from 02/04/2020 CR XR CHEST PORTABLE PICC PLAC from 02/05/2020 CR XR CHEST AP from 02/20/2020 FINDINGS: The cardiomediastinal silhouette and pulmonary vascularity are within normal limits. PICC line is present from left subclavian approach with the tip in the region the SVC Diffuse bilateral alveolar and interstitial opacification once again noted and may be slightly improved in the upper lobes. No obvious effusion. No acute bony anomalies IMPRESSION: Diffuse bilateral alveolar and interstitial opacification consistent with pneumonia slightly improved Dictated by: Ildefonso Durand MD 02/21/2020 13:06 Ildefonso Durand MD in [facility] 02/21/2020 13:06
--- NOTE | 2020-02-21 10:39 | CT_ITS ---
PROCEDURE: CT ANGIO CHEST CLINCIAL INDICATION: hypoxia, history of pe COMPARISON: CT CT ANGIO CHEST from 01/13/2020 TECHNIQUE: IV Contrast: 70ML OPTIRAY 350 Axial images obtained with sagittal and coronal reformats. All CT scans at the facility use one or more dose reduction, viz: automated exposure control, ma/kV adjustment per patient size (including targeted exams where dose is matched to indication, i.e. head), or iterative reconstruction technique. FINDINGS: No central pulmonary embolus is evident. The peripheral pulmonary arteries are not well delineated due to motion artifact and bolus timing.. Small subsegmental emboli cannot be excluded based on this exam. The previously noted segmental and subsegmental emboli within the right upper lobe pulmonary artery is no longer apparent. No evidence of aortic aneurysm or dissection. There is thickening of the gastroesophageal junction. This is nonspecific and may only be due to nondistention. Neoplasm or esophagitis is also considered in the differential diagnosis. Barium swallow or upper endoscopy may provide further evaluation. There is diffuse bilateral alveolar opacification with interlobular septal thickening. This creates a somewhat crazy paving pattern. The alveolar disease in the upper lobes have slightly improved. Pulmonary consolidation in the lower lobes may have also slightly improved. IMPRESSION: 1. No central pulmonary embolus evident. Previously noted emboli within the right upper lobe artery has resolved. Motion artifact and bolus timing limits evaluation of the subsegmental arteries. 2. Persistent but slightly improved diffuse bilateral alveolar opacification with septal thickening which may be due to diffuse pneumonia. Novel maher virus 19 pneumonia could cause this finding 3. There is thickening of the gastroesophageal junction. This is nonspecific and may only be due to nondistention. Neoplasm or esophagitis is also considered in the differential diagnosis. Barium swallow or upper endoscopy may provide further evaluation. Dictated by: Ildefonso Duarnd MD 02/21/2020 13:02 Ildefonso Durand MD in [facility] 02/21/2020 13:02
[2020-02-21 10:54] LABS: Basophils % 0.1 % (0.1-2.0); Eosinophils % 0.1 % (0.1-12.0); Hematocrit 31.6 % (37.0-47.0); Hemoglobin 10.1 g/dL (12.2-16.2); Lymphocytes # 1.1 K/mm3 (0.7-4.5); Lymphocytes % 3.2 % (10-50); Mean Corpuscular Hemoglobin 31.4 pg (27.0-31.2); Mean Corpuscular Volume 98.1 fl (81-99); Monocytes # 1.4 K/mm3 (0.1-1.0); Monocytes % 4.1 % (1.7-9.3); Neutrophils # 31.8 K/mm3 (1.8-7.8); Neutrophils % 92.5 % (37.0-80.0); Platelet Count 205 K/mm3 (142-424); Red Blood Count 3.22 M/mm3 (4.20-5.40); Red Cell Distribution Width 17.8 % (11.5-17.5); White Blood Count 34.4 K/mm3 (4.8-10.8)
[2020-02-21 11:00] LABS: MANUAL DIFFERENTIAL MANUAL DIFFERENTIAL (MANUAL DIFF)
[2020-02-21 11:04] LABS: Alanine Aminotransferase 56 U/L (12-78); Albumin Level 3.3 g/dl (3.5-5.0); Albumin/Globulin Ratio 1.1 (1.1-1.8); Alkaline Phosphatase 75 U/L (38-126); Anion Gap 16.9 mEq/L (5-15); Aspartate Amino Transferase 41 U/L (14-36); Bilirubin,Total 0.5 mg/dl (0.2-1.3); Blood Urea Nitrogen 20 mg/dl (7-17); Calcium 9.9 mg/dl (8.4-10.2); Carbon Dioxide 22 mmol/L (22.0-30.0); Chloride 105 mmol/L (98-107); Creatinine Clearance Estimated 95 mL/min (50-200); Estimated Glomerular Filt Rate 86 ml/min (>60); GFR (African American) 104 ML/MIN (>60); Globulin 2.9 g/dL (1.3-3.2); Glucose 174 mg/dl (74-100); Lactic Acid 6.3 mmol/L (0.7-2.1); Potassium 3.9 mmoL/L (3.5-5.1); Sodium 140 mmol/L (136-145); Total Protein,Serum 6.2 g/dl (6.3-8.2)
[2020-02-21 11:06] LABS: Lymphocytes % 9 % (10-50); Monocytes % 2 % (2-9); Neutrophils % 87 % (42-76); Platelet Estimate Normal; RBC Morphology Normal; Total Cells Counted 100
--- NOTE | 2020-02-21 11:09 | PC.NURSE ---
PT comes in SOA on bougie placed on by EMS. Sats were in the 80's. Pt pale in color with cyanotic fingertips, MD and respiratory at bedside when pt arrives. PT immediately placed on bipap, PICC line in place and labs were drawn. 20g started in the right upper arm. Sats immediately improved to 90's and pt began to pink back up.
--- NOTE | 2020-02-21 11:12 | PC.NURSE ---
notified of critical lactic and WBC
[2020-02-21 11:13] LABS: NT Pro Brain Natriuretic Pep. 480 pg/mL (0-125)
--- NOTE | 2020-02-21 11:14 | PC.NURSE ---
Asked MD if she would like to initiate sepsis fluid blous, stated she wished to hold the bolus at this time and give 1L bolus for now
[2020-02-21 11:16] LABS: Troponin I 0.01 ng/ml (0.00-0.034)
[2020-02-21 11:18] LABS: Microscopic, Urine URINE MICROSCOPIC (MICROSCOPIC)
[2020-02-21 11:21] LABS: Appearance,Urine CLEAR (Clear); Bilirubin,Urine Negative (Negative); Blood, Urine Negative (Negative); Color,Urine YELLOW (Yellow); Glucose,Urine (UA) Negative (Negative); Ketones,Urine Negative (Negative); Leukocyte Esterase,Urine Negative (Negative); Nitrate,Urine Negative (Negative); Protein,Urine TRACE (Negative); Specific Gravity, Urine >= 1.030 (1.005-1.030); Urobilinogen,Urine 0.2 EU/dl (0.2)
[2020-02-21 11:25] LABS: Coronavirus 19 IgG Antibody Negative (Negative); Coronavirus 19 IgM Antibody Negative (Negative)
[2020-02-21 11:28] LABS: ABG Base Excess -0.7 mmol/L (-2.4-2.3); ABG HCO3 23.6 mmhg (22.0-26.0); ABG Oxygen Saturation 98 % (90-100); ABG PCO2 36.4 mmhg (35.0-45.0); ABG PH 7.43 mmol/L (7.35-7.45); ABG PO2 108.2 mmhg (80-100); ABG TCO2 24.7 mmhg (23-27)
[2020-02-21 11:29] LABS: Oxygen 70 %
[2020-02-21 11:30] LABS: Allen's Test Acceptable; Pressure Support 8; Source Right Radial; Tidal Volume BIPAP 18/10; Vent Rate 20
--- NOTE | 2020-02-21 11:30 | PC.NURSE ---
stated she wished to initiate sepsis bolus now.
[2020-02-21 11:34] LABS: Amorphous Sediment,Urine 1+ /lpf; WBC,Urine Occasional #/hpf (0-3)
[2020-02-21 11:34] LABS: D-Dimer 0.72 ug/mL (0.15-8.0)
--- NOTE | 2020-02-21 11:42 | HMH.EDGENADL ---
ED Disposition Clinical Impression: Hypoxia, Septic shock Pneumonia Qualifiers: Pneumonia type: due to unspecified organism Laterality: unspecified laterality Lung location: unspecified part of lung Qualified Code(s): J18.9 - Pneumonia, unspecified organism Disposition: Admitted As Inpatient Condition on Discharge: Serious - Critical Care Critical Care Time: Yes (40 minutes) Attestation: On 02/21/20, the high probability of a clinically significant, sudden or life threatening deterioration of the following system(s) required my full and direct attention, intervention and personal management. The time I documented below is in addition to time spent performing reported procedures but includes the following listed in this critical care notation. Total Critical Care Time: 40 Vital system(s) involved:: Circulatory Failure, Respiratory Failure, Shock (Septic) My critical care processes included: Assessment & monitoring of V/S, Initial and Re-exams, Data Review/Interpretation, Coordinating Care, Medication Orders and management, Documentation Medical Decision Making - Medical Records Medical records reviewed: Yes: I reviewed the patient's medical records. - Narayan Inquiry Pt receiving controlled substance: No Vital Signs: 02/21/20 10:37 02/21/20 10:58 02/21/20 11:13 Temperature 100.1 F H Temperature Source Rectal Pulse Rate Pulse Rate [Right] 114 H 111 H 109 H Respiratory Rate 32 H 26 H Blood Pressure Blood Pressure [Right Arm] 103/60 L 99/67 L 100/67 L Blood Pressure Mean [Right Arm] 74 77 78 Blood Pressure Source Blood Pressure Source [Right Arm] Automatic Cuff Automatic Cuff Automatic Cuff Blood Pressure Position Blood Pressure Position [Right Arm] Sitting Supine 02 Sat by Pulse Oximetry 96 95 98 Oxygen Delivery Method BiPAP BiPAP BiPAP 02/21/20 11:42 02/21/20 12:07 02/21/20 12:26 Temperature Temperature Source Pulse Rate Pulse Rate [Right] 87 101 H 99 H Respiratory Rate 22 24 22 Blood Pressure Blood Pressure [Right Arm] 101/72 L 116/67 122/84 Blood Pressure Mean [Right Arm] 81 83 96 Blood Pressure Source Blood Pressure Source [Right Arm] Automatic Cuff Automatic Cuff Automatic Cuff Blood Pressure Position Blood Pressure Position [Right Arm] Sitting Sitting Sitting 02 Sat by Pulse Oximetry 98 93 L 100 Oxygen Delivery Method BiPAP BiPAP BiPAP 02/21/20 12:42 02/21/20 12:56 02/21/20 13:15 Temperature Temperature Source Pulse Rate Pulse Rate [Right] 95 H 85 100 H Respiratory Rate 24 22 24 Blood Pressure Blood Pressure [Right Arm] 130/83 130/80 133/86 Blood Pressure Mean [Right Arm] 98 96 101 Blood Pressure Source Blood Pressure Source [Right Arm] Automatic Cuff Automatic Cuff Automatic Cuff Blood Pressure Position Blood Pressure Position [Right Arm] Supine Sitting Sitting 02 Sat by Pulse Oximetry 96 98 99 Oxygen Delivery Method Room Air BiPAP BiPAP 02/21/20 13:31 02/21/20 13:49 02/21/20 13:50 Temperature 98.6 F 98.5 F Temperature Source Temporal Artery Scan Pulse Rate 82 Pulse Rate [Right] 85 82 Respiratory Rate 22 22 22 Blood Pressure 136/92 H Blood Pressure [Right Arm] 120/98 H 136/92 H Blood Pressure Mean [Right Arm] 105 106 Blood Pressure Source Automatic Cuff Blood Pressure Source [Right Arm] Automatic Cuff Blood Pressure Position Sitting Blood Pressure Position [Right Arm] Sitting Sitting 02 Sat by Pulse Oximetry 97 98 Oxygen Delivery Method BiPAP BiPAP BiPAP 02/21/20 14:11 Temperature Temperature Source Pulse Rate Pulse Rate [Right] 80 Respiratory Rate 22 Blood Pressure Blood Pressure [Right Arm] 130/85 Blood Pressure Mean [Right Arm] 100 Blood Pressure Source Blood Pressure Source [Right Arm] Automatic Cuff Blood Pressure Position Blood Pressure Position [Right Arm] Sitting 02 Sat by Pulse Oximetry 100 Oxygen Delivery Method BiPAP - Lab Data Lab Results 02/21/20 10:35: WBC 34.4 H* D, RB
--- NOTE | 2020-02-21 11:42 | PC.NURSE ---
PT going to CT with resp accompanying her
--- NOTE | 2020-02-21 11:43 | PC.NURSE ---
PT TO CT WITH RT AT BEDSIDE
--- NOTE | 2020-02-21 11:48 | PC.NURSE ---
Called pharmacy for vanc dosing
--- NOTE | 2020-02-21 12:04 | PC.NURSE ---
pt returned from CT. fluids and IV antibiotics started @ this time
--- NOTE | 2020-02-21 13:29 | PC.NURSE ---
dr velasquez talking to dr oseguera
--- NOTE | 2020-02-21 13:47 | PC.NURSE ---
FLUID BOLUS COMPLETED AT THIS TIME
[2020-02-21 14:38] LABS: Reflex Lactic Add Lactic Reflex
--- NOTE | 2020-02-21 14:42 | PC.NURSE ---
Pt arrived to the floor at this time.
[2020-02-21 15:39] LABS: Lactic Acid Follow Up (RFLX 1) 1.8 mmol/L (0.7-2.1)
--- NOTE | 2020-02-21 16:50 | PC.NURSE ---
Pt currently resting on Bipap @ 60% FIO2, SPO2 at this time 98%. Tolerating bipap well w/ no s/s of resp distress. Pt has been turned q2h, she is able to assist staff when turning. Oral care provided. Dorantes cath to drain at bedside w/ drk yellow urine. No BM this shift. No complaints voiced since arriving to floor. NSR on tely w/ periods of tachycardia when awake w/ HR reaching 110's. Resp rate [address] in [address] to BLE. IVF infusing per Picc in [facility]. Seizure pads in place per protocol. Pt is full code. Safety in place. VSS. Will continue to monitor.
--- NOTE | 2020-02-21 20:49 | HMH.HP ---
*Admission Date: 02/21/20 *Chief complaint: change in mental status *History of present illness: [facility] -pt has copd and insterstial dis - t presents today with SOA and low o2 sats. residential reports sats were in the 50's/ EMS placed pt on bougie mask and increased sats to 80's. Pt A&O times three when she arrives, pale in color and cyanosis 59-year-old female presenting to the emergency department with EMS and chief complaint of hypoxia and shortness of breath. EMS was called to her halfway earlier today because staff found her to be fatigued looking and oxygen saturation was less than 70%. Patient has a recent history of bilateral pulmonary emboli. Is taking anticoagulants. She answers some yes and no questions on arrival. Says she feels tired. Denies recent illness, fevers, chills, nausea, vomiting, cough. No current chest pain, abdominal pain, headache, confusion. 59-year-old female with history of pulmonary emboli presenting to the emergency department hypoxia. Patient critically ill on arrival. Initial oxygen saturation 75% with EMS on CPAP. Tachycardic to 125. Taken emergently to a critical resuscitation room. Placed on store merchandiser. IV access established. Patient immediately placed on BiPAP. She had rapid improvement in oxygen saturation. purusion remarkably improved. Concern for new clot burden, pneumonia. Will obtain CBC, CMP, blood cultures, chest x-ray, EKG, troponin profile, lipase, lactate, BNP. Laboratory results remarkable for elevated white count at 34. Elevated lactate at 6. Patient meets criteria for septic shock. She is receiving 30 cc/kg IV fluid bolus. Given vancomycin and cefepime for antibiotic coverage. Chest CT shows possible multifocal pneumonia. Other laboratory results are generally unremarkable. No renal failure. Reassessment shows improvement in perfusion and brisk capillary refill. Patient remained clinically stable on BiPAP. Dr. Wright consulted for admission. pt admitted with resp treatment at this time [facility] History I have reviewed the patient's past medical history: Yes Medical History: Reports:: Anxiety, Chronic Obstructive Pulmonary Disease (COPD), Gastroesophageal Reflux Disease(GERD), Hyperlipidemia Denies:: Diabetes Mellitus Type 1, Diabetes Mellitus Type 2 *Have you ever received a pneumonia vaccine?: Yes *Have you received a flu vaccine this season?: Yes Other Medical History: Reports: Anemia Other Surgeries: Yes: Hysterectomy-Total, Other Amputation: No Fractures: No - *Social History Smoking Status: Current every day smoker Tobacco Type: cigarettes # Packs/Day (cigarettes): 1 Alcohol Intake: never Alcohol Intake Frequency:: other Substance Use Type: denies use *Occupational Status:: disabled Housing: assisted living facility Household Members: other *Travel in the last 8 weeks: None - Psychiatric History Pschychiatric History:: Reports:: Anxiety, Schizophrenia Family Hx:: Unable to obtain HSPT TUTOR history: No HSPT TUTOR history Review of Systems - Review of Systems Review of systems:: unable to obtain - *Neurologic Reports tingling, Reports weakness, Denies headache(s), Denies numbness, Denies fainting Meds Home Medications Medication Instructions Recorded Confirmed Type ferrous sulfate 325 mg (65 mg 325 mg PO DAILY tab 08/02/17 02/21/20 History iron) tablet haloperidol 10 mg tablet 5 mg PO TID 08/02/17 02/21/20 History venlafaxine 150 mg 150 mg PO DAILY 08/02/17 02/21/20 History capsule,extended release 24 hr Pantoprazole Sodium [Protonix 40mg 40 mg PO DAILY 05/31/19 02/21/20 History tablet] Cholecalciferol (Vitamin D3) 1,000 unit PO DAILY 01/09/20 02/21/20 History [Vitamin D3 1,000 Unit Cap] Ziprasidone HCl 60 mg PO BID 01/09/20 02/21/20 History levetiracetam 500 mg tablet 500 mg PO BID #60 tab 01/20/20 02/21/20 Rx atorvastatin 40 mg tablet 40 mg PO HS 01/22/20 02/21/20 History Acetaminophen [Ty
--- NOTE | 2020-02-21 21:03 | PC.NURSE ---
pt FiO2 decreased to 50%
--- NOTE | 2020-02-21 21:28 | PC.NURSE ---
initial assessment, pt has visual tremors to BUE, greater in right than left, baseline for pt
--- NOTE | 2020-02-21 21:29 | PC.NURSE ---
while removing bipap to give pt medications, pt was placed on 6L NC, pt O2 dropped to 80% within 2 minutes, bipap replaced and pt O2 95% within 2 minutes
--- NOTE | 2020-02-21 22:56 | PC.NURSE ---
pt FiO2 decreased to 40%
[2020-02-22] VITALS (38 sets, daily range): BP systolic 112–172; BP diastolic 54–87; PULSE 65–102; RESP 20–28; TEMP 36.6–37.4; O2SAT 88–100; BMI 29.7
--- NOTE | 2020-02-22 00:42 | PC.NURSE ---
0000 pt FiO2 increased to 50%
--- NOTE | 2020-02-22 00:42 | PC.NURSE ---
pt FiO2 decreased to 40% at this time
--- NOTE | 2020-02-22 00:52 | PC.NURSE ---
pt FiO2 increased to 45%
--- NOTE | 2020-02-22 01:26 | PC.NURSE ---
pt FiO2 decreased to 40%
--- NOTE | 2020-02-22 02:43 | PC.NURSE ---
pt FiO2 increased to 60%
--- NOTE | 2020-02-22 03:21 | PC.NURSE ---
pt FiO2 decreased to 50%
--- NOTE | 2020-02-22 06:55 | PC.NURSE ---
pt has coughing episodes, at which time sats drop to the 70's and sustain requiring increase in FiO2, currently FiO2 is at 50%
--- NOTE | 2020-02-22 07:00 | XR_ITS ---
PROCEDURE: XR CHEST PORTABLE Referring Doctor: Alma Verma Patient Age:59Y CLINICAL HISTORY: pneumonia hypoxia. COPD. Smoker. Patient on BiPAP COMPARISON: 02/21/2020, 02/20/2020, 02/05/2020 pCXR; As well as CT chest studies from yesterday 02/21/2020 and 01/09/2020 and 11/09/2019. FINDINGS: AP upright CXR today again shows the bilateral interstitial infiltrate again noted similar to yesterday. Rather diffuse appearing primarily interstitial infiltrate on plain film with sparing of the right lung apex. No improvement since yesterday's chest film.-if anything on today's spool tender film the bilateral infiltrates are perhaps slightly more evident bilaterally, particularly throughout left lung but this may merely be due to today's technique, and less optimal inspiration noting the diaphragm is only down to the anterior 4th rib today previously down to the anterior 5th rib yesterday CXR. Note this patient is persistent interstitial infiltrate with partial alveolar component which seem to be variable locations and variable degrees on CT studies dating back at least October 2019 with this process/infiltrates appear to be superimposed upon underlying COPD, noting bleb formation most pronounced towards the right lung apex more so than left. There seems to be progressive interstitial disease process since 2019 CXR. A few subtle septal lines bilaterally suggested may reflect interstitial process, though could reflect some mild pulmonary edema. Borderline/mild cardiomegaly. Upper normal pulmonary vascularity Subtle blunting right CP angle. Could not exclude scant pleural fluid abut may merely reflect some minimal scarring The small hiatal hernia. . Slight generous with superior mediastinum similar to previous studies reflecting mediastinal fat/lipomatosis the. No adenopathy seen here on yesterday's CT IMPRESSION: Bilateral diffuse primarily interstitial infiltrate with minimal alveolar component again seen .. If anything the infiltrates slightly more evident pronounced bilaterally than yesterday, but this may reflect today's spool tender, less penetrated CXR technique today along with slightly less optimal inspiration.. Ongoing follow-up required Current infiltrate superimposed upon the patient's COPD and chronic lung changes. Noting progressive interstitial disease since 2019 CXR. Scant subtle blunting right CP angle could reflect scant right pleural effusion. Mild cardiomegaly noted the Dictated by: Andry Montenegro MD 02/22/2020 09:04 Andry Montenegro MD in OV 02/22/2020 09:04
[2020-02-22 07:22] LABS: Lactic Acid 0.6 mmol/L (0.7-2.1)
[2020-02-22 07:31] LABS: Basophils % 0.2 % (0.1-2.0); Chloride 112 mmol/L (98-107); Eosinophils # 0.2 K/mm3 (0.0-0.4); Eosinophils % 1.6 % (0.1-12.0); Hematocrit 25.2 % (37.0-47.0); Lymphocytes # 2.6 K/mm3 (0.7-4.5); Lymphocytes % 21.2 % (10-50); Mean Corpuscular HGB Conc 30.6 g/dL (31.8-35.4); Mean Corpuscular Hemoglobin 31.1 pg (27.0-31.2); Mean Corpuscular Volume 101.6 fl (81-99); Monocytes # 0.9 K/mm3 (0.1-1.0); Monocytes % 7.3 % (1.7-9.3); Neutrophils # 8.6 K/mm3 (1.8-7.8); Neutrophils % 69.8 % (37.0-80.0); Platelet Count 128 K/mm3 (142-424); Potassium 3.7 mmoL/L (3.5-5.1); Red Blood Count 2.48 M/mm3 (4.20-5.40); Sodium 138 mmol/L (136-145); White Blood Count 12.3 K/mm3 (4.8-10.8)
[2020-02-22 07:34] LABS: Anion Gap 7.7 mEq/L (5-15); Blood Urea Nitrogen 18 mg/dl (7-17); Carbon Dioxide 22 mmol/L (22.0-30.0); Creatinine Clearance Estimated 90 mL/min (50-200); Estimated Glomerular Filt Rate 74 ml/min (>60); GFR (African American) 89 ML/MIN (>60); Glucose 56 mg/dl (74-100)
[2020-02-22 07:35] LABS: Calcium 8.6 mg/dl (8.4-10.2)
[2020-02-22 08:50] LABS: Hemoglobin 7.7 g/dL (12.2-16.2)
--- NOTE | 2020-02-22 10:08 | PC.NURSE ---
MD RODRIGEZ AT BEDSIDE AWARE OF PTS HGB LEVEL 7.7. NO N/O AT THIS TIME. DISCUSSED WITH PATIENT TO BE MORE DILIGENT ABOUT HER DIET IN REGARDS TO HER HEALTH. SAID TO TRY PATIENT ON VAPO THERM INSTEAD OF BIPAP. RT SPIKE CALLED AND AWARE SHE WILL COME UP SOON TO PLACE PATIENT ON IT.
--- NOTE | 2020-02-22 10:15 | HMH.ACPN2 ---
Internal Medicine - PN: Subj *Date: 02/23/20 *Time: 14:22 Interval history: doing better on bpap- has anemia Exam Vital signs and Labs for Last 24 Hours: Temp Pulse Resp BP Pulse Ox 97.9 F 77 22 125/75 100 02/22/20 07:36 02/22/20 07:36 02/22/20 07:36 02/22/20 07:36 02/22/20 07:36 Laboratory Results - last 24 hr 02/21/20 10:35: WBC 34.4 H* D, RBC 3.22 L, Hgb 10.1 L, Hct 31.6 L, MCV 98.1, MCH 31.4 H, MCHC 32.0, RDW 17.8 H, Plt Count 205, MPV 8.0, Neut % (Auto) 92.5 H, Lymph % (Auto) 3.2 L, Bartholomew % (Auto) 4.1, Eos % (Auto) 0.1, Baso % (Auto) 0.1, Neut # (Auto) 31.8 H, Lymph # (Auto) 1.1, Bartholomew # (Auto) 1.4 H, Eos # (Auto) 0.0, Baso # (Auto) 0.0, Total Counted 100, Neutrophils % (Manual) 87 H, Band Neutrophils % 2.0, Lymphocytes % (Manual) 9 L, Monocytes % (Manual) 2, Platelet Estimate Normal, RBC Morphology Normal 02/21/20 10:35: Sodium 140, Potassium 3.9, Chloride 105, Carbon Dioxide 22, Anion Gap 16.9 H, BUN 20 H, Creatinine 0.70, Estimated Creat Clear 95, Estimated GFR 86, Est GFR ( Amer) 104, Glucose 174 H, Calcium 9.9, Total Bilirubin 0.5, AST 41 H D, ALT 56 D, Alkaline Phosphatase 75, Troponin I 0.01, Total Protein 6.2 L, Albumin 3.3 L D, Globulin 2.9, Albumin/Globulin Ratio 1.1 02/21/20 10:35: Lactate 6.3 H 02/21/20 10:35: NT-Pro-B Natriuret Pep 480 H 02/21/20 10:35: SARS-CoV-2 IgG Ab (Rapid) Negative, SARS-CoV-2 IgM Ab (Rapid) Negative 02/21/20 10:35: D-Dimer 0.72 02/21/20 10:45: Urine Color Yellow, Urine Appearance Clear, Urine pH 6.0, Ur Specific Arch[place]d >= 1.030, Urine Protein Trace, Urine Glucose (UA) Negative, Urine Ketones Negative, Urine Blood Negative, Urine Nitrate Negative, Urine Bilirubin Negative, Urine Urobilinogen 0.2, Ur Leukocyte Esterase Negative, Urine RBC None, Urine WBC Occasional, Ur Squamous Epith Cells None, Amorphous Sediment 1+, Urine Bacteria None 02/21/20 11:15: Specimen Source Right radial, O2 % 70, ABG pH 7.43, ABG pCO2 36.4, ABG pO2 108.2 H, ABG HCO3 23.6, ABG Total CO2 24.7, ABG O2 Saturation 98, ABG Base Excess -0.7, Ildefonso Test Acceptable, Vent Rate 20, Tidal Volume Bipap 18/0402/21/20 15:00: Lactate 1.8 02/22/20 06:46: WBC 12.3 H D, RBC 2.48 L, Hgb 7.7 L* D, Hct 25.2 L, MCV 101.6 H, MCH 31.1, MCHC 30.6 L, RDW 18.0 H, Plt Count 128 L D, MPV 8.0, Neut % (Auto) 69.8, Lymph % (Auto) 21.2, Bartholomew % (Auto) 7.3, Eos % (Auto) 1.6, Baso % (Auto) 0.2, Neut # (Auto) 8.6 H, Lymph # (Auto) 2.6, Bartholomew # (Auto) 0.9, Eos # (Auto) 0.2, Baso # (Auto) 0.0 02/22/20 06:46: Sodium 138, Potassium 3.7, Chloride 112 H, Carbon Dioxide 22, Anion Gap 7.7, BUN 18 H, Creatinine 0.80, Estimated Creat Clear 90, Estimated GFR 74, Est GFR ( Amer) 89, Glucose 56 L D, Calcium 8.6 D 02/22/20 06:46: Lactate 0.6 L I & O for Last 24 hours: Intake & Output 02/19/20 02/20/20 02/21/20 02/22/20 11:59 11:59 11:59 11:59 Intake Total 2580 / 2580 Output Total 800 / 800 Balance 1780 / 1780 Weight 150 lb 161 lb 7 oz - Constitutional no acute distress - *Routine HEENT Exam Head: Present: normocephalic Eye: Present: EOMI, PERRL ENT: Present: mucous membranes dry - *Routine Neck Exam Absent: JVD - *Routine Respiratory Exam Present: decreased breath sounds - *Routine Cardiovascular Exam Present: RRR, murmur, S4 - *Routine Abdominal Exam Present: soft - *Routine Extremities Exam Absent: calf tenderness - *Routine Skin Exam Present: intact - *Routine Neurological Exam Present: alert, CN II-XII intact - Routine Psychiatric Exam Present: normal affect Assessment and Plan (1) Acute exacerbation of chronic obstructive airways disease Current visit: No Status: Acute Category: Medical Code(s): J44.1 - Chronic obstructive pulmonary disease with (acute) exacerbation (2) Respiratory failure Problem details: Patient came in with acute respiratory failure with chest x-ray showing bilateral lower lobe worsening opacities. Also concern for aspiration. However after reviewing the patie
--- NOTE | 2020-02-22 10:41 | PC.NURSE ---
RT AT BEDSIDE PLACED PATIENT ON VAPOTHERM AT 20LPM AND 50% FIO2. MD SAID TO KEEP 02 SAT > 88%. LAB AT BEDSIDE COLLECTED LABS. BLOOD TRANSFUSION CONSENT OBTAINED.
--- NOTE | 2020-02-22 10:43 | PC.NURSE ---
1035 - Hospice Nurse ( Madina Lezama RN) called for update on pt at this time.
--- NOTE | 2020-02-22 10:44 | PC.NURSE ---
RT INCREASED FIO2 ON VAPOTHERM TO 55% O2 SAT 91%
--- NOTE | 2020-02-22 11:05 | PC.NURSE ---
PATIENT O2 SAT 76% PATIENT PLACED BACK ON BIPAP AT 50% FIO2 O2 SAT NOW 89% WILL CONTINUE TO MONITOR
--- NOTE | 2020-02-22 11:37 | HMH.PHACONS ---
- Pharmacy Consult Date: 02/22/20 Time: 11:44 Referring provider: DR. RODRIGEZ Reason for Consult:: VANCOMYCIN DOSING Allergies and ADEs:: Allergies Allergy/AdvReac Type Severity Reaction Status Date / Time No Known Allergies Allergy Verified 09/14/18 21:14 Home Medications:: Home Medications Medication Instructions Recorded Confirmed Type ferrous sulfate 325 mg (65 mg 325 mg PO DAILY tab 08/02/17 02/21/20 History iron) tablet haloperidol 10 mg tablet 5 mg PO TID 08/02/17 02/21/20 History venlafaxine 150 mg 150 mg PO DAILY 08/02/17 02/21/20 History capsule,extended release 24 hr Pantoprazole Sodium [Protonix 40mg 40 mg PO DAILY 05/31/19 02/21/20 History tablet] Cholecalciferol (Vitamin D3) 1,000 unit PO DAILY 01/09/20 02/21/20 History [Vitamin D3 1,000 Unit Cap] Ziprasidone HCl 60 mg PO BID 01/09/20 02/21/20 History levetiracetam 500 mg tablet 500 mg PO BID #60 tab 01/20/20 02/21/20 Rx atorvastatin 40 mg tablet 40 mg PO HS 01/22/20 02/21/20 History Acetaminophen [Tylenol 500mg 500 mg PO Q4HP PRN 01/31/20 02/21/20 History tablet] Apixaban [Eliquis 5mg tab] 5 mg PO BID 01/31/20 02/21/20 History lactulose 20 gram/30 mL oral 20 g PO DAILY PRN ml 02/04/20 02/21/20 History solution clonazepam 0.5 mg tablet 0.5 mg PO BID #60 tab 02/10/20 02/21/20 Rx Fluticasone/Salmeterol [Advair 1 inh IH BID 02/20/20 02/21/20 History 250/50mcg Diskus] Ipratropium/Albuterol Sulfate 3 ml IH Q6H 02/20/20 02/21/20 History [Duoneb 3mL neb] Umeclidinium [place] [Incruse 62.5 mcg IH DAILY 02/20/20 02/21/20 History Ellipta] Clindamycin Phosphate [Clindamycin 900 mg IV Q8H 02/21/20 02/21/20 History 900mg adv] Ipratropium/Albuterol Sulfate 3 ml IH Q4HP PRN 02/21/20 02/21/20 History [Duoneb 3mL neb] Morphine Sulfate [Morphine Sulfate 5 mg PO Q4HP PRN 02/21/20 02/21/20 History 20mg/5ml Oral Soln] predniSONE [Deltasone 20mg 20 mg PO BID 02/21/20 02/21/20 History tablet] Height: 1.57 m Weight: 73.227 kg Laboratory Results:: Laboratory Results - last 24 hr 02/21/20 15:00: Lactate 1.8 02/22/20 06:46: WBC 12.3 H D, RBC 2.48 L, Hgb 7.7 L* D, Hct 25.2 L, MCV 101.6 H, MCH 31.1, MCHC 30.6 L, RDW 18.0 H, Plt Count 128 L D, MPV 8.0, Neut % (Auto) 69.8, Lymph % (Auto) 21.2, [place] % (Auto) 7.3, Eos % (Auto) 1.6, Baso % (Auto) 0.2, Neut # (Auto) 8.6 H, Lymph # (Auto) 2.6, [place] # (Auto) 0.9, Eos # (Auto) 0.2, Baso # (Auto) 0.0 02/22/20 06:46: Sodium 138, Potassium 3.7, Chloride 112 H, Carbon Dioxide 22, Anion Gap 7.7, BUN 18 H, Creatinine 0.80, Estimated Creat Clear 90, Estimated GFR 74, Est GFR ( Amer) 89, Glucose 56 L D, Calcium 8.6 D 02/22/20 06:46: Lactate 0.6 L 02/22/20 10:34: Blood Type A Positive, Crossmatch (AHG) See Detail Medical History: Reports:: Anxiety, Chronic Obstructive Pulmonary Disease (COPD), Gastroesophageal Reflux Disease(GERD), Hyperlipidemia Denies:: Diabetes Mellitus Type 1, Diabetes Mellitus Type 2 Assessment and Plan (1) Acute exacerbation of chronic obstructive airways disease Current visit: No Status: Acute Category: Medical Code(s): J44.1 - Chronic obstructive pulmonary disease with (acute) exacerbation (2) Respiratory failure Problem details: Patient came in with acute respiratory failure with chest x-ray showing bilateral lower lobe worsening opacities. Also concern for aspiration. However after reviewing the patient's prior CT scans there is definitely a component of interstitial lung disease contributing to her respiratory failure and this needs to be further worked up. Chest x-ray from [address] abdomen in 2014 showed normal lower lung dooley without any evidence of interstitial lung disease. Patient is a chronic smoker not more than 30 packs a day currently smoking, denies any significant changes in her life, any significant exposure, any change in smoking habit since 2014. X-ray from May 2019 showed bilateral lower lobe infiltrat
--- NOTE | 2020-02-22 12:30 | PC.NURSE ---
called pharmacist caitie panda/vera cefepime not being in drawer or bin [facility]. he said he would bring it over. at 1320 have not received yet
--- NOTE | 2020-02-22 14:38 | PC.NURSE ---
1ST UNIT OF RBC COMPLETE. PATIENT TOLERATED WELL. NO S/S TRANSFUSION REACTION NOTED. WILL CONTINUE TO MONITOR.
--- NOTE | 2020-02-22 14:47 | HMH.PHAVTE ---
[facility] Pharmacy VTE Monitoring - Patient Demographics Admission date: 02/22/20 Report Date: 02/22/20 Time: 14:47 Allergies/Adverse Reactions: Patient Allergies No Known Allergies Allergy (Verified 09/14/18 21:14) Height: 1.57 m Weight: 73.227 kg Patient Problems: Current Active Problems Hypoxia (Acute) Septic shock (Acute) Pneumonia (Acute) - VTE Risk Labs: VTE Related Lab Results Hgb 7.7 g/dL (12.2-16.2) L* D 02/22/20 06:46 Hct 25.2 % (37.0-47.0) L 02/22/20 06:46 Plt Count 128 K/mm3 (142-424) L D 02/22/20 06:46 BUN 18 mg/dl (7-17) H 02/22/20 06:46 Creatinine 0.80 mg/dl (0.52-1.04) 02/22/20 06:46 Estimated Creat Clear 90 mL/min (50-200) 02/22/20 06:46 Was VTE Risk Assessment Performed: Yes VTE Score: 7 VTE Risk Level: Moderate Risk - Prophylaxis Types of VTE Prophylaxis: Pharmacological (ELIQUIS REORDERED)
--- NOTE | 2020-02-22 14:49 | PC.NURSE ---
PATIENT ON BIPAP AT 35%FIO2 TOLERATING WELL. O2 SAT 94%
--- NOTE | 2020-02-22 17:59 | PC.NURSE ---
2ND UNIT OF BLOOD TRANSFUSED- NO S/S TRANSFUSION REACTION NOTED. PATIENT REMAINS ON BIPAP CURRENTLY AT 35% FIO2 O2 SAT 92%. VITALS WNL. NO C/O PAIN. NO ISSUES AT THIS TIME. SAFETY MEASURES IN PLACE.
[2020-02-22 19:10] LABS: Hematocrit 33.4 % (37.0-47.0)
[2020-02-22 19:33] LABS: Hemoglobin 11.1 g/dL (12.2-16.2)
--- NOTE | 2020-02-22 20:22 | PC.NURSE ---
pt FiO2 increased to 35%
--- NOTE | 2020-02-22 20:23 | PC.NURSE ---
pt was able to sustain O2 sats for approximately 20 minutes on 5L NC
--- NOTE | 2020-02-22 22:36 | PC.NURSE ---
pt FiO2 increased to 40%
--- NOTE | 2020-02-22 23:24 | PC.NURSE ---
pt taken off BiPap and placed on 5L NC, sats above 90% for 15 minutes
[2020-02-23] VITALS (19 sets, daily range): BP systolic 113–153; BP diastolic 67–95; PULSE 60–140; RESP 18–48; TEMP 36.6–37; O2SAT 92–96; BMI 29.7
[2020-02-23 00:07] LABS: Vancomycin,Trough 16.1 ug/mL (5.0-10.0)
--- NOTE | 2020-02-23 00:25 | PC.NURSE ---
[facility], notified of vanc trough of 16.1, said ok to run ordered vanc
--- NOTE | 2020-02-23 04:11 | PC.NURSE ---
0130 pt FiO2 decreased to 35%
--- NOTE | 2020-02-23 05:25 | PC.NURSE ---
pt has rested well t/o shift, remains on 35% FiO2, with sats 93-94%
--- NOTE | 2020-02-23 08:44 | HMH.PHACONS ---
- Pharmacy Consult Date: 02/23/20 Time: 08:45 Referring provider: DR. RODRIGEZ Reason for Consult:: VANCOMYCIN TROUGH LEVEL Allergies and ADEs:: Allergies Allergy/AdvReac Type Severity Reaction Status Date / Time No Known Allergies Allergy Verified 09/14/18 21:14 Home Medications:: Home Medications Medication Instructions Recorded Confirmed Type ferrous sulfate 325 mg (65 mg 325 mg PO DAILY tab 08/02/17 02/21/20 History iron) tablet haloperidol 10 mg tablet 5 mg PO TID 08/02/17 02/21/20 History venlafaxine 150 mg 150 mg PO DAILY 08/02/17 02/21/20 History capsule,extended release 24 hr Pantoprazole Sodium [Protonix 40mg 40 mg PO DAILY 05/31/19 02/21/20 History tablet] Cholecalciferol (Vitamin D3) 1,000 unit PO DAILY 01/09/20 02/21/20 History [Vitamin D3 1,000 Unit Cap] Ziprasidone HCl 60 mg PO BID 01/09/20 02/21/20 History levetiracetam 500 mg tablet 500 mg PO BID #60 tab 01/20/20 02/21/20 Rx atorvastatin 40 mg tablet 40 mg PO HS 01/22/20 02/21/20 History Acetaminophen [Tylenol 500mg 500 mg PO Q4HP PRN 01/31/20 02/21/20 History tablet] Apixaban [Eliquis 5mg tab] 5 mg PO BID 01/31/20 02/21/20 History lactulose 20 gram/30 mL oral 20 g PO DAILY PRN ml 02/04/20 02/21/20 History solution clonazepam 0.5 mg tablet 0.5 mg PO BID #60 tab 02/10/20 02/21/20 Rx Fluticasone/Salmeterol [Advair 1 inh IH BID 02/20/20 02/21/20 History 250/50mcg Diskus] Ipratropium/Albuterol Sulfate 3 ml IH Q6H 02/20/20 02/21/20 History [Duoneb 3mL neb] Umeclidinium [place] [Incruse 62.5 mcg IH DAILY 02/20/20 02/21/20 History Ellipta] Clindamycin Phosphate [Clindamycin 900 mg IV Q8H 02/21/20 02/21/20 History 900mg adv] Ipratropium/Albuterol Sulfate 3 ml IH Q4HP PRN 02/21/20 02/21/20 History [Duoneb 3mL neb] Morphine Sulfate [Morphine Sulfate 5 mg PO Q4HP PRN 02/21/20 02/21/20 History 20mg/5ml Oral Soln] predniSONE [Deltasone 20mg 20 mg PO BID 02/21/20 02/21/20 History tablet] Height: 1.57 m Weight: 73.17 kg Laboratory Results:: Laboratory Results - last 24 hr 02/22/20 06:46: Hgb 7.7 L* D 02/22/20 10:34: Blood Type A Positive, Antibody Screen Negative, Crossmatch (AHG) See Detail 02/22/20 18:54: Hgb 11.1 L D, Hct 33.4 L 02/22/20 23:00: Vancomycin Trough 16.1 H Medical History: Reports:: Anxiety, Chronic Obstructive Pulmonary Disease (COPD), Gastroesophageal Reflux Disease(GERD), Hyperlipidemia Denies:: Diabetes Mellitus Type 1, Diabetes Mellitus Type 2 Assessment and Plan (1) Acute exacerbation of chronic obstructive airways disease Current visit: No Status: Acute Category: Medical Code(s): J44.1 - Chronic obstructive pulmonary disease with (acute) exacerbation (2) Respiratory failure Problem details: Patient came in with acute respiratory failure with chest x-ray showing bilateral lower lobe worsening opacities. Also concern for aspiration. However after reviewing the patient's prior CT scans there is definitely a component of interstitial lung disease contributing to her respiratory failure and this needs to be further worked up. Chest x-ray from [address] abdomen in 2014 showed normal lower lung dooley without any evidence of interstitial lung disease. Patient is a chronic smoker not more than 30 packs a day currently smoking, denies any significant changes in her life, any significant exposure, any change in smoking habit since 2014. X-ray from May 2019 showed bilateral lower lobe infiltrates however no CT was available to evaluate for interstitial process. Chest x-ray from October 2019 showed significant interstitial opacities in the bilateral lower lobe and subsequent CTs also showed interstitial lung disease. Upon chart review and further questioning patient denies any acute respiratory illness or any hospital admissions noted around October 2019. Patient also had a recent PE on CTA from December 2019 and on anticoagulation and the venous Doppler was performed
--- NOTE | 2020-02-23 09:37 | PC.NURSE ---
PT RESTING IN THE BED WITH BIPAP ON AT THIS TIME. PT WAS ABLE TO TOLERATE 4 L NC FOR ABOUT 20 MIN THIS MORNING. WITHIN THAT TIME PT DID NOT WANT TO EAT BREAKFAST BUT DID DRINK 240 ML'S OF A STRAWBERRY ENSURE WITH 2 ICE CREAMS. PT TOOK ALL OF HER MEDICATIONS W/O ANY ISSUES WITH 120 ML'S OF WATER. AFTER 20 MIN ON NC O2 SATURATION DROPPED TO 79. PT WAS ENCOURAGED TO TAKE DEEP BREATHS AND SHE WAS ABLE TO GET SATURATION BACK TO 83% AND ASKED IF SHE COULD PUT THE BIPAP BACK ON SO SHE COULD REST. PT IS AGREEABLE TO GET OOB UP TO CHAIR THIS SHIFT. DURING ROUNDS PHYSICIAN GAVE A VERBAL ORDER TO KVO IV. WILL CONTINUE TO MONITOR.
--- NOTE | 2020-02-23 10:06 | SW/DCPLANNER ---
Addendum entered by Cira Esteban 02/23/20 10:22: Alcira with Hospice has been here to evaluate this patient and stated they will continue to follow this patient at this time. Original Note: Patient currently resides at [facility]. I have spoke with Radha this morning: she has stated patient is [facility] level of care and currently under Hospice services. Alcira with Hospice has stated that she will be at [facility] this morning to evaluate patient and speak with us.
--- NOTE | 2020-02-23 15:14 | PC.NURSE ---
PT IS RESTING IN BED. TOLERATED SITTING UP IN THE CHAIR FOR SEVERAL HOURS THIS SHIFT. PT WAS A 1 ASSIST TO GET OOB TO CHAIR. PT TOLERATED VAPOTHERM WELL WHILE SITTING IN THE CHAIR. WHEN GETTING PT BACK TO BED SHE STARTED TO COUGH AND O2 SATURATION DROPPED TO THE 70'S. PT STATED SHE DID NOT WANT TO GO BACK ON THE BIPAP RIGHT NOW. RT WAS CALLED AND THEY TURNED VAPOTHERM UP TO 40 LPM WITH 60 FIO2. O2 SATURATION WENT TO 92% THEN VAPOTHERM STARTED TO MALFUNCTION. PT WAS SWITCHED BACK OVER TO BIPAP AND SHE STATED SHE WAS COMFORTABLE FOR NOW. O2 SATURATION 97%. RT IS GOING TO SET UP ANOTHER VAPOTHERM FOR PT.
--- NOTE | 2020-02-23 15:32 | PC.NURSE ---
RT had to place pt back on Bipap / and 40%
--- NOTE | 2020-02-23 16:28 | HMH.PULMCON ---
*Admission Date: 02/22/20 *Reason for consult:: Hypoxic respiratory failure *History of present illness: Ms. Epps is a 59-year-old female halfway resident with a history of left pulmonary embolism diagnosed in December 2019 and diastolic heart failure presented to the hospital with acute worsening respiratory failure. Presentation the ED patient was found to be hypoxic and shock, started on broad-spectrum antibiotics, given normal saline fluid bolus and was also started on BiPAP significantly improved her respiratory status. She was a previous smoker with more than [id number] smoking history. Denies any family of lung diseases or lung cancer. No significant occupational exposure. Patient previously denied any dry eyes dry mouth skin rash or joint pains. Denied any family history of autoimmune diseases. [facility] History Medical History: Reports:: Anxiety, Chronic Obstructive Pulmonary Disease (COPD), Gastroesophageal Reflux Disease(GERD), Hyperlipidemia Denies:: Diabetes Mellitus Type 1, Diabetes Mellitus Type 2 *Have you ever received a pneumonia vaccine?: Yes *Have you received a flu vaccine this season?: Yes Other Medical History: Reports: Anemia Other Surgeries: Yes: Hysterectomy-Total, Other Amputation: No Fractures: No - *Social History Smoking Status: Current every day smoker Tobacco Type: cigarettes # Packs/Day (cigarettes): 1 Alcohol Intake: never Alcohol Intake Frequency:: other Substance Use Type: denies use *Occupational Status:: disabled Housing: assisted living facility Household Members: other *Travel in the last 8 weeks: None - Psychiatric History Pschychiatric History:: Reports:: Anxiety, Schizophrenia Family Hx:: Unable to obtain DIRECTOR OF COLLECTIONS history: No DIRECTOR OF COLLECTIONS history [facility] Pulmonology ROS - Review of Systems Review of systems:: pertinent systems reviewed and negative unless documented below - *Neurologic Reports tingling, Reports weakness, Denies headache(s), Denies numbness, Denies fainting Meds Home Medications Medication Instructions Recorded Confirmed Type ferrous sulfate 325 mg (65 mg 325 mg PO DAILY tab 08/02/17 02/21/20 History iron) tablet haloperidol 10 mg tablet 5 mg PO TID 08/02/17 02/21/20 History venlafaxine 150 mg 150 mg PO DAILY 08/02/17 02/21/20 History capsule,extended release 24 hr Pantoprazole Sodium [Protonix 40mg 40 mg PO DAILY 05/31/19 02/21/20 History tablet] Cholecalciferol (Vitamin D3) 1,000 unit PO DAILY 01/09/20 02/21/20 History [Vitamin D3 1,000 Unit Cap] Ziprasidone HCl 60 mg PO BID 01/09/20 02/21/20 History levetiracetam 500 mg tablet 500 mg PO BID #60 tab 01/20/20 02/21/20 Rx atorvastatin 40 mg tablet 40 mg PO HS 01/22/20 02/21/20 History Acetaminophen [Tylenol 500mg 500 mg PO Q4HP PRN 01/31/20 02/21/20 History tablet] Apixaban [Eliquis 5mg tab] 5 mg PO BID 01/31/20 02/21/20 History lactulose 20 gram/30 mL oral 20 g PO DAILY PRN ml 02/04/20 02/21/20 History solution clonazepam 0.5 mg tablet 0.5 mg PO BID #60 tab 02/10/20 02/21/20 Rx Fluticasone/Salmeterol [Advair 1 inh IH BID 02/20/20 02/21/20 History 250/50mcg Diskus] Ipratropium/Albuterol Sulfate 3 ml IH Q6H 02/20/20 02/21/20 History [Duoneb 3mL neb] Umeclidinium [place] [Incruse 62.5 mcg IH DAILY 02/20/20 02/21/20 History Ellipta] Clindamycin Phosphate [Clindamycin 900 mg IV Q8H 02/21/20 02/21/20 History 900mg adv] Ipratropium/Albuterol Sulfate 3 ml IH Q4HP PRN 02/21/20 02/21/20 History [Duoneb 3mL neb] Morphine Sulfate [Morphine Sulfate 5 mg PO Q4HP PRN 02/21/20 02/21/20 History 20mg/5ml Oral Soln] predniSONE [Deltasone 20mg 20 mg PO BID 02/21/20 02/21/20 History tablet] Allergies Allergy/AdvReac Type Severity Reaction Status Date / Time No Known Allergies Allergy Verified 09/14/18 21:14 Exam Vital signs and Labs for Last 24 Hours: Temp Pulse Resp BP Pulse Ox 98.2 F 105 H 20 147/95 H 95 02/23/20 14:00 02/23/20
--- NOTE | 2020-02-23 17:53 | PC.NURSE ---
STATED IT WAS OKAY FOR PT TO TRANSFER OUT OF STEP DOWN.
--- NOTE | 2020-02-23 18:25 | HMH.ACPN2 ---
Internal Medicine - PN: Subj *Date: 02/23/20 *Time: 18:29 Interval history: Patient is off of the BiPAP this morning, on nasal cannula. She is in no distress. Her chest x-ray is reviewed, shows some diffuse infiltrative changes superimposed on chronic COPD changes. She has a propensity for volume overload. Pulmonary notes are reviewed. [facility] are underway [facility] the [facility]. She is currently a [facility] patient. Exam Vital signs and Labs for Last 24 Hours: Temp Pulse Resp BP Pulse Ox 98.6 F 88 20 113/67 96 02/23/20 18:00 02/23/20 18:00 02/23/20 18:00 02/23/20 18:00 02/23/20 18:00 Laboratory Results - last 24 hr 02/22/20 10:34: Crossmatch (AHG) See Detail 02/22/20 18:54: Hgb 11.1 L D, Hct 33.4 L 02/22/20 23:00: Vancomycin Trough 16.1 H I & O for Last 24 hours: Intake & Output 02/20/20 02/21/20 02/22/20 02/23/20 23:59 23:59 23:59 23:59 Intake Total 633 / 633 3763 / 3883 2923 / 2923 Output Total 500 / 500 1650 / 1650 3400 / 3400 Balance 133 / 133 2113 / 2233 -477 / -477 Weight 152 lb 6 oz 161 lb 7 oz 161 lb 5 oz Microbiology Reports for the Last 24 Hours: Microbiology 02/21/20 10:35 Blood Blood Culture - Preliminary NO GROWTH AFTER 48 HOURS 02/21/20 10:35 Blood Blood Culture - Preliminary NO GROWTH AFTER 48 HOURS 02/22/20 08:00 Sputum - Expectorated Sputum Gram Stain - Final 02/22/20 08:00 Sputum - Expectorated Sputum Sputum Culture - Preliminary - Constitutional no acute distress, chronically ill appearing - *Routine HEENT Exam Head: Present: normocephalic, atraumatic Eye: Absent: conjunctival icterus ENT: Present: mucous membranes moist - *Routine Neck Exam Present: supple. Absent: lymphadenopathy - *Routine Respiratory Exam Present: decreased breath sounds, crackles, diminished air movement. Absent: accessory muscle use - *Routine Cardiovascular Exam Present: RRR - *Routine Abdominal Exam Present: soft, normoactive bowel sounds. Absent: tenderness - *Routine Extremities Exam Present: edema. Absent: cyanosis, clubbing - *Routine Skin Exam Present: warm. Absent: rash - *Routine Neurological Exam Present: alert, oriented X3, vision grossly intact, hearing grossly intact. Absent: facial asymmetry Assessment and Plan (1) Acute exacerbation of chronic obstructive airways disease Current visit: No Status: Acute Category: Medical Code(s): J44.1 - Chronic obstructive pulmonary disease with (acute) exacerbation (2) Respiratory failure Problem details: Patient came in with acute respiratory failure with chest x-ray showing bilateral lower lobe worsening opacities. Also concern for aspiration. However after reviewing the patient's prior CT scans there is definitely a component of interstitial lung disease contributing to her respiratory failure and this needs to be further worked up. Chest x-ray from [address] abdomen in 2014 showed normal lower lung dooley without any evidence of interstitial lung disease. Patient is a chronic smoker not more than 30 packs a day currently smoking, denies any significant changes in her life, any significant exposure, any change in smoking habit since 2014. X-ray from May 2019 showed bilateral lower lobe infiltrates however no CT was available to evaluate for interstitial process. Chest x-ray from October 2019 showed significant interstitial opacities in the bilateral lower lobe and subsequent CTs also showed interstitial lung disease. Upon chart review and further questioning patient denies any acute respiratory illness or any hospital admissions noted around October 2019. Patient also had a recent PE on CTA from December 2019 and on anticoagulation and the venous Doppler was performed again on this admission which was negative for DVT. Echo from previous admission on December 2019 showed normal LV systolic function cannot evaluate
--- NOTE | 2020-02-23 19:22 | PC.NURSE ---
report given to nasir
[2020-02-24] VITALS (8 sets, daily range): BP systolic 106–143; BP diastolic 78–90; PULSE 74–104; RESP 20–26; TEMP 36.6–36.9; O2SAT 90–95; BMI 26.6
--- NOTE | 2020-02-24 06:43 | PC.NURSE ---
Pt rested well this shift. Pt continues to desat to low 80's after coughing spells and does take awhile to recover. Attempted IS but pt unable to comprehend. Vapotherm set at 40lpm and 60fio2 w/ sats in mid 90's. [place] patent and draining clear, yellow urine. No complaints reported to staff. Repositioned and oral care provided w/ pt assistance. PO intake encouraged often.
[2020-02-24 08:23] LABS: Basophils % 0.2 % (0.1-2.0); Chloride 102 mmol/L (98-107); Eosinophils # 0.3 K/mm3 (0.0-0.4); Eosinophils % 1.8 % (0.1-12.0); Hematocrit 35.5 % (37.0-47.0); Lymphocytes # 1.8 K/mm3 (0.7-4.5); Lymphocytes % 12.5 % (10-50); Mean Corpuscular HGB Conc 33.7 g/dL (31.8-35.4); Mean Corpuscular Volume 92.1 fl (81-99); Monocytes # 0.9 K/mm3 (0.1-1.0); Monocytes % 5.9 % (1.7-9.3); Neutrophils # 11.5 K/mm3 (1.8-7.8); Neutrophils % 79.6 % (37.0-80.0); Platelet Count 128 K/mm3 (142-424); Red Blood Count 3.86 M/mm3 (4.20-5.40); Red Cell Distribution Width 18.3 % (11.5-17.5); Sodium 137 mmol/L (136-145); White Blood Count 14.5 K/mm3 (4.8-10.8)
[2020-02-24 08:26] LABS: Blood Urea Nitrogen 15 mg/dl (7-17); Creatinine Clearance Estimated 80 mL/min (50-200); Estimated Glomerular Filt Rate 74 ml/min (>60); GFR (African American) 89 ML/MIN (>60)
--- NOTE | 2020-02-24 08:26 | HMH.ACPN ---
Internal Medicine - PN: Subj *Date: 02/24/20 *Time: 08:26 Exam Vital signs and Labs for Last 24 Hours: Temp Pulse Resp BP Pulse Ox 98.2 F 80 22 126/90 95 02/24/20 04:00 02/24/20 06:02 02/24/20 04:00 02/24/20 04:00 02/24/20 06:02 Laboratory Results - last 24 hr 02/22/20 10:34: Crossmatch (AHG) See Detail 02/24/20 08:05: WBC 14.5 H, RBC 3.86 L D, Hgb 12.0 L, Hct 35.5 L, MCV 92.1, MCH 31.0, MCHC 33.7, RDW 18.3 H, Plt Count 128 L, MPV 8.0, Neut % (Auto) 79.6, Lymph % (Auto) 12.5, [place] % (Auto) 5.9, Eos % (Auto) 1.8, Baso % (Auto) 0.2, Neut # (Auto) 11.5 H, Lymph # (Auto) 1.8, [place] # (Auto) 0.9, Eos # (Auto) 0.3, Baso # (Auto) 0.0 I & O for Last 24 hours: Intake & Output 02/21/20 02/22/20 02/23/20 02/24/20 23:59 23:59 23:59 23:59 Intake Total 633 / 633 3763 / 3883 2923 / 2923 450 / 450 Output Total 500 / 500 1650 / 1650 7200 / 7200 1100 / 1100 Balance 133 / 133 2113 / 2233 -4277 / -4277 -650 / -650 Weight 69.116 kg 73.227 kg 73.17 kg 65.572 kg Microbiology Reports for the Last 24 Hours: Microbiology 02/22/20 08:00 Sputum - Expectorated Sputum Gram Stain - Final 02/22/20 08:00 Sputum - Expectorated Sputum Sputum Culture - Preliminary 02/21/20 10:35 Blood Blood Culture - Preliminary NO GROWTH AFTER 48 HOURS 02/21/20 10:35 Blood Blood Culture - Preliminary NO GROWTH AFTER 48 HOURS Assessment and Plan (1) Acute exacerbation of chronic obstructive airways disease Current visit: No Status: Acute Category: Medical Code(s): J44.1 - Chronic obstructive pulmonary disease with (acute) exacerbation (2) Respiratory failure Problem details: Patient came in with acute respiratory failure with chest x-ray showing bilateral lower lobe worsening opacities. Also concern for aspiration. However after reviewing the patient's prior CT scans there is definitely a component of interstitial lung disease contributing to her respiratory failure and this needs to be further worked up. Chest x-ray from [address] abdomen in 2014 showed normal lower lung dooley without any evidence of interstitial lung disease. Patient is a chronic smoker not more than 30 packs a day currently smoking, denies any significant changes in her life, any significant exposure, any change in smoking habit since 2014. X-ray from May 2019 showed bilateral lower lobe infiltrates however no CT was available to evaluate for interstitial process. Chest x-ray from October 2019 showed significant interstitial opacities in the bilateral lower lobe and subsequent CTs also showed interstitial lung disease. Upon chart review and further questioning patient denies any acute respiratory illness or any hospital admissions noted around October 2019. Patient also had a recent PE on CTA from December 2019 and on anticoagulation and the venous Doppler was performed again on this admission which was negative for DVT. Echo from previous admission on December 2019 showed normal LV systolic function cannot evaluate the diastolic function. Severe TR along with increased RV size and RVSP of 72 mm Hg was noted at the time. X-ray showed gradual improvement in her infiltrates since admission. Plan: -Continue antibiotic coverage with Zosyn for 7 days to treat for hospital-acquired pneumonia -Change Solu-Medrol to prednisone 40 mg oral daily for a total of 5 days -Basic autoimmune work-up for possible interstitial lung disease including TUNDE, ANCA, SSA, SSB, RF and CCP (ordered) -awaiting results -Follow-up with speech and swallow recommendations to avoid any further aspiration events -Optimize volume status with strict ins and outs documentation -consider giving 40 mg IV Lasix today to optimize volume status -Continue albuterol and ipratropium nebulizations every 4 hours scheduled and also as needed for shortness of breath and wheezing -We will continue to monitor her clinical imrovement on this hospital admission -allyssa
[2020-02-24 08:27] LABS: Anion Gap 7.9 mEq/L (5-15); Carbon Dioxide 30 mmol/L (22.0-30.0); Glucose 90 mg/dl (74-100)
[2020-02-24 08:31] LABS: Potassium 2.9 mmoL/L (3.5-5.1)
--- NOTE | 2020-02-24 10:04 | HMH.DCSUM ---
General - General Admission date:: 02/21/20 Discharge date: 02/24/20 HPI HPI: this wf from ec with known resp illness -pt has copd and insterstial dis - t presents today with SOA and low o2 sats. group home reports sats were in the 50's/ EMS placed pt on bougie mask and increased sats to 80's. Pt A&O times three when she arrives, pale in color and cyanosis 59-year-old female presenting to the emergency department with EMS and chief complaint of hypoxia and shortness of breath. EMS was called to her snf earlier today because staff found her to be fatigued looking and oxygen saturation was less than 70%. Patient has a recent history of bilateral pulmonary emboli. Is taking anticoagulants. She answers some yes and no questions on arrival. Says she feels tired. Denies recent illness, fevers, chills, nausea, vomiting, cough. No current chest pain, abdominal pain, headache, confusion. 59-year-old female with history of pulmonary emboli presenting to the emergency department hypoxia. Patient critically ill on arrival. Initial oxygen saturation 75% with EMS on CPAP. Tachycardic to 125. Taken emergently to a critical resuscitation room. Placed on glass blowing lathe operator. IV access established. Patient immediately placed on BiPAP. She had rapid improvement in oxygen saturation. purusion remarkably improved. Concern for new clot burden, pneumonia. Will obtain CBC, CMP, blood cultures, chest x-ray, EKG, troponin profile, lipase, lactate, BNP. Laboratory results remarkable for elevated white count at 34. Elevated lactate at 6. Patient meets criteria for septic shock. She is receiving 30 cc/kg IV fluid bolus. Given vancomycin and cefepime for antibiotic coverage. Chest CT shows possible multifocal pneumonia. Other laboratory results are generally unremarkable. No renal failure. Reassessment shows improvement in perfusion and brisk capillary refill. Patient remained clinically stable on BiPAP. Dr. Wright consulted for admission. pt admitted with resp treatment at this time Hospital Course Hospital Course: 59-year-old female patient to the emergency room per EMS for complaints of hypoxia and shortness of breath. EMS had been called earlier during the day due to staff reporting patient's oxygen saturation was less than 70%. She does have a history of bilateral pulmonary emboli and is currently taking anticoagulants. On arrival in the ER she appeared critically ill she did have oxygen saturation of 75%, heart rate was 125. White blood count was 34, lactate was 6 she did receive 30 cc/kilogram IV fluid bolus was given vancomycin and cefepime chest CT showed possible multifocal pneumonia. She did remain clinically stable on BiPAP Pulmonology has seen and recommended diuresing patient, patient received IV Lasix last night, staff reports patient diuresed diuresed large amount of fluids during the night. Patient reports feeling better this morning with less shortness of breath and chest heaviness. Patient's potassium today was 2.9 she did receive potassium replacement and will be sent home on oral potassium. BUN is 15 creatinine is 0.80, white blood cell count is 14.5, and H/H is 12.0 and 35.5. During her stay patient has been on supplemental oxygen has been satting greater than 95% on Vapotherm and she will be discharged back to the snf on BiPAP. Blood Cultures, Sputum Culture NEGATIVE Chest CT 02/21/2020: FINDINGS: No central pulmonary embolus is evident. The peripheral pulmonary arteries are not well delineated due to motion artifact and bolus timing.. Small subsegmental emboli cannot be excluded based on this exam. The previously noted segmental and subsegmental emboli within the right upper lobe pulmonary artery is no longer apparent. No evidence of aortic aneurysm or dissection. There is thickening of the gastroesophageal junction. This is nonspecific and may only be due to nondistention. Neoplasm
--- NOTE | 2020-02-24 10:25 | SW/DCPLANNER ---
Addendum entered by Jerri Pink 02/24/20 10:52: FAXED DISCHARGE SUMMARY TO HOSPICE PER HER NURSE'S REQUEST...(REGLA GALLO)... Original Note: PATIENT IS DISCHARGING BACK TO [facility] UNDER HOSPICE..... WILL FAX DISCHARGE SUMMARY ONCE HER COVID19 COMES BACK TO VERYIFY SHE IS NEGATIVE...
--- NOTE | 2020-02-24 11:23 | PC.NURSE ---
per dr. baeza attempt tp put pt on nasal cannula, keep pt o2 88% or above.
--- NOTE | 2020-02-24 13:45 | PC.NURSE ---
pt has mantained an o2 level of 88% or greater on 5L nc report called to Elvin KWONG at [place]
[2020-02-25 14:11] LABS: Sjogren's Anti-SS-A <0.2 AI (0.0-0.9)
[2020-02-25 16:12] LABS: Cytoplasmic (C-ANCA) <1:20 titer (Neg:<1:20)
[2020-02-25 16:35] LABS: Perinuclear (P-ANCA) <1:20 titer (Neg:<1:20)
[2020-02-25 16:36] LABS: Sjogren's Anti-SS-B <0.2 AI (0.0-0.9)
[2020-03-04 09:49] LABS: Antinuclear Antibodies (ANA) Negative
== END 2020-02-24 14:10 | disposition hospice, inpatient (51) | DRG 189 ==
LOC: ER 12:41 → 2ND 13:36
PROVIDERS: Internal Medicine Pulmonary Disease; Admitting Provider Emergency Medicine; Emergency Provider Emergency Medicine; PCP Emergency Medicine; Visit Provider Emergency Medicine
DX: J96.21 Acute and chronic respiratory failure with hypoxia (principal); R65.20 Severe sepsis without septic shock; I50.30 Unspecified diastolic (congestive) heart failure; J84.9 Interstitial pulmonary disease, unspecified; Z72.0 Tobacco use; Z79.01 Long term (current) use of anticoagulants; F20.9 Schizophrenia, unspecified; Z86.711 Personal history of pulmonary embolism; Z79.899 Other long term (current) drug therapy; Z79.52 Long term (current) use of systemic steroids
CPT/HCPCS: 94660; 70450; 71045; 71275; 72125; 72170; 80048; 80053; 80202; 81001; 82803; 83605; 83880; 84484; 85007; 85014; 85018; 85025; 85378; 85651; 86038; 86140; 86235; 86256; 86328; 86850; 87040; 87070; 87205; 93005; 94640; 96365; 96366; 96367; 96375; 99285; J2543; J3370; P9016; Q9967; U0003

== ENCOUNTER → 2020-03-30 07:55 | Outpatient (CLI) | payer OTHER, SELFPAY ==
--- NOTE | 2020-03-30 07:55 | CT_ITS ---
PROCEDURE: CT CHEST WO CON CLINICAL INDICATION: ILD Copd, ild COMPARISON: CT CT CHEST WO CON from 11/09/[address] ANGIO CHEST from 01/09/[address] ANGIO CHEST from 02/21/2020 TECHNIQUE: Axial images obtained with sagittal and coronal reformats. All CT scans at the facility use one or more dose reduction, viz: automated exposure control, ma/kV adjustment per patient size (including targeted exams where dose is matched to indication, i.e. head), or iterative reconstruction technique. High-resolution inspiration expiration and prone images are also obtained. FINDINGS: No mediastinal or hilar adenopathy or mass is evident. There is a left subclavian central venous line with tip in the region the SVC. There is a small hiatal hernia. There is diffuse interlobular septal thickening with superimposed diffuse ground-glass attenuation with resultant crazy paving pattern. Pulmonary fibrosis is present in the lung bases. The findings are overall not significantly changed. Honeycombing is noted in the lower lobes. These findings do not significantly change with inspiration or expiration suggesting no evidence of air trapping. There is some coalescence of airspace disease. A 9 mm opacity is present in the right upper lobe posteriorly which is less apparent on the prone images consistent with atelectatic change. IMPRESSION: Overall no change in the diffuse interstitial lung disease with pulmonary fibrosis. There is diffuse ground-glass attenuation/crazy paving pattern which may be seen with interstitial lung disease. Differential diagnosis would include superimposed atypical pneumonia, viral pneumonia/Covid 19 pneumonia. Dictated by: Ildefonso Durand MD 04/01/2020 12:03 Ildefonso Durand MD in [place] 04/01/2020 12:03
[2020-03-30 09:15] VITALS: PULSE 73; PULSE 78
[2020-03-30 13:32] LABS: Creatine Kinase 33 U/L (30-135)
[2020-03-31 15:09] LABS: Antiscleroderma-70 Antibodies <0.2 AI (0.0-0.9); IgG, Subclass 1 349 mg/dL (248-810); IgG, Subclass 2 116 mg/dL (130-555); IgG, Subclass 3 55 mg/dL (15-102); IgG, Subclass 4 21 mg/dL (2-96); Immunoglobulin G, Qn 614 mg/dL (586-1602); Smith/RNP Antibodies <0.2 AI (0.0-0.9)
[2020-04-01 09:34] LABS: Anti-Centromere B Antibodies <0.2 AI (0.0-0.9); Anti-DNA (DS) Ab Qn <1 IU/mL (0-9)
[2020-04-01 09:35] LABS: Aldolase 9.3 U/L (3.3-10.3)
== END ==
PROVIDERS: PCP Emergency Medicine; Visit Provider Internal Medicine Pulmonary Disease
DX: J84.9 Interstitial pulmonary disease, unspecified (principal)
CPT/HCPCS: 36415; 71250; 82085; 82550; 82784; 82787; 86225; 86235; 94060; 94640; 94727; 94729

== ENCOUNTER → 2020-04-05 09:02 | Outpatient (CLI) | payer OTHER, SELFPAY ==
--- NOTE | 2020-04-05 09:04 | CA_ITS ---
APPROVED REPORT EXAM: Comprehensive 2D, Doppler, and color-flow Echocardiogram [place] Machine Operator: Cindy Vila CRT Ht: 5 ft 2 in Wt: 140lbs BSA: 1.64 BP: 122/71 mmHg Indications: Congestive Heart Failure, COPD, anxiety, ex smoker, pul htn M-Mode Dimensions RVDd 2.41 cm (0.9-2.6) LVDd 3.37 cm (3.5-5.7) LVDs 2.18 cm (3.5-5.7) IVSd 1.10 cm (0.6-1.1) PWd 0.78 cm (0.6-1.1) EF (Teich) 65.90% FS 35.30% EDV (Teich) 46.40 mL ESV (Teich) 15.80 mL LV Diastology E/A Ratio 0.72 Mitral Valve MV A Velocity 81.00 (40-130 cm/s) Left Ventricle Left atrium is mildly enlarged, left ventricle is normal size, mild concentric left ventricular hypertrophy, visually estimated ejection fraction 55% with no regional wall motion abnormality, grade 1 diastolic dysfunction seen without tissue Doppler evidence of raise left atrial pressure. Right Ventricle Right atrium and right ventricle are mildly enlarged with normal contractility. Aortic Valve Aortic valve is minimally thickened and fibrosed, there is no aortic stenosis or aortic insufficiency. Mitral Valve Mitral valve is grossly normal, there is mild mitral regurgitation. Tricuspid Valve Tricuspid valve is grossly normal, there is mild tricuspid regurgitation, calculated right ventricular systolic pressure is 42 mmHg. Pulmonic Valve Pulmonic valve is poorly visualized. Great Vessels Aortic root is normal size. Pericardium No significant pericardial effusion noted. Conclusion 1. Mild mitral enlargement, normal left ventricular size, mild concentric left ventricular hypertrophy, visually estimated ejection fraction 55% with no regional wall motion abnormality, grade 1 diastolic dysfunction seen without tissue Doppler evidence of raise left atrial pressure. 2. Mildly enlarged right ventricle with normal contractility. 3. Mild mitral and tricuspid regurgitation. Calculated right ventricular systolic pressure is 42 mmHg 4. No significant pericardial effusion noted. Electronically signed by : Patriico Fields, 04/05/2020 21:03:22
== END ==
PROVIDERS: PCP Emergency Medicine; Visit Provider Internal Medicine Pulmonary Disease
DX: R06.00 Dyspnea, unspecified (principal)
CPT/HCPCS: 93306

== ENCOUNTER → 2020-04-19 06:54 | Outpatient (CLI) | payer MEDICAID, SELFPAY ==
--- NOTE | 2020-04-19 07:01 | CA_ITS ---
APPROVED REPORT Exam: Pharmacologic Technologist: Dee Dee Kirby, Ht: 5 ft 2 in Wt: 142 lbs BSA: 1.65 m2 HR: 67 bpm BP: 139/90 mmHg Rhythm: SINUS RHYTHM Indications: Shortness of Air Medical History Medical History: Hyperlipidemia Medications: Furosemide (LASIX),,,,, Metoprolol,,,,, Vitamin D3,,,,, Atorvastatin,,,,, Duoneb,,,,, ClonAZEPAM,,,,, Tylenol,,,,, ADVAIR,,,,, Lactulose,,,,, Apixaban,,,,, ONdansetron,,,,, SeNnosides,,,,, Cardiac Risk Factors: Hyperlipidemia, Smoking Stress Test Details Test: LEXISCAN HR Resting HR: 75 bpm Max Heart Rate (APMHR): 163 bpm Max HR Achieved: 117 bpm Target HR (85% APMHR): 138 bpm % of APMHR: 71 Recovery HR: 100 bpm BP Resting BP: 139.0/90.0 mmHg Max BP: 139.0/90.0 mmHg Recovery BP: 123.0/77.0 mmHg ECG Resting ECG: SINUS RHYTHM Clinical Exercise duration: 04:02 min Highest Stage Achieved: Stress ECG Conclusion LEXISCAN PORTION COMPLETED. PATIENT C/P SOA DURING PEAK INFUSION. NO CHEST PAIN. SOA DURING PEAK INFUSION. RESOLVED IN RECOVERY. NO ECTOPY NOTED. LESS THAN 1.5MM ST DEPRESSION. IMAGES TO FOLLOW Electronically signed by : Patricio Fields, 04/19/2020 19:23:35
--- NOTE | 2020-04-19 07:01 | NM_ITS ---
APPROVED REPORT Exam: Nuclear Stress Test Indication: Chest pain, SOB, Palpitations, High cholesterol, Tobacco use, CHF Patient Location: Outpatient Stress Tech: Dee Dee Kirby NM Tech:Zuly Murray, ARRT, RT (R)(N) Ht: 5 ft 2 in Wt: 142 lbs Bra Size: C HR: 67 bpm BP: 139/90 mmHg BSA: 1.65 m2 BMI: 25.9 History: Chest pain, SOB, Palpitations, High cholesterol, Tobacco use, CHF Procedure: Patient received a 0.4 mg of intravenous Lexiscan, resting heart rate 67 bpm, resting blood pressure 139/90 mmHg, with Lexiscan maximum heart rate achived was 114 bpm which is Less than 85 % of the maximum predicted heart rate and blood pressure was 119/76 mmHg. With Lexiscan, patient denied any complaint of chest pain. Electrocardiogram Resting electrocardiogram showed sinus rhythm, with Lexiscan there is less than 1.[address] segment depression noted from the baseline EKG. The EKG portion of the Lexiscan is nondiagnostic. Cardiac Stress and Resting SPECT Images: Cardiac Stress and Resting SPECT images were obtained using technetium 99m Myoview 30.2 mCi stress and 10.96 mCi at rest. Gated SPECT for analysis of segmental wall motion and calculation of the ejection fraction also done. Cardiac stress and resting SPECT images show uniform myocardial activity without segmental perfusion abnormality, computer derived ejection fraction is 65% with no regional wall motion abnormality, right ventricle is normal size and contractility. Conclusion: 1. The EKG portion of the Lexiscan Myoview is nondiagnostic. 2. No scintigraphic evidence of reversible ischemia seen, computer derived ejection fraction 65% with no regional wall motion abnormality, right ventricle is normal size and contractility. 3. Normal Lexiscan Myoview study. Electronically signed by : Patricio Fields, 04/19/2020 19:34:40
--- NOTE | 2020-04-19 09:56 | HMH.ITSHM ---
Current Home Medications as stated by this patient Starr Epps or entry level sales representative. []VENLAFAXINE SENNOSIDES PREDNISONE ONDANSETRON APIXABEN TYLENOL METOPROLOL LEVETIRACETAM VITMAIN D3 LACTULOSE HALOPERIDOL FUROSEMIDE IRON DOCUSATE CLONAZEPAM ATORVASTATIN ZIPRASIDONE INCRUSE POTASSIUM PROTONIX MORPHINE DUONEB ADVAIR
== END ==
PROVIDERS: PCP Emergency Medicine; Visit Provider Nurse Practitioner Family
DX: R07.9 Chest pain, unspecified (principal); R06.00 Dyspnea, unspecified; R00.0 Tachycardia, unspecified; R00.2 Palpitations; I27.20 Pulmonary hypertension, unspecified; Z86.711 Personal history of pulmonary embolism
CPT/HCPCS: 78452; 93017; A9502; J2785

== ENCOUNTER → 2020-04-29 10:34 | Outpatient (CLI) | payer MEDICAID, SELFPAY ==
[2020-04-29 11:57] LABS: C-Reactive Protein 7.5 mg/L (0-4)
== END ==
PROVIDERS: Visit Provider Internal Medicine Pulmonary Disease
DX: R06.00 Dyspnea, unspecified (principal)
CPT/HCPCS: 36415; 86140

== ENCOUNTER 2020-07-10 12:26 | Inpatient (IN) | payer MEDICAID, SELFPAY ==
[2020-07-10] VITALS (10 sets, daily range): BP systolic 101–139; BP diastolic 71–95; PULSE 92–118; RESP 16–21; TEMP 37.1–37.3; O2SAT 90–98; BMI 31.8; BMI 27.6
--- NOTE | 2020-07-10 12:27 | XR_ITS ---
PROCEDURE: XR HIP RT 2-3V W/PELVIS CLINICAL INDICATION: fall, hip pain Pain COMPARISON: CR XR PELVIS 1-2V from 02/20/2020 FINDINGS: There is a minimally displaced fracture involving the medial aspect of right superior pubic ramus. Suspect nondisplaced fracture of the medial aspect of the right inferior pubic ramus. No femoral neck fracture apparent. Minimal osteoarthritic changes are present at the hips. Surgical clips are present in the lower pelvic region. IMPRESSION: Right superior pubic ramus fracture mildly displaced and possible inferior pubic ramus fracture. Dictated by: Ildefonso Durand MD 07/10/2020 13:56 Ildefonso Durand MD in [place] 07/10/2020 13:56
--- NOTE | 2020-07-10 12:28 | CT_ITS ---
PROCEDURE: CT HEAD/BRAIN WO CON CLINICAL INDICATION: fall, head injury Head injury with headache/pain, contusion, abrasion or hematoma COMPARISON: CT CT HEAD/BRAIN WO CON from 02/20/2020 TECHNIQUE: Axial images obtained. All CT scans at the facility use one or more dose reduction, viz: automated exposure control, ma/kV adjustment per patient size (including targeted exams where dose is matched to indication, i.e. head), or iterative reconstruction technique. FINDINGS: No midline shift, mass effect, intracranial hemorrhage, hydrocephalus, or extra-axial fluid collection is evident. There is generalized atrophy with hypoattenuation of the periventricular white matter consistent with microangiopathic changes. The calvarium has an unremarkable appearance. There is opacification of the right mastoid sinus and there is mucosal thickening of the ethmoid, bilateral maxillary, right frontal, and right aspect of the sphenoid sinus. No sinus air-fluid level. IMPRESSION: 1. No acute intracranial findings. 2. Paranasal sinus and right mastoid sinus disease Dictated by: Ildefonso Durand MD 07/10/2020 13:54 Ildefonso Durand MD in [place] 07/10/2020 13:54
--- NOTE | 2020-07-10 12:34 | HMH.EDGENADL ---
ED Disposition Clinical Impression: Urinary tract infection Qualifiers: Urinary tract infection type: acute cystitis Hematuria presence: without hematuria Qualified Code(s): N30.00 - Acute cystitis without hematuria Fall Qualifiers: Encounter type: initial encounter Qualified Code(s): W19.XXXA - Unspecified fall, initial encounter Fracture of pubic ramus Qualifiers: Encounter type: initial encounter Fracture type: closed Laterality: right Qualified Code(s): S32.591A - Other specified fracture of right pubis, initial encounter for closed fracture Sepsis Qualifiers: Sepsis type: sepsis due to unspecified organism Sepsis acute organ dysfunction status: without acute organ dysfunction Qualified Code(s): A41.9 - Sepsis, unspecified organism Disposition: Admitted as Observation Condition on Discharge: Fair Referrals: Bright Wright MD [Primary Care Provider] - Time of Disposition: 15:16 - Critical Care Critical Care Time: No Attestation: On , the high probability of a clinically significant, sudden or life threatening deterioration of the following system(s) required my full and direct attention, intervention and personal management. The time I documented below is in addition to time spent performing reported procedures but includes the following listed in this critical care notation. Medical Decision Making - Medical Records Medical records reviewed: Yes: I reviewed the patient's medical records. - Narayan Inquiry Pt receiving controlled substance: No Vital Signs: 07/10/20 12:27 07/10/20 13:25 07/10/20 14:00 Temperature 99.1 F Temperature Source Oral Pulse Rate [Left Radial] 118 H 115 H 107 H Respiratory Rate 18 Blood Pressure [Right Arm] 101/71 L 114/81 120/78 Blood Pressure Mean [Right Arm] 81 92 92 Blood Pressure Source [Right Arm] Automatic Cuff Automatic Cuff Automatic Cuff Blood Pressure Position [Right Arm] Sitting Sitting Sitting 02 Sat by Pulse Oximetry 90 L 94 L 97 Oxygen Delivery Method Nasal Cannula Room Air Nasal Cannula Oxygen Flow Rate (LPM) 3 3 07/10/20 14:48 Temperature Temperature Source Pulse Rate [Left Radial] 108 H Respiratory Rate Blood Pressure [Right Arm] 105/77 L Blood Pressure Mean [Right Arm] 86 Blood Pressure Source [Right Arm] Automatic Cuff Blood Pressure Position [Right Arm] Sitting 02 Sat by Pulse Oximetry 98 Oxygen Delivery Method Nasal Cannula Oxygen Flow Rate (LPM) 3 - Lab Data Lab Results 07/10/20 12:35: WBC 22.6 H*, RBC 4.73, Hgb 15.7, Hct 49.0 H, MCV 103.5 H, MCH 33.2 H, MCHC 32.1, RDW 14.7, Plt Count 297, MPV 8.5, Neut % (Auto) 91.5 H, Lymph % (Auto) 4.5 L, [place] % (Auto) 3.6, Eos % (Auto) 0.1, Baso % (Auto) 0.2, Neut # (Auto) 20.7 H, Lymph # (Auto) 1.0, [place] # (Auto) 0.8, Eos # (Auto) 0.0, Baso # (Auto) 0.1, Total Counted 100, Neutrophils % (Manual) 76, Band Neutrophils % 3.0, Lymphocytes % (Manual) 16, Monocytes % (Manual) 5, Platelet Estimate Normal, RBC Morphology Normal 07/10/20 12:35: PT 11.4, INR 1.03, APTT 20.2 L 07/10/20 12:35: Sodium 133 L, Potassium 3.8, Chloride 89 L, Carbon Dioxide 33 H, Anion Gap 14.8, BUN 24 H, Creatinine 0.90, Estimated Creat Clear 89, Estimated GFR 65, Est GFR ( Amer) 78, Glucose 445 H*, Calcium 9.9, Total Bilirubin 0.6, AST 92 H, ALT 190 H, Alkaline Phosphatase 174 H, Total Protein 7.1, Albumin 4.0, Globulin 3.1, Albumin/Globulin Ratio 1.3 07/10/20 12:35: SARS-CoV-2 IgG Ab (Rapid) Positive A, SARS-CoV-2 IgM Ab (Rapid) Negative 07/10/20 12:35: Procalcitonin 0.167 07/10/20 12:47: Lactate 5.2 H 07/10/20 13:25: VBG pH 7.43 H, VBG pCO2 38.6, VBG pO2 43.5 H, VBG HCO3 25.2, VBG Total CO2 26.3, VBG O2 Saturation 79.0 H, VBG Base Excess 0.9 07/10/20 13:35: Urine Color Yellow, Urine Appearance Clear, Urine pH 7.5, Ur Specific [place] 1.015, Urine Protein Negative, Urine Glucose (UA) 3+, Urine Ketones Negative, Urine Blood Negative, Urine Nitrate Positive, Urine Bilirubin Negative, Urine Urobilinogen 0.2, Ur Leukocyte Esterase N
[2020-07-10 12:42] LABS: Basophils # 0.1 K/mm3 (0-0.2); Basophils % 0.2 % (0.1-2.0); Eosinophils % 0.1 % (0.1-12.0); Hemoglobin 15.7 g/dL (12.2-16.2); Lymphocytes % 4.5 % (10-50); Mean Corpuscular HGB Conc 32.1 g/dL (31.8-35.4); Mean Corpuscular Hemoglobin 33.2 pg (27.0-31.2); Mean Corpuscular Volume 103.5 fl (81-99); Mean Platelet Volume 8.5 fl (7.4-10.4); Monocytes # 0.8 K/mm3 (0.1-1.0); Monocytes % 3.6 % (1.7-9.3); Neutrophils # 20.7 K/mm3 (1.8-7.8); Neutrophils % 91.5 % (37.0-80.0); Platelet Count 297 K/mm3 (142-424); Red Blood Count 4.73 M/mm3 (4.20-5.40); Red Cell Distribution Width 14.7 % (11.5-17.5); White Blood Count 22.6 K/mm3 (4.8-10.8)
--- NOTE | 2020-07-10 12:46 | XR_ITS ---
PROCEDURE: XR CHEST AP CLINICAL HISTORY: fall Posttraumatic pain COMPARISON: CR XR CHEST AP from 02/20/2020 CR XR CHEST PORTABLE from 02/21/2020 CR XR CHEST PORTABLE from 02/22/[address] CHEST WO CON from 03/30/2020 FINDINGS: The cardiomediastinal silhouette and pulmonary vascularity are within normal limits. Chronic interstitial changes present. There is increased density along the left heart border which may be related underlying consolidation and/or volume loss. No evidence Of pneumothorax. No acute bony findings IMPRESSION: Chronic changes with silhouetting out of the left heart border which may be due to underlying volume loss or infiltrate within the lingula Dictated by: Ildefonso Durand MD 07/10/2020 13:55 Ildefonso Durand MD in [place] 07/10/2020 13:55
[2020-07-10 12:47] LABS: Chloride 89 mmol/L (98-107); MANUAL DIFFERENTIAL MANUAL DIFFERENTIAL (MANUAL DIFF); Sodium 133 mmol/L (136-145)
[2020-07-10 12:48] LABS: Potassium 3.8 mmoL/L (3.5-5.1)
[2020-07-10 12:50] LABS: Alanine Aminotransferase 190 U/L (12-78); Albumin/Globulin Ratio 1.3 (1.1-1.8); Alkaline Phosphatase 174 U/L (38-126); Aspartate Amino Transferase 92 U/L (14-36); Bilirubin,Total 0.6 mg/dl (0.2-1.3); Blood Urea Nitrogen 24 mg/dl (7-17); Creatinine Clearance Estimated 89 mL/min (50-200); Estimated Glomerular Filt Rate 65 ml/min (>60); GFR (African American) 78 ML/MIN (>60); Globulin 3.1 g/dL (1.3-3.2); Total Protein,Serum 7.1 g/dl (6.3-8.2)
[2020-07-10 12:51] LABS: Calcium 9.9 mg/dl (8.4-10.2)
--- NOTE | 2020-07-10 13:00 | PC.NURSE ---
Patient going to radiology
[2020-07-10 13:02] LABS: Lymphocytes % 16 % (10-50); Monocytes % 5 % (2-9); Neutrophils % 76 % (42-76); Platelet Estimate Normal; RBC Morphology Normal; Total Cells Counted 100
[2020-07-10 13:03] LABS: Glucose 445 mg/dl (74-100)
[2020-07-10 13:12] LABS: Activated Partial Thrombo Time 20.2 seconds (23.6-34.0); INR 1.03 (0.9-1.1); Prothrombin Time 11.4 seconds (9.4-11.8)
[2020-07-10 13:13] LABS: Lactic Acid 5.2 mmol/L (0.7-2.1)
--- NOTE | 2020-07-10 13:13 | PC.NURSE ---
notified ER critical lactic acid and glucose, ER gave new verbal orders on pt
[2020-07-10 13:15] LABS: Procalcitonin 0.167 ng/mL (0.0-2.0)
[2020-07-10 13:19] LABS: Coronavirus 19 IgG Antibody Positive (Negative); Coronavirus 19 IgM Antibody Negative (Negative)
[2020-07-10 13:22] LABS: Anion Gap 14.8 mEq/L (5-15); Carbon Dioxide 33 mmol/L (22.0-30.0)
[2020-07-10 13:39] LABS: Microscopic, Urine URINE MICROSCOPIC (MICROSCOPIC)
[2020-07-10 13:41] LABS: Appearance,Urine CLEAR (Clear); Bilirubin,Urine Negative (Negative); Blood, Urine Negative (Negative); Color,Urine YELLOW (Yellow); Glucose,Urine (UA) 3+ (Negative); Ketones,Urine Negative (Negative); Leukocyte Esterase,Urine Negative (Negative); Nitrate,Urine POSITIVE (Negative); PH,Urine 7.5 (5.0-8.5); Protein,Urine Negative (Negative); Specific Gravity, Urine 1.015 (1.005-1.030); Urobilinogen,Urine 0.2 EU/dl (0.2)
[2020-07-10 13:47] LABS: Amorphous Sediment,Urine 1+ /lpf; Bacteria,Urine 4+ /lpf; WBC,Urine Occasional #/hpf (0-3)
[2020-07-10 13:48] LABS: VBG Base Excess 0.9 mmol/L (-2.4-2.3); VBG HCO3 25.2 mmol/L (23-30); VBG PCO2 38.6 mmol/L (35-51); VBG PH 7.43 mmol/L (7.31-7.41); VBG PO2 43.5 mmol/L (28-40); VBG Total CO2 26.3 mmol/L (23-27)
--- NOTE | 2020-07-10 14:05 | CT_ITS ---
PROCEDURE: CT ABDOMEN PELVIS W CON CLINICAL INDICATION: fall, pelvic fracture, elevated liver enzymes Posttraumatic pain COMPARISON: CT ABDPELW/O CT ABD PELVIS W/O CONTRAST from 09/05/2014 TECHNIQUE: IV Contrast: 75ML Isovue 370 Oral Contrast None Axial images obtained with sagittal and coronal reformats. All CT scans at the facility use one or more dose reduction, viz: automated exposure control, ma/kV adjustment per patient size (including targeted exams where dose is matched to indication, i.e. head), or iterative reconstruction technique. FINDINGS: LOWER THORAX: Interlobular septal thickening has developed in the lung bases consistent interstitial lung disease/pulmonary fibrosis ABDOMEN & PELVIS: There is diffuse heterogeneous areas of decreased attenuation within the liver consistent with fatty liver involvement. There has been a prior cholecystectomy. There is a small hiatal hernia. The spleen and adrenal glands are unremarkable. The pancreas has an unremarkable appearance. No renal or ureteral calculi evident. Dorantes catheter is present. No intestinal obstruction or free air. There is a mild amount of retained colonic feces. There is no evidence of appendicitis. There has been a prior hysterectomy. There is a nondisplaced fracture involving the right superior pubic ramus medially extending into the symphysis pubis and the medial aspect of the right inferior pubic ramus. This is best demonstrated on the coronal reformatted images series 601 image 32 through 39 IMPRESSION: Nondisplaced fracture of the right superior pubic ramus extending into the symphysis pubis and the medial aspect of the right inferior pubic ramus. Fatty liver with hiatal hernia Interlobular septal thickening of the lungs consistent with interstitial lung disease/pulmonary fibrosis Dictated by: Ildefonso Durand MD 07/10/2020 14:51 Ildefonso Durand MD in [place] 07/10/2020 14:51
--- NOTE | 2020-07-10 14:26 | PC.NURSE ---
Pt back to rad at this time.
--- NOTE | 2020-07-10 14:49 | PC.NURSE ---
Pt returned from radiology
--- NOTE | 2020-07-10 15:07 | PC.NURSE ---
Dr Verma speaking to Dr Francis who is protection specialist for Dr Wright.
--- NOTE | 2020-07-10 16:19 | PC.NURSE ---
pt covid swab can not be run for 70 minutes and then it takes 70 minutes to run it. Mary checking with house to see if pt has to wait or can come to the floor
--- NOTE | 2020-07-10 16:24 | PC.NURSE ---
Pt to remain in ED per [employer] Specialist until COVID swab is resulted. Per Lab the swab will be 70 mins before they can start running it due to another batch already running, and then 70 mins for the swab to run.
[2020-07-10 16:32] LABS: Adenovirus,PCR Not Detected (NotDetected); Bordetella Pertussis Not Detected (NotDetected); Chlamydophila Pneumoniae, PCR Not Detected (NotDetected); Coronavirus 19, PCR Not Detected (NotDetected); Coronavirus 229E Not Detected (NotDetected); Coronavirus NL63 Not Detected (NotDetected); Coronavirus OC43 Not Detected (NotDetected); Coronovirus HKU1,PCR Not Detected (NotDetected); Human Metapneumovirus Not Detected (NotDetected); Influenza A, PCR Not Detected (NotDetected); Influenza AH1, 2009 Not Detected (NotDetected); Influenza AH1, PCR Not Detected (NotDetected); Influenza AH3,PCR Not Detected (NotDetected); Influenza B, PCR Not Detected (NotDetected); Mycoplasma Pneumoniae, PCR Not Detected (NotDetected); Parainfluenza 1, PCR Not Detected (NotDetected); Parainfluenza 2, PCR Not Detected (NotDetected); Parainfluenza 3, PCR Not Detected (NotDetected); Parainfluenza 4, PCR Not Detected (NotDetected); Respiratory Syncytial Virus Not Detected (NotDetected)
[2020-07-10 16:57] LABS: Reflex Lactic Add Lactic Reflex
--- NOTE | 2020-07-10 17:18 | PC.NURSE ---
Waiting on swab results to transfer to the floor
--- NOTE | 2020-07-10 17:20 | PC.NURSE ---
Terry repeat lactic.
[2020-07-10 17:32] LABS: Lactic Acid Follow Up (RFLX 1) 3.2 mmol/L (0.7-2.1)
[2020-07-10 17:38] LABS: Rhinovirus/Enterovirus Detected (NotDetected)
--- NOTE | 2020-07-10 17:49 | PC.NURSE ---
pt sitting up in bed eating at this time.
--- NOTE | 2020-07-10 18:01 | PC.NURSE ---
Pt arrived to the floor at this time.
[2020-07-10 18:26] LABS: POC Glucose,Bedside 347 (70-110)
[2020-07-10 18:34] LABS: Reflex Lactic (2 hrs) Add Lactic Reflex
[2020-07-10 19:58] LABS: Lactic Acid Follow up (RFLX 2) 4.6 mmol/L (0.7-2.1)
--- NOTE | 2020-07-10 19:58 | PC.NURSE ---
estrella from lab called to report a lactic of 4.6
[2020-07-10 23:22] LABS: POC Glucose,Bedside 137 (70-110)
[2020-07-11] VITALS (9 sets, daily range): BP systolic 111–136; BP diastolic 76–87; PULSE 74–122; RESP 16–24; TEMP 36.8–37.2; O2SAT 91–100; BMI 27.3
--- NOTE | 2020-07-11 03:36 | PC.NURSE ---
Pt is resting in bed watching TV, BLT lung sounds are diminished throughout, Bowel sounds present in all 4 quadrants, 3L NC in place. IV infusing well NS @50mL/Hr. Pt had a bowel movement this shift. Dorantes catheter in place draining yellow/clear urine. No new orders given this shift for severe sepsis risk . Pt denies headache, SOA, N/V, or pain at this time
[2020-07-11 05:36] LABS: POC Glucose,Bedside 263 (70-110)
[2020-07-11 07:24] LABS: Basophils # 0.1 K/mm3 (0-0.2); Basophils % 0.6 % (0.1-2.0); Eosinophils # 0.1 K/mm3 (0.0-0.4); Eosinophils % 0.6 % (0.1-12.0); Hematocrit 46.7 % (37.0-47.0); Lymphocytes # 1.5 K/mm3 (0.7-4.5); Lymphocytes % 9.8 % (10-50); Mean Corpuscular HGB Conc 32.2 g/dL (31.8-35.4); Mean Corpuscular Hemoglobin 33.2 pg (27.0-31.2); Mean Corpuscular Volume 103.1 fl (81-99); Mean Platelet Volume 7.8 fl (7.4-10.4); Monocytes # 0.4 K/mm3 (0.1-1.0); Monocytes % 2.9 % (1.7-9.3); Neutrophils # 12.7 K/mm3 (1.8-7.8); Platelet Count 202 K/mm3 (142-424); Red Blood Count 4.53 M/mm3 (4.20-5.40); Red Cell Distribution Width 14.9 % (11.5-17.5); White Blood Count 14.7 K/mm3 (4.8-10.8)
[2020-07-11 07:32] LABS: MANUAL DIFFERENTIAL MANUAL DIFFERENTIAL (MANUAL DIFF)
[2020-07-11 07:35] LABS: Anion Gap 8.3 mEq/L (5-15); Blood Urea Nitrogen 18 mg/dl (7-17); Calcium 9.4 mg/dl (8.4-10.2); Carbon Dioxide 34 mmol/L (22.0-30.0); Chloride 96 mmol/L (98-107); Creatinine Clearance Estimated 94 mL/min (50-200); Estimated Glomerular Filt Rate 86 ml/min (>60); GFR (African American) 104 ML/MIN (>60); Glucose 219 mg/dl (74-100); Potassium 3.3 mmoL/L (3.5-5.1); Sodium 135 mmol/L (136-145)
[2020-07-11 07:59] LABS: Anisocytosis 1+; Lymphocytes % 18 % (10-50); Macrocytosis 1+; Monocytes % 1 % (2-9); Neutrophils % 81 % (42-76); Platelet Estimate Normal; Total Cells Counted 100
--- NOTE | 2020-07-11 09:44 | HMH.HP ---
*Admission Date: 07/10/20 *Chief complaint: fall *History of present illness: this pt from [facility] fell and was seen in the ed -9-year-old female presenting to the emergency department with right hip pain after a fall. Patient fell this morning at her fpc, [facility], around 9 AM. Fall was not witnessed. She was able to get up and ambulate. No known injuries. Throughout the morning she was complaining of pain in her right hip and buttock. Difficulty walking. She has had multiple falls recently. Has scattered bruises on her arms and legs. They are unsure if she hit her head. She takes Eliquis. On arrival patient nods yes that she did hit her head. Pain described in the hip is sharp. Pain worse with motion and internal rotation. summary this is a 59-year-old female presenting to the emergency department with right hip and buttock pain after a fall. Patient clinically stable on arrival. She says she hit her head. Takes Eliquis. Concern for intracranial bleed or other injury. Also concern for femur fracture, pelvic ring injury. Will obtain plain film x-rays of the right hip and pelvis. Will obtain a noncontrast head CT. Given significant bruising on the extremities, will obtain CBC, CMP, PT, PTT. Patient is tachycardic on arrival with heart rate 115. Other vital signs stable. White count significantly elevated at 22K. Will broaden work-up to include blood cultures, chest x-ray, pro calcitonin. Patient given 1 L IV fluid bolus. Urinalysis shows nitrite positive urinary tract infection. Patient given 1 g IV Rocephin. T scan of the abdomen pelvis shows no obstructing kidney stone. No surgical abnormality within the abdomen. It does show fatty liver. Nondisplaced pubic rami fractures, superior and inferior on the right. Mental status improved after antibiotics and IV fluids. Will admit for further management. pt was admitted for eval and treatment [facility] History I have reviewed the patient's past medical history: Yes Medical History: Reports:: Anxiety, Arrhythmia, Cardiomyopathy, Congestive Heart Failure, Chronic Obstructive Pulmonary Disease (COPD), Gastroesophageal Reflux Disease(GERD), Hyperlipidemia, Hypertension, Peripheral Artery Disease, Pulmonary Embolism, Seizures Denies:: Diabetes Mellitus Type 1, Diabetes Mellitus Type 2 *Have you ever received a pneumonia vaccine?: Yes *Have you received a flu vaccine this season?: Yes Other Medical History: Reports: Anemia Other Surgeries: Yes: Cancer Surgery, Cholecystectomy, Colonoscopy, Hysterectomy-Total, Other Amputation: No Fractures: No - *Social History Last grade of school completed: Some college Smoking Status: Current every day smoker Tobacco Type: cigarettes # Packs/Day (cigarettes): 1 Alcohol Intake: never Alcohol Intake Frequency:: other Substance Use Type: denies use *Occupational Status:: disabled Housing: assisted living facility Household Members: other *Travel in the last 8 weeks: None - Psychiatric History Pschychiatric History:: Reports:: Anxiety, Schizophrenia Family Hx:: Unable to obtain RETORT FURNACE HELPER history: No RETORT FURNACE HELPER history Review of Systems - Review of Systems Review of systems:: pertinent systems reviewed and negative unless documented below - Constitutional Denies fever(s) - Eyes Denies change in vision - ENT Denies sore throat - *Cardiovascular Denies chest pain at rest - *Respiratory Denies cough - *Gastrointestinal Denies abdominal pain - *Genitourinary Denies blood in urine - *Musculoskeletal Reports joint pain - Integumentary/Breasts Denies rash - *Neurologic Reports unsteadiness, Reports headache(s), Denies confusion, Denies loss of vision, Denies numbness, Denies tingling - Psychiatric Denies behavioral changes Meds Home Medications Medication Instructions Recorded Confirmed Type ferrous sulfate 325 mg (65 mg 325 mg PO DAILY tab 08/02/17 07/10/20 History iron) tablet Ch
[2020-07-11 10:46] LABS: Hemoglobin A1C 11.5 % (4.0-6.0)
[2020-07-11 11:30] LABS: POC Glucose,Bedside 192 (70-110)
--- NOTE | 2020-07-11 14:59 | HMH.PHAVTE ---
[facility] Pharm[facility] VTE Monitoring - Patient Demographics Admission date: 07/11/20 Report Date: 07/11/20 Time: 14:59 Allergies/Adverse Reactions: Patient Allergies No Known Allergies Allergy (Verified 07/10/20 18:44) Height: 1.57 m Weight: 67.302 kg Patient Problems: Current Active Problems Fall (Acute) Fracture of pubic ramus (Acute) UTI (urinary tract infection) (Acute) Sepsis (Acute) - VTE Risk Labs: VTE Related Lab Results Hgb 15.0 g/dL (12.2-16.2) 07/11/20 07:15 Hct 46.7 % (37.0-47.0) 07/11/20 07:15 Plt Count 202 K/mm3 (142-424) D 07/11/20 07:15 PT 11.4 seconds (9.4-11.8) 07/10/20 12:35 INR 1.03 (0.9-1.1) 07/10/20 12:35 APTT 20.2 seconds (23.6-34.0) L 07/10/20 12:35 BUN 18 mg/dl (7-17) H 07/11/20 07:15 Creatinine 0.70 mg/dl (0.52-1.04) D 07/11/20 07:15 Estimated Creat Clear 94 mL/min (50-200) 07/11/20 07:15 VTE Score: 5 VTE Risk Level: Low Risk - Prophylaxis Types of VTE Prophylaxis: Pharmacological Pharmacologic Type: Enoxaparin (LOVENOX STARTED, ELIQUIS STOPPED BY )
--- NOTE | 2020-07-11 15:02 | PC.NURSE ---
Spoke with who came to see patient. states that patient does not require surgical intervention. Patient is safe to ambulate as tolerable. states discharge is appropriate from a surgical standpoint however, the discharge will ultimately depend on patient pcp.
--- NOTE | 2020-07-11 16:27 | HMH.ORTHOCON ---
*Admission Date: 07/11/20 *Reason for consult:: Pelvic fracture *History of present illness: 59-year-old female admitted from the emergency department with right hip pain after a fall. Patient fell yesterday at her halfway, [facility], and the fall was not witnessed. Patient says her legs just give out under her. Following evaluation in the ER, patient was noted to have right superior and inferior pubic rami fracture. She was also noted to have urinary tract infection and admitted for IV antibiotics. Today she still complaining of right-sided pelvic/hip pain. She has the pain is worse with any attempted right lower extremity movements. She says she has had multiple falls recently. She takes Eliquis. [facility] History I have reviewed the patient's past medical history: Yes Medical History: Reports:: Anxiety, Arrhythmia, Cardiomyopathy, Congestive Heart Failure, Chronic Obstructive Pulmonary Disease (COPD), Gastroesophageal Reflux Disease(GERD), Hyperlipidemia, Hypertension, Peripheral Artery Disease, Pulmonary Embolism, Seizures Denies:: Diabetes Mellitus Type 1, Diabetes Mellitus Type 2 *Have you ever received a pneumonia vaccine?: Yes *Have you received a flu vaccine this season?: Yes Other Medical History: Reports: Anemia Other Surgeries: Yes: Cancer Surgery, Cholecystectomy, Colonoscopy, Hysterectomy-Total, Other Amputation: No Fractures: No - *Social History Last grade of school completed: Some college Smoking Status: Current every day smoker Tobacco Type: cigarettes # Packs/Day (cigarettes): 1 Alcohol Intake: never Alcohol Intake Frequency:: other Substance Use Type: denies use *Occupational Status:: disabled Housing: assisted living facility Household Members: other *Travel in the last 8 weeks: None - Psychiatric History Pschychiatric History:: Reports:: Anxiety, Schizophrenia Family Hx:: Unable to obtain HAND II BLOCKER history: No HAND II BLOCKER history Review of Systems - Review of Systems Review of systems:: pertinent systems reviewed and negative unless documented below - Constitutional Denies chills, Denies fever(s) - Eyes Denies change in vision - *Cardiovascular Denies chest pain, Denies shortness of breath - *Respiratory Denies cough - *Gastrointestinal Denies abdominal pain - *Musculoskeletal Reports abnormal walking, Reports joint pain, Reports limited joint movement - *Neurologic Reports unsteadiness, Reports headache(s), Denies confusion, Denies loss of vision, Denies numbness, Denies tingling Meds Home Medications Medication Instructions Recorded Confirmed Type ferrous sulfate 325 mg (65 mg 325 mg PO DAILY tab 08/02/17 07/10/20 History iron) tablet Cholecalciferol (Vitamin D3) 1,000 unit PO DAILY 01/09/20 07/10/20 History [Vitamin D3 1,000 Unit Cap] Ziprasidone HCl 60 mg PO BID 01/09/20 07/10/20 History atorvastatin 40 mg tablet 40 mg PO HS 01/22/20 07/10/20 History Acetaminophen [Tylenol 500mg 500 mg PO Q4HP PRN 01/31/20 07/10/20 History tablet] Apixaban [Eliquis 5mg tab] 5 mg PO BID 01/31/20 07/10/20 History lactulose 20 gram/30 mL oral 20 g PO DAILY PRN ml 02/04/20 07/10/20 History solution clonazepam 0.5 mg tablet 0.5 mg PO BID #60 tab 02/10/20 07/10/20 Rx Fluticasone/Salmeterol [Advair 1 inh IH BID 02/20/20 07/10/20 History 250/50mcg Diskus] Ipratropium/Albuterol Sulfate 3 ml IH Q6HP PRN 02/20/20 07/11/20 History [Duoneb 3mL neb] Umeclidinium [place] [Incruse 1 puff IH DAILY 02/20/20 07/11/20 History Ellipta] predniSONE [Deltasone 20mg 20 mg PO BID 02/21/20 07/10/20 History tablet] docusate sodium 100 mg capsule 100 mg PO BID 04/14/20 07/10/20 History furosemide 40 mg tablet 40 mg PO DAILY tab 04/14/20 07/11/20 History ondansetron HCl 4 mg tablet 4 mg PO Q8H PRN 04/14/20 07/10/20 History sennosides 8.6 mg capsule 8.6 mg PO DAILY 04/14/20 07/10/20 History pantoprazole 40 mg tablet,delayed 40 mg PO BID #60 tab 05/03/20 07/10/20 Rx rel
--- NOTE | 2020-07-11 17:43 | PC.NURSE ---
Patient is resting in bed. Neuro alert and oriented to self, location, month and year. Soap Grinder are equal. Patient does appear to be very tired today. Gi patient is a diabetic, fsbg were 192, covered with 2 units and 271, covered with 6 units. BM today. No n/v/d. Appetite is good. Finishes 100% of meals. patient has a zhang catheter. Has had 1500 cc of clear yellow urine today. 20 lasix today. Patient responded well. Cardiac: patients heartrate has been elevated intermittently. Blood pressures normal. Respiratory rate elevated. Patient is suspected sepsis. MD aware. Patient has scattered bruising throughout body from falls and bumps from the [facility]. [facility] nurse called today to say that patient has had multiple falls recently and would like to look at her foot tomorrow when he rounds as she has not been bearing weight well on it since her last foot. When patient was admitted she had an graham wrap wrapped around her foot. No mention of sprain in er documentation. Patient states that she hurt her foot a long time ago. Skin is c/d/i. Patient has one 20g iv to the right ac. Infusing well, however, the site looks bruised. Patient states it does not hurt. Multiple attempts made today to get a different access. All attempts were unsuccessful. Dressing changed on iv. Will continue to monitor.
[2020-07-11 17:54] LABS: POC Glucose,Bedside 271 (70-110)
[2020-07-11 20:43] LABS: POC Glucose,Bedside 464 (70-110)
[2020-07-11 22:59] LABS: POC Glucose,Bedside 413 (70-110)
[2020-07-12] VITALS (10 sets, daily range): BP systolic 99–131; BP diastolic 68–78; PULSE 88–132; RESP 17–28; TEMP 36.6–37.2; O2SAT 89–95; BMI 27.4; BMI 27.6
--- NOTE | 2020-07-12 03:30 | PC.NURSE ---
Pt has slept most of this shift. A&O x4, BLT lungs sounds diminished. Bowel sounds present in all 4 quadrants. Pt is on 3L NC, Pt medicated fro pain per MAR. Pt denies headache, N/V SOA. Dorantes draining light yellow urine, Pt turned Q2H.
[2020-07-12 05:38] LABS: POC Glucose,Bedside 270 (70-110)
--- NOTE | 2020-07-12 07:41 | SW/DCPLANNER ---
Addendum entered by Cira Esteban 07/13/20 14:01: Patient NEGATIVE COVID has been faxed to Radha at [facility]. Patient will discharge today. Addendum entered by Cira Esteban 07/13/20 09:38: I have informed Radha with [facility] that this patient will discharge back today pending NEGATIVE COVID test. Original Note: This patient currently resides at [facility]. I have spoke with Radha this morning and she has stated that patient is [facility] level of care.
--- NOTE | 2020-07-12 08:34 | PC.NURSE ---
at bs to see pt for rounds.
--- NOTE | 2020-07-12 09:13 | HMH.ACPN2 ---
Internal Medicine - PN: Subj *Date: 07/12/20 *Time: 09:13 Interval history: pt alert and oriented x3 Exam Vital signs and Labs for Last 24 Hours: Temp Pulse Resp BP Pulse Ox 99.0 F 122 H 18 122/74 89 L 07/12/20 08:00 07/12/20 08:00 07/12/20 08:00 07/12/20 08:00 07/12/20 08:00 Laboratory Results - last 24 hr 07/11/20 07:22: Hemoglobin A1c 11.5 H 07/11/20 11:18: POC Glucose 192 H 07/11/20 15:44: POC Glucose 271 H 07/11/20 20:35: POC Glucose 464 H* 07/11/20 22:51: POC Glucose 413 H* 07/12/20 05:25: POC Glucose 270 H I & O for Last 24 hours: Intake & Output 07/09/20 07/10/20 07/11/20 07/12/20 11:59 11:59 11:59 11:59 Intake Total 720 / 720 4381 / 4381 Output Total 3775 / 3775 2925 / 2925 Balance -3055 / -3055 1456 / 1456 Weight 148 lb 6 oz 149 lb 2 oz Microbiology Reports for the Last 24 Hours: Microbiology 07/10/20 13:35 Urine,Clean Catch Urine Culture - Preliminary Gram Negative Rods - Constitutional no acute distress, chronically ill appearing - *Routine HEENT Exam Head: Present: normocephalic Eye: Present: PERRL ENT: Present: mucous membranes moist - *Routine Neck Exam Present: supple. Absent: lymphadenopathy - *Routine Respiratory Exam Present: wheezes - *Routine Cardiovascular Exam Present: RRR - *Routine Abdominal Exam Present: soft, normoactive bowel sounds. Absent: tenderness - *Routine Extremities Exam Present: normal capillary refill. Absent: cyanosis, clubbing, edema - *Routine Skin Exam Present: warm, ecchymosis. Absent: rash - *Routine Neurological Exam Present: alert, oriented X3 - Routine Psychiatric Exam Present: normal affect Assessment and Plan (1) Severe sepsis with acute organ dysfunction Status: Acute Category: Medical Code(s): A41.9 - Sepsis, unspecified organism; R65.20 - Severe sepsis without septic shock (2) Fracture of pubic ramus Status: Acute Qualifiers: Encounter type: initial encounter Fracture type: closed Laterality: right Qualified Code(s): S32.591A - Other specified fracture of right pubis, initial encounter for closed fracture Category: Medical Code(s): S32.599A - Other specified fracture of unspecified pubis, initial encounter for closed fracture (3) UTI (urinary tract infection) Problem details: Providencia Stuartii Status: Acute Qualifiers: Urinary tract infection type: acute cystitis Hematuria presence: without hematuria Qualified Code(s): N30.00 - Acute cystitis without hematuria Category: Medical Code(s): N39.0 - Urinary tract infection, site not specified (4) Bipolar 1 disorder Status: Chronic Category: Medical Code(s): F31.9 - Bipolar disorder, unspecified (5) COPD (chronic obstructive pulmonary disease) Status: Chronic Qualifiers: COPD type: COPD with acute exacerbation Qualified Code(s): J44.1 - Chronic obstructive pulmonary disease with (acute) exacerbation Category: Medical Code(s): J44.9 - Chronic obstructive pulmonary disease, unspecified (6) Septic shock Status: Acute Category: Medical Code(s): A41.9 - Sepsis, unspecified organism; R65.21 - Severe sepsis with septic shock (7) Overweight (BMI 25.0-29.9) Status: Acute Category: Medical Code(s): E66.3 - Overweight (8) Diabetes Status: Acute Qualifiers: Diabetes mellitus type: type 2 Diabetes mellitus extermination supervisor insulin use: unspecified extermination supervisor insulin use status Diabetes mellitus complication status: with other specified complication Qualified Code(s): E11.69 - Type 2 diabetes mellitus with other specified complication Category: Medical Code(s): E11.9 - Type 2 diabetes mellitus without complications - Assessment and plan all Dx Assessment and Plan for all problems:: rounded with dr oseguera all orders per dr oseguera pt/ot eval
--- NOTE | 2020-07-12 09:34 | PC.NURSE ---
PT/OT at bs working with pt
--- NOTE | 2020-07-12 10:02 | HMH.PTEV ---
Physical Therapy Evaluation Rehab PT IP Evaluation Start: 07/12/20 09:11 Freq: ONCE Status: Active Protocol: Document 07/12/20 09:57 LANDY (Rec: 07/12/20 10:02 LANDY [id number]) Subjective/History History History This is the initial IP PT evalaution for Sheyla Supriya. Pt is a 59 y/o female admitted to [facility] s/p fall at [facility] facility. Pt reports multiple recent falls and weakness. Co-treat w/ Ramya Betancur OTR Subjective Subjective Pt reports '(/10 pain just sitting EOB Rehab PT IP Eval Objective Appearance Patient Behavior Passive,Fearful Patient Orientation Person,Place,Time Difficulty following instructions mild Speech Pattern Appropriate,Delayed Ambulation Patient Able to Ambulate Yes Ambulation Observation IP General Gait Pattern Observation Antalgic Gait,Shuffling Step Ambulation Distance (feet) 5 Ambulation Assistive Device Standard Walker Ambulation Ability Contact Guard/Hand Hold Balance Ability to Arise Able, uses arms to help Sitting Balance Steady, safe Standing Balance Steady, wide stance Dynamic Sitting Balance Ability Good Dynamic Standing Balance Ability Poor Transfers Bed Transfer Ability Moderate x 2 (50% assist) Chair Transfer Ability Moderate x 2 (50% assist) Sit to Stand Bed Transfer Ability Moderate x 2 (50% assist) Pain Buttock Pain Intensity 9 Rehab PT IP prob,goals,plan Problems Date of Evaluation: 07/12/20 PT IP Problems Bed Mobility,Transfers,Gait Rehab Potential Rehab Potential Fair Equipment Needs Assistive Devices Standard Walker,Rolling / Wheeled Walker Plan PT Intervention Plan Bed Mobility,Transfers,Gait, Therapeutic Exercise PT Plan Frequency BID Duration LOS Discharge Goals Bed Transfer Ability Moderate x 1 (50% assist), Moderate x 2 (50% assist) Sit to Stand Chair Transfer Ability Moderate x 1 (50% assist), Moderate x 2 (50% assist) Ambulation Assistive Device Standard Walker,Rolling Walker Ambulation Distance (feet) 10 Discharge Plan PT Discharge Plan Pt safe to return to prior living condition at SNF - pt will benefit from skilled therapy at SNF to allow return to PLOF and PLOI. W/out
--- NOTE | 2020-07-12 10:22 | HMH.OTEV ---
OT Inpatient Evaluation Rehab OT IP Evaluation Start: 07/12/20 09:11 Freq: ONCE Status: Complete Protocol: Document 07/12/20 10:18 LIZBET (Rec: 07/12/20 10:22 LIZBET [id number]) Rehab OT IP Assessment Subjective History this pt from [facility] fell and was seen in the ed -9 -year-old female presenting to the emergency department with right hip pain after a fall. Patient fell this morning at her fdc, [facility], around 9 AM. Fall was not witnessed. She was able to get up and ambulate. No known injuries. Throughout the morning she was complaining of pain in her right hip and buttock. Difficulty walking. She has had multiple falls recently. Has scattered bruises on her arms and legs. They are unsure if she hit her head. She takes Eliquis. On arrival patient nods yes that she did hit her head. Pain described in the hip is sharp. Pain worse with motion and internal rotation. summary this is a 59-year-old female presenting to the emergency department with right hip and buttock pain after a fall. Patient clinically stable on arrival. She says she hit her head. Takes Eliquis. Concern for intracranial bleed or other injury. Also concern for femur fracture, pelvic ring injury. Will obtain plain film x-rays of the right hip and pelvis. Will obtain a noncontrast head CT. Given significant bruising on the extremities, will obtain CBC, CMP, PT, PTT. Patient is tachycardic on arrival with heart rate 115. Other vital signs stable.
--- NOTE | 2020-07-12 10:37 | PC.NURSE ---
Pt sitting up in chair watching tv at this time.
--- NOTE | 2020-07-12 13:36 | ECG_ITS ---
APPROVED REPORT Exam: Resting ECG HR:129 bpm ECG Measurements Heart Rate 129 AXES TX 134 P 48 QRSd 64 QRS 9 QT 296 T 38 QTc 433 Conclusion Sinus tachycardia Possible Left atrial enlargement Nonspecific ST abnormality Abnormal ECG Electronically signed by : Marcos Rodriguez, 07/12/2020 22:43:20
[2020-07-12 13:46] LABS: Creatine Kinase 26 U/L (30-135)
[2020-07-12 13:56] LABS: CKMB Relative Index 1.5 U/L (0-4.0); Creatine Kinase MB 0.4 ng/ml (0.0-2.03)
[2020-07-12 14:01] LABS: Troponin I < 0.01 ng/ml (0.00-0.034)
--- NOTE | 2020-07-12 14:16 | PC.NURSE ---
Cardiology at bs to see pt.
--- NOTE | 2020-07-12 14:17 | HMH.CNCARD ---
History of Present Illness Consult date: 07/12/20 Requesting physician: Bright Wright Chief complaint: fall History of present illness: This is a 59-year-old white female who resides at [facility]. She fell at the alf which was not witnessed and came into the emergency department due to pain in her right hip and buttocks area following the fall. The patient was found to have a right superior pubic ramus fracture extending into the symphysis pubis and the medial aspect of the right inferior pubic ramus. Orthopedics has been consulted and no surgical intervention is required at this time. She denies any chest pain or pressure. She denies any shortness of breath. She states that she has edema in her lower extremities at times but this is not really been an issue for her lately. She denies any fever, chills, nausea, vomiting, diarrhea, PND or orthopnea. She is still having pain in the right hip and pubic area. The patient has been tachycardic since being admitted to the hospital and while she was in the emergency department. She states that she does feel racing and fluttering of her heart. She states that she does not walk much but when she does this racing and fluttering of the heart is worse. The patient takes Toprol-XL 25 mg daily and she states that she has been compliant with her medications. Despite being on the beta-dyana she states that her heart continues to race. [facility] History I have reviewed the patient's past medical history: Yes Medical History: Reports:: Anxiety, Arrhythmia, Cardiomyopathy, Congestive Heart Failure, Chronic Obstructive Pulmonary Disease (COPD), Gastroesophageal Reflux Disease(GERD), Hyperlipidemia, Hypertension, Peripheral Artery Disease, Pulmonary Embolism, Seizures Denies:: Diabetes Mellitus Type 1, Diabetes Mellitus Type 2 *Have you ever received a pneumonia vaccine?: Yes *Have you received a flu vaccine this season?: Yes Other Medical History: Reports: Anemia Other Surgeries: Yes: Cancer Surgery, Cholecystectomy, Colonoscopy, Hysterectomy-Total, Other Amputation: No Fractures: No - *Social History Last grade of school completed: Some college Smoking Status: Current every day smoker Tobacco Type: cigarettes # Packs/Day (cigarettes): 1 Alcohol Intake: never Alcohol Intake Frequency:: other Substance Use Type: denies use *Occupational Status:: disabled Housing: assisted living facility Household Members: other *Travel in the last 8 weeks: None - Psychiatric History Pschychiatric History:: Reports:: Anxiety, Schizophrenia Family Hx:: Unable to obtain TUNNEL HEADING INSPECTOR history: No TUNNEL HEADING INSPECTOR history Meds Home Medications Medication Instructions Recorded Confirmed Type ferrous sulfate 325 mg (65 mg 325 mg PO DAILY tab 08/02/17 07/10/20 History iron) tablet Cholecalciferol (Vitamin D3) 1,000 unit PO DAILY 01/09/20 07/10/20 History [Vitamin D3 1,000 Unit Cap] Ziprasidone HCl 60 mg PO BID 01/09/20 07/10/20 History atorvastatin 40 mg tablet 40 mg PO HS 01/22/20 07/10/20 History Acetaminophen [Tylenol 500mg 500 mg PO Q4HP PRN 01/31/20 07/10/20 History tablet] Apixaban [Eliquis 5mg tab] 5 mg PO BID 01/31/20 07/10/20 History lactulose 20 gram/30 mL oral 20 g PO DAILY PRN ml 02/04/20 07/10/20 History solution clonazepam 0.5 mg tablet 0.5 mg PO BID #60 tab 02/10/20 07/10/20 Rx Fluticasone/Salmeterol [Advair 1 inh IH BID 02/20/20 07/10/20 History 250/50mcg Diskus] Ipratropium/Albuterol Sulfate 3 ml IH Q6HP PRN 02/20/20 07/11/20 History [Duoneb 3mL neb] Umeclidinium [place] [Incruse 1 puff IH DAILY 02/20/20 07/11/20 History Ellipta] predniSONE [Deltasone 20mg 20 mg PO BID 02/21/20 07/10/20 History tablet] docusate sodium 100 mg capsule 100 mg PO BID 04/14/20 07/10/20 History furosemide 40 mg tablet 40 mg PO DAILY tab 04/14/20 07/11/20 History ondansetron HCl 4 mg tablet 4 mg PO Q8H PRN 04/14/20 07/10/20 History sennosides 8.6 mg capsule
--- NOTE | 2020-07-12 16:12 | PC.NURSE ---
Sleeping soundly at this time. No distress noted. Started on Toprol XL 50mg PO for cardiac arrhythmia, tachycardia. Glucose levels continue to be elevated and requiring sliding scale insulin coverage. Dorantes cath remains patent to bsd, clear yellow urine noted in drainage bag.
[2020-07-13] VITALS: BP 104/62; PULSE 100; PULSE 90; RESP 17; TEMP 36.7; O2SAT 91
[2020-07-13 00:41] LABS: POC Glucose,Bedside 201 (70-110)
[2020-07-13 00:41] LABS: POC Glucose,Bedside 393 (70-110)
[2020-07-13 00:41] LABS: POC Glucose,Bedside 262 (70-110)
[2020-07-13 00:55] VITALS: PULSE 85; PULSE 86
[2020-07-13 04:00] VITALS: BP 94/60; PULSE 71; RESP 18; TEMP 36.6; O2SAT 97
[2020-07-13 05:08] VITALS: BMI 27.6
--- NOTE | 2020-07-13 05:51 | PC.NURSE ---
received ok to remove telemetry from Dr. Wright
--- NOTE | 2020-07-13 05:55 | PC.NURSE ---
pt has rested well t/o shift, has complained of pain one time, no complaints of SOA or chest pain, HR 71-100, remains on 2L NC with O2 sats 91-97%, zhang patent and draining clear pale urine
[2020-07-13 06:31] LABS: POC Glucose,Bedside 185 (70-110)
[2020-07-13 07:11] LABS: Basophils # 0.1 K/mm3 (0-0.2); Basophils % 0.4 % (0.1-2.0); Eosinophils % 0.3 % (0.1-12.0); Hematocrit 40.3 % (37.0-47.0); Lymphocytes # 1.4 K/mm3 (0.7-4.5); Mean Corpuscular HGB Conc 32.3 g/dL (31.8-35.4); Mean Corpuscular Hemoglobin 33.8 pg (27.0-31.2); Mean Corpuscular Volume 104.5 fl (81-99); Mean Platelet Volume 8.2 fl (7.4-10.4); Monocytes # 0.4 K/mm3 (0.1-1.0); Monocytes % 3.5 % (1.7-9.3); Neutrophils # 10.5 K/mm3 (1.8-7.8); Platelet Count 165 K/mm3 (142-424); Red Blood Count 3.85 M/mm3 (4.20-5.40); Red Cell Distribution Width 15.3 % (11.5-17.5); White Blood Count 12.3 K/mm3 (4.8-10.8)
[2020-07-13 07:14] LABS: MANUAL DIFFERENTIAL MANUAL DIFFERENTIAL (MANUAL DIFF)
[2020-07-13 07:27] LABS: Anion Gap 6.7 mEq/L (5-15); Blood Urea Nitrogen 26 mg/dl (7-17); Calcium 9.4 mg/dl (8.4-10.2); Carbon Dioxide 31 mmol/L (22.0-30.0); Chloride 99 mmol/L (98-107); Creatinine Clearance Estimated 95 mL/min (50-200); Estimated Glomerular Filt Rate 86 ml/min (>60); GFR (African American) 104 ML/MIN (>60); Glucose 202 mg/dl (74-100); Magnesium 1.7 mg/dl (1.6-2.3); Potassium 3.7 mmoL/L (3.5-5.1); Sodium 133 mmol/L (136-145)
[2020-07-13 07:43] LABS: Free T4 (Free Thyroxine) 1.24 ng/dl (0.78-2.19)
[2020-07-13 07:57] LABS: Thyroid Stimulating Hormone 0.44 uIU/mL (0.465-4.68)
[2020-07-13 08:00] VITALS: BP 121/73; PULSE 65; RESP 19; TEMP 36.4; O2SAT 99
[2020-07-13 08:34] LABS: Lymphocytes % 16 % (10-50); Monocytes % 2 % (2-9); Neutrophils % 82 % (42-76); Platelet Estimate Normal; RBC Morphology Normal; Total Cells Counted 100
--- NOTE | 2020-07-13 09:39 | HMH.PNCARD ---
Subjective Date: 07/13/20 Time: 09:39 Principal diagnosis: fall, pubic ramus fracture, sinus tachycardia Interval history: This is a 59-year-old white female who resides at [facility]. She had a fall that was not witnessed and came into the emergency department after having right hip and buttocks pain after the fall. The patient was found to have a right. Pubic ramus fracture extending into the symphysis pubis in the medial aspect of the right inferior pubic ramus. This is being managed per orthopedics and her primary care provider. She was found to be tachycardic upon arrival and persisted to be tachycardic even after her admission despite being on Toprol-XL daily. She states that she was having palpitations and racing of the heart. Her Toprol was increased yesterday and her heart rate has come down nicely. This morning she states that the racing and palpitations have resolved. She denies any chest pain or pressure. She denies any shortness of breath or edema. She denies any fever, chills, nausea, vomiting, diarrhea, PND or orthopnea. She states that she feels much better today. Exam Vital signs and Labs for Last 24 Hours: Temp Pulse Resp BP Pulse Ox 97.6 F 65 19 121/73 99 07/13/20 08:00 07/13/20 08:00 07/13/20 08:00 07/13/20 08:00 07/13/20 08:00 Laboratory Results - last 24 hr 07/12/20 10:42: POC Glucose 201 H 07/12/20 13:23: Total Creatine Kinase 26 L, CK-MB (CK-2) 0.4, CK-MB (CK-2) Rel Index 1.5, Troponin I < 0.01 07/12/20 15:32: POC Glucose 393 H* 07/12/20 20:46: POC Glucose 262 H 07/13/20 06:13: POC Glucose 185 H 07/13/20 06:20: WBC 12.3 H, RBC 3.85 L, Hgb 13.0, Hct 40.3, MCV 104.5 H, MCH 33.8 H, MCHC 32.3, RDW 15.3, Plt Count 165, MPV 8.2, Neut % (Auto) 85.0 H, Lymph % (Auto) 11.0, [place] % (Auto) 3.5, Eos % (Auto) 0.3, Baso % (Auto) 0.4, Neut # (Auto) 10.5 H, Lymph # (Auto) 1.4, [place] # (Auto) 0.4, Eos # (Auto) 0.0, Baso # (Auto) 0.1, Total Counted 100, Neutrophils % (Manual) 82 H, Lymphocytes % (Manual) 16, Monocytes % (Manual) 2, Platelet Estimate Normal, RBC Morphology Normal 07/13/20 06:20: Sodium 133 L, Potassium 3.7, Chloride 99, Carbon Dioxide 31 H, Anion Gap 6.7, BUN 26 H D, Creatinine 0.70, Estimated Creat Clear 95, Estimated GFR 86, Est GFR ( Amer) 104, Glucose 202 H, Calcium 9.4, TSH 0.44 L 07/13/20 06:20: Magnesium 1.7 07/13/20 06:20: Free T4 1.24 I & O for Last 24 hours: Intake & Output 07/10/20 07/11/20 07/12/20 07/13/20 23:59 23:59 23:59 23:59 Intake Total 240 / 240 1920 / 1920 3421 / 3541 120 / 120 Output Total 2000 / 3300 4150 / 4150 2150 / 2150 1000 / 1000 Balance -1760 / -3060 -2230 / -2230 1271 / 1391 -880 / -880 Weight 150 lb 11.094 oz 148 lb 6 oz 149 lb 14.629 oz 150 lb Microbiology Reports for the Last 24 Hours: Microbiology 07/10/20 12:47 Blood - Other Blood Culture - Preliminary NO GROWTH AFTER 48 HOURS 07/10/20 12:47 Blood - Other Blood Culture - Preliminary NO GROWTH AFTER 48 HOURS 07/10/20 13:35 Urine,Clean Catch Urine Culture - Final Escherichia coli - Constitutional no acute distress, average body habitus, chronically ill appearing, cooperative - *Routine HEENT Exam Head: Present: normocephalic, atraumatic Eye: Present: EOMI, PERRL ENT: Present: mucous membranes moist - *Routine Neck Exam Present: supple, full ROM, normal carotid upstroke. Absent: JVD, carotid bruit, lymphadenopathy - *Routine Respiratory Exam Present: CTA bilaterally - *Routine Cardiovascular Exam Present: RRR, Normal S1, Normal S2. Absent: murmur, gallop - *Routine Abdominal Exam Present: soft, normoactive bowel sounds. Absent: tenderness, distended - *Routine Extremities Exam Present: pulses intact, normal capillary refill. Absent: cyanosis, clubbing, edema - *Routine Skin Exam Present: petechiae, warm, ecchymosis (Bruising noted to her bilateral upper and lower ext
--- NOTE | 2020-07-13 10:57 | PC.WOUNDNOTE ---
Wound Location: 6CM SKIN TEAR TO R ARM
--- NOTE | 2020-07-13 10:59 | PC.WOUNDNOTE ---
Wound Location: PICTURE OF R ARM SKIN TEAR WITH OUT MEASURING DEVICE, SOME BLEEDING NOTED
[2020-07-13 11:33] VITALS: BP 118/70; PULSE 68; RESP 18; TEMP 36.5; O2SAT 98
--- NOTE | 2020-07-13 13:09 | HMH.DCSUM ---
General - General Admission date:: 07/10/20 Discharge date: 07/13/20 HPI HPI: [facility] and was seen in the ed -9-year-old female presenting to the emergency department with right hip pain after a fall. Patient fell this morning at her alf, [facility], around 9 AM. Fall was not witnessed. She was able to get up and ambulate. No known injuries. Throughout the morning she was complaining of pain in her right hip and buttock. Difficulty walking. She has had multiple falls recently. Has scattered bruises on her arms and legs. They are unsure if she hit her head. She takes Eliquis. On arrival patient nods yes that she did hit her head. Pain described in the hip is sharp. Pain worse with motion and internal rotation. summary this is a 59-year-old female presenting to the emergency department with right hip and buttock pain after a fall. Patient clinically stable on arrival. She says she hit her head. Takes Eliquis. Concern for intracranial bleed or other injury. Also concern for femur fracture, pelvic ring injury. Will obtain plain film x-rays of the right hip and pelvis. Will obtain a noncontrast head CT. Given significant bruising on the extremities, will obtain CBC, CMP, PT, PTT. Patient is tachycardic on arrival with heart rate 115. Other vital signs stable. White count significantly elevated at 22K. Will broaden work-up to include blood cultures, chest x-ray, pro calcitonin. Patient given 1 L IV fluid bolus. Urinalysis shows nitrite positive urinary tract infection. Patient given 1 g IV Rocephin. T scan of the abdomen pelvis shows no obstructing kidney stone. No surgical abnormality within the abdomen. It does show fatty liver. Nondisplaced pubic rami fractures, superior and inferior on the right. Mental status improved after antibiotics and IV fluids. Will admit for further management. pt was admitted for eval and treatment Hospital Course Hospital Course: this pt from [facility] fell and was seen in the ed -9-year-old female presenting to the emergency department with right hip pain after a fall. Patient fell this morning at her alf, [facility], around 9 AM. Fall was not witnessed. She was able to get up and ambulate. No known injuries. Throughout the morning she was complaining of pain in her right hip and buttock. Difficulty walking. She has had multiple falls recently. Has scattered bruises on her arms and legs. They are unsure if she hit her head. She takes Eliquis. On arrival patient nods yes that she did hit her head. Pain described in the hip is sharp. Pain worse with motion and internal rotation. summary this is a 59-year-old female presenting to the emergency department with right hip and buttock pain after a fall. Patient clinically stable on arrival. She says she hit her head. Takes Eliquis. Concern for intracranial bleed or other injury. Also concern for femur fracture, pelvic ring injury. Will obtain plain film x-rays of the right hip and pelvis. Will obtain a noncontrast head CT. Given significant bruising on the extremities, will obtain CBC, CMP, PT, PTT. Patient is tachycardic on arrival with heart rate 115. Other vital signs stable. White count significantly elevated at 22K. Will broaden work-up to include blood cultures, chest x-ray, pro calcitonin. Patient given 1 L IV fluid bolus. Urinalysis shows nitrite positive urinary tract infection. Patient given 1 g IV Rocephin. T scan of the abdomen pelvis shows no obstructing kidney stone. No surgical abnormality within the abdomen. It does show fatty liver. Nondisplaced pubic rami fractures, superior and inferior on the right. Mental status improved after antibiotics and IV fluids. Will admit for further management. pt was admitted for eval and treatment 07/10/20 CXR: FINDINGS: The cardiomediastinal silhouette and pulmonary vascularity are within normal
--- NOTE | 2020-07-13 14:10 | PC.NURSE ---
report called to aung the nurse at [facility]
[2020-07-14 06:43] LABS: POC Glucose,Bedside 126 (70-110)
== END 2020-07-13 15:23 | DRG 535 ==
LOC: ER 15:16 → 2ND 16:11
PROVIDERS: Nurse Practitioner Family; Admitting Provider Family Medicine; Emergency Provider Emergency Medicine; PCP Emergency Medicine; Visit Provider Emergency Medicine
DX: S32.591A Other specified fracture of right pubis, initial encounter for closed fracture (principal); R65.21 Severe sepsis with septic shock; N39.0 Urinary tract infection, site not specified; I11.0 Hypertensive heart disease with heart failure; I50.9 Heart failure, unspecified; J44.9 Chronic obstructive pulmonary disease, unspecified; I25.5 Ischemic cardiomyopathy; Z86.711 Personal history of pulmonary embolism; E11.9 Type 2 diabetes mellitus without complications; Z91.81 History of falling; R29.6 Repeated falls; Z79.01 Long term (current) use of anticoagulants; Z79.51 Long term (current) use of inhaled steroids; Z79.899 Other long term (current) drug therapy; Z72.0 Tobacco use; F31.9 Bipolar disorder, unspecified
CPT/HCPCS: 36415; 70450; 71045; 73502; 74177; 80048; 80053; 81001; 82009; 82550; 82553; 82803; 82962; 83036; 83605; 83735; 84145; 84439; 84443; 84484; 85007; 85025; 85610; 85730; 86328; 87040; 87086; 87088; 87186; 87581; 87633; 87798; 93005; 94640; 94760; 96365; 96366; 96375; 97162; 97165; 97530; 99285; J1335; Q9967; U0003

== ENCOUNTER 2020-07-25 08:29 | Inpatient (IN) | payer MEDICAID, SELFPAY ==
[2020-07-25] VITALS (46 sets, daily range): BP systolic 73–121; BP diastolic 51–87; PULSE 79–128; RESP 19–36; TEMP 36.2–37.7; O2SAT 56–100; BMI 25.6; BMI 24.5
--- NOTE | 2020-07-25 08:45 | PC.NURSE ---
MD at bedside, pt intubated at bedside with respiratory present, Lui Nicholson, myself. ETT size 8 placed at 23 at the lip, good color change noted, and lung sounds wnl for intubation. VSS.
--- NOTE | 2020-07-25 08:56 | XR_ITS ---
PROCEDURE: XR CHEST PORTABLE CLINICAL HISTORY: INTUBATION Pneumonia, respiratory failure COMPARISON: CR XR CHEST PORTABLE from 02/21/2020 CR XR CHEST PORTABLE from 02/22/[address] CHEST WO CON from 03/30/2020 CR XR CHEST AP from 07/10/2020 FINDINGS: 9:07 a.m.. Endotracheal tube is present. The tip is at the level of the carleen and should be withdrawn 4-5 cm. There is mild prominence of the mediastinum. Diffuse pulmonary fibrotic changes are present. There are low lung volumes with increased density upon the pulmonary fibrosis suspicious for underlying pneumonia. This could also in part be reflection of the hypoventilation. IMPRESSION: 1. Low position of endotracheal tube. The emergency room was notified of this finding by telephone 07/25/2020 at 9:07 a.m. 2. Diffuse pulmonary fibrosis with possible superimposed pneumonia versus changes from hypoventilation Dictated by: Ildefonso Durand MD 07/25/2020 09:08 Ildefonso Durand MD in [place] 07/25/2020 09:08
--- NOTE | 2020-07-25 09:10 | PC.NURSE ---
Dr Ildefonso Durand called and advised Et tube needed to be drawn back 4-5cm. Dr Yancey notified and advised to tell respiratory to withdraw the tube as requested by Ladarius.
[2020-07-25 09:22] LABS: ABG Base Excess -5.3 mmol/L (-2.4-2.3); ABG HCO3 21.2 mmhg (22.0-26.0); ABG Oxygen Saturation 77 % (90-100); ABG PCO2 44.6 mmhg (35.0-45.0); ABG TCO2 22.6 mmhg (23-27)
[2020-07-25 09:26] LABS: Allen's Test Patient Unable; Oxygen 100 %; PEEP 10; Source Left Radial; Tidal Volume 450; Vent Rate 24
[2020-07-25 09:29] LABS: ABG PO2 48.4 mmhg (80-100)
--- NOTE | 2020-07-25 09:29 | PC.NURSE ---
Took results via phone for Blood gas. pH 7.29, CO2 44, PO2 48 and bicarb of 21
--- NOTE | 2020-07-25 09:30 | PC.NURSE ---
Titrated versed drip to 7 mls/hr, pt is biting on ett.
--- NOTE | 2020-07-25 09:30 | PC.NURSE ---
Lab to come draw blood work.
[2020-07-25 09:48] LABS: Microscopic, Urine URINE MICROSCOPIC (MICROSCOPIC)
[2020-07-25 09:51] LABS: Appearance,Urine SL CLOUDY (Clear); Bilirubin,Urine Negative (Negative); Blood, Urine Negative (Negative); Color,Urine YELLOW (Yellow); Glucose,Urine (UA) 2+ (Negative); Ketones,Urine Negative (Negative); Leukocyte Esterase,Urine TRACE (Negative); Nitrate,Urine Negative (Negative); PH,Urine 5.5 (5.0-8.5); Protein,Urine TRACE (Negative); Specific Gravity, Urine >= 1.030 (1.005-1.030); Urobilinogen,Urine 0.2 EU/dl (0.2)
--- NOTE | 2020-07-25 09:52 | XR_ITS ---
PROCEDURE: XR CHEST PORTABLE CLINICAL HISTORY: CENTRAL LINE PLACEMENT COMPARISON: No exams were available for comparison FINDINGS: 10 a.m. Endotracheal tube tip is in good position 4.5 cm above the carleen. Left IJ central venous line is present. The tip is in good position in the region of the SVC. No evidence of pneumothorax. There remains hypoventilation with diffuse pulmonary fibrosis with possible superimposed pneumonia. Normal heart size. IMPRESSION: 1. Endotracheal tube and central line in good position. No evidence of pneumothorax. 2. No change in the diffuse pulmonary fibrosis and possible superimposed pneumonia Dictated by: Ildefonso Durand MD 07/25/2020 09:58 Ildefonso Durand MD in [place] 07/25/2020 09:58
--- NOTE | 2020-07-25 10:07 | PC.NURSE ---
Called radiology for a X-ray to confirm central line placement on left side per MD Yancey orders.
[2020-07-25 10:08] LABS: Adenovirus,PCR Not Detected (NotDetected); Basophils % 0.2 % (0.1-2.0); Bordetella Pertussis Not Detected (NotDetected); Chlamydophila Pneumoniae, PCR Not Detected (NotDetected); Coronavirus 229E Not Detected (NotDetected); Coronavirus NL63 Not Detected (NotDetected); Coronavirus OC43 Not Detected (NotDetected); Coronovirus HKU1,PCR Not Detected (NotDetected); Hematocrit 42.3 % (37.0-47.0); Hemoglobin 13.6 g/dL (12.2-16.2); Human Metapneumovirus Not Detected (NotDetected); Influenza A, PCR Not Detected (NotDetected); Influenza AH1, 2009 Not Detected (NotDetected); Influenza AH1, PCR Not Detected (NotDetected); Influenza AH3,PCR Not Detected (NotDetected); Influenza B, PCR Not Detected (NotDetected); Lymphocytes # 0.4 K/mm3 (0.7-4.5); Lymphocytes % 2.7 % (10-50); Mean Corpuscular HGB Conc 32.1 g/dL (31.8-35.4); Mean Corpuscular Hemoglobin 32.3 pg (27.0-31.2); Mean Corpuscular Volume 100.8 fl (81-99); Mean Platelet Volume 8.8 fl (7.4-10.4); Monocytes # 0.4 K/mm3 (0.1-1.0); Monocytes % 2.5 % (1.7-9.3); Mycoplasma Pneumoniae, PCR Not Detected (NotDetected); Neutrophils # 14.2 K/mm3 (1.8-7.8); Neutrophils % 94.6 % (37.0-80.0); Parainfluenza 1, PCR Not Detected (NotDetected); Parainfluenza 2, PCR Not Detected (NotDetected); Parainfluenza 3, PCR Not Detected (NotDetected); Parainfluenza 4, PCR Not Detected (NotDetected); Platelet Count 231 K/mm3 (142-424); Red Cell Distribution Width 15.1 % (11.5-17.5); Respiratory Syncytial Virus Not Detected (NotDetected); Rhinovirus/Enterovirus Not Detected (NotDetected)
[2020-07-25 10:12] LABS: MANUAL DIFFERENTIAL MANUAL DIFFERENTIAL (MANUAL DIFF)
[2020-07-25 10:13] LABS: Bacteria,Urine 4+ /lpf; Squamous Epithelial Cell,Urine Occasional #/hpf (0-5)
[2020-07-25 10:17] LABS: Alanine Aminotransferase 156 U/L (12-78); Albumin Level 2.9 g/dl (3.5-5.0); Alkaline Phosphatase 209 U/L (38-126); Anion Gap 15.2 mEq/L (5-15); Aspartate Amino Transferase 140 U/L (14-36); Bilirubin,Total 0.7 mg/dl (0.2-1.3); Blood Urea Nitrogen 51 mg/dl (7-17); Calcium 8.8 mg/dl (8.4-10.2); Carbon Dioxide 28 mmol/L (22.0-30.0); Chloride 95 mmol/L (98-107); Estimated Glomerular Filt Rate 46 ml/min (>60); GFR (African American) 56 ML/MIN (>60); Globulin 2.9 g/dL (1.3-3.2); Magnesium 1.7 mg/dl (1.6-2.3); Potassium 4.2 mmoL/L (3.5-5.1); Sodium 134 mmol/L (136-145); Total Protein,Serum 5.8 g/dl (6.3-8.2)
[2020-07-25 10:22] LABS: C-Reactive Protein 129.9 mg/L (0-4)
[2020-07-25 10:23] LABS: D-Dimer 1.94 ug/mL (0.0-0.5); Glucose 403 mg/dl (74-100); Lactic Acid 6.3 mmol/L (0.7-2.1)
--- NOTE | 2020-07-25 10:24 | PC.NURSE ---
notified ER of critical glucose and lactic acid
[2020-07-25 10:29] LABS: Anisocytosis 1+; Lymphocytes % 5 % (10-50); Macrocytosis 1+; Monocytes % 2 % (2-9); Neutrophils % 93 % (42-76); Platelet Estimate Normal; Total Cells Counted 100
[2020-07-25 10:31] LABS: Acetone, Serum (Rapid) None Detected (None Detect); NT Pro Brain Natriuretic Pep. 155 pg/mL (0-125); Troponin I 0.03 ng/ml (0.00-0.034)
[2020-07-25 10:35] LABS: Coronavirus 19 IgG Antibody Negative (Negative); Coronavirus 19 IgM Antibody Negative (Negative)
--- NOTE | 2020-07-25 10:36 | CT_ITS ---
PROCEDURE: CT ANGIO CHEST CLINCIAL INDICATION: hypoxic respiratory failure COMPARISON: CT CT ANGIO CHEST from 02/21/[address] CHEST WO CON from 03/30/2020 TECHNIQUE: IV Contrast: 70ML Isovue 370 Axial images obtained with sagittal and coronal reformats. All CT scans at the facility use one or more dose reduction, viz: automated exposure control, ma/kV adjustment per patient size (including targeted exams where dose is matched to indication, i.e. head), or iterative reconstruction technique. FINDINGS: There is an endotracheal tube present. The tip is in good position 2.7 cm above the carleen. No evidence of pulmonary embolus aortic aneurysm or aortic dissection. There is fluid within the mid and distal esophagus and may be due to reflux. There is diffuse pulmonary fibrosis with superimposed ground-glass opacification involving the upper and lower lobes with some sparing of the lung apices and left upper lobe. No effusions. Covid19 pneumonia with superimposed pulmonary fibrosis is considered. The ground-glass consolidation is slightly worse when compared to 03/30/2020 and 02/21/2020.. Nodular opacities are present in the lung apex on the left and may be due to areas of atelectasis or consolidation. Upper abdominal images show heterogeneous intensity of the liver consistent with fatty replacement. IMPRESSION: 1. No evidence of pulmonary embolus. 2. Diffuse pulmonary fibrosis with superimposed ground-glass consolidation in both upper and lower lobes suspicious for superimposed pneumonia or edema. Covid19 19 pneumonia could cause this finding. Dictated by: Ildefonso Durand MD 07/25/2020 12:22 Ildefonso Durand MD in [place] 07/25/2020 12:22
[2020-07-25 10:37] LABS: Erythrocyte Sedimentation Rate 92 mm/hr (0-30); Procalcitonin 1.14 ng/mL (0.0-2.0)
--- NOTE | 2020-07-25 10:44 | HMH.EDGENADL ---
ED Disposition Clinical Impression: SRINATH (acute kidney injury), Lactic acidosis Sepsis with acute hypoxic respiratory failure Qualifiers: Sepsis type: sepsis due to unspecified organism Severe sepsis shock status: without septic shock Qualified Code(s): A41.9 - Sepsis, unspecified organism; R65.20 - Severe sepsis without septic shock; J96.01 - Acute respiratory failure with hypoxia Disposition: Admitted As Inpatient Condition on Discharge: Critical Referrals: Bright Wright MD [Primary Care Provider] - - Critical Care Critical Care Time: Yes Attestation: On 07/25/20, the high probability of a clinically significant, sudden or life threatening deterioration of the following system(s) required my full and direct attention, intervention and personal management. The time I documented below is in addition to time spent performing reported procedures but includes the following listed in this critical care notation. Total Critical Care Time: 60 Vital system(s) involved:: Circulatory Failure, Central Nervous System, Respiratory Failure, Renal Failure My critical care processes included: Assessment & monitoring of V/S, Initial and Re-exams, Data Review/Interpretation, Coordinating Care, Medication Orders and management, Documentation Medical Decision Making - Medical Records Medical records reviewed: Yes: I reviewed the patient's medical records. - Narayan Inquiry Pt receiving controlled substance: No Vital Signs: 07/25/20 08:29 07/25/20 08:52 07/25/20 08:57 Temperature 98.4 F Temperature Source Oral Pulse Rate [Right Radial] 123 H 124 H 124 H Respiratory Rate 30 H 19 Blood Pressure [Left Arm] 119/76 104/81 L 104/81 L Blood Pressure Mean [Left Arm] 90 88 88 Blood Pressure Source [Left Arm] Automatic Cuff Automatic Cuff Blood Pressure Position [Left Arm] Sitting Sitting 02 Sat by Pulse Oximetry 56 L 84 L 76 L Oxygen Delivery Method Nasal Cannula Non-Rebreather Mechanical Ventilation Oxygen Flow Rate (LPM) 6 07/25/20 09:00 07/25/20 09:15 07/25/20 09:30 Temperature Temperature Source Pulse Rate [Right Radial] 128 H 118 H Respiratory Rate 35 H Blood Pressure [Left Arm] 111/76 87/60 L Blood Pressure Mean [Left Arm] 87 69 Blood Pressure Source [Left Arm] Automatic Cuff Automatic Cuff Blood Pressure Position [Left Arm] Supine Sitting 02 Sat by Pulse Oximetry 81 L 82 L 87 L Oxygen Delivery Method Mechanical Ventilation Mechanical Ventilation Oxygen Flow Rate (LPM) 07/25/20 09:38 07/25/20 09:45 07/25/20 09:50 Temperature Temperature Source Pulse Rate [Right Radial] 120 H 120 H Respiratory Rate Blood Pressure [Left Arm] 95/64 L 98/71 L Blood Pressure Mean [Left Arm] 74 80 Blood Pressure Source [Left Arm] Automatic Cuff Automatic Cuff Blood Pressure Position [Left Arm] Sitting Sitting 02 Sat by Pulse Oximetry 87 L 87 L 87 L Oxygen Delivery Method Mechanical Ventilation Mechanical Ventilation Oxygen Flow Rate (LPM) 07/25/20 09:56 07/25/20 10:00 07/25/20 10:05 Temperature Temperature Source Pulse Rate [Right Radial] 121 H 114 H 112 H Respiratory Rate Blood Pressure [Left Arm] 121/57 L 84/60 L 83/51 L Blood Pressure Mean [Left Arm] 78 68 61 Blood Pressure Source [Left Arm] Automatic Cuff Automatic Cuff Automatic Cuff Blood Pressure Position [Left Arm] Sitting Sitting Sitting 02 Sat by Pulse Oximetry 88 L 87 L 87 L Oxygen Delivery Method Mechanical Ventilation Mechanical Ventilation Mechanical Ventilation Oxygen Flow Rate (LPM) 07/25/20 10:10 07/25/20 10:15 07/25/20 10:18 Temperature Temperature Source Pulse Rate [Right Radial] 113 H 113 H 117 H Respiratory Rate Blood Pressure [Left Arm] 83/53 L 73/51 L 96/73 L Blood Pressure Mean [Left Arm] 63 58 80 Blood Pressure Source [Left Arm] Automatic Cuff Automatic Cuff Automatic Cuff Blood Pressure Position [Left Arm] Sitting Sitting Sitting 02 Sat by Pulse Oximetry 89 L 88 L 89 L Oxygen Deli
[2020-07-25 11:22] LABS: Coronavirus 19, PCR Detected (NotDetected)
--- NOTE | 2020-07-25 11:55 | PC.NURSE ---
Pt returned from rad.
--- NOTE | 2020-07-25 12:12 | PC.NURSE ---
Pt tolerating vent well at this time. Pt resting in bed, no distress noted at this time. VSS.
[2020-07-25 13:12] LABS: Troponin I 0.05 ng/ml (0.00-0.034)
[2020-07-25 14:00] LABS: Reflex Lactic Add Lactic Reflex
[2020-07-25 14:27] LABS: Lactic Acid Follow Up (RFLX 1) 2.5 mmol/L (0.7-2.1)
--- NOTE | 2020-07-25 14:34 | PC.NURSE ---
FSBS 372
[2020-07-25 14:35] LABS: POC Glucose,Bedside 372 (70-110)
--- NOTE | 2020-07-25 14:47 | HMH.PHACONS ---
- Pharmacy Consult Date: 07/25/20 Time: 14:47 Referring provider: DR. JURÁEZ Reason for Consult:: VANCOMYCIN DOSING Allergies and ADEs:: Allergies Allergy/AdvReac Type Severity Reaction Status Date / Time No Known Allergies Allergy Verified 07/17/20 14:01 Home Medications:: Home Medications Medication Instructions Recorded Confirmed Type ferrous sulfate 325 mg (65 mg 325 mg PO DAILY tab 08/02/17 07/25/20 History iron) tablet Cholecalciferol (Vitamin D3) 1,000 unit PO DAILY 01/09/20 07/25/20 History [Vitamin D3 1,000 Unit Cap] Ziprasidone HCl 60 mg PO BID 01/09/20 07/25/20 History atorvastatin 40 mg tablet 40 mg PO HS 01/22/20 07/25/20 History Acetaminophen [Tylenol 500mg 500 mg PO Q4HP PRN 01/31/20 07/25/20 History tablet] Apixaban [Eliquis 5mg tab] 5 mg PO BID 01/31/20 07/25/20 History lactulose 20 gram/30 mL oral 20 g PO DAILY PRN ml 02/04/20 07/25/20 History solution Fluticasone/Salmeterol [Advair 1 inh IH BID 02/20/20 07/25/20 History 250/50mcg Diskus] Ipratropium/Albuterol Sulfate 3 ml IH Q6HP PRN 02/20/20 07/25/20 History [Duoneb 3mL neb] Umeclidinium [place] [Incruse 1 puff IH DAILY 02/20/20 07/25/20 History Ellipta] predniSONE [Deltasone 20mg 20 mg PO BID 02/21/20 07/25/20 History tablet] docusate sodium 100 mg capsule 100 mg PO BID 04/14/20 07/25/20 History furosemide 40 mg tablet 40 mg PO DAILY tab 04/14/20 07/25/20 History ondansetron HCl 4 mg tablet 4 mg PO Q8H PRN 04/14/20 07/25/20 History sennosides 8.6 mg capsule 8.6 mg PO DAILY 04/14/20 07/25/20 History pantoprazole 40 mg tablet,delayed 40 mg PO BID #60 tab 05/03/20 07/25/20 Rx release morphine concentrate 100 mg/5 mL 5 mg PO Q4H PRN #30 ml 06/08/20 07/25/20 Rx (20 mg/mL) oral solution Morphine Sulfate [Roxanol 20mg/mL 5 mg PO Q8H 07/10/20 07/25/20 History 1mL oral solution UDC] Potassium Chloride [Micro-K 10mEq 10 meq PO BID 07/10/20 07/25/20 History cap] levETIRAcetam [Keppra 500mg tablet] 500 mg PO HS 07/10/20 07/25/20 History levETIRAcetam [Levetiracetam] 1,000 mg PO DAILY 07/10/20 07/25/20 History Venlafaxine HCl [Venlafaxine HCl 75 mg PO DAILY 07/11/20 07/25/20 History ER] clonazepam 0.5 mg tablet 0.5 mg PO BID #60 tab 07/19/20 07/25/20 Rx Metoprolol Succinate [Toprol XL 50 mg PO DAILY 07/25/20 07/25/20 History 50mg Tablet] Height: 1.57 m Weight: 63.503 kg Laboratory Results:: Laboratory Results - last 24 hr 07/25/20 09:15: Urine Color Yellow, Urine Appearance Sl cloudy, Urine pH 5.5, Ur Specific [place] >= 1.030, Urine Protein Trace, Urine Glucose (UA) 2+, Urine Ketones Negative, Urine Blood Negative, Urine Nitrate Negative, Urine Bilirubin Negative, Urine Urobilinogen 0.2, Ur Leukocyte Esterase Trace, Urine RBC None, Urine WBC 10-20, Ur Squamous Epith Cells Occasional, Urine Bacteria 4+ 07/25/20 09:20: Specimen Source Left radial, O2 % 100, ABG pH 7.30 L, ABG pCO2 44.6, ABG pO2 48.4 L, ABG HCO3 21.2 L, ABG Total CO2 22.6 L, ABG O2 Saturation 77 L*, ABG Base Excess -5.3 L, Ildefonso Test Patient unable, Vent Rate 24, Tidal Volume 450, PEEP 10 07/25/20 09:50: WBC 15.0 H, RBC 4.20, Hgb 13.6, Hct 42.3, MCV 100.8 H, MCH 32.3 H, MCHC 32.1, RDW 15.1, Plt Count 231, MPV 8.8, Neut % (Auto) 94.6 H, Lymph % (Auto) 2.7 L, Bee % (Auto) 2.5, Eos % (Auto) 0.0 L, Baso % (Auto) 0.2, Neut # (Auto) 14.2 H, Lymph # (Auto) 0.4 L, Bee # (Auto) 0.4, Eos # (Auto) 0.0, Baso # (Auto) 0.0, Total Counted 100, Neutrophils % (Manual) 93 H, Lymphocytes % (Manual) 5 L, Monocytes % (Manual) 2, Platelet Estimate Normal, RBC Morphology Not Reportable, Anisocytosis 1+, Macrocytosis 1+, ESR 92 H 07/25/20 09:50: Sodium 134 L, Potassium 4.2, Chloride 95 L, Carbon Dioxide 28, Anion Gap 15.2 H, BUN 51 H, Creatinine 1.20 H, Estimated GFR 46 L, Est GFR ( Amer) 56 L, Glucose 403 H*, Calcium 8.8, Magnesium 1.7, Total Bilirubin 0.7, AST 140 H, ALT 156 H, Alkaline Phosphatase 209 H, Troponin I 0.03, C-Reactive Pro
--- NOTE | 2020-07-25 15:13 | P.CONPHA_ITS ---
[facility] Pharmacy VTE Monitoring - Patient Demographics Admission date: 07/25/20 Report Date: 07/25/20 Time: 15:13 Allergies/Adverse Reactions: Patient Allergies No Known Allergies Allergy (Verified 07/17/20 14:01) Height: 1.57 m Weight: 63.503 kg Patient Problems: Current Active Problems Sepsis with acute hypoxic respiratory failure (Acute) SRINATH (acute kidney injury) (Acute) Lactic acidosis (Acute) - VTE Risk Labs: VTE Related Lab Results Hgb 13.6 g/dL (12.2-16.2) 07/25/20 09:50 Hct 42.3 % (37.0-47.0) 07/25/20 09:50 Plt Count 231 K/mm3 (142-424) 07/25/20 09:50 BUN 51 mg/dl (7-17) H 07/25/20 09:50 Creatinine 1.20 mg/dl (0.52-1.04) H 07/25/20 09:50 - Prophylaxis VTE Prophylaxis Ordered?: Yes Types of VTE Prophylaxis: TEDS Knee High, Pharmacological Location of Applied Device: Bilateral Lower Extremeties Pharmacologic Type: Enoxaparin
[2020-07-25 15:44] LABS: ABG Base Excess 0.2 mmol/L (-2.4-2.3); ABG HCO3 24.2 mmhg (22.0-26.0); ABG Oxygen Saturation 95 % (90-100); ABG PCO2 35.8 mmhg (35.0-45.0); ABG PH 7.45 mmol/L (7.35-7.45); ABG PO2 74.3 mmhg (80-100); ABG TCO2 25.3 mmhg (23-27)
[2020-07-25 15:54] LABS: Oxygen 100 %; Tidal Volume 440
[2020-07-25 15:55] LABS: Allen's Test ACCEPTABLE; PEEP 10; Source L RADIAL; Vent Rate 24
[2020-07-25 16:09] LABS: Reflex Lactic (2 hrs) Add Lactic Reflex
[2020-07-25 16:24] LABS: Troponin I 0.03 ng/ml (0.00-0.034)
--- NOTE | 2020-07-25 16:58 | PC.NURSE ---
patient arrived to icu in stable condition. blood pressure noted be on lower side. patient maxed on versed and is able to still answer yes or no questions. this was noted to md who stated to give her 2mg versed iv push once. stated to hold off on placing og/ng until she was asleep and sedated. noted multiple scattered bruising on body. heels noted to be dark. some shearing noted to bottom, and skin tear to r arm that has be redressed.
[2020-07-25 17:01] LABS: Lactic Acid Follow up (RFLX 2) 3.8 mmol/L (0.7-2.1)
--- NOTE | 2020-07-25 17:02 | PC.NURSE ---
attempted to call patient sister for consent of pictures. phone had been disconnected. will look through residential paperwork or call residential to see if other contact information can be obtained.
--- NOTE | 2020-07-25 17:14 | PC.NURSE ---
relayed to md patient bp is 80s/50s. making a map of 60-65. md stated goal was a map greater or equal to 60.
--- NOTE | 2020-07-25 18:02 | XR_ITS ---
PROCEDURE: XR CHEST PORTABLE CLINICAL HISTORY: og placement COMPARISON: CR XR CHEST AP from 07/10/2020 CR XR CHEST PORTABLE from 07/25/[address] ANGIO CHEST from 07/25/2020 CR XR CHEST PORTABLE from 07/25/2020 FINDINGS: 1815 hours Endotracheal tube tip is in good position 4 cm above the carleen. Orogastric tube tip is in good position in the fundus of the stomach. Left IJ central venous line tip in the region the SVC. There remains diffuse bilateral pulmonary pneumonia with underlying pulmonary fibrosis. No evidence of pneumothorax. No acute bony abnormalities. IMPRESSION: Endotracheal tube, IJ CVL, and nasogastric tube in good position. No change persistent interstitial lung disease with superimposed pneumonia Dictated by: Ildefonso Durand MD 07/26/2020 05:58 Ildefonso Durand MD in [place] 07/26/2020 05:58
--- NOTE | 2020-07-25 18:17 | PC.NURSE ---
patient pressures started to decrease so md stated to start levophed to keep map 60 or greater. og tube placed awaiting confirmation for use. 18 romansh 60 at lip. also verfied mixing of levophed drip with pharmacy. stated you added 8mg in a 250ml bag and it was okay to use normal saline
--- NOTE | 2020-07-25 18:20 | PC.NURSE ---
rass has been a -2 to -3 now. she remains easy to arouse but falls back to sleep easily
--- NOTE | 2020-07-25 18:42 | PC.NURSE ---
patient versed at 0.1mg/kg/min now fentanyl is 25mcg/hr lr at 150ml/hr holding off on levophed, patient pressure has started to maintain a map 60-73
--- NOTE | 2020-07-25 18:56 | PC.NURSE ---
called marina who stated patient was her on poa. she had no other family listed to contact in case she was unable. unable to get consent for pictures.
--- NOTE | 2020-07-25 19:22 | PC.NURSE ---
patient had significant drop in fsbs. will hold insulin at this time. fsbs 157
[2020-07-26] VITALS (33 sets, daily range): BP systolic 96–131; BP diastolic 55–85; PULSE 60–110; RESP 18–29; TEMP 36.3–37.2; O2SAT 84–98; BMI 25.7; BMI 25.6
--- NOTE | 2020-07-26 01:40 | PC.NURSE ---
Pt wakes spontaneously and will follow commands. Current vent settings are as follows: AC, TV 400, PEEP 10, R 24, FiO2 100%. Central Line patent with Versed infusing @ 0.1 mg/kg/hr. Fentanyl @ 25 mcg/hr. Levophed @ 2 mcg/min. Meropenem is currently infusing to (R)IJ. Oral care and suctioning provided. Pt turned and repositioned Q2 hr. Pt has multiple bruising to extremities and sin tear to RUE. F/C draining to bedside with clear, yellow urine. VSS. Will continue to monitor.
--- NOTE | 2020-07-26 02:58 | PC.NURSE ---
CPOT Less than 3. Fentanyl 12.5 mcg Boluses administered x3. Fentanyl gtt titrated to 37.5 mcg/hr.
--- NOTE | 2020-07-26 06:00 | XR_ITS ---
PROCEDURE: XR CHEST PORTABLE CLINICAL HISTORY: assess ETT placement Covid19 pneumonia follow-up COMPARISON: CR XR CHEST PORTABLE from 07/25/2020 CR XR CHEST PORTABLE from 07/25/[address] ANGIO CHEST from 07/25/2020 CR XR CHEST PORTABLE from 07/25/2020 FINDINGS: 5:58 a.m.. Endotracheal tube, left subclavian central venous line, and nasogastric tube all are in good position. No change diffuse bilateral pneumonia superimposed upon chronic pulmonary fibrotic changes. IMPRESSION: Tubes and lines in good position with no change in the diffuse bilateral pneumonia superimposed upon chronic fibrotic change Dictated by: Ildefonso Durand MD 07/26/2020 06:29 Ildefonso Durand MD in [facility] 07/26/2020 06:29
[2020-07-26 07:30] LABS: ABG Base Excess -0.8 mmol/L (-2.4-2.3); ABG HCO3 22.2 mmhg (22.0-26.0); ABG Oxygen Saturation 98 % (90-100); ABG PCO2 28.1 mmhg (35.0-45.0); ABG PH 7.52 mmol/L (7.35-7.45); ABG PO2 119.3 mmhg (80-100)
[2020-07-26 07:32] LABS: Oxygen 100 %; PEEP 10; Source Right Radial; Tidal Volume 400; Vent Rate 24
[2020-07-26 08:59] LABS: Basophils % 0.2 % (0.1-2.0); Lymphocytes # 0.5 K/mm3 (0.7-4.5); Red Blood Count 3.32 M/mm3 (4.20-5.40)
[2020-07-26 09:04] LABS: Alanine Aminotransferase 128 U/L (12-78); Albumin Level 2.4 g/dl (3.5-5.0); Albumin/Globulin Ratio 0.8 (1.1-1.8); Alkaline Phosphatase 153 U/L (38-126); Anion Gap 4.6 mEq/L (5-15); Aspartate Amino Transferase 127 U/L (14-36); Bilirubin,Total 0.6 mg/dl (0.2-1.3); Blood Urea Nitrogen 35 mg/dl (7-17); Calcium 8.9 mg/dl (8.4-10.2); Carbon Dioxide 30 mmol/L (22.0-30.0); Chloride 107 mmol/L (98-107); Creatinine Clearance Estimated 112 mL/min (50-200); Estimated Glomerular Filt Rate 103 ml/min (>60); GFR (African American) 125 ML/MIN (>60); Globulin 2.9 g/dL (1.3-3.2); Glucose 109 mg/dl (74-100); Hematocrit 33.8 % (37.0-47.0); Lymphocytes % 4.8 % (10-50); Magnesium 1.6 mg/dl (1.6-2.3); Mean Corpuscular HGB Conc 32.7 g/dL (31.8-35.4); Mean Corpuscular Hemoglobin 33.4 pg (27.0-31.2); Mean Corpuscular Volume 101.9 fl (81-99); Mean Platelet Volume 10.3 fl (7.4-10.4); Monocytes # 0.3 K/mm3 (0.1-1.0); Monocytes % 3.1 % (1.7-9.3); Neutrophils # 9.6 K/mm3 (1.8-7.8); Neutrophils % 91.9 % (37.0-80.0); Platelet Count 172 K/mm3 (142-424); Potassium 3.6 mmoL/L (3.5-5.1); Red Cell Distribution Width 15.2 % (11.5-17.5); Sodium 138 mmol/L (136-145); Total Protein,Serum 5.3 g/dl (6.3-8.2); White Blood Count 10.5 K/mm3 (4.8-10.8)
[2020-07-26 09:05] LABS: MANUAL DIFFERENTIAL MANUAL DIFFERENTIAL (MANUAL DIFF)
[2020-07-26 09:06] LABS: Hemoglobin 11.1 g/dL (12.2-16.2)
--- NOTE | 2020-07-26 09:15 | HMH.HP ---
*Admission Date: 07/25/20 *Chief complaint: resp failure *History of present illness: 59-year-old female that presents via EMS from [facility] due to hypoxia and hypotension with covid 19.. Upon arrival patient hypoxic in the 60s on a nonrebreather with slowed mentation and cyanosis. Pt admitted for covid pneumonia, while in ed pt was intubated and placed on vent. [facility] History I have reviewed the patient's past medical history: Yes Medical History: Reports:: Anxiety, Arrhythmia, Cardiomyopathy, Congestive Heart Failure, Chronic Obstructive Pulmonary Disease (COPD), Gastroesophageal Reflux Disease(GERD), Hyperlipidemia, Hypertension, Peripheral Artery Disease, Pulmonary Embolism, Seizures Denies:: Diabetes Mellitus Type 1, Diabetes Mellitus Type 2 *Have you ever received a pneumonia vaccine?: Yes *Have you received a flu vaccine this season?: Yes Other Medical History: Reports: Anemia Other Surgeries: Yes: Cancer Surgery, Cholecystectomy, Colonoscopy, Hysterectomy-Total, Other Amputation: No Fractures: No - *Social History Smoking Status: Unknown if ever smoked Tobacco Type: cigarettes # Packs/Day (cigarettes): 1 Alcohol Intake: never Alcohol Intake Frequency:: other Substance Use Type: denies use *Occupational Status:: disabled Housing: assisted Household Members: other *Travel in the last 8 weeks: None - Psychiatric History Pschychiatric History:: Reports:: Anxiety, Schizophrenia Family Hx:: Unable to obtain PRICE LISTER history: No PRICE LISTER history Review of Systems - Review of Systems Review of systems:: unable to obtain - Constitutional Denies body ache(s) Meds Home Medications Medication Instructions Recorded Confirmed Type ferrous sulfate 325 mg (65 mg 325 mg PO DAILY tab 08/02/17 07/25/20 History iron) tablet Cholecalciferol (Vitamin D3) 1,000 unit PO DAILY 01/09/20 07/25/20 History [Vitamin D3 1,000 Unit Cap] Ziprasidone HCl 60 mg PO BID 01/09/20 07/25/20 History atorvastatin 40 mg tablet 40 mg PO HS 01/22/20 07/25/20 History Acetaminophen [Tylenol 500mg 500 mg PO Q4HP PRN 01/31/20 07/25/20 History tablet] Apixaban [Eliquis 5mg tab] 5 mg PO BID 01/31/20 07/25/20 History lactulose 20 gram/30 mL oral 20 g PO DAILY PRN ml 02/04/20 07/25/20 History solution Fluticasone/Salmeterol [Advair 1 inh IH BID 02/20/20 07/25/20 History 250/50mcg Diskus] Ipratropium/Albuterol Sulfate 3 ml IH Q6HP PRN 02/20/20 07/25/20 History [Duoneb 3mL neb] Umeclidinium [place] [Incruse 1 puff IH DAILY 02/20/20 07/25/20 History Ellipta] predniSONE [Deltasone 20mg 20 mg PO BID 02/21/20 07/25/20 History tablet] docusate sodium 100 mg capsule 100 mg PO BID 04/14/20 07/25/20 History furosemide 40 mg tablet 40 mg PO DAILY tab 04/14/20 07/25/20 History ondansetron HCl 4 mg tablet 4 mg PO Q8H PRN 04/14/20 07/25/20 History sennosides 8.6 mg capsule 8.6 mg PO DAILY 04/14/20 07/25/20 History pantoprazole 40 mg tablet,delayed 40 mg PO BID #60 tab 05/03/20 07/25/20 Rx release morphine concentrate 100 mg/5 mL 5 mg PO Q4H PRN #30 ml 06/08/20 07/25/20 Rx (20 mg/mL) oral solution Morphine Sulfate [Roxanol 20mg/mL 5 mg PO Q8H 07/10/20 07/25/20 History 1mL oral solution UDC] Potassium Chloride [Micro-K 10mEq 10 meq PO BID 07/10/20 07/25/20 History cap] levETIRAcetam [Keppra 500mg tablet] 500 mg PO HS 07/10/20 07/25/20 History levETIRAcetam [Levetiracetam] 1,000 mg PO DAILY 07/10/20 07/25/20 History Venlafaxine HCl [Venlafaxine HCl 75 mg PO DAILY 07/11/20 07/25/20 History ER] clonazepam 0.5 mg tablet 0.5 mg PO BID #60 tab 07/19/20 07/25/20 Rx Metoprolol Succinate [Toprol XL 50 mg PO DAILY 07/25/20 07/25/20 History 50mg Tablet] Allergies Allergy/AdvReac Type Severity Reaction Status Date / Time No Known Allergies Allergy Verified 07/17/20 14:01 Exam Vital signs and Labs for Last 24 Hours: Temp Pulse Resp BP Pulse Ox 98.5 F 71 24 119/84
--- NOTE | 2020-07-26 10:19 | SW/DCPLANNER ---
This patient currently resides at [facility]. I have spoke with Terese at [facility] and she has stated that patient is [facility] level of care. I will follow up with Terese once patient is medically stable for discharge.
--- NOTE | 2020-07-26 11:13 | HMH.PULMCON ---
*Admission Date: 07/25/20 *Reason for consult:: Acute hypoxic respiratory failure, COVID-19 pneumonia *History of present illness: Ms. Epps is a 59-year-old female with chronic hypoxic respiratory failure, pulmonary fibrosis probable UIP likely from hypersensitivity pneumonitis presented to the hospital with worsening respiratory failure needing mechanical ventilatory support to maintain her oxygen saturations and pulmonary was called for further management. Patient also found to be hypertensive with elevated lactate, septic shock on admission [facility] History Medical History: Reports:: Anxiety, Arrhythmia, Cardiomyopathy, Congestive Heart Failure, Chronic Obstructive Pulmonary Disease (COPD), Gastroesophageal Reflux Disease(GERD), Hyperlipidemia, Hypertension, Peripheral Artery Disease, Pulmonary Embolism, Seizures Denies:: Diabetes Mellitus Type 1, Diabetes Mellitus Type 2 *Have you ever received a pneumonia vaccine?: Yes *Have you received a flu vaccine this season?: Yes Other Medical History: Reports: Anemia Other Surgeries: Yes: Cancer Surgery, Cholecystectomy, Colonoscopy, Hysterectomy-Total, Other Amputation: No Fractures: No - *Social History Smoking Status: Unknown if ever smoked Tobacco Type: cigarettes # Packs/Day (cigarettes): 1 Alcohol Intake: never Alcohol Intake Frequency:: other Substance Use Type: denies use *Occupational Status:: disabled Housing: [facility] Household Members: other *Travel in the last 8 weeks: None - Psychiatric History Pschychiatric History:: Reports:: Anxiety, Schizophrenia Family Hx:: Unable to obtain BULK FLUIDS HANDLER history: No BULK FLUIDS HANDLER history ROS - Review of Systems Review of systems:: unable to obtain Unable to obtain as patient was intubated and sedated Meds Home Medications Medication Instructions Recorded Confirmed Type ferrous sulfate 325 mg (65 mg 325 mg PO DAILY tab 08/02/17 07/25/20 History iron) tablet Cholecalciferol (Vitamin D3) 1,000 unit PO DAILY 01/09/20 07/25/20 History [Vitamin D3 1,000 Unit Cap] Ziprasidone HCl 60 mg PO BID 01/09/20 07/25/20 History atorvastatin 40 mg tablet 40 mg PO HS 01/22/20 07/25/20 History Acetaminophen [Tylenol 500mg 500 mg PO Q4HP PRN 01/31/20 07/25/20 History tablet] Apixaban [Eliquis 5mg tab] 5 mg PO BID 01/31/20 07/25/20 History lactulose 20 gram/30 mL oral 20 g PO DAILY PRN ml 02/04/20 07/25/20 History solution Fluticasone/Salmeterol [Advair 1 inh IH BID 02/20/20 07/25/20 History 250/50mcg Diskus] Ipratropium/Albuterol Sulfate 3 ml IH Q6HP PRN 02/20/20 07/25/20 History [Duoneb 3mL neb] Umeclidinium [place] [Incruse 1 puff IH DAILY 02/20/20 07/25/20 History Ellipta] predniSONE [Deltasone 20mg 20 mg PO BID 02/21/20 07/25/20 History tablet] docusate sodium 100 mg capsule 100 mg PO BID 04/14/20 07/25/20 History furosemide 40 mg tablet 40 mg PO DAILY tab 04/14/20 07/25/20 History ondansetron HCl 4 mg tablet 4 mg PO Q8H PRN 04/14/20 07/25/20 History sennosides 8.6 mg capsule 8.6 mg PO DAILY 04/14/20 07/25/20 History pantoprazole 40 mg tablet,delayed 40 mg PO BID #60 tab 05/03/20 07/25/20 Rx release morphine concentrate 100 mg/5 mL 5 mg PO Q4H PRN #30 ml 06/08/20 07/25/20 Rx (20 mg/mL) oral solution Morphine Sulfate [Roxanol 20mg/mL 5 mg PO Q8H 07/10/20 07/25/20 History 1mL oral solution UDC] Potassium Chloride [Micro-K 10mEq 10 meq PO BID 07/10/20 07/25/20 History cap] levETIRAcetam [Keppra 500mg tablet] 500 mg PO HS 07/10/20 07/25/20 History levETIRAcetam [Levetiracetam] 1,000 mg PO DAILY 07/10/20 07/25/20 History Venlafaxine HCl [Venlafaxine HCl 75 mg PO DAILY 07/11/20 07/25/20 History ER] clonazepam 0.5 mg tablet 0.5 mg PO BID #60 tab 07/19/20 07/25/20 Rx Metoprolol Succinate [Toprol XL 50 mg PO DAILY 07/25/20 07/25/20 History 50mg Tablet] Allergies Allergy/AdvReac Type Severity Reaction Status Date / Time No Known Allergies Allergy Verified 07/17/20 14:01
--- NOTE | 2020-07-26 11:38 | PC.NURSE ---
Dr. Wright notified of blood culture results: pcr staph and meca A gene dectected.
[2020-07-26 12:04] LABS: POC Glucose,Bedside 127 (70-110)
[2020-07-26 12:04] LABS: POC Glucose,Bedside 157 (70-110)
[2020-07-26 12:13] LABS: POC Glucose,Bedside 129 (70-110)
[2020-07-26 13:05] LABS: Lymphocytes % 4 % (10-50); Macrocytosis 1+; Monocytes % 8 % (2-9); Neutrophils % 88 % (42-76); Platelet Estimate Normal; Total Cells Counted 100
--- NOTE | 2020-07-26 13:20 | DIET.NUTRFU ---
Addendum entered by Alexa Escalona 07/26/20 16:47: Notified by nursing of kangaroo pump shortage, pt appropriate for bolus feeds at initiation. Will reassess indication continuous feeds when more pumps become available. Order changed to bolus feeds as stated below. No change to nutrients provided by regimen as stated or overall nutritional care plan, will advance slow/low. Recommend initiating bolus tube feeding regimen of Pulmocare 1.5 with feedings of 240ml q 6h. Pt currently receiving IVF, recommend minimal water flushes of 60-120ml for irrigation/at GRV checks. If IVF DC'd- add water flushes of 175ml q 4 hr. Original Note: Pt intubated and sedated, recommend initiating early enteral nutrition upon TF initiation order. Pt is a newly diagnosed diabetic with A1C of 11 with CHF at high risk fluid overload, and with COPD. She has not had any weight changes since last admit <1 month ago. Nutritional care plan to advance very slow and low- starting at 20kcal/kg or approx. 25% needs and advancing over 3-5 days as tolerated per ASPEN standards for critical care/COVID 19. Pulmocare is most appropriate formula choice for respiratory support and BG control. Will initiate tube feeds with goal rate of ~25% needs, upon good tolerance will reassess indication further advancement to ~75% needs. Recommend initiating continuous tube feeding regimen of Pulmocare 1.5 at 20ml/hr and advance by 10ml/hr q 8hr as tolerated to goal rate of 40ml/hr. Recommend water flushes of 175ml q 4hr to meet additional fluid needs not provided by formula. This regimen provides 1440kcal, 60g protein, 101g cho, 90g fat, and 754ml free water. Total fluids with water flushes and formula free water is 1800ml, within conservative fluid needs.
[2020-07-26 17:32] LABS: POC Glucose,Bedside 194 (70-110)
--- NOTE | 2020-07-26 20:00 | PC.NURSE ---
INCREASED FIO2 FROM 60% TO 70% DUE TO LOW SATURATIONS.
--- NOTE | 2020-07-26 22:11 | XR_ITS ---
PROCEDURE: XR KUB CLINICAL INDICATION: OG placement COMPARISON: CT CT ABDOMEN PELVIS W CON from 07/10/2020 FINDINGS: 08/21/2028Endotracheal tube is present with the tip in good position 4 cm above the carleen. Left IJ CVL tip is in the region the SVC. Orogastric tube tip in good position in the region the body of the stomach. No change in the pulmonary fibrosis with superimposed pneumonia. IMPRESSION: Orogastric tube tip in the region the body of stomach. Of the tubes and lines present with no change in the cardiopulmonary status Dictated by: Ildefonso Durand MD 07/27/2020 06:38 Ildefonso Durand MD in OV 07/27/2020 06:38
[2020-07-27] VITALS (33 sets, daily range): BP systolic 83–132; BP diastolic 55–91; PULSE 51–96; RESP 18–27; TEMP 36.1–37; O2SAT 87–96; BMI 26.6
[2020-07-27 01:54] LABS: POC Glucose,Bedside 253 (70-110)
--- NOTE | 2020-07-27 02:40 | PC.NURSE ---
INCREASED PTS FIO2 FROM 70% TO 80% DUE TO LOW SATURATIONS.
[2020-07-27 05:52] LABS: POC Glucose,Bedside 253 (70-110)
[2020-07-27 06:06] LABS: POC Glucose,Bedside 292 (70-110)
--- NOTE | 2020-07-27 07:00 | XR_ITS ---
PROCEDURE: XR CHEST PORTABLE CLINICAL HISTORY: ETT placement Covid19 pneumonia COMPARISON: CR XR CHEST PORTABLE from 07/25/[address] ANGIO CHEST from 07/25/2020 CR XR CHEST PORTABLE from 07/25/2020 CR XR CHEST PORTABLE from 07/26/2020 FINDINGS: 7:17 a.m.. Endotracheal tube nasogastric tube and left subclavian central venous line all remain in good position No change diffuse bilateral pneumonia superimposed upon chronic interstitial disease. No evidence of pneumothorax. IMPRESSION: No change tubes and lines with diffuse bilateral pneumonia and chronic interstitial changes Dictated by: Ildefonso Durand MD 07/27/2020 09:07 Ildefonso Durand MD in OV 07/27/2020 09:07
--- NOTE | 2020-07-27 07:00 | PC.NURSE ---
Pt was placed back on levophed gtt overnight. Was titrated between 2-4 mcg/min. BP stabilized again this AM. Pt also had periods of desats to 88% and would maintain. RT was notified and Vent settings were adjusted. They are currently as follows: AC, TV 400, PEEP, 10, R18, FiO2 80%. Versed is currently infusing @ 0.1 mg/kg/hr. Fentanyl 37.5 mcg/hr. LR @ 150 ml/hr. VS are currently stable. Report given to Lui Ashford RN. Urine cultures reported to
[2020-07-27 07:41] LABS: ABG Base Excess 1.6 mmol/L (-2.4-2.3); ABG HCO3 25.3 mmhg (22.0-26.0); ABG Oxygen Saturation 86 % (90-100); ABG PCO2 36.2 mmhg (35.0-45.0); ABG PH 7.46 mmol/L (7.35-7.45); ABG PO2 51.4 mmhg (80-100); ABG TCO2 26.5 mmhg (23-27)
[2020-07-27 07:44] LABS: Oxygen 80 %; PEEP 10; Source Left Radial; Tidal Volume 400; Vent Rate 18
[2020-07-27 08:11] LABS: Basophils % 0.2 % (0.1-2.0); Hematocrit 31.1 % (37.0-47.0); Hemoglobin 10.2 g/dL (12.2-16.2); Lymphocytes # 0.5 K/mm3 (0.7-4.5); Lymphocytes % 4.6 % (10-50); Mean Corpuscular HGB Conc 32.8 g/dL (31.8-35.4); Mean Corpuscular Hemoglobin 33.5 pg (27.0-31.2); Mean Corpuscular Volume 102.2 fl (81-99); Mean Platelet Volume 10.3 fl (7.4-10.4); Monocytes # 0.5 K/mm3 (0.1-1.0); Monocytes % 4.8 % (1.7-9.3); Neutrophils # 9.3 K/mm3 (1.8-7.8); Neutrophils % 90.5 % (37.0-80.0); Platelet Count 166 K/mm3 (142-424); Red Blood Count 3.04 M/mm3 (4.20-5.40); Red Cell Distribution Width 15.1 % (11.5-17.5); White Blood Count 10.3 K/mm3 (4.8-10.8)
[2020-07-27 08:13] LABS: MANUAL DIFFERENTIAL MANUAL DIFFERENTIAL (MANUAL DIFF)
[2020-07-27 08:18] LABS: Alanine Aminotransferase 191 U/L (12-78); Albumin Level 2.1 g/dl (3.5-5.0); Albumin/Globulin Ratio 0.9 (1.1-1.8); Alkaline Phosphatase 209 U/L (38-126); Anion Gap 4.5 mEq/L (5-15); Aspartate Amino Transferase 319 U/L (14-36); Bilirubin,Total 0.7 mg/dl (0.2-1.3); Blood Urea Nitrogen 33 mg/dl (7-17); Calcium 8.1 mg/dl (8.4-10.2); Carbon Dioxide 34 mmol/L (22.0-30.0); Chloride 100 mmol/L (98-107); Creatinine Clearance Estimated 115 mL/min (50-200); Estimated Glomerular Filt Rate 103 ml/min (>60); GFR (African American) 125 ML/MIN (>60); Globulin 2.4 g/dL (1.3-3.2); Glucose 267 mg/dl (74-100); Sodium 136 mmol/L (136-145); Total Protein,Serum 4.5 g/dl (6.3-8.2)
--- NOTE | 2020-07-27 08:27 | HMH.PULMPN ---
Internal Medicine - PN: Subj *Date: 07/27/20 *Time: 10:52 Interval history: No acute respiratory ones overnight. Exam - Constitutional Constitutional:: Present: comfortable - HENMT Exam HENMT: Present: atraumatic - Respiratory Exam Respiratory:: Present: normal respiratory effort, crackles - Cardiovascular Exam Cardiac:: Present: S1, S2 - GI Exam GI:: Present: soft - Skin Exam Skin: Present: warm - Extremities Exam Extremities: Present: no cyanosis, no clubbing, edema Assessment and Plan (1) Pneumonia due to COVID-19 virus Status: Acute Category: Medical Code(s): U07.1 - COVID-19; J12.82 - Pneumonia due to coronavirus disease 2019 (2) SRINATH (acute kidney injury) Status: Acute Category: Medical Code(s): N17.9 - Acute kidney failure, unspecified (3) Lactic acidosis Status: Acute Category: Medical Code(s): E87.2 - Acidosis (4) Sepsis with acute hypoxic respiratory failure Status: Acute Qualifiers: Sepsis type: sepsis due to unspecified organism Severe sepsis shock status: without septic shock Qualified Code(s): A41.9 - Sepsis, unspecified organism; R65.20 - Severe sepsis without septic shock; J96.01 - Acute respiratory failure with hypoxia Category: Medical Code(s): A41.9 - Sepsis, unspecified organism; R65.20 - Severe sepsis without septic shock; J96.01 - Acute respiratory failure with hypoxia (5) Acute exacerbation of chronic obstructive airways disease Status: Acute Category: Medical Code(s): J44.1 - Chronic obstructive pulmonary disease with (acute) exacerbation (6) Overweight (BMI 25.0-29.9) Status: Acute Category: Medical Code(s): E66.3 - Overweight (7) Respiratory failure Problem details: Patient came in with acute respiratory failure with chest x-ray showing bilateral lower lobe worsening opacities. Also concern for aspiration. However after reviewing the patient's prior CT scans there is definitely a component of interstitial lung disease contributing to her respiratory failure and this needs to be further worked up. Chest x-ray from [address] abdomen in 2015 showed normal lower lung dooley without any evidence of interstitial lung disease. Patient is a chronic smoker not more than 30 packs a day currently smoking, denies any significant changes in her life, any significant exposure, any change in smoking habit since 2014. X-ray from May 2019 showed bilateral lower lobe infiltrates however no CT was available to evaluate for interstitial process. Chest x-ray from October 2019 showed significant interstitial opacities in the bilateral lower lobe and subsequent CTs also showed interstitial lung disease. Upon chart review and further questioning patient denies any acute respiratory illness or any hospital admissions noted around October 2019. Patient also had a recent PE on CTA from December 2019 and on anticoagulation and the venous Doppler was performed again on this admission which was negative for DVT. Echo from previous admission on December 2019 showed normal LV systolic function cannot evaluate the diastolic function. Severe TR along with increased RV size and RVSP of 72 mm Hg was noted at the time. X-ray showed gradual improvement in her infiltrates since admission. For involving pulmonary inpatient care will continue to follow. Please call with any questions or concerns regarding this patient care. Status: Acute Qualifiers: Chronicity: acute on chronic Respiratory failure complication: hypoxia Qualified Code(s): J96.21 - Acute and chronic respiratory failure with hypoxia Category: Medical Code(s): J96.90 - Respiratory failure, unspecified, unspecified whether with hypoxia or hypercapnia (8) Diabetes Status: Chronic Qualifiers: Diabetes mellitus type: type 2 Diabetes mellitus long term care social worker insulin use: unspecified long term care social worker insulin use status Diabetes mellitus complication status: with other specified complication Qualified Code(s)
[2020-07-27 08:29] LABS: Potassium 2.5 mmoL/L (3.5-5.1)
--- NOTE | 2020-07-27 08:38 | HMH.ACPN2 ---
Internal Medicine - PN: Subj *Date: 07/27/20 *Time: 16:55 Interval history: 59-year-old female patient sitting up in bed remains on mechanical ventilation, is chemically sedated. Current vent settings 18/400/65 +10 currently oxygen saturations 93%. Pulmonology has seen and recommends: Plan: - Nasal MRSA cultures - Continue vancomycin and meropenem awaiting nasal MRSA culture urine cultures and endotracheal aspirate cultures, will de-escalate antibiotics patient cultures and clinical improvement -Continue remdesivir and dexamethasone for COVID-19 pneumonia - Continue mechanical ventilation with lung protective strategy, patient currently on PEEP of 10, 400 of tidal volume rate of 18 and FiO2 of 70%, Wean as tolerated - Lasix 40 mg IV once today (patient receiving 40 mg oral daily at baseline) - Chemical DVT and gastric ulcer prophylaxis. (Patient receiving full dose anticoagulation for atrial fibrillation) - Dietary consult with initiation of tube feeding - VAP bundle Exam Vital signs and Labs for Last 24 Hours: Temp Pulse Resp BP Pulse Ox 97.0 F L 78 19 121/83 93 L 07/27/20 08:00 07/27/20 08:00 07/27/20 08:00 07/27/20 08:00 07/27/20 08:00 Laboratory Results - last 24 hr 07/25/20 09:15: Urine Color Yellow, Urine Appearance Sl cloudy, Urine pH 5.5, Ur Specific [place] >= 1.030, Urine Protein Trace, Urine Glucose (UA) 2+, Urine Ketones Negative, Urine Blood Negative, Urine Nitrate Negative, Urine Bilirubin Negative, Urine Urobilinogen 0.2, Ur Leukocyte Esterase Trace, Urine RBC None, Urine WBC 10-20, Ur Squamous Epith Cells Occasional, Urine Bacteria 4+ 07/25/20 19:19: POC Glucose 157 H 07/26/20 01:08: POC Glucose 129 H 07/26/20 05:13: POC Glucose 127 H 07/26/20 05:22: WBC 10.5 D, RBC 3.32 L, Hgb 11.1 L D, Hct 33.8 L, MCV 101.9 H, MCH 33.4 H, MCHC 32.7, RDW 15.2, Plt Count 172 D, MPV 10.3, Neut % (Auto) 91.9 H, Lymph % (Auto) 4.8 L, [place] % (Auto) 3.1, Eos % (Auto) 0.0 L, Baso % (Auto) 0.2, Neut # (Auto) 9.6 H, Lymph # (Auto) 0.5 L, [place] # (Auto) 0.3, Eos # (Auto) 0.0, Baso # (Auto) 0.0, Total Counted 100, Neutrophils % (Manual) 88 H, Lymphocytes % (Manual) 4 L, Monocytes % (Manual) 8, Platelet Estimate Normal, RBC Morphology Not Reportable, Macrocytosis 1+ 07/26/20 05:22: Sodium 138, Potassium 3.6, Chloride 107, Carbon Dioxide 30, Anion Gap 4.6 L, BUN 35 H D, Creatinine 0.60 D, Estimated Creat Clear 112, Estimated GFR 103, Est GFR ( Amer) 125 D, Glucose 109 H D, Calcium 8.9, Magnesium 1.6, Total Bilirubin 0.6, AST 127 H, ALT 128 H, Alkaline Phosphatase 153 H, Total Protein 5.3 L, Albumin 2.4 L D, Globulin 2.9, Albumin/Globulin Ratio 0.8 L 07/26/20 17:05: POC Glucose 194 H 07/26/20 22:02: POC Glucose 253 H 07/27/20 01:47: POC Glucose 253 H 07/27/20 05:35: Sodium 136, Potassium 2.5 L* D, Chloride 100, Carbon Dioxide 34 H, Anion Gap 4.5 L, BUN 33 H, Creatinine 0.60, Estimated Creat Clear 115, Estimated GFR 103, Est GFR ( Amer) 125, Glucose 267 H, Calcium 8.1 L, Total Bilirubin 0.7, AST 319 H* D, ALT 191 H D, Alkaline Phosphatase 209 H, Total Protein 4.5 L, Albumin 2.1 L D, Globulin 2.4, Albumin/Globulin Ratio 0.9 L 07/27/20 05:35: WBC 10.3, RBC 3.04 L, Hgb 10.2 L, Hct 31.1 L, MCV 102.2 H, MCH 33.5 H, MCHC 32.8, RDW 15.1, Plt Count 166, MPV 10.3, Neut % (Auto) 90.5 H, Lymph % (Auto) 4.6 L, [place] % (Auto) 4.8, Eos % (Auto) 0.0 L, Baso % (Auto) 0.2, Neut # (Auto) 9.3 H, Lymph # (Auto) 0.5 L, [place] # (Auto) 0.5, Eos # (Auto) 0.0, Baso # (Auto) 0.0 07/27/20 05:43: POC Glucose 292 H 07/27/20 06:45: Specimen Source Left radial, O2 % 80, ABG pH 7.46 H, ABG pCO2 36.2, ABG pO2 51.4 L, ABG HCO3 25.3, ABG Total CO2 26.5, ABG O2 Saturation 86 L*, ABG Base Excess 1.6, Ildefonso Test N/a, Vent Rate 18, Tidal Volume 400, PEEP 10 I & O for Last 24 hours: Intake & Output 07/24/20 07/25/20 07/26/20 07/27/20 23:59 23:59 23:59 23:59 Intake Total 1282 / 1741 4497.667 / 4657.667 1132 / 1132 Output Total 580 / 580 1333 / 1343 205 / 205 [place]
[2020-07-27 08:59] LABS: POC Glucose,Bedside 132 (70-110)
[2020-07-27 08:59] LABS: POC Glucose,Bedside 240 (70-110)
[2020-07-27 09:02] LABS: Lymphocytes % 10 % (10-50); Monocytes % 3 % (2-9); Neutrophils % 82 % (42-76); Platelet Estimate Normal; RBC Morphology Normal; Total Cells Counted 100
[2020-07-27 11:59] LABS: POC Glucose,Bedside 268 (70-110)
--- NOTE | 2020-07-27 18:26 | PC.NURSE ---
Pt remains on the ventilator. Settings as documented in intervention. O2 has been in the upper 80's to mid 90's. Tube feeds administered as ordered. 0mls of residuals at 1630 so bolus of 240 mls of pulmocare 1.5 administered and flushed with 80 mls of water. Dressing to right arm is clean, dry and intact. Same for dressing on coccyx. She has scattered bruising to entire body. Heels are floated and protectors in place. Dorantes is to bedside draining clear straw colored urine. She has had approx 2000 mls out this shift. Glucose elevated in the 300's and covered with sliding scale insulin. She has been NSR on telemetry. Neck/chin appears to be somewhat puffy. No crepitus noted. Levophed drip adjusted to keep sys > 90 (2 to 4mcg/min). Every attempt to turn off systolic drops to low 80's. Will continue to monitor.
[2020-07-27 21:01] LABS: Chloride 99 mmol/L (98-107); Potassium 3.5 mmoL/L (3.5-5.1); Sodium 136 mmol/L (136-145)
[2020-07-27 21:04] LABS: Anion Gap 4.5 mEq/L (5-15); Blood Urea Nitrogen 29 mg/dl (7-17); Carbon Dioxide 36 mmol/L (22.0-30.0); Creatinine Clearance Estimated 115 mL/min (50-200); Estimated Glomerular Filt Rate 103 ml/min (>60); GFR (African American) 125 ML/MIN (>60)
[2020-07-27 21:05] LABS: Calcium 8.1 mg/dl (8.4-10.2); Glucose 293 mg/dl (74-100)
[2020-07-28] VITALS (31 sets, daily range): BP systolic 91–149; BP diastolic 60–96; PULSE 53–109; RESP 16–37; TEMP 36.3–37; O2SAT 83–98; BMI 27.3
--- NOTE | 2020-07-28 05:12 | XR_ITS ---
PROCEDURE: XR CHEST PORTABLE CLINICAL HISTORY: POST INTUBATION Follow-up Covid19 pneumonia COMPARISON: CR XR CHEST PORTABLE from 07/25/[address] ANGIO CHEST from 07/25/2020 CR XR CHEST PORTABLE from 07/26/2020 CR XR CHEST PORTABLE from 07/27/2020 FINDINGS: 5:41 a.m.. Endotracheal tube orogastric tube and left IJ central venous line tips are in good position. Low lung volumes with diffuse bilateral pneumonia with associated pulmonary fibrotic change. No evidence of pneumothorax. IMPRESSION: Tubes and lines in good position. No change diffuse pneumonia with pulmonary fibrosis Dictated by: Ildefonso Durand MD 07/28/2020 06:04 Ildefonso Durand MD in OV 07/28/2020 06:04
--- NOTE | 2020-07-28 05:56 | PC.NURSE ---
gastric contents checked for residual at 2200 0 ml noted, 240ml tube feed given 0400 100ml noted. tube feed bolus held
[2020-07-28 07:01] LABS: ABG Base Excess 6.3 mmol/L (-2.4-2.3); ABG Oxygen Saturation 83 % (90-100); ABG PCO2 42.7 mmhg (35.0-45.0); ABG PH 7.47 mmol/L (7.35-7.45); ABG TCO2 31.3 mmhg (23-27)
[2020-07-28 07:07] LABS: Allen's Test Patient Unable; Oxygen 80 %; PEEP 10; Source Right Radial; Tidal Volume 400; Vent Rate 18
[2020-07-28 07:09] LABS: ABG PO2 44.6 mmhg (80-100)
--- NOTE | 2020-07-28 07:47 | PC.NURSE ---
turned levophed off.
[2020-07-28 08:03] LABS: Basophils # 0.1 K/mm3 (0-0.2); Basophils % 0.9 % (0.1-2.0); Hematocrit 31.3 % (37.0-47.0); Hemoglobin 9.8 g/dL (12.2-16.2); Lymphocytes % 7.6 % (10-50); Mean Corpuscular HGB Conc 31.4 g/dL (31.8-35.4); Mean Corpuscular Hemoglobin 32.1 pg (27.0-31.2); Mean Corpuscular Volume 102.1 fl (81-99); Mean Platelet Volume 9.4 fl (7.4-10.4); Monocytes # 0.8 K/mm3 (0.1-1.0); Monocytes % 6.2 % (1.7-9.3); Neutrophils # 11.1 K/mm3 (1.8-7.8); Neutrophils % 85.2 % (37.0-80.0); Platelet Count 155 K/mm3 (142-424); Red Blood Count 3.07 M/mm3 (4.20-5.40); Red Cell Distribution Width 14.7 % (11.5-17.5)
[2020-07-28 08:06] LABS: MANUAL DIFFERENTIAL MANUAL DIFFERENTIAL (MANUAL DIFF)
[2020-07-28 08:09] LABS: Alanine Aminotransferase 261 U/L (12-78); Albumin Level 2.3 g/dl (3.5-5.0); Albumin/Globulin Ratio 0.9 (1.1-1.8); Alkaline Phosphatase 246 U/L (38-126); Anion Gap 5.2 mEq/L (5-15); Aspartate Amino Transferase 247 U/L (14-36); Bilirubin,Total 0.5 mg/dl (0.2-1.3); Blood Urea Nitrogen 27 mg/dl (7-17); Calcium 8.2 mg/dl (8.4-10.2); Carbon Dioxide 36 mmol/L (22.0-30.0); Chloride 98 mmol/L (98-107); Creatinine Clearance Estimated 142 mL/min (50-200); Estimated Glomerular Filt Rate 127 ml/min (>60); GFR (African American) 154 ML/MIN (>60); Globulin 2.5 g/dL (1.3-3.2); Glucose 217 mg/dl (74-100); Potassium 3.2 mmoL/L (3.5-5.1); Sodium 136 mmol/L (136-145); Total Protein,Serum 4.8 g/dl (6.3-8.2)
--- NOTE | 2020-07-28 08:16 | PC.NURSE ---
notified farzad beal that patient is positive or MRSA on MRSA swab, Aerobic blood culture, and sputum specimen. no new orders 0800
--- NOTE | 2020-07-28 08:41 | HMH.ACPN2 ---
Internal Medicine - PN: Subj *Date: 07/28/20 *Time: 10:30 Interval history: Patient sitting up in bed chemically sedated. Oxygenation 93% on mechanical ventilation AC 18/400/85 +10. Staph aureus in sputum and blood and Klebsiella pneumonia in urine Exam Vital signs and Labs for Last 24 Hours: Temp Pulse Resp BP Pulse Ox 97.7 F 57 L 22 130/87 83 L 07/28/20 07:00 07/28/20 07:00 07/28/20 07:00 07/28/20 07:00 07/28/20 07:00 Laboratory Results - last 24 hr 07/26/20 11:45: POC Glucose 240 H 07/26/20 11:47: POC Glucose 132 H 07/27/20 05:35: Total Counted 100, Neutrophils % (Manual) 82 H, Band Neutrophils % 5.0, Lymphocytes % (Manual) 10, Monocytes % (Manual) 3, Platelet Estimate Normal, RBC Morphology Normal 07/27/20 11:15: POC Glucose 268 H 07/27/20 20:40: Sodium 136, Potassium 3.5 D, Chloride 99, Carbon Dioxide 36 H, Anion Gap 4.5 L, BUN 29 H, Creatinine 0.60, Estimated Creat Clear 115, Estimated GFR 103, Est GFR ( Amer) 125, Glucose 293 H, Calcium 8.1 L 07/28/20 06:53: Sodium 136, Potassium 3.2 L, Chloride 98, Carbon Dioxide 36 H, Anion Gap 5.2, BUN 27 H, Creatinine 0.50 L, Estimated Creat Clear 142, Estimated GFR 127, Est GFR ( Amer) 154 D, Glucose 217 H D, Calcium 8.2 L, Total Bilirubin 0.5, AST 247 H, ALT 261 H D, Alkaline Phosphatase 246 H, Total Protein 4.8 L, Albumin 2.3 L, Globulin 2.5, Albumin/Globulin Ratio 0.9 L 07/28/20 06:53: WBC 13.0 H D, RBC 3.07 L, Hgb 9.8 L, Hct 31.3 L, MCV 102.1 H, MCH 32.1 H, MCHC 31.4 L, RDW 14.7, Plt Count 155, MPV 9.4, Neut % (Auto) 85.2 H, Lymph % (Auto) 7.6 L, [place] % (Auto) 6.2, Eos % (Auto) 0.0 L, Baso % (Auto) 0.9, Neut # (Auto) 11.1 H, Lymph # (Auto) 1.0, [place] # (Auto) 0.8, Eos # (Auto) 0.0, Baso # (Auto) 0.1 07/28/20 07:00: Specimen Source Right radial, O2 % 80, ABG pH 7.47 H, ABG pCO2 42.7, ABG pO2 44.6 L, ABG HCO3 30.0 H, ABG Total CO2 31.3 H, ABG O2 Saturation 83 L*, ABG Base Excess 6.3 H, Ildefonso Test Patient unable, Vent Rate 18, Tidal Volume 400, PEEP 10 I & O for Last 24 hours: Intake & Output 07/25/20 07/26/20 07/27/20 07/28/20 23:59 23:59 23:59 23:59 Intake Total 1282 / 1741 4497.667 / 4657.667 4856.417 / 5041.417 1389 / 1389 Output Total 580 / 580 1333 / 1343 2410 / 2450 380 / 380 Balance 702 / 1161 3164.667 / 3314.667 2446.417 / 2591.417 1009 / 1009 Weight 142 lb 13.753 oz 149 lb 14.629 oz 155 lb 13.869 oz 160 lb 0.889 oz Microbiology Reports for the Last 24 Hours: Microbiology 07/26/20 09:00 Nose - Nasal MRSA Culture - Final 07/25/20 08:59 Blood Blood Culture - Preliminary Staphylococcus aureus 07/25/20 09:00 Sputum - Endotracheal Tube Aspirate Gram Stain - Final 07/25/20 09:00 Sputum - Endotracheal Tube Aspirate Sputum Culture - Preliminary Staphylococcus aureus 07/25/20 15:00 Anus CRE Surveillance Culture - Final 07/25/20 08:59 Blood Blood Culture - Preliminary NO GROWTH AFTER 48 HOURS 07/25/20 09:15 Urine,Catheterized Urine Culture - Final Klebsiella pneumoniae - Constitutional mild distress Comments: Chemically Sedated - *Routine HEENT Exam Head: Present: normocephalic ENT: Present: mucous membranes moist - *Routine Neck Exam Present: trachea midline. Absent: tracheal deviation - *Routine Respiratory Exam Present: patient mechanically ventilated, crackles. Absent: accessory muscle use - *Routine Cardiovascular Exam Present: RRR. Absent: tachycardia - *Routine Abdominal Exam Present: soft, normoactive bowel sounds. Absent: tenderness, firm - *Routine Extremities Exam Present: edema, pulses intact, normal capillary refill. Absent: cyanosis - *Routine Skin Exam Present: warm, wounds - *Routine Neurological Exam Present: altered mental status. Absent: alert, oriented X3 Chemically Sedated - Routine Psychiatric Exam Present: unable to assess. Absent: normal affect, an
--- NOTE | 2020-07-28 09:01 | HMH.PULMPN ---
Internal Medicine - PN: Subj *Date: 07/28/20 *Time: 13:18 Interval history: Patient respiratory status slightly worsened, needing higher FiO2. Exam - Constitutional Constitutional:: Present: no acute distress, comfortable - Neck Exam Neck:: Present: normal visual inspection - Respiratory Exam Respiratory:: Present: bibailar crackels heard, crackles - Cardiovascular Exam Cardiac:: Present: S1, S2 - GI Exam GI:: Present: soft - Extremities Exam Extremities: Present: no cyanosis, no clubbing, edema Assessment and Plan (1) Pneumonia due to COVID-19 virus Status: Acute Category: Medical Code(s): U07.1 - COVID-19; J12.82 - Pneumonia due to coronavirus disease 2019 (2) SRINATH (acute kidney injury) Status: Acute Category: Medical Code(s): N17.9 - Acute kidney failure, unspecified (3) Lactic acidosis Status: Acute Category: Medical Code(s): E87.2 - Acidosis (4) Sepsis with acute hypoxic respiratory failure Status: Acute Qualifiers: Sepsis type: sepsis due to unspecified organism Severe sepsis shock status: without septic shock Qualified Code(s): A41.9 - Sepsis, unspecified organism; R65.20 - Severe sepsis without septic shock; J96.01 - Acute respiratory failure with hypoxia Category: Medical Code(s): A41.9 - Sepsis, unspecified organism; R65.20 - Severe sepsis without septic shock; J96.01 - Acute respiratory failure with hypoxia (5) Acute exacerbation of chronic obstructive airways disease Status: Acute Category: Medical Code(s): J44.1 - Chronic obstructive pulmonary disease with (acute) exacerbation (6) Overweight (BMI 25.0-29.9) Status: Acute Category: Medical Code(s): E66.3 - Overweight (7) Respiratory failure Problem details: Patient came in with acute respiratory failure with chest x-ray showing bilateral lower lobe worsening opacities. Also concern for aspiration. However after reviewing the patient's prior CT scans there is definitely a component of interstitial lung disease contributing to her respiratory failure and this needs to be further worked up. Chest x-ray from [address] abdomen in 2015 showed normal lower lung dooley without any evidence of interstitial lung disease. Patient is a chronic smoker not more than 30 packs a day currently smoking, denies any significant changes in her life, any significant exposure, any change in smoking habit since 2014. X-ray from May 2019 showed bilateral lower lobe infiltrates however no CT was available to evaluate for interstitial process. Chest x-ray from October 2019 showed significant interstitial opacities in the bilateral lower lobe and subsequent CTs also showed interstitial lung disease. Upon chart review and further questioning patient denies any acute respiratory illness or any hospital admissions noted around October 2019. Patient also had a recent PE on CTA from December 2019 and on anticoagulation and the venous Doppler was performed again on this admission which was negative for DVT. Echo from previous admission on December 2019 showed normal LV systolic function cannot evaluate the diastolic function. Severe TR along with increased RV size and RVSP of 72 mm Hg was noted at the time. X-ray showed gradual improvement in her infiltrates since admission. For involving pulmonary inpatient care will continue to follow. Please call with any questions or concerns regarding this patient care. Status: Acute Qualifiers: Chronicity: acute on chronic Respiratory failure complication: hypoxia Qualified Code(s): J96.21 - Acute and chronic respiratory failure with hypoxia Category: Medical Code(s): J96.90 - Respiratory failure, unspecified, unspecified whether with hypoxia or hypercapnia (8) Diabetes Status: Chronic Qualifiers: Diabetes mellitus type: type 2 Diabetes mellitus shelter insulin use: unspecified shelter insulin use status Diabetes mellitus complication status: with other specified complica
[2020-07-28 09:27] LABS: Lymphocytes % 15 % (10-50); Monocytes % 4 % (2-9); Neutrophils % 81 % (42-76); Platelet Estimate Normal; RBC Morphology Normal; Total Cells Counted 100
[2020-07-28 12:35] LABS: POC Glucose,Bedside 226 (70-110)
--- NOTE | 2020-07-28 12:39 | HMH.ACPN ---
Internal Medicine - PN: Subj *Date: 07/28/20 *Time: 12:39 Exam Vital signs and Labs for Last 24 Hours: Temp Pulse Resp BP Pulse Ox 97.7 F 81 26 H 130/87 91 L 07/28/20 07:00 07/28/20 11:45 07/28/20 11:43 07/28/20 07:00 07/28/20 11:43 Laboratory Results - last 24 hr 07/27/20 20:40: Sodium 136, Potassium 3.5 D, Chloride 99, Carbon Dioxide 36 H, Anion Gap 4.5 L, BUN 29 H, Creatinine 0.60, Estimated Creat Clear 115, Estimated GFR 103, Est GFR ( Amer) 125, Glucose 293 H, Calcium 8.1 L 07/28/20 06:53: Sodium 136, Potassium 3.2 L, Chloride 98, Carbon Dioxide 36 H, Anion Gap 5.2, BUN 27 H, Creatinine 0.50 L, Estimated Creat Clear 142, Estimated GFR 127, Est GFR ( Amer) 154 D, Glucose 217 H D, Calcium 8.2 L, Total Bilirubin 0.5, AST 247 H, ALT 261 H D, Alkaline Phosphatase 246 H, Total Protein 4.8 L, Albumin 2.3 L, Globulin 2.5, Albumin/Globulin Ratio 0.9 L 07/28/20 06:53: WBC 13.0 H D, RBC 3.07 L, Hgb 9.8 L, Hct 31.3 L, MCV 102.1 H, MCH 32.1 H, MCHC 31.4 L, RDW 14.7, Plt Count 155, MPV 9.4, Neut % (Auto) 85.2 H, Lymph % (Auto) 7.6 L, [place] % (Auto) 6.2, Eos % (Auto) 0.0 L, Baso % (Auto) 0.9, Neut # (Auto) 11.1 H, Lymph # (Auto) 1.0, [place] # (Auto) 0.8, Eos # (Auto) 0.0, Baso # (Auto) 0.1, Total Counted 100, Neutrophils % (Manual) 81 H, Lymphocytes % (Manual) 15, Monocytes % (Manual) 4, Platelet Estimate Normal, RBC Morphology Normal 07/28/20 07:00: Specimen Source Right radial, O2 % 80, ABG pH 7.47 H, ABG pCO2 42.7, ABG pO2 44.6 L, ABG HCO3 30.0 H, ABG Total CO2 31.3 H, ABG O2 Saturation 83 L*, ABG Base Excess 6.3 H, Ildefonso Test Patient unable, Vent Rate 18, Tidal Volume 400, PEEP 10 07/28/20 07:15: POC Glucose 226 H I & O for Last 24 hours: Intake & Output 07/25/20 07/26/20 07/27/20 07/28/20 23:59 23:59 23:59 23:59 Intake Total 1282 / 1741 4497.667 / 4657.667 4856.417 / 5041.417 1389 / 1389 Output Total 580 / 580 1333 / 1343 2410 / 2450 380 / 380 Balance 702 / 1161 3164.667 / 3314.667 2446.417 / 2591.417 1009 / 1009 Weight 64.8 kg 68 kg 70.7 kg 72.6 kg Microbiology Reports for the Last 24 Hours: Microbiology 07/25/20 09:00 Sputum - Endotracheal Tube Aspirate Gram Stain - Final 07/25/20 09:00 Sputum - Endotracheal Tube Aspirate Sputum Culture - Preliminary Staphylococcus aureus Gram Negative Rods 07/26/20 09:00 Nose - Nasal MRSA Culture - Final 07/25/20 08:59 Blood Blood Culture - Preliminary Staphylococcus aureus 07/25/20 15:00 Anus CRE Surveillance Culture - Final 07/25/20 08:59 Blood Blood Culture - Preliminary NO GROWTH AFTER 48 HOURS Assessment and Plan (1) Pneumonia due to COVID-19 virus Status: Acute Category: Medical Code(s): U07.1 - COVID-19; J12.82 - Pneumonia due to coronavirus disease 2019 (2) SRINATH (acute kidney injury) Status: Acute Category: Medical Code(s): N17.9 - Acute kidney failure, unspecified (3) Lactic acidosis Status: Acute Category: Medical Code(s): E87.2 - Acidosis (4) Sepsis with acute hypoxic respiratory failure Status: Acute Qualifiers: Sepsis type: sepsis due to unspecified organism Severe sepsis shock status: without septic shock Qualified Code(s): A41.9 - Sepsis, unspecified organism; R65.20 - Severe sepsis without septic shock; J96.01 - Acute respiratory failure with hypoxia Category: Medical Code(s): A41.9 - Sepsis, unspecified organism; R65.20 - Severe sepsis without septic shock; J96.01 - Acute respiratory failure with hypoxia (5) Acute exacerbation of chronic obstructive airways disease Status: Acute Category: Medical Code(s): J44.1 - Chronic obstructive pulmonary disease with (acute) exacerbation (6) Overweight (BMI 25.0-29.9) Status: Acute Category: Medical Code(s): E66.3 - Overweight (7) Respiratory failure Problem details: Patient came in with acute respiratory failure wit
[2020-07-28 12:46] LABS: POC Glucose,Bedside 295 (70-110)
[2020-07-28 12:46] LABS: POC Glucose,Bedside 331 (70-110)
[2020-07-28 12:46] LABS: POC Glucose,Bedside 326 (70-110)
--- NOTE | 2020-07-28 13:48 | DIET.NUTRFU ---
Pt with good toleration tube feeding. No BM yet. BG avg. past 61gr=035. 4# weight gain past 24h, 17# total weight gain t/o stay- 4 days. She continues on IVF at 150ml/hr. Recommend decreasing IVF slightly- formula provides 754ml free water. No changes to current nutritional care plan as stated in order- continue bolus feedings of Pulmocare 1.5 of 240ml q 6hr with minimal water flushes of 60-120ml for irrigation. Continuing to monitor pt and fluids to alter as indicated.
[2020-07-28 16:59] LABS: POC Glucose,Bedside 237 (70-110)
[2020-07-28 17:07] LABS: Vancomycin,Trough 5.8 ug/mL (5.0-10.0)
--- NOTE | 2020-07-28 17:55 | PC.NURSE ---
will hold off on this tube feed at this time. patient is to go down for cat scan and since she will be laid flat multiple times will not chance aly for aspiration at this time
[2020-07-28 19:32] LABS: POC Glucose,Bedside 215 (70-110)
--- NOTE | 2020-07-28 20:54 | PC.NURSE ---
patient has had an okay day. after switching from versed to propfol patient had a period of deep sedation but once turning sedation off she woke back up to baseline and followed commands. at end of shift patient sedation was propofol at 5mcg/kg/min and fentanyl was at 25mcg/hr. originally dr. grant wanted a ct of head but since patient went back to baseline instructed to cancel the order. patient noted to have some increased swelling in arms and legs. patient had low residuals of 40, 10, 20. tolerated tube feed well. passed to plant operator/shift supervisor she was in need of a tube feed then. fsbs had been within patient baseline. noted bruising through out body. skin noted to be fragile. skin tear to r arm. patient was able to assist with turns at times. patient did not require any levophed this shift. heart rate was 50-70. patient tolerating vent well. does not appear to have any pain. had two loose bms this shift. central line and iv still intact and patent. report given.
[2020-07-28 23:23] LABS: POC Glucose,Bedside 275 (70-110)
[2020-07-29] VITALS (33 sets, daily range): BP systolic 88–136; BP diastolic 49–95; PULSE 55–117; RESP 18–36; TEMP 35.4–37.3; O2SAT 83–99
[2020-07-29 05:27] LABS: POC Glucose,Bedside 152 (70-110)
--- NOTE | 2020-07-29 06:00 | XR_ITS ---
PROCEDURE: XR CHEST PORTABLE CLINICAL HISTORY: resp failure Covid19 pneumonia COMPARISON: CT CT ANGIO CHEST from 07/25/2020 CR XR CHEST PORTABLE from 07/26/2020 CR XR CHEST PORTABLE from 07/27/2020 CR XR CHEST PORTABLE from 07/28/2020 FINDINGS: 5:33 a.m. Endotracheal tube nasogastric tube and left subclavian central venous line all remain in good position. Diffuse bilateral pneumonia with superimposed interstitial lung disease unchanged. No evidence of pneumothorax. IMPRESSION: No change diffuse pneumonia. Good position of tubes and lines Dictated by: Ildefonso Durand MD 07/29/2020 06:20 Ildefonso Durand MD in [facility] 07/29/2020 06:20
[2020-07-29 06:18] LABS: Basophils # 0.1 K/mm3 (0-0.2); Basophils % 0.5 % (0.1-2.0); Hematocrit 29.5 % (37.0-47.0); Lymphocytes # 0.9 K/mm3 (0.7-4.5); Lymphocytes % 7.8 % (10-50); Mean Corpuscular Hemoglobin 33.8 pg (27.0-31.2); Mean Corpuscular Volume 99.5 fl (81-99); Mean Platelet Volume 9.5 fl (7.4-10.4); Monocytes # 0.6 K/mm3 (0.1-1.0); Monocytes % 4.9 % (1.7-9.3); Neutrophils % 86.7 % (37.0-80.0); Platelet Count 126 K/mm3 (142-424); Red Blood Count 2.96 M/mm3 (4.20-5.40); Red Cell Distribution Width 15.3 % (11.5-17.5); White Blood Count 11.6 K/mm3 (4.8-10.8)
--- NOTE | 2020-07-29 06:44 | PC.NURSE ---
shift summary when patient is awake o2 sats drop into the mid 70s and heart rate will drop into the 40s. hr will stabilize out after a few minutes but o2 sats will remain in the 70s until back to sleep. this am with pcxr patient o2 sats once again dropped into the 70s and heart rate into the 40s by the time board was removed from back patients o2 sats were 28% and heart rate in the 30s and dropping. patient eyes rolled in the back of her head, became unresponsive. immediately began bagging patient and sedation turned off. patient also deficated on herself. patients heart rate returned back into the 40s and sats back into the 70s within a few minutes. patient bagged approximately 20 minutes before patient was completely responsive and following commands again, sats returned to 90s and heart rate back into the 80s. sedation restarted due to coughing against ventilator and dropping sats back down into the 70s. since patient has been back under sedation no more issues have developed.
[2020-07-29 06:50] LABS: Alanine Aminotransferase 231 U/L (12-78); Albumin/Globulin Ratio 0.9 (1.1-1.8); Alkaline Phosphatase 243 U/L (38-126); Anion Gap 1.8 mEq/L (5-15); Aspartate Amino Transferase 163 U/L (14-36); Bilirubin,Total 0.5 mg/dl (0.2-1.3); Blood Urea Nitrogen 23 mg/dl (7-17); Calcium 8.1 mg/dl (8.4-10.2); Carbon Dioxide 35 mmol/L (22.0-30.0); Chloride 99 mmol/L (98-107); Creatinine Clearance Estimated 178 mL/min (50-200); Estimated Glomerular Filt Rate 165 ml/min (>60); GFR (African American) 199 ML/MIN (>60); Globulin 2.2 g/dL (1.3-3.2); Glucose 136 mg/dl (74-100); Sodium 133 mmol/L (136-145); Total Protein,Serum 4.2 g/dl (6.3-8.2)
[2020-07-29 06:58] LABS: MANUAL DIFFERENTIAL MANUAL DIFFERENTIAL (MANUAL DIFF)
[2020-07-29 07:15] LABS: Potassium 2.8 mmoL/L (3.5-5.1)
[2020-07-29 07:55] LABS: ABG Base Excess 3.2 mmol/L (-2.4-2.3); ABG HCO3 27.4 mmhg (22.0-26.0); ABG Oxygen Saturation 85 % (90-100); ABG PCO2 41.4 mmhg (35.0-45.0); ABG PH 7.44 mmol/L (7.35-7.45); ABG TCO2 28.6 mmhg (23-27); Oxygen 100 AMBU %
[2020-07-29 07:56] LABS: Allen's Test Patient Unable; Source Left Radial
[2020-07-29 07:57] LABS: ABG PO2 48.7 mmhg (80-100)
--- NOTE | 2020-07-29 09:08 | HMH.PULMPN ---
Internal Medicine - PN: Subj *Date: 07/29/20 *Time: 11:17 Interval history: No acute respiratory events overnight. Exam - Constitutional Constitutional:: Present: comfortable - Respiratory Exam Respiratory:: Present: respiratory distress, crackles - Cardiovascular Exam Cardiac:: Present: S1, S2 - Skin Exam Skin: Present: warm - Extremities Exam Extremities: Present: no cyanosis, no clubbing, edema Assessment and Plan (1) Pneumonia due to COVID-19 virus Status: Acute Category: Medical Code(s): U07.1 - COVID-19; J12.82 - Pneumonia due to coronavirus disease 2018 (2) SRINATH (acute kidney injury) Status: Acute Category: Medical Code(s): N17.9 - Acute kidney failure, unspecified (3) Lactic acidosis Status: Acute Category: Medical Code(s): E87.2 - Acidosis (4) Sepsis with acute hypoxic respiratory failure Status: Acute Qualifiers: Sepsis type: sepsis due to unspecified organism Severe sepsis shock status: without septic shock Qualified Code(s): A41.9 - Sepsis, unspecified organism; R65.20 - Severe sepsis without septic shock; J96.01 - Acute respiratory failure with hypoxia Category: Medical Code(s): A41.9 - Sepsis, unspecified organism; R65.20 - Severe sepsis without septic shock; J96.01 - Acute respiratory failure with hypoxia (5) Acute exacerbation of chronic obstructive airways disease Status: Acute Category: Medical Code(s): J44.1 - Chronic obstructive pulmonary disease with (acute) exacerbation (6) Overweight (BMI 25.0-29.9) Status: Acute Category: Medical Code(s): E66.3 - Overweight (7) Respiratory failure Problem details: Patient came in with acute respiratory failure with chest x-ray showing bilateral lower lobe worsening opacities. Also concern for aspiration. However after reviewing the patient's prior CT scans there is definitely a component of interstitial lung disease contributing to her respiratory failure and this needs to be further worked up. Chest x-ray from [address] abdomen in 2014 showed normal lower lung dooley without any evidence of interstitial lung disease. Patient is a chronic smoker not more than 30 packs a day currently smoking, denies any significant changes in her life, any significant exposure, any change in smoking habit since 2014. X-ray from May 2019 showed bilateral lower lobe infiltrates however no CT was available to evaluate for interstitial process. Chest x-ray from October 2019 showed significant interstitial opacities in the bilateral lower lobe and subsequent CTs also showed interstitial lung disease. Upon chart review and further questioning patient denies any acute respiratory illness or any hospital admissions noted around October 2019. Patient also had a recent PE on CTA from December 2019 and on anticoagulation and the venous Doppler was performed again on this admission which was negative for DVT. Echo from previous admission on December 2019 showed normal LV systolic function cannot evaluate the diastolic function. Severe TR along with increased RV size and RVSP of 72 mm Hg was noted at the time. X-ray showed gradual improvement in her infiltrates since admission. For involving pulmonary inpatient care will continue to follow. Please call with any questions or concerns regarding this patient care. Status: Acute Qualifiers: Chronicity: acute on chronic Respiratory failure complication: hypoxia Qualified Code(s): J96.21 - Acute and chronic respiratory failure with hypoxia Category: Medical Code(s): J96.90 - Respiratory failure, unspecified, unspecified whether with hypoxia or hypercapnia (8) Diabetes Status: Chronic Qualifiers: Diabetes mellitus type: type 2 Diabetes mellitus termite technician insulin use: unspecified detention insulin use status Diabetes mellitus complication status: with other specified complication Qualified Code(s): E11.69 - Type 2 diabetes mellitus with other specified complication [place]
--- NOTE | 2020-07-29 09:27 | HMH.ACPN ---
Internal Medicine - PN: Subj *Date: 07/29/20 *Time: 09:27 Exam Vital signs and Labs for Last 24 Hours: Temp Pulse Resp BP Pulse Ox 98.5 F 61 24 114/78 98 07/29/20 08:54 07/29/20 08:54 07/29/20 08:54 07/29/20 08:54 07/29/20 08:54 Laboratory Results - last 24 hr 07/27/20 15:51: POC Glucose 331 H* 07/27/20 17:46: POC Glucose 326 H* 07/28/20 02:06: POC Glucose 295 H 07/28/20 06:53: Total Counted 100, Neutrophils % (Manual) 81 H, Lymphocytes % (Manual) 15, Monocytes % (Manual) 4, Platelet Estimate Normal, RBC Morphology Normal 07/28/20 07:15: POC Glucose 226 H 07/28/20 13:18: POC Glucose 237 H 07/28/20 15:20: Vancomycin Trough 5.8 07/28/20 19:16: POC Glucose 215 H 07/28/20 23:15: POC Glucose 275 H 07/29/20 05:07: POC Glucose 152 H 07/29/20 05:15: Sodium 133 L, Potassium 2.8 L*, Chloride 99, Carbon Dioxide 35 H, Anion Gap 1.8 L, BUN 23 H, Creatinine 0.40 L, Estimated Creat Clear 178, Estimated GFR 165, Est GFR ( Amer) 199 D, Glucose 136 H D, Calcium 8.1 L, Total Bilirubin 0.5, AST 163 H D, ALT 231 H, Alkaline Phosphatase 243 H, Total Protein 4.2 L, Albumin 2.0 L D, Globulin 2.2, Albumin/Globulin Ratio 0.9 L 07/29/20 05:15: WBC 11.6 H, RBC 2.96 L, Hgb 10.0 L, Hct 29.5 L, MCV 99.5 H, MCH 33.8 H, MCHC 34.0, RDW 15.3, Plt Count 126 L, MPV 9.5, Neut % (Auto) 86.7 H, Lymph % (Auto) 7.8 L, [place] % (Auto) 4.9, Eos % (Auto) 0.0 L, Baso % (Auto) 0.5, Neut # (Auto) 10.0 H, Lymph # (Auto) 0.9, [place] # (Auto) 0.6, Eos # (Auto) 0.0, Baso # (Auto) 0.1 07/29/20 06:00: Specimen Source Left radial, O2 % 100 ambu, ABG pH 7.44, ABG pCO2 41.4, ABG pO2 48.7 L, ABG HCO3 27.4 H, ABG Total CO2 28.6 H, ABG O2 Saturation 85 L*, ABG Base Excess 3.2 H, Ildefonso Test Patient unable I & O for Last 24 hours: Intake & Output 07/26/20 07/27/20 07/28/20 07/29/20 23:59 23:59 23:59 23:59 Intake Total 4497.667 / 4657.667 4856.417 / 5041.417 4188.333 / 4495.333 1381.875 / 1381.875 Output Total 1333 / 1343 2410 / 2450 1417 / 1442 265 / 265 Balance 3164.667 / 3314.667 2446.417 / 2591.417 2771.333 / 3053.333 1116.875 / 1116.875 Weight 68 kg 70.7 kg 72.6 kg Microbiology Reports for the Last 24 Hours: Microbiology 07/25/20 09:00 Sputum - Endotracheal Tube Aspirate Gram Stain - Final 07/25/20 09:00 Sputum - Endotracheal Tube Aspirate Sputum Culture - Final Staphylococcus aureus Klebsiella pneumoniae 07/26/20 09:00 Nose - Nasal MRSA Culture - Final 07/25/20 08:59 Blood Blood Culture - Preliminary Staphylococcus aureus Assessment and Plan (1) Pneumonia due to COVID-19 virus Status: Acute Category: Medical Code(s): U07.1 - COVID-19; J12.82 - Pneumonia due to coronavirus disease 2019 (2) SRINATH (acute kidney injury) Status: Acute Category: Medical Code(s): N17.9 - Acute kidney failure, unspecified (3) Lactic acidosis Status: Acute Category: Medical Code(s): E87.2 - Acidosis (4) Sepsis with acute hypoxic respiratory failure Status: Acute Qualifiers: Sepsis type: sepsis due to unspecified organism Severe sepsis shock status: without septic shock Qualified Code(s): A41.9 - Sepsis, unspecified organism; R65.20 - Severe sepsis without septic shock; J96.01 - Acute respiratory failure with hypoxia Category: Medical Code(s): A41.9 - Sepsis, unspecified organism; R65.20 - Severe sepsis without septic shock; J96.01 - Acute respiratory failure with hypoxia (5) Acute exacerbation of chronic obstructive airways disease Status: Acute Category: Medical Code(s): J44.1 - Chronic obstructive pulmonary disease with (acute) exacerbation (6) Overweight (BMI 25.0-29.9) Status: Acute Category: Medical Code(s): E66.3 - Overweight (7) Respiratory failure Problem details: Patient came in with acute respiratory failure with chest x-ray showing bilateral lower lobe worsening opacities. Also concern for aspiration. However a
[2020-07-29 09:29] LABS: Lymphocytes % 5 % (10-50); Monocytes % 6 % (2-9); Neutrophils % 89 % (42-76); Nucleated Red Blood Cells 4; Total Cells Counted 100
[2020-07-29 09:30] LABS: Platelet Estimate Slight Decrease; RBC Morphology Normal
--- NOTE | 2020-07-29 09:48 | HMH.ACPN2 ---
Internal Medicine - PN: Subj *Date: 07/29/20 *Time: 08:00 Interval history: pt on vent, sedated, zhang draining at bedside Exam Vital signs and Labs for Last 24 Hours: Temp Pulse Resp BP Pulse Ox 98.5 F 61 25 H 114/78 90 L 07/29/20 08:54 07/29/20 08:54 07/29/20 09:14 07/29/20 08:54 07/29/20 09:14 Laboratory Results - last 24 hr 07/27/20 15:51: POC Glucose 331 H* 07/27/20 17:46: POC Glucose 326 H* 07/28/20 02:06: POC Glucose 295 H 07/28/20 07:15: POC Glucose 226 H 07/28/20 13:18: POC Glucose 237 H 07/28/20 15:20: Vancomycin Trough 5.8 07/28/20 19:16: POC Glucose 215 H 07/28/20 23:15: POC Glucose 275 H 07/29/20 05:07: POC Glucose 152 H 07/29/20 05:15: Sodium 133 L, Potassium 2.8 L*, Chloride 99, Carbon Dioxide 35 H, Anion Gap 1.8 L, BUN 23 H, Creatinine 0.40 L, Estimated Creat Clear 178, Estimated GFR 165, Est GFR ( Amer) 199 D, Glucose 136 H D, Calcium 8.1 L, Total Bilirubin 0.5, AST 163 H D, ALT 231 H, Alkaline Phosphatase 243 H, Total Protein 4.2 L, Albumin 2.0 L D, Globulin 2.2, Albumin/Globulin Ratio 0.9 L 07/29/20 05:15: WBC 11.6 H, RBC 2.96 L, Hgb 10.0 L, Hct 29.5 L, MCV 99.5 H, MCH 33.8 H, MCHC 34.0, RDW 15.3, Plt Count 126 L, MPV 9.5, Neut % (Auto) 86.7 H, Lymph % (Auto) 7.8 L, [place] % (Auto) 4.9, Eos % (Auto) 0.0 L, Baso % (Auto) 0.5, Neut # (Auto) 10.0 H, Lymph # (Auto) 0.9, [place] # (Auto) 0.6, Eos # (Auto) 0.0, Baso # (Auto) 0.1, Total Counted 100, Neutrophils % (Manual) 89 H, Lymphocytes % (Manual) 5 L, Monocytes % (Manual) 6, Nucleated RBCs 4, Platelet Estimate Slight decrease, RBC Morphology Normal 07/29/20 06:00: Specimen Source Left radial, O2 % 100 ambu, ABG pH 7.44, ABG pCO2 41.4, ABG pO2 48.7 L, ABG HCO3 27.4 H, ABG Total CO2 28.6 H, ABG O2 Saturation 85 L*, ABG Base Excess 3.2 H, Ildefonso Test Patient unable I & O for Last 24 hours: Intake & Output 07/26/20 07/27/20 07/28/20 07/29/20 11:59 11:59 11:59 11:59 Intake Total 2551 / 3754 4978.667 / 5247.667 4495.417 / 4495.417 4181.208 / 4181.208 Output Total 768 / 828 2430 / 2730 1846 / 1938 961 / 961 Balance 1783 / 2926 2548.667 / 2517.667 2649.417 / 2557.417 3220.208 / 3220.208 Weight 150 lb 12.739 oz 155 lb 13.869 oz 160 lb 0.889 oz Microbiology Reports for the Last 24 Hours: Microbiology 07/25/20 09:00 Sputum - Endotracheal Tube Aspirate Gram Stain - Final 07/25/20 09:00 Sputum - Endotracheal Tube Aspirate Sputum Culture - Final Staphylococcus aureus Klebsiella pneumoniae 07/26/20 09:00 Nose - Nasal MRSA Culture - Final 07/25/20 08:59 Blood Blood Culture - Preliminary Staphylococcus aureus - Constitutional no acute distress, obese, chronically ill appearing - *Routine HEENT Exam Head: Present: normocephalic Eye: Present: PERRL ENT: Present: mucous membranes moist - *Routine Neck Exam Present: supple. Absent: lymphadenopathy - *Routine Respiratory Exam Present: patient mechanically ventilated, CTA bilaterally, rhonchi - *Routine Cardiovascular Exam Present: RRR - *Routine Abdominal Exam Present: soft, normoactive bowel sounds. Absent: tenderness - *Routine Extremities Exam Present: edema. Absent: cyanosis, clubbing - *Routine Skin Exam Present: warm, ecchymosis. Absent: rash - *Routine Neurological Exam sedated - Routine Psychiatric Exam Present: unable to assess Assessment and Plan (1) Pneumonia due to COVID-19 virus Status: Acute Category: Medical Code(s): U07.1 - COVID-19; J12.82 - Pneumonia due to coronavirus disease 2019 (2) SRINATH (acute kidney injury) Status: Acute Category: Medical Code(s): N17.9 - Acute kidney failure, unspecified (3) Lactic acidosis Status: Acute Category: Medical Code(s): E87.2 - Acidosis (4) Sepsis with acute hypoxic respiratory failure Status: Acute Qualifiers: Sepsis type: sepsis due to unspecified organism Severe sepsis shock statu
--- NOTE | 2020-07-29 10:13 | HMH.PHACONS ---
- Pharmacy Consult Date: 07/29/20 Time: 10:13 Referring provider: DR. RODRIGEZ Reason for Consult:: VANCOMYCIN TROUGH LEVEL Allergies and ADEs:: Allergies Allergy/AdvReac Type Severity Reaction Status Date / Time No Known Allergies Allergy Verified 07/17/20 14:01 Home Medications:: Home Medications Medication Instructions Recorded Confirmed Type ferrous sulfate 325 mg (65 mg 325 mg PO DAILY tab 08/02/17 07/25/20 History iron) tablet Cholecalciferol (Vitamin D3) 1,000 unit PO DAILY 01/09/20 07/25/20 History [Vitamin D3 1,000 Unit Cap] Ziprasidone HCl 60 mg PO BID 01/09/20 07/25/20 History atorvastatin 40 mg tablet 40 mg PO HS 01/22/20 07/25/20 History Acetaminophen [Tylenol 500mg 500 mg PO Q4HP PRN 01/31/20 07/25/20 History tablet] Apixaban [Eliquis 5mg tab] 5 mg PO BID 01/31/20 07/25/20 History lactulose 20 gram/30 mL oral 20 g PO DAILY PRN ml 02/04/20 07/25/20 History solution Fluticasone/Salmeterol [Advair 1 inh IH BID 02/20/20 07/25/20 History 250/50mcg Diskus] Ipratropium/Albuterol Sulfate 3 ml IH Q6HP PRN 02/20/20 07/25/20 History [Duoneb 3mL neb] Umeclidinium [place] [Incruse 1 puff IH DAILY 02/20/20 07/25/20 History Ellipta] predniSONE [Deltasone 20mg 20 mg PO BID 02/21/20 07/25/20 History tablet] docusate sodium 100 mg capsule 100 mg PO BID 04/14/20 07/25/20 History furosemide 40 mg tablet 40 mg PO DAILY tab 04/14/20 07/25/20 History ondansetron HCl 4 mg tablet 4 mg PO Q8H PRN 04/14/20 07/25/20 History sennosides 8.6 mg capsule 8.6 mg PO DAILY 04/14/20 07/25/20 History pantoprazole 40 mg tablet,delayed 40 mg PO BID #60 tab 05/03/20 07/25/20 Rx release Morphine Sulfate [Roxanol 20mg/mL 5 mg PO Q8H 07/10/20 07/25/20 History 1mL oral solution UDC] Potassium Chloride [Micro-K 10mEq 10 meq PO BID 07/10/20 07/25/20 History cap] levETIRAcetam [Keppra 500mg tablet] 500 mg PO HS 07/10/20 07/25/20 History levETIRAcetam [Levetiracetam] 1,000 mg PO DAILY 07/10/20 07/25/20 History Venlafaxine HCl [Venlafaxine HCl 75 mg PO DAILY 07/11/20 07/25/20 History ER] clonazepam 0.5 mg tablet 0.5 mg PO BID #60 tab 07/19/20 07/25/20 Rx Metoprolol Succinate [Toprol XL 50 mg PO DAILY 07/25/20 07/25/20 History 50mg Tablet] Metformin HCl 500 mg PO BID 07/26/20 07/26/20 History Morphine Sulfate [Roxanol 20mg/mL 5 mg PO Q4HP PRN 07/26/20 07/26/20 History 1mL oral solution UDC] Height: 1.63 m Weight: 72.6 kg Laboratory Results:: Laboratory Results - last 24 hr 07/27/20 15:51: POC Glucose 331 H* 07/27/20 17:46: POC Glucose 326 H* 07/28/20 02:06: POC Glucose 295 H 07/28/20 07:15: POC Glucose 226 H 07/28/20 13:18: POC Glucose 237 H 07/28/20 15:20: Vancomycin Trough 5.8 07/28/20 19:16: POC Glucose 215 H 07/28/20 23:15: POC Glucose 275 H 07/29/20 05:07: POC Glucose 152 H 07/29/20 05:15: Sodium 133 L, Potassium 2.8 L*, Chloride 99, Carbon Dioxide 35 H, Anion Gap 1.8 L, BUN 23 H, Creatinine 0.40 L, Estimated Creat Clear 178, Estimated GFR 165, Est GFR ( Amer) 199 D, Glucose 136 H D, Calcium 8.1 L, Total Bilirubin 0.5, AST 163 H D, ALT 231 H, Alkaline Phosphatase 243 H, Total Protein 4.2 L, Albumin 2.0 L D, Globulin 2.2, Albumin/Globulin Ratio 0.9 L 07/29/20 05:15: WBC 11.6 H, RBC 2.96 L, Hgb 10.0 L, Hct 29.5 L, MCV 99.5 H, MCH 33.8 H, MCHC 34.0, RDW 15.3, Plt Count 126 L, MPV 9.5, Neut % (Auto) 86.7 H, Lymph % (Auto) 7.8 L, [place] % (Auto) 4.9, Eos % (Auto) 0.0 L, Baso % (Auto) 0.5, Neut # (Auto) 10.0 H, Lymph # (Auto) 0.9, [place] # (Auto) 0.6, Eos # (Auto) 0.0, Baso # (Auto) 0.1, Total Counted 100, Neutrophils % (Manual) 89 H, Lymphocytes % (Manual) 5 L, Monocytes % (Manual) 6, Nucleated RBCs 4, Platelet Estimate Slight decrease, RBC Morphology Normal 07/29/20 06:00: Specimen Source Left radial, O2 % 100 ambu, ABG pH 7.44, ABG pCO2 41.4, ABG pO2 48.7 L, ABG HCO3 27.4 H, ABG Total CO2 28.6 H, ABG O2 Saturation 85 L*, ABG Base Excess 3.2 H, Ildefonso Test Patient unable
--- NOTE | 2020-07-29 15:04 | HMH.CONS ---
*Admission Date: 07/25/20 *Reason for consult:: Trach consult *History of present illness: Ms. Epps is a 59-year-old female with chronic hypoxic respiratory failure, pulmonary fibrosis probable UIP likely from hypersensitivity pneumonitis presented to the hospital with worsening respiratory failure needing mechanical ventilatory support to maintain her oxygen saturations and pulmonary was called for further management. Patient also found to be hypertensive with elevated lactate, septic shock on admission [facility] History Medical History: Reports:: Anxiety, Arrhythmia, Cardiomyopathy, Congestive Heart Failure, Chronic Obstructive Pulmonary Disease (COPD), Gastroesophageal Reflux Disease(GERD), Hyperlipidemia, Hypertension, Peripheral Artery Disease, Pulmonary Embolism, Seizures Denies:: Diabetes Mellitus Type 1, Diabetes Mellitus Type 2 *Have you ever received a pneumonia vaccine?: Yes *Have you received a flu vaccine this season?: Yes Other Medical History: Reports: Anemia Other Surgeries: Yes: Cancer Surgery, Cholecystectomy, Colonoscopy, Hysterectomy-Total, Other Amputation: No Fractures: No - *Social History Smoking Status: Unknown if ever smoked Tobacco Type: cigarettes # Packs/Day (cigarettes): 1 Alcohol Intake: never Alcohol Intake Frequency:: other Substance Use Type: denies use *Occupational Status:: disabled Housing: [facility] Household Members: other *Travel in the last 8 weeks: None - Psychiatric History Pschychiatric History:: Reports:: Anxiety, Schizophrenia Family Hx:: Unable to obtain [employer] history: No [employer] history Meds Home Medications Medication Instructions Recorded Confirmed Type ferrous sulfate 325 mg (65 mg 325 mg PO DAILY tab 08/02/17 07/25/20 History iron) tablet Cholecalciferol (Vitamin D3) 1,000 unit PO DAILY 01/09/20 07/25/20 History [Vitamin D3 1,000 Unit Cap] Ziprasidone HCl 60 mg PO BID 01/09/20 07/25/20 History atorvastatin 40 mg tablet 40 mg PO HS 01/22/20 07/25/20 History Acetaminophen [Tylenol 500mg 500 mg PO Q4HP PRN 01/31/20 07/25/20 History tablet] Apixaban [Eliquis 5mg tab] 5 mg PO BID 01/31/20 07/25/20 History lactulose 20 gram/30 mL oral 20 g PO DAILY PRN ml 02/04/20 07/25/20 History solution Fluticasone/Salmeterol [Advair 1 inh IH BID 02/20/20 07/25/20 History 250/50mcg Diskus] Ipratropium/Albuterol Sulfate 3 ml IH Q6HP PRN 02/20/20 07/25/20 History [Duoneb 3mL neb] Umeclidinium [place] [Incruse 1 puff IH DAILY 02/20/20 07/25/20 History Ellipta] predniSONE [Deltasone 20mg 20 mg PO BID 02/21/20 07/25/20 History tablet] docusate sodium 100 mg capsule 100 mg PO BID 04/14/20 07/25/20 History furosemide 40 mg tablet 40 mg PO DAILY tab 04/14/20 07/25/20 History ondansetron HCl 4 mg tablet 4 mg PO Q8H PRN 04/14/20 07/25/20 History sennosides 8.6 mg capsule 8.6 mg PO DAILY 04/14/20 07/25/20 History pantoprazole 40 mg tablet,delayed 40 mg PO BID #60 tab 05/03/20 07/25/20 Rx release Morphine Sulfate [Roxanol 20mg/mL 5 mg PO Q8H 07/10/20 07/25/20 History 1mL oral solution UDC] Potassium Chloride [Micro-K 10mEq 10 meq PO BID 07/10/20 07/25/20 History cap] levETIRAcetam [Keppra 500mg tablet] 500 mg PO HS 07/10/20 07/25/20 History levETIRAcetam [Levetiracetam] 1,000 mg PO DAILY 07/10/20 07/25/20 History Venlafaxine HCl [Venlafaxine HCl 75 mg PO DAILY 07/11/20 07/25/20 History ER] clonazepam 0.5 mg tablet 0.5 mg PO BID #60 tab 07/19/20 07/25/20 Rx Metoprolol Succinate [Toprol XL 50 mg PO DAILY 07/25/20 07/25/20 History 50mg Tablet] Metformin HCl 500 mg PO BID 07/26/20 07/26/20 History Morphine Sulfate [Roxanol 20mg/mL 5 mg PO Q4HP PRN 07/26/20 07/26/20 History 1mL oral solution UDC] Allergies Allergy/AdvReac Type Severity Reaction Status Date / Time No Known Allergies Allergy Verified 07/17/20 14:01 Exam Vital signs and Labs for Last 24 Hours: Temp Pulse Resp BP Pulse Ox 98.5 F 67 27 H 104/71
[2020-07-29 16:53] LABS: Anion Gap 5.5 mEq/L (5-15); Blood Urea Nitrogen 19 mg/dl (7-17); Calcium 8.2 mg/dl (8.4-10.2); Carbon Dioxide 32 mmol/L (22.0-30.0); Chloride 104 mmol/L (98-107); Creatinine Clearance Estimated 178 mL/min (50-200); Estimated Glomerular Filt Rate 165 ml/min (>60); GFR (African American) 199 ML/MIN (>60); Glucose 140 mg/dl (74-100); Magnesium 1.6 mg/dl (1.6-2.3); Potassium 4.5 mmoL/L (3.5-5.1); Sodium 137 mmol/L (136-145)
[2020-07-29 16:54] LABS: Phosphorous 2.6 mg/dl (2.5-4.5)
[2020-07-29 17:07] LABS: Troponin I < 0.01 ng/ml (0.00-0.034)
--- NOTE | 2020-07-29 17:34 | ECG_ITS ---
APPROVED REPORT Exam: Resting ECG HR:66 bpm ECG Measurements Heart Rate 66 AXES PA 130 P 31 QRSd 70 QRS 51 QT 418 T 25 QTc 438 Conclusion Normal sinus rhythm Normal ECG Electronically signed by : Marcos Rodriguez, 07/30/2020 18:46:58
[2020-07-30] VITALS (35 sets, daily range): BP systolic 81–134; BP diastolic 52–85; PULSE 71–122; RESP 19–39; TEMP 36.3–37.2; O2SAT 75–104; BMI 28.2
--- NOTE | 2020-07-30 00:06 | PC.NURSE ---
She continues in contact and airborne precautions. At the beginning of the shift her O2 decreased to 78% and her pulse increased to 124, BP 105/69, R 97.6, glucose 188. Erasmo paw was in place. Dr. Crespo notified of patient's condition. Generalized edema noted with 2+ pitting edema noted to bilateral feet and 2+ non-pitting edema noted to bilateral hands. Scleral edema noted which were also yellow in color. Scattered bruising noted to all extremities with large bruise on her chest. Heel protectors removed r/t edema and for assessment. Left heel with purple bruise and approximately a dime sized area that was non-blanchable. She was incontinent of stool with erythema to her jack-area and excoriation noted to her buttocks. She has a blister on her right hand. Dr. Crespo came to her room and assessed the patient. He ordered Lasix 80mg IV once, LR on hold at this time. Since administration of lasix, there has been a significant amount of urine output which is documented in her I&Os. Her urine has changed from yellow, clear to straw, clear. Her O2 sats have increased to 95%, respirations 22, and pulse 84 at this time. After a large amount of fluid was removed, she was able to tolerate jack-care and to start being turned and repositioned. Her O2 does decrease to low 80s when being turned but rebounds after a couple of minutes. Per report, tube feedings had been withheld r/t to her being unstable. Since VS have become more stable her tube feedings were initiated at 2400 but half of recommended tube feedings given at this time to determine pt tolerance. OG residual 5mL at 2400. Glucose 159. Her temperature increased above protocol value during rounds and erasmo paw was removed. Hourly rectal temperatures have continued to monitor pt. She is sedated to a RASS -1 and a current CPOT of 1. She is able to nod her head to answer questions and has followed commands such as moving all extremities. Mittens were placed on bilateral hands because she has reached for her ETT several times. ETT moved to the left per respiratory. NSR on telemetry at this time.
--- NOTE | 2020-07-30 04:15 | PC.NURSE ---
Unable to turn her at this time. O2 is at 83%.
--- NOTE | 2020-07-30 05:00 | XR_ITS ---
PROCEDURE: XR CHEST PORTABLE CLINICAL HISTORY: Pt intubated Follow-up Covid19 pneumonia COMPARISON: CT CT ANGIO CHEST from 07/25/2020 CR XR CHEST PORTABLE from 07/27/2020 CR XR CHEST PORTABLE from 07/28/2020 CR XR CHEST PORTABLE from 07/29/2020 FINDINGS: 5:30 a.m.. Endotracheal tube nasogastric tube left IJ CVL remain place in good position. Low lung volumes with diffuse bilateral pneumonia unchanged. No evidence of pneumothorax. IMPRESSION: No change tubes and lines with diffuse bilateral pneumonia Dictated by: Ildefonso Durand MD 07/30/2020 06:35 Ildefonso Durand MD in OV 07/30/2020 06:35
[2020-07-30 05:21] LABS: POC Glucose,Bedside 149 (70-110)
[2020-07-30 05:22] LABS: POC Glucose,Bedside 159 (70-110)
[2020-07-30 05:22] LABS: POC Glucose,Bedside 183 (70-110)
[2020-07-30 05:52] LABS: Basophils # 0.5 K/mm3 (0-0.2); Basophils % 2.6 % (0.1-2.0); Hematocrit 32.2 % (37.0-47.0); Hemoglobin 10.8 g/dL (12.2-16.2); Lymphocytes # 0.9 K/mm3 (0.7-4.5); Lymphocytes % 4.9 % (10-50); Mean Corpuscular HGB Conc 33.5 g/dL (31.8-35.4); Mean Corpuscular Hemoglobin 33.2 pg (27.0-31.2); Mean Corpuscular Volume 99.3 fl (81-99); Mean Platelet Volume 9.9 fl (7.4-10.4); Monocytes # 0.8 K/mm3 (0.1-1.0); Monocytes % 4.1 % (1.7-9.3); Neutrophils # 17.1 K/mm3 (1.8-7.8); Neutrophils % 88.4 % (37.0-80.0); Platelet Count 182 K/mm3 (142-424); Red Blood Count 3.24 M/mm3 (4.20-5.40); Red Cell Distribution Width 15.6 % (11.5-17.5); White Blood Count 19.3 K/mm3 (4.8-10.8)
[2020-07-30 05:57] LABS: MANUAL DIFFERENTIAL MANUAL DIFFERENTIAL (MANUAL DIFF)
[2020-07-30 05:59] LABS: Alanine Aminotransferase 233 U/L (12-78); Albumin Level 2.4 g/dl (3.5-5.0); Albumin/Globulin Ratio 0.9 (1.1-1.8); Alkaline Phosphatase 319 U/L (38-126); Anion Gap 8.2 mEq/L (5-15); Aspartate Amino Transferase 179 U/L (14-36); Bilirubin,Total 0.8 mg/dl (0.2-1.3); Blood Urea Nitrogen 21 mg/dl (7-17); Carbon Dioxide 34 mmol/L (22.0-30.0); Chloride 100 mmol/L (98-107); Creatinine Clearance Estimated 122 mL/min (50-200); Estimated Glomerular Filt Rate 103 ml/min (>60); GFR (African American) 125 ML/MIN (>60); Globulin 2.6 g/dL (1.3-3.2); Glucose 142 mg/dl (74-100); Potassium 3.2 mmoL/L (3.5-5.1); Sodium 139 mmol/L (136-145)
[2020-07-30 06:43] LABS: Thyroid Stimulating Hormone 0.24 uIU/mL (0.465-4.68)
--- NOTE | 2020-07-30 07:02 | PC.NURSE ---
Pt is receiving O2 via ambu-bag via respiratory at this time and approx the last 20 mins. Sedation increased at this time per respiratory request. Informed of goal of RASS 0-1 per MD report.
[2020-07-30 07:31] LABS: ABG Base Excess 5.6 mmol/L (-2.4-2.3); ABG HCO3 29.9 mmhg (22.0-26.0); ABG Oxygen Saturation 85 % (90-100); ABG PCO2 46.1 mmhg (35.0-45.0); ABG PH 7.43 mmol/L (7.35-7.45); ABG PO2 50.8 mmhg (80-100); ABG TCO2 31.3 mmhg (23-27)
[2020-07-30 07:32] LABS: Oxygen 100 %; PEEP 14; Vent Rate 22
[2020-07-30 07:33] LABS: Allen's Test acceptable; Source Right Radial
[2020-07-30 08:13] LABS: Corrected White Blood Count 18.2 K/mm3 (4.8-10.8); Lymphocytes % 8 % (10-50); Monocytes % 12 % (2-9); Neutrophils % 80 % (42-76); Nucleated Red Blood Cells 6; Platelet Estimate Normal; RBC Morphology Normal; Total Cells Counted 100
--- NOTE | 2020-07-30 08:40 | HMH.PULMPN ---
Internal Medicine - PN: Subj *Date: 07/30/20 *Time: 10:53 Interval history: No acute respiratory events overnight Exam - Constitutional Constitutional:: Present: no acute distress, comfortable - Respiratory Exam Respiratory:: Present: bibailar crackels heard, respiratory distress, crackles - Cardiovascular Exam Cardiac:: Present: S1, S2 - GI Exam GI:: Present: soft - Extremities Exam Extremities: Present: no cyanosis, no clubbing, edema Assessment and Plan (1) Pneumonia due to COVID-19 virus Status: Acute Category: Medical Code(s): U07.1 - COVID-19; J12.82 - Pneumonia due to coronavirus disease 2018 (2) SRINATH (acute kidney injury) Status: Acute Category: Medical Code(s): N17.9 - Acute kidney failure, unspecified (3) Lactic acidosis Status: Acute Category: Medical Code(s): E87.2 - Acidosis (4) Sepsis with acute hypoxic respiratory failure Status: Acute Qualifiers: Sepsis type: sepsis due to unspecified organism Severe sepsis shock status: without septic shock Qualified Code(s): A41.9 - Sepsis, unspecified organism; R65.20 - Severe sepsis without septic shock; J96.01 - Acute respiratory failure with hypoxia Category: Medical Code(s): A41.9 - Sepsis, unspecified organism; R65.20 - Severe sepsis without septic shock; J96.01 - Acute respiratory failure with hypoxia (5) Acute exacerbation of chronic obstructive airways disease Status: Acute Category: Medical Code(s): J44.1 - Chronic obstructive pulmonary disease with (acute) exacerbation (6) Overweight (BMI 25.0-29.9) Status: Acute Category: Medical Code(s): E66.3 - Overweight (7) Respiratory failure Problem details: Patient came in with acute respiratory failure with chest x-ray showing bilateral lower lobe worsening opacities. Also concern for aspiration. However after reviewing the patient's prior CT scans there is definitely a component of interstitial lung disease contributing to her respiratory failure and this needs to be further worked up. Chest x-ray from [address] abdomen in 2014 showed normal lower lung dooley without any evidence of interstitial lung disease. Patient is a chronic smoker not more than 30 packs a day currently smoking, denies any significant changes in her life, any significant exposure, any change in smoking habit since 2014. X-ray from May 2019 showed bilateral lower lobe infiltrates however no CT was available to evaluate for interstitial process. Chest x-ray from October 2019 showed significant interstitial opacities in the bilateral lower lobe and subsequent CTs also showed interstitial lung disease. Upon chart review and further questioning patient denies any acute respiratory illness or any hospital admissions noted around October 2019. Patient also had a recent PE on CTA from December 2019 and on anticoagulation and the venous Doppler was performed again on this admission which was negative for DVT. Echo from previous admission on December 2019 showed normal LV systolic function cannot evaluate the diastolic function. Severe TR along with increased RV size and RVSP of 72 mm Hg was noted at the time. X-ray showed gradual improvement in her infiltrates since admission. For involving pulmonary inpatient care will continue to follow. Please call with any questions or concerns regarding this patient care. Status: Acute Qualifiers: Chronicity: acute on chronic Respiratory failure complication: hypoxia Qualified Code(s): J96.21 - Acute and chronic respiratory failure with hypoxia Category: Medical Code(s): J96.90 - Respiratory failure, unspecified, unspecified whether with hypoxia or hypercapnia (8) Diabetes Status: Chronic Qualifiers: Diabetes mellitus type: type 2 Diabetes mellitus detention insulin use: unspecified detention insulin use status Diabetes mellitus complication status: with other specified complication Qualified Code(s): E11.69 - Type 2 diabetes mellitus wi
--- NOTE | 2020-07-30 10:02 | HMH.ACPN2 ---
Internal Medicine - PN: Subj *Date: 07/30/20 *Time: 14:33 Interval history: 59-year-old female patient sitting up in bed mechanically ventilated, chemically sedated. Current oxygenation 91% on ventilator settings PC %. Patient did experience some respiratory distress during late night early evening increase of FiO2 to 100%. Patient also required Levophed to be started currently Levophed is at 5 mics map greater than 65. Exam Vital signs and Labs for Last 24 Hours: Temp Pulse Resp BP Pulse Ox 98.1 F 86 25 H 99/70 L 88 L 07/30/20 04:00 07/30/20 06:29 07/30/20 05:20 07/30/20 06:29 07/30/20 07:04 Laboratory Results - last 24 hr 07/29/20 16:32: POC Glucose 149 H 07/29/20 16:37: Sodium 137, Potassium 4.5 D, Chloride 104, Carbon Dioxide 32 H, Anion Gap 5.5, BUN 19 H, Creatinine 0.40 L, Estimated Creat Clear 178, Estimated GFR 165, Est GFR ( Amer) 199, Glucose 140 H, Calcium 8.2 L, Troponin I < 0.01 07/29/20 16:37: Magnesium 1.6 07/29/20 16:37: Phosphorus 2.6 07/29/20 19:46: POC Glucose 183 H 07/29/20 23:46: POC Glucose 159 H 07/30/20 04:50: WBC 19.3 H D, Corrected WBC 18.2 H, RBC 3.24 L, Hgb 10.8 L, Hct 32.2 L, MCV 99.3 H, MCH 33.2 H, MCHC 33.5, RDW 15.6, Plt Count 182 D, MPV 9.9, Neut % (Auto) 88.4 H, Lymph % (Auto) 4.9 L, [place] % (Auto) 4.1, Eos % (Auto) 0.0 L, Baso % (Auto) 2.6 H, Neut # (Auto) 17.1 H, Lymph # (Auto) 0.9, [place] # (Auto) 0.8, Eos # (Auto) 0.0, Baso # (Auto) 0.5 H, Total Counted 100, Neutrophils % (Manual) 80 H, Lymphocytes % (Manual) 8 L, Monocytes % (Manual) 12 H, Nucleated RBCs 6, Platelet Estimate Normal, RBC Morphology Normal 07/30/20 04:50: TSH 0.24 L 07/30/20 04:50: Sodium 139, Potassium 3.2 L D, Chloride 100, Carbon Dioxide 34 H, Anion Gap 8.2, BUN 21 H, Creatinine 0.60 D, Estimated Creat Clear 122, Estimated GFR 103, Est GFR ( Amer) 125 D, Glucose 142 H, Calcium 8.0 L, Total Bilirubin 0.8, AST 179 H, ALT 233 H, Alkaline Phosphatase 319 H, Total Protein 5.0 L, Albumin 2.4 L D, Globulin 2.6, Albumin/Globulin Ratio 0.9 L 07/30/20 07:00: Specimen Source Right radial, O2 % 100, ABG pH 7.43, ABG pCO2 46.1 H, ABG pO2 50.8 L, ABG HCO3 29.9 H, ABG Total CO2 31.3 H, ABG O2 Saturation 85 L*, ABG Base Excess 5.6 H, Ildefonso Test acceptable, Vent Rate 22, PEEP 14 I & O for Last 24 hours: Intake & Output 07/27/20 07/28/20 07/29/20 07/30/20 23:59 23:59 23:59 23:59 Intake Total 4856.417 / 5041.417 4446.333 / 4753.333 4299.875 / 4321.875 232.333 / 232.333 Output Total 2410 / 2450 1417 / 1442 3490 / 3665 995 / 995 Balance 2446.417 / 2591.417 3029.333 / 3311.333 809.875 / 656.875 -762.667 / -762.667 Weight 155 lb 13.869 oz 160 lb 0.889 oz 165 lb 5.547 oz Microbiology Reports for the Last 24 Hours: Microbiology 07/25/20 09:00 Sputum - Endotracheal Tube Aspirate Gram Stain - Final 07/25/20 09:00 Sputum - Endotracheal Tube Aspirate Sputum Culture - Final Staphylococcus aureus Klebsiella pneumoniae - Constitutional mild distress, chronically ill appearing - *Routine HEENT Exam Head: Present: normocephalic ENT: Present: mucous membranes moist - *Routine Respiratory Exam Present: crackles - *Routine Cardiovascular Exam Present: RRR - *Routine Abdominal Exam Present: soft, normoactive bowel sounds. Absent: tenderness, firm - *Routine Skin Exam Present: warm. Absent: cyanosis, erythema - *Routine Neurological Exam Present: altered mental status Chemically sedated - Routine Psychiatric Exam Present: unable to assess Assessment and Plan (1) Pneumonia due to COVID-19 virus Status: Acute Category: Medical Code(s): U07.1 - COVID-19; J12.82 - Pneumonia due to coronavirus disease 2019 (2) SRINATH (acute kidney injury) Status: Acute Category: Medical Code(s): N17.9 - Acute kidney failure, unspecified (3) Lactic acidosis Status: Acute Category: Medical Code(s): E87.2 - Acidosis (4) Sepsis
--- NOTE | 2020-07-30 10:52 | HMH.PULMPN ---
Internal Medicine - PN: Subj *Date: 07/30/20 *Time: 10:52 Interval history: No acute respiratory events overnight. Exam - Constitutional Constitutional:: Present: no acute distress - Respiratory Exam Respiratory:: Present: crackles. Absent: able to speak in complete sentences, normal respiratory effort - Cardiovascular Exam Cardiac:: Present: S1, S2 - Extremities Exam Extremities: Present: edema Assessment and Plan (1) Pneumonia due to COVID-19 virus Status: Acute Category: Medical Code(s): U07.1 - COVID-19; J12.82 - Pneumonia due to coronavirus disease 2018 (2) SRINATH (acute kidney injury) Status: Acute Category: Medical Code(s): N17.9 - Acute kidney failure, unspecified (3) Lactic acidosis Status: Acute Category: Medical Code(s): E87.2 - Acidosis (4) Sepsis with acute hypoxic respiratory failure Status: Acute Qualifiers: Sepsis type: sepsis due to unspecified organism Severe sepsis shock status: without septic shock Qualified Code(s): A41.9 - Sepsis, unspecified organism; R65.20 - Severe sepsis without septic shock; J96.01 - Acute respiratory failure with hypoxia Category: Medical Code(s): A41.9 - Sepsis, unspecified organism; R65.20 - Severe sepsis without septic shock; J96.01 - Acute respiratory failure with hypoxia (5) Acute exacerbation of chronic obstructive airways disease Status: Acute Category: Medical Code(s): J44.1 - Chronic obstructive pulmonary disease with (acute) exacerbation (6) Overweight (BMI 25.0-29.9) Status: Acute Category: Medical Code(s): E66.3 - Overweight (7) Respiratory failure Problem details: Patient came in with acute respiratory failure with chest x-ray showing bilateral lower lobe worsening opacities. Also concern for aspiration. However after reviewing the patient's prior CT scans there is definitely a component of interstitial lung disease contributing to her respiratory failure and this needs to be further worked up. Chest x-ray from [address] abdomen in 2014 showed normal lower lung dooley without any evidence of interstitial lung disease. Patient is a chronic smoker not more than 30 packs a day currently smoking, denies any significant changes in her life, any significant exposure, any change in smoking habit since 2014. X-ray from May 2019 showed bilateral lower lobe infiltrates however no CT was available to evaluate for interstitial process. Chest x-ray from October 2019 showed significant interstitial opacities in the bilateral lower lobe and subsequent CTs also showed interstitial lung disease. Upon chart review and further questioning patient denies any acute respiratory illness or any hospital admissions noted around October 2019. Patient also had a recent PE on CTA from December 2019 and on anticoagulation and the venous Doppler was performed again on this admission which was negative for DVT. Echo from previous admission on December 2019 showed normal LV systolic function cannot evaluate the diastolic function. Severe TR along with increased RV size and RVSP of 72 mm Hg was noted at the time. X-ray showed gradual improvement in her infiltrates since admission. For involving pulmonary inpatient care will continue to follow. Please call with any questions or concerns regarding this patient care. Status: Acute Qualifiers: Chronicity: acute on chronic Respiratory failure complication: hypoxia Qualified Code(s): J96.21 - Acute and chronic respiratory failure with hypoxia Category: Medical Code(s): J96.90 - Respiratory failure, unspecified, unspecified whether with hypoxia or hypercapnia (8) Diabetes Status: Chronic Qualifiers: Diabetes mellitus type: type 2 Diabetes mellitus skilled nursing insulin use: unspecified skilled nursing insulin use status Diabetes mellitus complication status: with other specified complication Qualified Code(s): E11.69 - Type 2 diabetes mellitus with other specified complication Category:
--- NOTE | 2020-07-30 11:21 | P.CONPHA_ITS ---
[facility] Pharmacy Heparin Dosing - Demographic Data Admission date:: 07/30/20 Date: 07/30/20 Time: 11:21 Allergies/Adverse Reactions: Allergies Allergy/AdvReac Type Severity Reaction Status Date / Time No Known Allergies Allergy Verified 07/17/20 14:01 Height: 1.63 m Weight: 75 kg - Indication Medication therapy:: Heparin Current Indications:: HX OF PE Patient Problems: Current Active Problems Overweight (BMI 25.0-29.9) (Acute) Diabetes (Chronic) Pulmonary hypertension (Chronic) Sepsis with acute hypoxic respiratory failure (Acute) SRINATH (acute kidney injury) (Acute) Lactic acidosis (Acute) Pneumonia due to COVID-19 virus (Acute) Bacteremia (Acute) Acute exacerbation of chronic obstructive airways disease (Acute) UTI (urinary tract infection) (Acute) Tricuspid regurgitation (Chronic) Right heart failure (Chronic) Respiratory failure (Acute) Schizophrenia (Chronic) CVA?: No Bleeding problem?: No Kidney disease?: No IN?: No Desired PTT range:: 60-80 seconds - Labs Anticoagulation Lab Results:: 07/30/20 04:50 Hgb 10.8 L Hct 32.2 L Plt Count 182 D - Monitoring Dose Monitor 1 Date: 07/30/20 Time: 11:30 Infusion Rate:: 1,300 UNITS/HR Comment:: [id number] - Core Measures Most Recent Labs:: Laboratory Results - last 24 hr 07/29/20 16:32: POC Glucose 149 H 07/29/20 16:37: Sodium 137, Potassium 4.5 D, Chloride 104, Carbon Dioxide 32 H, Anion Gap 5.5, BUN 19 H, Creatinine 0.40 L, Estimated Creat Clear 178, Estimated GFR 165, Est GFR ( Amer) 199, Glucose 140 H, Calcium 8.2 L, Troponin I < 0.01 07/29/20 16:37: Magnesium 1.6 07/29/20 16:37: Phosphorus 2.6 07/29/20 19:46: POC Glucose 183 H 07/29/20 23:46: POC Glucose 159 H 07/30/20 04:50: WBC 19.3 H D, Corrected WBC 18.2 H, RBC 3.24 L, Hgb 10.8 L, Hct 32.2 L, MCV 99.3 H, MCH 33.2 H, MCHC 33.5, RDW 15.6, Plt Count 182 D, MPV 9.9, Neut % (Auto) 88.4 H, Lymph % (Auto) 4.9 L, [place] % (Auto) 4.1, Eos % (Auto) 0.0 L, Baso % (Auto) 2.6 H, Neut # (Auto) 17.1 H, Lymph # (Auto) 0.9, [place] # (Auto) 0.8, Eos # (Auto) 0.0, Baso # (Auto) 0.5 H, Total Counted 100, Neutrophils % (Manual) 80 H, Lymphocytes % (Manual) 8 L, Monocytes % (Manual) 12 H, Nucleated RBCs 6, Platelet Estimate Normal, RBC Morphology Normal 07/30/20 04:50: TSH 0.24 L 07/30/20 04:50: Sodium 139, Potassium 3.2 L D, Chloride 100, Carbon Dioxide 34 H , Anion Gap 8.2, BUN 21 H, Creatinine 0.60 D, Estimated Creat Clear 122, Estimated GFR 103, Est GFR ( Amer) 125 D, Glucose 142 H, Calcium 8.0 L, Total Bilirubin 0.8, AST 179 H, ALT 233 H, Alkaline Phosphatase 319 H, Total Protein 5.0 L, Albumin 2.4 L D, Globulin 2.6, Albumin/Globulin Ratio 0.9 L 07/30/20 07:00: Specimen Source Right radial, O2 % 100, ABG pH 7.43, ABG pCO2 46.1 H, ABG pO2 50.8 L, ABG HCO3 29.9 H, ABG Total CO2 31.3 H, ABG O2 Saturation 85 L*, ABG Base Excess 5.6 H, Ildefonso Test acceptable, Vent Rate 22, PEEP 14
[2020-07-30 12:35] LABS: POC Glucose,Bedside 151 (70-110)
[2020-07-30 12:35] LABS: POC Glucose,Bedside 150 (70-110)
[2020-07-30 13:36] LABS: POC Glucose,Bedside 119 (70-110)
[2020-07-30 13:43] LABS: POC Glucose,Bedside 124 (70-110)
--- NOTE | 2020-07-30 14:47 | CA_ITS ---
APPROVED REPORT EXAM: Comprehensive 2D, Doppler, and color-flow Echocardiogram Dog Handler: Tiffany Rhoades, RT(R) Ht: 5 ft 4 in Wt: 165lbs BSA: 1.80 BP: 99/70 mmHg Indications: DM, COVID pneumonia, respiratory failure, on ventilator, PHTN, EF check M-Mode Dimensions RVDd 2.11 cm (0.9-2.6) LA Diam 3.09 cm (1.9-4.0) LVDd 4.22 cm (3.5-5.7) Ao Diam 2.40 cm (2.0-3.7) LVDs 3.64 cm (3.5-5.7) IVSd 0.71 cm (0.6-1.1) PWd 0.75 cm (0.6-1.1) EF (Teich) 29.70% FS 13.70% EDV (Teich) 79.50 mL ESV (Teich) 55.90 mL LV Diastology E Decel Time 230.00 (160-240 msec) E/A Ratio 0.8 MED E' 6.20 (< 7 cm/sec) E'/MED E' Ratio 10.23 (>14) LAT E' 8.30 (<10 cm/sec) E/LAT E' Ratio 7.64 (>14) Mitral Valve MV E Max Adriel. 63.00 (40-130 cm/s) MV A Velocity 77.00 (40-130 cm/s) E/A Ratio 0.82 MV Decel. Time 230.00 (160-240 ms) MV PHT 67.00 ms Left Ventricle Technically difficult study because of the patient factors and poor acoustic windows. Left atrium is mildly enlarged, left ventricle is normal size, left ventricle wall thickness is normal, visually estimated ejection fraction 55% with no regional wall motion abnormality, grade 1 diastolic dysfunction seen without tissue Doppler evidence of raise left atrial pressure. Right Ventricle Right atrium and right ventricle mildly enlarged with normal contractility. Aortic Valve Aortic valve is minimally thickened and calcified without aortic stenosis or aortic insufficiency. Mitral Valve Mitral valve is grossly normal, there is mild mitral regurgitation. Tricuspid Valve Tricuspid valve is grossly normal, there is mild tricuspid regurgitation, tricuspid regurgitation jet velocity is inadequate for calculation of the right ventricular systolic pressure. Pulmonic Valve Pulmonic valve is poorly visualized. Great Vessels Aortic root is normal size. Pericardium No significant pericardial effusion noted. Conclusion 1. Mild biatrial enlargement, normal left ventricular size, visually estimated ejection fraction 55% with no regional wall motion abnormality, visually estimated ejection fraction 55% with no regional wall motion abnormality. Grade 1 diastolic dysfunction seen without tissue Doppler evidence of raise left atrial pressure. 2. Mildly enlarged right ventricle with normal contractility. 3. Mild mitral and tricuspid regurgitation. 4. No significant pericardial effusion noted. Electronically signed by : Patricio Fields, 07/30/2020 17:24:38
--- NOTE | 2020-07-30 15:04 | HMH.PHACONS ---
- Pharmacy Consult Date: 07/30/20 Time: 15:04 Referring provider: GINA Reason for Consult:: ADD GENTAMICIN TO CURRENT THERAPY PER EVIE CASTRO Allergies and ADEs:: Allergies Allergy/AdvReac Type Severity Reaction Status Date / Time No Known Allergies Allergy Verified 07/17/20 14:01 Home Medications:: Home Medications Medication Instructions Recorded Confirmed Type ferrous sulfate 325 mg (65 mg 325 mg PO DAILY tab 08/02/17 07/25/20 History iron) tablet Cholecalciferol (Vitamin D3) 1,000 unit PO DAILY 01/09/20 07/25/20 History [Vitamin D3 1,000 Unit Cap] Ziprasidone HCl 60 mg PO BID 01/09/20 07/25/20 History atorvastatin 40 mg tablet 40 mg PO HS 01/22/20 07/25/20 History Acetaminophen [Tylenol 500mg 500 mg PO Q4HP PRN 01/31/20 07/25/20 History tablet] Apixaban [Eliquis 5mg tab] 5 mg PO BID 01/31/20 07/25/20 History lactulose 20 gram/30 mL oral 20 g PO DAILY PRN ml 02/04/20 07/25/20 History solution Fluticasone/Salmeterol [Advair 1 inh IH BID 02/20/20 07/25/20 History 250/50mcg Diskus] Ipratropium/Albuterol Sulfate 3 ml IH Q6HP PRN 02/20/20 07/25/20 History [Duoneb 3mL neb] Umeclidinium [place] [Incruse 1 puff IH DAILY 02/20/20 07/25/20 History Ellipta] predniSONE [Deltasone 20mg 20 mg PO BID 02/21/20 07/25/20 History tablet] docusate sodium 100 mg capsule 100 mg PO BID 04/14/20 07/25/20 History furosemide 40 mg tablet 40 mg PO DAILY tab 04/14/20 07/25/20 History ondansetron HCl 4 mg tablet 4 mg PO Q8H PRN 04/14/20 07/25/20 History sennosides 8.6 mg capsule 8.6 mg PO DAILY 04/14/20 07/25/20 History pantoprazole 40 mg tablet,delayed 40 mg PO BID #60 tab 05/03/20 07/25/20 Rx release Morphine Sulfate [Roxanol 20mg/mL 5 mg PO Q8H 07/10/20 07/25/20 History 1mL oral solution UDC] Potassium Chloride [Micro-K 10mEq 10 meq PO BID 07/10/20 07/25/20 History cap] levETIRAcetam [Keppra 500mg tablet] 500 mg PO HS 07/10/20 07/25/20 History levETIRAcetam [Levetiracetam] 1,000 mg PO DAILY 07/10/20 07/25/20 History Venlafaxine HCl [Venlafaxine HCl 75 mg PO DAILY 07/11/20 07/25/20 History ER] clonazepam 0.5 mg tablet 0.5 mg PO BID #60 tab 07/19/20 07/25/20 Rx Metoprolol Succinate [Toprol XL 50 mg PO DAILY 07/25/20 07/25/20 History 50mg Tablet] Metformin HCl 500 mg PO BID 07/26/20 07/26/20 History Morphine Sulfate [Roxanol 20mg/mL 5 mg PO Q4HP PRN 07/26/20 07/26/20 History 1mL oral solution UDC] Height: 1.63 m Weight: 75 kg Laboratory Results:: Laboratory Results - last 24 hr 07/29/20 12:45: POC Glucose 124 H 07/29/20 12:46: POC Glucose 119 H 07/29/20 16:32: POC Glucose 149 H 07/29/20 16:37: Sodium 137, Potassium 4.5 D, Chloride 104, Carbon Dioxide 32 H, Anion Gap 5.5, BUN 19 H, Creatinine 0.40 L, Estimated Creat Clear 178, Estimated GFR 165, Est GFR ( Amer) 199, Glucose 140 H, Calcium 8.2 L, Troponin I < 0.01 07/29/20 16:37: Magnesium 1.6 07/29/20 16:37: Phosphorus 2.6 07/29/20 19:46: POC Glucose 183 H 07/29/20 23:46: POC Glucose 159 H 07/30/20 04:50: WBC 19.3 H D, Corrected WBC 18.2 H, RBC 3.24 L, Hgb 10.8 L, Hct 32.2 L, MCV 99.3 H, MCH 33.2 H, MCHC 33.5, RDW 15.6, Plt Count 182 D, MPV 9.9, Neut % (Auto) 88.4 H, Lymph % (Auto) 4.9 L, [place] % (Auto) 4.1, Eos % (Auto) 0.0 L, Baso % (Auto) 2.6 H, Neut # (Auto) 17.1 H, Lymph # (Auto) 0.9, [place] # (Auto) 0.8, Eos # (Auto) 0.0, Baso # (Auto) 0.5 H, Total Counted 100, Neutrophils % (Manual) 80 H, Lymphocytes % (Manual) 8 L, Monocytes % (Manual) 12 H, Nucleated RBCs 6, Platelet Estimate Normal, RBC Morphology Normal 07/30/20 04:50: TSH 0.24 L 07/30/20 04:50: Sodium 139, Potassium 3.2 L D, Chloride 100, Carbon Dioxide 34 H, Anion Gap 8.2, BUN 21 H, Creatinine 0.60 D, Estimated Creat Clear 122, Estimated GFR 103, Est GFR ( Amer) 125 D, Glucose 142 H, Calcium 8.0 L, Total Bilirubin 0.8, AST 179 H, ALT 233 H, Alkaline Phosphatase 319 H, Total Protein 5.0 L, Albumin 2.4 L D, Globulin 2.6, Albumin/Globulin
[2020-07-30 15:40] LABS: Blood Urea Nitrogen 24 mg/dl (7-17); Calcium 8.1 mg/dl (8.4-10.2); Carbon Dioxide 34 mmol/L (22.0-30.0); Chloride 98 mmol/L (98-107); Creatinine Clearance Estimated 122 mL/min (50-200); Estimated Glomerular Filt Rate 103 ml/min (>60); GFR (African American) 125 ML/MIN (>60); Glucose 251 mg/dl (74-100); Sodium 138 mmol/L (136-145)
--- NOTE | 2020-07-30 16:54 | DIET.NUTRFU ---
Tolerating tube feeding well. Bowel function normal. BG moderate-high- avg. past 54q=808. Nutrition related labs wnl. Weight up 6# past 48h, 15# total t/o stay. 2-3+ edema, diuresed today. Afternoon labs show normalized K. Propofol continues at low rate- additional kcal provided insignificant. IVF DC'd- Change in order made from minimal water flushes to water flushes of 180ml q 4h. This puts pt within conservative fluid needs at 1834ml. Continuing to monitor and alter as indicated. Pt on day 4 of receiving tube feedings at ~25% needs. Nutritional care plan to advance to within 50-75% needs as tolerated over 5-7 days as per ASPEN guidelines for critical care/COVID. Would like pt to continue to show good toleration and for fluid status to stabilize before advancing rate. Will monitor and increase feedings over next 48h pending pt condition.
[2020-07-30 16:56] LABS: POC Glucose,Bedside 289 (70-110)
--- NOTE | 2020-07-30 20:27 | XR_ITS ---
PROCEDURE: XR CHEST PORTABLE CLINICAL HISTORY: OG tube placement verification. COMPARISON: CT CT ANGIO CHEST from 07/25/2020 CR XR CHEST PORTABLE from 07/28/2020 CR XR CHEST PORTABLE from 07/29/2020 CR XR CHEST PORTABLE from 07/30/2020 FINDINGS: 2044 hours. Endotracheal tube nasogastric tube left subclavian central venous line are in satisfactory position. There is diffuse bilateral pneumonia. Overlying artifact noted in the left mid lower lung zone. IMPRESSION: Tubes and lines in good position with no change in the diffuse bilateral pneumonia Dictated by: Ildefonso Durand MD 07/31/2020 06:09 Ildefonso Durand MD in [place] 07/31/2020 06:09
[2020-07-30 22:37] LABS: Gentamicin,Random 17.7 ug/ml
[2020-07-31] VITALS (35 sets, daily range): BP systolic 72–138; BP diastolic 47–75; PULSE 67–137; RESP 19–37; TEMP 35.8–37.1; O2SAT 82–100; BMI 28.2
[2020-07-31 00:16] LABS: POC Glucose,Bedside 257 (70-110)
--- NOTE | 2020-07-31 02:04 | PC.NURSE ---
She continues on contact and airborne precautions. HOB elevated 30 degrees. Slightly less edematous than yesterday. Numerous areas with bruising and and breakdown. Heparin is on hold at this time r/t PTT. Heels elevated. She received a complete bed bath and linen change. She continues on bolus feedings.
[2020-07-31 04:25] LABS: Basophils # 0.2 K/mm3 (0-0.2); Basophils % 1.7 % (0.1-2.0); Eosinophils % 0.3 % (0.1-12.0); Lymphocytes # 1.3 K/mm3 (0.7-4.5); Lymphocytes % 8.9 % (10-50); Mean Corpuscular HGB Conc 33.6 g/dL (31.8-35.4); Mean Corpuscular Hemoglobin 33.2 pg (27.0-31.2); Mean Corpuscular Volume 98.9 fl (81-99); Mean Platelet Volume 10.1 fl (7.4-10.4); Monocytes # 0.4 K/mm3 (0.1-1.0); Monocytes % 2.6 % (1.7-9.3); Neutrophils # 12.2 K/mm3 (1.8-7.8); Neutrophils % 86.6 % (37.0-80.0); Platelet Count 126 K/mm3 (142-424); Red Cell Distribution Width 15.9 % (11.5-17.5); White Blood Count 14.1 K/mm3 (4.8-10.8)
[2020-07-31 04:26] LABS: Alanine Aminotransferase 174 U/L (12-78); Albumin Level 2.1 g/dl (3.5-5.0); Albumin/Globulin Ratio 0.9 (1.1-1.8); Alkaline Phosphatase 294 U/L (38-126); Anion Gap 5.2 mEq/L (5-15); Aspartate Amino Transferase 137 U/L (14-36); Bilirubin,Total 0.8 mg/dl (0.2-1.3); Blood Urea Nitrogen 24 mg/dl (7-17); Calcium 7.7 mg/dl (8.4-10.2); Carbon Dioxide 34 mmol/L (22.0-30.0); Chloride 100 mmol/L (98-107); Creatinine Clearance Estimated 147 mL/min (50-200); Estimated Glomerular Filt Rate 127 ml/min (>60); GFR (African American) 154 ML/MIN (>60); Globulin 2.4 g/dL (1.3-3.2); Potassium 3.2 mmoL/L (3.5-5.1); Sodium 136 mmol/L (136-145); Total Protein,Serum 4.5 g/dl (6.3-8.2)
[2020-07-31 04:31] LABS: Glucose 180 mg/dl (74-100)
[2020-07-31 04:34] LABS: Hematocrit 25.7 % (37.0-47.0); Hemoglobin 8.6 g/dL (12.2-16.2)
[2020-07-31 04:36] LABS: MANUAL DIFFERENTIAL MANUAL DIFFERENTIAL (MANUAL DIFF)
--- NOTE | 2020-07-31 04:49 | PC.NURSE ---
Respiratory bagging patient r/t O2 decreased to 68%; 2nd R.T. called to floor
--- NOTE | 2020-07-31 04:51 | PC.NURSE ---
ER called spoke to Mary to notify Dr. Wright that patient O2 has decreased to 68% and is full code and R.T. is bagging patient at this time.
--- NOTE | 2020-07-31 04:53 | PC.NURSE ---
ELENITA Hernandez called back stating that Dr. Wright requested for Dr. Peterson be consulted for the pulmonology aspect.
[2020-07-31 04:54] LABS: Gentamicin,Random 7.7 ug/ml
--- NOTE | 2020-07-31 04:59 | PC.NURSE ---
called back and stated to bag slow at 10 times to per min, PEEP 20, ABG with lactic now. Call him back with results.
--- NOTE | 2020-07-31 05:00 | XR_ITS ---
PROCEDURE: XR CHEST PORTABLE Referring Doctor: Bright Wright Patient Age:59Y CLINICAL HISTORY: Pt intubated . Pneumonia hypoxic respiratory failure COMPARISON: CT CT ANGIO CHEST from 07/25/2020 CR XR CHEST PORTABLE from 07/29/2020 CR XR CHEST PORTABLE from 07/30/2020 CR XR CHEST PORTABLE from 07/30/2020 FINDINGS: The patient appears to have a diffuse interstitial infiltrate superimposed upon a background of likely pulmonary fibrosis. Suspect likely reflecting pneumonia but there may be an element of fluid overload or CHF contributing suggestion minimal septal lines on the previous studies which show since improving. Today's appearance with suggestion of subtle slight improvement compared to July 30 CXR. There may be some subtle blunting at the left CP angle of which questionable reflects some scant fluid. Scant fluid along the minor fissure also noted. Heart normal size but pulmonary vascularity appears normal to upper normal. The mediastinum appears similar to previous studies The ET tube satisfactory position 4 point 5 cm above the carleen. Central line enters from the left neck left jugular with tip at SVC. Good position. The NG tube remains good position. Passes through the GE junction and well into the the stomach with tip looping upward into into the gastric fundus. IMPRESSION: Slight improvement since July 30 and CXR s. Subtle improvement of the diffuse bilateral interstitial a prominence and infiltrate superior to prior studies.-current findings are likely superimposed on background of diffuse pulmonary fibrosis and interstitial fibrotic changes Question subtle blunting CP angles along scant fluid outlining minor fissure could reflect some minor pleural fluid ET, NG, and central line remain satisfactory position Dictated by: Andry Montenegro MD 07/31/2020 09:18 Andry Montenegro MD in [facility] 07/31/2020 09:18
--- NOTE | 2020-07-31 05:10 | PC.NURSE ---
Dr. Peterson paged at this time with ABG/ arterial lactic results.
--- NOTE | 2020-07-31 05:17 | PC.NURSE ---
Dr. Peterson returned call and given ABG and arterial lactic results. He could hear her breathing over being ambu bagged and stated to deep sedate because she is fighting the vent. He ordered Fentantyl 25mcg IV bolus x1.
[2020-07-31 05:24] LABS: Eosinophils % 1 % (0-3); Lymphocytes % 15 % (10-50); Monocytes % 1 % (2-9); Neutrophils % 77 % (42-76); Total Cells Counted 100
[2020-07-31 05:25] LABS: Macrocytosis 1+; Platelet Estimate Slight Decrease
--- NOTE | 2020-07-31 05:32 | PC.NURSE ---
Dr. Peterson called back and stated to give Fentanyl 25mcg/hr bolus. He wants her sedated until she is not overbreathing the vent. Current rate on vent is 18.
[2020-07-31 09:27] LABS: Activated Partial Thrombo Time 112.1 seconds (23.6-34.0)
--- NOTE | 2020-07-31 09:52 | HMH.ACPN2 ---
Internal Medicine - PN: Subj *Date: 07/31/20 *Time: 09:52 Interval history: has had diff with resp status and bp - still on vent - no sig improvement Exam Vital signs and Labs for Last 24 Hours: Temp Pulse Resp BP Pulse Ox 98.7 F 115 H 33 H 99/64 L 90 L 07/31/20 08:49 07/31/20 08:49 07/31/20 08:49 07/31/20 08:49 07/31/20 08:49 Laboratory Results - last 24 hr 07/29/20 12:45: POC Glucose 124 H 07/29/20 12:46: POC Glucose 119 H 07/30/20 05:40: POC Glucose 150 H 07/30/20 07:35: ABG Lactate 2.0 07/30/20 12:20: POC Glucose 151 H 07/30/20 14:51: Vancomycin Trough 22.0 H 07/30/20 14:51: Sodium 138, Potassium 4.0 D, Chloride 98, Carbon Dioxide 34 H, Anion Gap 10.0, BUN 24 H, Creatinine 0.60, Estimated Creat Clear 122, Estimated GFR 103, Est GFR ( Amer) 125, Glucose 251 H D, Calcium 8.1 L 07/30/20 14:51: APTT 39.0 H D 07/30/20 16:45: POC Glucose 289 H 07/30/20 20:40: Random Gentamicin 17.7 07/30/20 22:00: APTT 275.0 H* D 07/30/20 22:11: POC Glucose 257 H 07/31/20 01:00: APTT 275.0 H* 07/31/20 03:40: Sodium 136, Potassium 3.2 L, Chloride 100, Carbon Dioxide 34 H, Anion Gap 5.2, BUN 24 H, Creatinine 0.50 L, Estimated Creat Clear 147, Estimated GFR 127, Est GFR ( Amer) 154 D, Glucose 180 H D, Calcium 7.7 L, Total Bilirubin 0.8, AST 137 H, ALT 174 H D, Alkaline Phosphatase 294 H, Total Protein 4.5 L, Albumin 2.1 L D, Globulin 2.4, Albumin/Globulin Ratio 0.9 L, Random Gentamicin 7.7 07/31/20 03:40: WBC 14.1 H D, RBC 2.60 L, Hgb 8.6 L D, Hct 25.7 L, MCV 98.9, MCH 33.2 H, MCHC 33.6, RDW 15.9, Plt Count 126 L D, MPV 10.1, Neut % (Auto) 86.6 H, Lymph % (Auto) 8.9 L, [place] % (Auto) 2.6, Eos % (Auto) 0.3, Baso % (Auto) 1.7, Neut # (Auto) 12.2 H, Lymph # (Auto) 1.3, [place] # (Auto) 0.4, Eos # (Auto) 0.0, Baso # (Auto) 0.2, Total Counted 100, Neutrophils % (Manual) 77 H, Band Neutrophils % 6.0, Lymphocytes % (Manual) 15, Monocytes % (Manual) 1 L, Eosinophils % (Manual) 1, Platelet Estimate Slight decrease, Macrocytosis 1+ 07/31/20 03:40: APTT 57.0 H* D 07/31/20 08:45: APTT 112.1 H* D I & O for Last 24 hours: Intake & Output 07/28/20 07/29/20 07/30/20 07/31/20 11:59 11:59 11:59 11:59 Intake Total 4495.417 / 4495.417 4439.208 / 4439.208 4115.333 / 4171.333 860.948 / 860.948 Output Total 1846 / 1938 1136 / 1211 4217 / 4252 3295 / 3295 Balance 2649.417 / 2557.417 3303.208 / 3228.208 -101.667 / -80.667 -2434.052 / -2434.052 Weight 160 lb 0.889 oz 165 lb 5.547 oz 165 lb 5.547 oz Microbiology Reports for the Last 24 Hours: Microbiology 07/25/20 08:59 Blood Blood Culture - Final NO GROWTH AFTER 5 DAYS - Constitutional chronically ill appearing - *Routine HEENT Exam Head: Present: normocephalic Eye: Present: EOMI, PERRL ENT: Present: mucous membranes dry - *Routine Neck Exam Absent: JVD - *Routine Respiratory Exam Present: patient mechanically ventilated - *Routine Cardiovascular Exam Present: RRR - *Routine Abdominal Exam Present: soft - *Routine Extremities Exam Absent: calf tenderness - *Routine Skin Exam Comments: chronic changes - *Routine Neurological Exam Present: altered mental status sedated - Routine Psychiatric Exam Present: unable to assess Assessment and Plan (1) Pneumonia due to COVID-19 virus Status: Acute Category: Medical Code(s): U07.1 - COVID-19; J12.82 - Pneumonia due to coronavirus disease 2019 (2) SRINATH (acute kidney injury) Status: Acute Category: Medical Code(s): N17.9 - Acute kidney failure, unspecified (3) Lactic acidosis Status: Acute Category: Medical Code(s): E87.2 - Acidosis (4) Sepsis with acute hypoxic respiratory failure Status: Acute Qualifiers: Sepsis type: sepsis due to unspecified organism Severe sepsis shock status: without septic shock Qualified Code(s): A41.9 - Sepsis, unspecified organism; R65.20 - Severe sepsis without septic shock; J96.01 - Acute respiratory failure with
[2020-07-31 12:18] LABS: ABG Base Excess 3.7 mmol/L (-2.4-2.3); ABG HCO3 28.4 mmhg (22.0-26.0); ABG Oxygen Saturation 94 % (90-100); ABG PCO2 46.4 mmhg (35.0-45.0); ABG PH 7.41 mmol/L (7.35-7.45); ABG PO2 74.9 mmhg (80-100); ABG TCO2 29.8 mmhg (23-27)
[2020-07-31 12:20] LABS: Oxygen 100 %; PEEP 20; Source A-LINE; Tidal Volume 450; Vent Rate 30
--- NOTE | 2020-07-31 12:57 | HMH.PHACONS ---
- Pharmacy Consult Date: 07/31/20 Time: 12:57 Referring provider: DR. CASE Reason for Consult:: GENTAMICIN LEVELS Allergies and ADEs:: Allergies Allergy/AdvReac Type Severity Reaction Status Date / Time No Known Allergies Allergy Verified 07/17/20 14:01 Home Medications:: Home Medications Medication Instructions Recorded Confirmed Type ferrous sulfate 325 mg (65 mg 325 mg PO DAILY tab 08/02/17 07/25/20 History iron) tablet Cholecalciferol (Vitamin D3) 1,000 unit PO DAILY 01/09/20 07/25/20 History [Vitamin D3 1,000 Unit Cap] Ziprasidone HCl 60 mg PO BID 01/09/20 07/25/20 History atorvastatin 40 mg tablet 40 mg PO HS 01/22/20 07/25/20 History Acetaminophen [Tylenol 500mg 500 mg PO Q4HP PRN 01/31/20 07/25/20 History tablet] Apixaban [Eliquis 5mg tab] 5 mg PO BID 01/31/20 07/25/20 History lactulose 20 gram/30 mL oral 20 g PO DAILY PRN ml 02/04/20 07/25/20 History solution Fluticasone/Salmeterol [Advair 1 inh IH BID 02/20/20 07/25/20 History 250/50mcg Diskus] Ipratropium/Albuterol Sulfate 3 ml IH Q6HP PRN 02/20/20 07/25/20 History [Duoneb 3mL neb] Umeclidinium [place] [Incruse 1 puff IH DAILY 02/20/20 07/25/20 History Ellipta] predniSONE [Deltasone 20mg 20 mg PO BID 02/21/20 07/25/20 History tablet] docusate sodium 100 mg capsule 100 mg PO BID 04/14/20 07/25/20 History furosemide 40 mg tablet 40 mg PO DAILY tab 04/14/20 07/25/20 History ondansetron HCl 4 mg tablet 4 mg PO Q8H PRN 04/14/20 07/25/20 History sennosides 8.6 mg capsule 8.6 mg PO DAILY 04/14/20 07/25/20 History pantoprazole 40 mg tablet,delayed 40 mg PO BID #60 tab 05/03/20 07/25/20 Rx release Morphine Sulfate [Roxanol 20mg/mL 5 mg PO Q8H 07/10/20 07/25/20 History 1mL oral solution UDC] Potassium Chloride [Micro-K 10mEq 10 meq PO BID 07/10/20 07/25/20 History cap] levETIRAcetam [Keppra 500mg tablet] 500 mg PO HS 07/10/20 07/25/20 History levETIRAcetam [Levetiracetam] 1,000 mg PO DAILY 07/10/20 07/25/20 History Venlafaxine HCl [Venlafaxine HCl 75 mg PO DAILY 07/11/20 07/25/20 History ER] clonazepam 0.5 mg tablet 0.5 mg PO BID #60 tab 07/19/20 07/25/20 Rx Metoprolol Succinate [Toprol XL 50 mg PO DAILY 07/25/20 07/25/20 History 50mg Tablet] Metformin HCl 500 mg PO BID 07/26/20 07/26/20 History Morphine Sulfate [Roxanol 20mg/mL 5 mg PO Q4HP PRN 07/26/20 07/26/20 History 1mL oral solution UDC] Height: 1.63 m Weight: 75 kg Laboratory Results:: Laboratory Results - last 24 hr 07/29/20 12:45: POC Glucose 124 H 07/29/20 12:46: POC Glucose 119 H 07/30/20 07:35: ABG Lactate 2.0 07/30/20 14:51: Vancomycin Trough 22.0 H 07/30/20 14:51: Sodium 138, Potassium 4.0 D, Chloride 98, Carbon Dioxide 34 H, Anion Gap 10.0, BUN 24 H, Creatinine 0.60, Estimated Creat Clear 122, Estimated GFR 103, Est GFR ( Amer) 125, Glucose 251 H D, Calcium 8.1 L 07/30/20 14:51: APTT 39.0 H D 07/30/20 16:45: POC Glucose 289 H 07/30/20 20:40: Random Gentamicin 17.7 07/30/20 22:00: APTT 275.0 H* D 07/30/20 22:11: POC Glucose 257 H 07/31/20 01:00: APTT 275.0 H* 07/31/20 03:40: Sodium 136, Potassium 3.2 L, Chloride 100, Carbon Dioxide 34 H, Anion Gap 5.2, BUN 24 H, Creatinine 0.50 L, Estimated Creat Clear 147, Estimated GFR 127, Est GFR ( Amer) 154 D, Glucose 180 H D, Calcium 7.7 L, Total Bilirubin 0.8, AST 137 H, ALT 174 H D, Alkaline Phosphatase 294 H, Total Protein 4.5 L, Albumin 2.1 L D, Globulin 2.4, Albumin/Globulin Ratio 0.9 L, Random Gentamicin 7.7 07/31/20 03:40: WBC 14.1 H D, RBC 2.60 L, Hgb 8.6 L D, Hct 25.7 L, MCV 98.9, MCH 33.2 H, MCHC 33.6, RDW 15.9, Plt Count 126 L D, MPV 10.1, Neut % (Auto) 86.6 H, Lymph % (Auto) 8.9 L, [place] % (Auto) 2.6, Eos % (Auto) 0.3, Baso % (Auto) 1.7, Neut # (Auto) 12.2 H, Lymph # (Auto) 1.3, [place] # (Auto) 0.4, Eos # (Auto) 0.0, Baso # (Auto) 0.2, Total Counted 100, Neutrophils % (Manual) 77 H, Band Neutrophils % 6.0, Lymphocytes % (Manual) 15, Monocytes % (Manual) 1 L,
--- NOTE | 2020-07-31 15:24 | PC.NURSE ---
at this time patient has been to unstable to bolus feed. has required frequent bagging, and has had decrease in bp multiple times this shift. noted that if any change/pause to levophed drip pressure drops quickly to as low as 30s systolic. once sedation paused and levophed restarted pressures start to climb back up. dr oseguera stated no new orders when updated about earlier decrease in bp. dr grant called and checked on patient around 1200. he instructed to give patient a liter bolus of lr. since that bolus on top of levphed bp has been within normal limits. heart rate has been 90s since becoming slightly more stable. propofol currently at 50mcg/kg/min. if sedation is decreased patient wakes up and becomes very anxious, causing heart rate to increase and sats to decrease. fentanyl remains at 250mcg/hr. new dressing applied to arm. lots of bleeding from blisters.
--- NOTE | 2020-07-31 17:14 | PC.NURSE ---
instructed by pharmacy to turn off heparin and get a ptt at 1930. heparin turned off at 1705
[2020-08-01] VITALS (49 sets, daily range): BP systolic 96–155; BP diastolic 60–83; PULSE 64–120; RESP 19–32; TEMP 36–37.3; O2SAT 90–98; BMI 29.2
[2020-08-01 00:36] LABS: Activated Partial Thrombo Time 52.5 seconds (23.6-34.0)
--- NOTE | 2020-08-01 00:50 | PC.NURSE ---
Spoke with Ramya Srivastava. Would like MD to make decision whether to restart Heparin gtt due to bleeding concerns. If MD would like to restart, 600 units/hr is the recommended dose.
--- NOTE | 2020-08-01 01:58 | PC.NURSE ---
She continues in contact and airborne precautions. HOB elevated 30 degrees. She has scattered bruising on all extremities and a skin tear on her left hand and RFA. She frequently bleeds from open areas. ART line in left wrist. Generalized edema that has slightly increased from last night. She continues to have yellow sclera and scleral edema. Vent settings are as follows: AC mode, TV 450, PEEP 20, R 30, FiO2 100%. OG is present and ETT is midline. She continues on levophed, propofol, and fentanyl.
[2020-08-01 06:36] LABS: Basophils # 0.3 K/mm3 (0-0.2); Basophils % 1.4 % (0.1-2.0); Eosinophils % 0.1 % (0.1-12.0); Lymphocytes # 1.5 K/mm3 (0.7-4.5); Lymphocytes % 7.2 % (10-50); Mean Corpuscular HGB Conc 34.6 g/dL (31.8-35.4); Mean Corpuscular Hemoglobin 35.2 pg (27.0-31.2); Mean Corpuscular Volume 101.6 fl (81-99); Mean Platelet Volume 11.1 fl (7.4-10.4); Monocytes # 0.6 K/mm3 (0.1-1.0); Monocytes % 3.1 % (1.7-9.3); Neutrophils # 17.7 K/mm3 (1.8-7.8); Neutrophils % 88.1 % (37.0-80.0); Platelet Count 104 K/mm3 (142-424); Red Blood Count 1.94 M/mm3 (4.20-5.40); Red Cell Distribution Width 16.7 % (11.5-17.5); White Blood Count 20.1 K/mm3 (4.8-10.8)
[2020-08-01 06:39] LABS: Hemoglobin 6.8 g/dL (12.2-16.2)
[2020-08-01 06:40] LABS: Hematocrit 19.7 % (37.0-47.0)
[2020-08-01 06:41] LABS: MANUAL DIFFERENTIAL MANUAL DIFFERENTIAL (MANUAL DIFF)
[2020-08-01 06:58] LABS: Chloride 99 mmol/L (98-107); Potassium 4.1 mmoL/L (3.5-5.1); Sodium 132 mmol/L (136-145)
--- NOTE | 2020-08-01 07:00 | XR_ITS ---
PROCEDURE: XR CHEST PORTABLE Referring Doctor: Bright Wright Patient Age:59Y CLINICAL HISTORY: Pt intubated COMPARISON: CR XR CHEST PORTABLE from 07/25/2020 CR XR CHEST PORTABLE from 07/28/2020 Previous chest film July 30, and 07/31/2020. 1 FINDINGS: The ET tube remains in satisfactory position approximately 5 cm arc of the carleen, with tip at the level of the head of the clavicles would note that it is tip is somewhat obscured by overlapping structures on this study studies today. The internal jugular central line enters from the left with tip at SVC. NG tube remains in place and extends well into the stomach where partially loops upward with tip directed towards fundus Overall the diffuse bilateral interstitial infiltrate pattern has shown very subtle gradual daily improvement since July 30. The diffuse primarily primarily interstitial infiltrate superimposed upon a background diffuse fibrotic change/pulmonary fibrosis. Clearing most evident centrally perihilar regions and towards bases. There are some septal lines which could be related to element a resolving CHF or the chronic interstitial fibrotic process . CP angles appear fairly sharp with no good evidence pleural effusion. However there was some minimal fluid at the minor fissure yesterday which is less today. The heart is normal in size AED pad overlies the lower left chest with multiple cardiac cath lab radiology technologist leads all also on today's CXR IMPRESSION: ET tube, NG tube, central line remain satisfactory position Suggestion subtle improvement of the diffuse bilateral interstitial coarsening and infiltrate pattern -Which is superimposed upon the background of chronic interstitial fibrotic changes. Dictated by: Andry Montenegro MD 08/01/2020 06:45 Andry Montenegro MD in [place] 08/01/2020 06:45
[2020-08-01 07:01] LABS: Alanine Aminotransferase 143 U/L (12-78); Albumin Level 2.1 g/dl (3.5-5.0); Albumin/Globulin Ratio 0.9 (1.1-1.8); Alkaline Phosphatase 278 U/L (38-126); Aspartate Amino Transferase 141 U/L (14-36); Bilirubin,Total 0.9 mg/dl (0.2-1.3); Blood Urea Nitrogen 31 mg/dl (7-17); Carbon Dioxide 30 mmol/L (22.0-30.0); Creatinine Clearance Estimated 85 mL/min (50-200); Estimated Glomerular Filt Rate 65 ml/min (>60); GFR (African American) 78 ML/MIN (>60); Globulin 2.3 g/dL (1.3-3.2); Total Protein,Serum 4.4 g/dl (6.3-8.2)
[2020-08-01 07:02] LABS: Calcium 8.3 mg/dl (8.4-10.2); Glucose 292 mg/dl (74-100)
[2020-08-01 07:06] LABS: Anion Gap 7.1 mEq/L (5-15)
[2020-08-01 07:24] LABS: Lymphocytes % 4 % (10-50); Macrocytosis 2+; Monocytes % 2 % (2-9); Neutrophils % 84 % (42-76); Platelet Estimate Slight Decrease; Total Cells Counted 100
[2020-08-01 07:33] LABS: ABG Base Excess 0.2 mmol/L (-2.4-2.3); ABG Oxygen Saturation 98 % (90-100); ABG PCO2 49.3 mmhg (35.0-45.0); ABG PH 7.34 mmol/L (7.35-7.45); ABG PO2 110.7 mmhg (80-100); ABG TCO2 27.5 mmhg (23-27)
[2020-08-01 07:49] LABS: Oxygen 100 %; Tidal Volume 450; Vent Rate 30
[2020-08-01 07:50] LABS: PEEP 20
[2020-08-01 09:59] LABS: Gentamicin,Random 17.9 ug/ml; Vancomycin,Trough 29.5 ug/mL (5.0-10.0)
--- NOTE | 2020-08-01 10:34 | PC.NURSE ---
patient did not tolerate tube feeding this morning. after administration noted patient sats and bp start to decrease, and tube feed noted to be coming out of mouth. suctioned patient and return of sats and bp back to baseline. will hold further feedings for now.
--- NOTE | 2020-08-01 10:44 | PC.NURSE ---
Addendum entered by Cira Najera RN 08/01/20 10:46: noted bp with a systolic in 150s and that is why it was decreased Original Note: decreased levophed to 20mcg/kg/min
--- NOTE | 2020-08-01 10:44 | PC.NURSE ---
late entry. notified house of need for blood. she brought to floor and it was administered at that time after verification.
--- NOTE | 2020-08-01 10:55 | HMH.ACPN2 ---
Internal Medicine - PN: Subj *Date: 08/02/20 *Time: 02:56 Interval history: has been having issues with heparin- bleeding with elevated ptt- Exam Vital signs and Labs for Last 24 Hours: Temp Pulse Resp BP Pulse Ox 98.2 F 90 30 H 128/73 95 08/01/20 10:10 08/01/20 10:10 08/01/20 10:10 08/01/20 10:10 08/01/20 10:10 Laboratory Results - last 24 hr 07/31/20 12:15: Specimen Source A-line, O2 % 100, ABG pH 7.41, ABG pCO2 46.4 H, ABG pO2 74.9 L, ABG HCO3 28.4 H, ABG Total CO2 29.8 H, ABG O2 Saturation 94, ABG Base Excess 3.7 H, Vent Rate 30, Tidal Volume 450, PEEP 20 07/31/20 15:50: APTT 07/31/20 19:45: APTT 275.0 H* D 08/01/20 00:10: APTT 52.5 H* D 08/01/20 06:15: APTT 39.0 H D 08/01/20 06:15: WBC 20.1 H* D, RBC 1.94 L* D, Hgb 6.8 L*, Hct 19.7 L*, MCV 101.6 H, MCH 35.2 H, MCHC 34.6, RDW 16.7, Plt Count 104 L, MPV 11.1 H, Neut % (Auto) 88.1 H, Lymph % (Auto) 7.2 L, [place] % (Auto) 3.1, Eos % (Auto) 0.1, Baso % (Auto) 1.4, Neut # (Auto) 17.7 H, Lymph # (Auto) 1.5, [place] # (Auto) 0.6, Eos # (Auto) 0.0, Baso # (Auto) 0.3 H, Total Counted 100, Neutrophils % (Manual) 84 H, Band Neutrophils % 10.0 H, Lymphocytes % (Manual) 4 L, Monocytes % (Manual) 2, Platelet Estimate Slight decrease, Macrocytosis 2+ 08/01/20 06:15: Sodium 132 L, Potassium 4.1 D, Chloride 99, Carbon Dioxide 30, Anion Gap 7.1, BUN 31 H D, Creatinine 0.90 D, Estimated Creat Clear 85, Estimated GFR 65, Est GFR ( Amer) 78 D, Glucose 292 H, Calcium 8.3 L, Total Bilirubin 0.9, AST 141 H, ALT 143 H, Alkaline Phosphatase 278 H, Total Protein 4.4 L, Albumin 2.1 L, Globulin 2.3, Albumin/Globulin Ratio 0.9 L 08/01/20 07:00: Specimen Source a line, O2 % 100, ABG pH 7.34 L, ABG pCO2 49.3 H, ABG pO2 110.7 H, ABG HCO3 26.0, ABG Total CO2 27.5 H, ABG O2 Saturation 98, ABG Base Excess 0.2, Ildefonso Test non applicable, Vent Rate 30, Tidal Volume 450, PEEP 20 08/01/20 07:21: Blood Type A Positive, Antibody Screen Negative, Crossmatch ([facility]) See Detail 08/01/20 09:15: Vancomycin Trough 29.5 H 08/01/20 09:15: Random Gentamicin 17.9 I & O for Last 24 hours: Intake & Output 07/29/20 07/30/20 07/31/20 08/01/20 11:59 11:59 11:59 11:59 Intake Total 4439.208 / 4439.208 4115.333 / 4171.333 870.573 / 953.707 7929.792 / 5111.792 Output Total 1136 / 1211 4217 / 4252 3390 / 3390 1692 / 1692 Balance 3303.208 / 3228.208 -101.667 / -80.667 -2519.427 / -2519.427 3419.792 / 3419.792 Weight 165 lb 5.547 oz 165 lb 5.547 oz 171 lb 8.314 oz - Constitutional Comments: sedated - *Routine HEENT Exam Eye: Present: PERRL ENT: Present: other (intubated) - *Routine Neck Exam Absent: JVD - *Routine Respiratory Exam Present: patient mechanically ventilated - *Routine Cardiovascular Exam Present: RRR - *Routine Abdominal Exam Present: soft - *Routine Skin Exam Present: ecchymosis - *Routine Neurological Exam no posturing - Routine Psychiatric Exam Present: unable to assess Assessment and Plan (1) Pneumonia due to COVID-19 virus Status: Acute Category: Medical Code(s): U07.1 - COVID-19; J12.82 - Pneumonia due to coronavirus disease 2019 (2) SRINATH (acute kidney injury) Status: Acute Category: Medical Code(s): N17.9 - Acute kidney failure, unspecified (3) Lactic acidosis Status: Acute Category: Medical Code(s): E87.2 - Acidosis (4) Sepsis with acute hypoxic respiratory failure Status: Acute Qualifiers: Sepsis type: sepsis due to unspecified organism Severe sepsis shock status: without septic shock Qualified Code(s): A41.9 - Sepsis, unspecified organism; R65.20 - Severe sepsis without septic shock; J96.01 - Acute respiratory failure with hypoxia Category: Medical Code(s): A41.9 - Sepsis, unspecified organism; R65.20 - Severe sepsis without septic shock; J96.01 - Acute respiratory failure with hypoxia (5) Acute exacerbation of chronic obstructive airways disease Status: Acute Category: Medical Code(s): J44.1 - Chronic obstructi
--- NOTE | 2020-08-01 11:27 | PC.NURSE ---
spoke to dr. grant about heparin. relayed patient was getting blood, and was actively bleeding in spots like from art line, and blisters on arm. stated to hold heparin and switch to prophylactic dose of lovenox. also relayed patient was not tolerating tube feeds. stated since she was on a high dose levophed to hold off on tube feeds for now, will readdress tomorrow. asked nursing to draw a ddimer and fibrinogen and to call him back with those results.
[2020-08-01 11:52] LABS: D-Dimer 5.47 ug/mL (0.0-0.5)
--- NOTE | 2020-08-01 12:14 | PC.NURSE ---
attempted to drop patient levophed down to 10mcg/min patient systolic dropped from 160 to 80s in a matter of minutes. increased back up to 30 and patient bp came back up to 130s. decreased down to 15 mcg/min and is tolerating with systolic in 110-120
[2020-08-01 12:43] LABS: Fibrinogen 572 mg/dL (204-500)
--- NOTE | 2020-08-01 14:48 | HMH.PHACONS ---
- Pharmacy Consult Date: 08/01/20 Time: 14:48 Referring provider: DR. RODRIGEZ Reason for Consult:: VANCOMYCIN TROUGH LEVEL Allergies and ADEs:: Allergies Allergy/AdvReac Type Severity Reaction Status Date / Time No Known Allergies Allergy Verified 07/17/20 14:01 Home Medications:: Home Medications Medication Instructions Recorded Confirmed Type ferrous sulfate 325 mg (65 mg 325 mg PO DAILY tab 08/02/17 07/25/20 History iron) tablet Cholecalciferol (Vitamin D3) 1,000 unit PO DAILY 01/09/20 07/25/20 History [Vitamin D3 1,000 Unit Cap] Ziprasidone HCl 60 mg PO BID 01/09/20 07/25/20 History atorvastatin 40 mg tablet 40 mg PO HS 01/22/20 07/25/20 History Acetaminophen [Tylenol 500mg 500 mg PO Q4HP PRN 01/31/20 07/25/20 History tablet] Apixaban [Eliquis 5mg tab] 5 mg PO BID 01/31/20 07/25/20 History lactulose 20 gram/30 mL oral 20 g PO DAILY PRN ml 02/04/20 07/25/20 History solution Fluticasone/Salmeterol [Advair 1 inh IH BID 02/20/20 07/25/20 History 250/50mcg Diskus] Ipratropium/Albuterol Sulfate 3 ml IH Q6HP PRN 02/20/20 07/25/20 History [Duoneb 3mL neb] Umeclidinium [place] [Incruse 1 puff IH DAILY 02/20/20 07/25/20 History Ellipta] predniSONE [Deltasone 20mg 20 mg PO BID 02/21/20 07/25/20 History tablet] docusate sodium 100 mg capsule 100 mg PO BID 04/14/20 07/25/20 History furosemide 40 mg tablet 40 mg PO DAILY tab 04/14/20 07/25/20 History ondansetron HCl 4 mg tablet 4 mg PO Q8H PRN 04/14/20 07/25/20 History sennosides 8.6 mg capsule 8.6 mg PO DAILY 04/14/20 07/25/20 History pantoprazole 40 mg tablet,delayed 40 mg PO BID #60 tab 05/03/20 07/25/20 Rx release Morphine Sulfate [Roxanol 20mg/mL 5 mg PO Q8H 07/10/20 07/25/20 History 1mL oral solution UDC] Potassium Chloride [Micro-K 10mEq 10 meq PO BID 07/10/20 07/25/20 History cap] levETIRAcetam [Keppra 500mg tablet] 500 mg PO HS 07/10/20 07/25/20 History levETIRAcetam [Levetiracetam] 1,000 mg PO DAILY 07/10/20 07/25/20 History Venlafaxine HCl [Venlafaxine HCl 75 mg PO DAILY 07/11/20 07/25/20 History ER] clonazepam 0.5 mg tablet 0.5 mg PO BID #60 tab 07/19/20 07/25/20 Rx Metoprolol Succinate [Toprol XL 50 mg PO DAILY 07/25/20 07/25/20 History 50mg Tablet] Metformin HCl 500 mg PO BID 07/26/20 07/26/20 History Morphine Sulfate [Roxanol 20mg/mL 5 mg PO Q4HP PRN 07/26/20 07/26/20 History 1mL oral solution UDC] Height: 1.63 m Weight: 77.8 kg Laboratory Results:: Laboratory Results - last 24 hr 07/31/20 15:50: APTT 07/31/20 19:45: APTT 275.0 H* D 08/01/20 00:10: APTT 52.5 H* D 08/01/20 06:15: APTT 39.0 H D 08/01/20 06:15: WBC 20.1 H* D, RBC 1.94 L* D, Hgb 6.8 L*, Hct 19.7 L*, MCV 101.6 H, MCH 35.2 H, MCHC 34.6, RDW 16.7, Plt Count 104 L, MPV 11.1 H, Neut % (Auto) 88.1 H, Lymph % (Auto) 7.2 L, [place] % (Auto) 3.1, Eos % (Auto) 0.1, Baso % (Auto) 1.4, Neut # (Auto) 17.7 H, Lymph # (Auto) 1.5, [place] # (Auto) 0.6, Eos # (Auto) 0.0, Baso # (Auto) 0.3 H, Total Counted 100, Neutrophils % (Manual) 84 H, Band Neutrophils % 10.0 H, Lymphocytes % (Manual) 4 L, Monocytes % (Manual) 2, Platelet Estimate Slight decrease, Macrocytosis 2+ 08/01/20 06:15: Sodium 132 L, Potassium 4.1 D, Chloride 99, Carbon Dioxide 30, Anion Gap 7.1, BUN 31 H D, Creatinine 0.90 D, Estimated Creat Clear 85, Estimated GFR 65, Est GFR ( Amer) 78 D, Glucose 292 H, Calcium 8.3 L, Total Bilirubin 0.9, AST 141 H, ALT 143 H, Alkaline Phosphatase 278 H, Total Protein 4.4 L, Albumin 2.1 L, Globulin 2.3, Albumin/Globulin Ratio 0.9 L 08/01/20 07:00: Specimen Source a line, O2 % 100, ABG pH 7.34 L, ABG pCO2 49.3 H, ABG pO2 110.7 H, ABG HCO3 26.0, ABG Total CO2 27.5 H, ABG O2 Saturation 98, ABG Base Excess 0.2, Ildefonso Test non applicable, Vent Rate 30, Tidal Volume 450, PEEP 20 08/01/20 07:21: Blood Type A Positive, Antibody Screen Negative, Crossmatch ([facility]) See Detail 08/01/20 09:15: Vancomycin Trough 29.5 H 08/01/20 09:15: Random Gentamicin
--- NOTE | 2020-08-01 14:51 | PC.NURSE ---
turned down levophed to 10mcg/min and patient is tolerating well with bp systolic about 110-120
--- NOTE | 2020-08-01 14:56 | HMH.PHAHEP ---
[facility] Pharmacy Heparin Dosing - Demographic Data Admission date:: 07/25/20 Date: 08/01/20 Time: 14:57 Allergies/Adverse Reactions: Allergies Allergy/AdvReac Type Severity Reaction Status Date / Time No Known Allergies Allergy Verified 07/17/20 14:01 Height: 1.63 m Weight: 75 kg - Indication Medication therapy:: Heparin Current Indications:: PE PROPHYLAXIS PER DR. CASE Patient Problems: Current Active Problems Overweight (BMI 25.0-29.9) (Acute) Diabetes (Chronic) Pulmonary hypertension (Chronic) Sepsis with acute hypoxic respiratory failure (Acute) SRINATH (acute kidney injury) (Acute) Lactic acidosis (Acute) Pneumonia due to COVID-19 virus (Acute) Bacteremia (Acute) Anemia (Acute) Acute exacerbation of chronic obstructive airways disease (Acute) UTI (urinary tract infection) (Acute) Tricuspid regurgitation (Chronic) Right heart failure (Chronic) Respiratory failure (Acute) Schizophrenia (Chronic) CVA?: No Bleeding problem?: No Kidney disease?: No ND?: No Desired PTT range:: 60-80 seconds - Labs Anticoagulation Lab Results:: 08/01/20 06:15 Hgb 6.8 L* Hct 19.7 L* Plt Count 104 L - Monitoring Dose Monitor 1 Date: 07/30/20 Time: 14:51 PTT Result:: 39.0 Infusion Rate:: 1300 UNITS/HR = 26 ML/HR Comment:: BASELINE PTT [id number] Dose Monitor 2 Date: 07/30/20 Time: 22:00 PTT Result:: 275.0 Infusion Rate:: HOLD X 2 HRS THEN REPEAT PTT Dose Monitor 3 Date: 07/31/20 Time: 01:00 PTT Result:: 275.0 Infusion Rate:: HOLD X 2 MORE HOURS THEN RESTART AT 900 UNITS/HR = 18 ML/HR Dose Monitor 4 Date: 07/31/20 Time: 03:40 PTT Result:: 57.0 Infusion Rate:: 900 UNITS/HR = 18 ML/HR Comment:: [id number] Dose Monitor 5 Date: 07/31/20 Time: 09:00 PTT Result:: 112.1 Infusion Rate:: 750 UNITS/HR = 15 ML/HR Dose Monitor 6 Date: 07/31/20 Time: 16:00 PTT Result:: > 200.0 Infusion Rate:: HOLD X 2 HOURS THEN REPEAT PTT Comment:: RN STATES THAT PATIENT IS BLEEDING Dose Monitor 7 Date: 07/31/20 Time: 19:30 PTT Result:: 275.0 Infusion Rate:: CONTINUE TO HOLD DRIP AND REPEAT PTT IN 3 HOURS Dose Monitor 8 Date: 08/01/20 Time: 00:00 PTT Result:: 52.5 Infusion Rate:: CONTINUE TO HOLD DRIP DUE TO PATIENT STILL BLEEDING EVERYWHERE PER RN. INSTRUCTED RN TO CALL DR. RODRIGEZ IN ER. Dose Monitor 9 Date: 08/01/20 Time: 06:00 PTT Result:: 39.0 Infusion Rate:: OFF Comment:: PTT IS BACK TO BASELINE, HOWEVER, PATIENT IS STILL BLEEDING EVERYWHERE PER RN. RN STATES THAT DR RODRIGEZ DID NOT LOOK AT PATIENT OR ADDRESS HEPARIN AND BLEEDING AT ANY TIME DURING THE NIGHT EVEN THOUGH HE WAS CALLED IN THE ER. PATIENT IS RECEIVING BLOOD TRANSFUSION THIS AM. H/H = 6.8/19.7. HSF=781. DR RODRIGEZ TOLD RN THAT IT WAS ORDERED AND PATIENT NEEDS DRIP. I RECOMMENDED RN TO CALL DR CASE. DR CASE INSTRUCTED TO STOP HEPARIN DRIP AND START PROPHYLACTIC DOSE OF LOVENOX. - Core Measures Is INR > or = 2 at discharge?: No Most Recent Labs:: Laboratory Results - last 24 hr 07/31/20 15:50: APTT 07/31/20 19:45: APTT 275.0 H* D 08/01/20 00:10: APTT 52.5 H* D 08/01/20 06:15: APTT 39.0 H D 08/01/20 06:15: WBC 20.1 H* D, RBC 1.94 L* D, Hgb 6.8 L*, Hct 19.7 L*, MCV 101.6 H, MCH 35.2 H, MCHC 34.6, RDW 16.7, Plt Count 104 L, MPV 11.1 H, Neut % (Auto) 88.1 H, Lymph % (Auto) 7.2 L, [place] % (Auto) 3.1, Eos % (Auto) 0.1, Baso % (Auto) 1.4, Neut # (Auto) 17.7 H, Lymph # (Auto) 1.5, [place] # (Auto) 0.6, Eos # (Auto) 0.0, Baso # (Auto) 0.3 H, Total Counted 100, Neutrophils % (Manual) 84 H, Band Neutrophils % 10.0 H, Lymphocytes % (Manual) 4 L, Monocytes % (Manual) 2, Platelet Estimate Slight decrease, Macrocytosis 2+ 08/01/20 06:15: Sodium 132 L, Potassium 4.1 D, Chloride 99, Carbon Dioxide 30, Anion Gap 7.1, BUN 31 H D, Creatinine 0.90 D, Estimated Creat Clear 85, Estimated GFR 65, Est GFR ( Amer) 78 D, Gl
[2020-08-01 15:18] LABS: Hematocrit 32.5 % (37.0-47.0)
[2020-08-01 15:27] LABS: Hemoglobin 10.5 g/dL (12.2-16.2)
[2020-08-01 15:47] LABS: Gentamicin,Random 13.1 ug/ml
--- NOTE | 2020-08-01 18:41 | PC.NURSE ---
LEVOPHED REMAINS AT 10MCG/MIN, IT IS Y'ED IN WITH THE FENTANYL. IT IS NOTED THAT WHEN FENTANYL STOPS THE BP BEGINS TO DROP, WELL WHEN LEVOPHED STOPS. SLIGHT WHEEZING NOTED AT TIMES. STILL HOLDING TUBE FEEDS. HAS DONE WELL WITH VENT TODAY. VITALS STABLE. CPOT 0. SKIN REMAINS FRAGILE WITH MANY BRUISES AND SKIN TEARS. LESS BLEEDING THAN YESTERDAY. OTED EDEMA AROUND EYES. EYES NOTED TO BE SLIGHTLY YELLOW. BETTER COLORING SINCE GETTING BLOOD.
--- NOTE | 2020-08-01 21:31 | PC.NURSE ---
08/01/20 @ 8085 HUGO was notified of patient with 3T on GCS. Per Ayanna with Covid, she is a r/t related covid. Staff is to call back with cardiac time of .
[2020-08-02] VITALS (33 sets, daily range): BP systolic 86–144; BP diastolic 57–86; PULSE 60–105; RESP 20–31; TEMP 34.9–37; O2SAT 83–99
--- NOTE | 2020-08-02 00:10 | PC.NURSE ---
She continues in contact and airborne precautions. 2+ pitting edema in bilateral feet which has increased since last night. Her urine is now yellow with sediment. HOB elevated. Eyes cleansed with normal saline. Ambu bag at bedside. Tube feedings held per report. Continues to weep blood from arms.
--- NOTE | 2020-08-02 05:00 | XR_ITS ---
PROCEDURE: XR CHEST PORTABLE CLINICAL HISTORY: Pt intubated Pneumonia follow-up COMPARISON: CT CT ANGIO CHEST from 07/25/2020 CR XR CHEST PORTABLE from 07/30/2020 CR XR CHEST PORTABLE from 07/31/2020 CR XR CHEST PORTABLE from 08/01/2020 FINDINGS: 5:28 a.m. Endotracheal tube nasogastric tube and left IJ CVL remain in satisfactory position. No change in the diffuse pneumonia superimposed upon chronic lung disease. No evidence of pneumothorax. No acute bony abnormalities. IMPRESSION: No interval change Dictated by: Ildefonso Durand MD 08/02/2020 06:23 Ildefonso Durand MD in [facility] 08/02/2020 06:23
[2020-08-02 06:22] LABS: Basophils # 0.2 K/mm3 (0-0.2); Basophils % 1.4 % (0.1-2.0); Eosinophils % 0.1 % (0.1-12.0); Hematocrit 31.6 % (37.0-47.0); Hemoglobin 10.6 g/dL (12.2-16.2); Lymphocytes % 6.3 % (10-50); Mean Corpuscular HGB Conc 33.6 g/dL (31.8-35.4); Mean Corpuscular Hemoglobin 31.6 pg (27.0-31.2); Mean Corpuscular Volume 94.1 fl (81-99); Mean Platelet Volume 11.5 fl (7.4-10.4); Monocytes # 0.6 K/mm3 (0.1-1.0); Monocytes % 3.8 % (1.7-9.3); Neutrophils # 14.3 K/mm3 (1.8-7.8); Neutrophils % 88.5 % (37.0-80.0); Platelet Count 71 K/mm3 (142-424); Red Blood Count 3.35 M/mm3 (4.20-5.40); Red Cell Distribution Width 19.5 % (11.5-17.5); White Blood Count 16.2 K/mm3 (4.8-10.8)
[2020-08-02 06:47] LABS: Alanine Aminotransferase 149 U/L (12-78); Albumin Level 2.1 g/dl (3.5-5.0); Albumin/Globulin Ratio 0.8 (1.1-1.8); Alkaline Phosphatase 325 U/L (38-126); Aspartate Amino Transferase 241 U/L (14-36); Bilirubin,Total 2.3 mg/dl (0.2-1.3); Blood Urea Nitrogen 39 mg/dl (7-17); Calcium 8.5 mg/dl (8.4-10.2); Carbon Dioxide 28 mmol/L (22.0-30.0); Chloride 100 mmol/L (98-107); Creatinine Clearance Estimated 65 mL/min (50-200); Estimated Glomerular Filt Rate 46 ml/min (>60); GFR (African American) 56 ML/MIN (>60); Globulin 2.5 g/dL (1.3-3.2); Glucose 184 mg/dl (74-100); Sodium 133 mmol/L (136-145); Total Protein,Serum 4.6 g/dl (6.3-8.2)
[2020-08-02 07:06] LABS: Anion Gap 9.4 mEq/L (5-15); Potassium 4.4 mmoL/L (3.5-5.1)
[2020-08-02 07:10] LABS: MANUAL DIFFERENTIAL MANUAL DIFFERENTIAL (MANUAL DIFF)
[2020-08-02 07:26] LABS: ABG Base Excess -1.6 mmol/L (-2.4-2.3); ABG Oxygen Saturation 98 % (90-100); ABG PH 7.29 mmol/L (7.35-7.45); ABG PO2 123.6 mmhg (80-100); ABG TCO2 26.6 mmhg (23-27)
[2020-08-02 07:28] LABS: Allen's Test Patient Unable; Oxygen 100 %; PEEP 20; Tidal Volume 450; Vent Rate 30
[2020-08-02 07:29] LABS: Source ART LINE
--- NOTE | 2020-08-02 08:46 | HMH.PULMPN ---
Internal Medicine - PN: Subj *Date: 08/02/20 *Time: 13:09 Interval history: Patient respiratory status continued to worsen. Shock improved over the weekend. Exam - Respiratory Exam Comments: Patient in severe respiratory distress. Intubated and sedated. Bilateral coarse breath sounds. - Cardiovascular Exam Cardiac:: Present: S1, S2 - GI Exam GI:: Present: soft - Skin Exam Comments: Diffuse skin lesions bullae and ulcers noted. - Extremities Exam Extremities: Present: edema Assessment and Plan (1) Pneumonia due to COVID-19 virus Status: Acute Category: Medical Code(s): U07.1 - COVID-19; J12.82 - Pneumonia due to coronavirus disease 2019 (2) SRINATH (acute kidney injury) Status: Acute Category: Medical Code(s): N17.9 - Acute kidney failure, unspecified (3) Lactic acidosis Status: Acute Category: Medical Code(s): E87.2 - Acidosis (4) Sepsis with acute hypoxic respiratory failure Status: Acute Qualifiers: Sepsis type: sepsis due to unspecified organism Severe sepsis shock status: without septic shock Qualified Code(s): A41.9 - Sepsis, unspecified organism; R65.20 - Severe sepsis without septic shock; J96.01 - Acute respiratory failure with hypoxia Category: Medical Code(s): A41.9 - Sepsis, unspecified organism; R65.20 - Severe sepsis without septic shock; J96.01 - Acute respiratory failure with hypoxia (5) Acute exacerbation of chronic obstructive airways disease Status: Acute Category: Medical Code(s): J44.1 - Chronic obstructive pulmonary disease with (acute) exacerbation (6) Overweight (BMI 25.0-29.9) Status: Acute Category: Medical Code(s): E66.3 - Overweight (7) Respiratory failure Problem details: Patient came in with acute respiratory failure with chest x-ray showing bilateral lower lobe worsening opacities. Also concern for aspiration. However after reviewing the patient's prior CT scans there is definitely a component of interstitial lung disease contributing to her respiratory failure and this needs to be further worked up. Chest x-ray from [address] abdomen in 2014 showed normal lower lung dooley without any evidence of interstitial lung disease. Patient is a chronic smoker not more than 30 packs a day currently smoking, denies any significant changes in her life, any significant exposure, any change in smoking habit since 2014. X-ray from May 2019 showed bilateral lower lobe infiltrates however no CT was available to evaluate for interstitial process. Chest x-ray from October 2019 showed significant interstitial opacities in the bilateral lower lobe and subsequent CTs also showed interstitial lung disease. Upon chart review and further questioning patient denies any acute respiratory illness or any hospital admissions noted around October 2019. Patient also had a recent PE on CTA from December 2019 and on anticoagulation and the venous Doppler was performed again on this admission which was negative for DVT. Echo from previous admission on December 2019 showed normal LV systolic function cannot evaluate the diastolic function. Severe TR along with increased RV size and RVSP of 72 mm Hg was noted at the time. X-ray showed gradual improvement in her infiltrates since admission. For involving pulmonary inpatient care will continue to follow. Please call with any questions or concerns regarding this patient care. Status: Acute Qualifiers: Chronicity: acute on chronic Respiratory failure complication: hypoxia Qualified Code(s): J96.21 - Acute and chronic respiratory failure with hypoxia Category: Medical Code(s): J96.90 - Respiratory failure, unspecified, unspecified whether with hypoxia or hypercapnia (8) Diabetes Status: Chronic Qualifiers: Diabetes mellitus type: type 2 Diabetes mellitus mcc insulin use: unspecified supervisor intermediates insulin use status Diabetes mellitus complication status: with other specified complication Qualified
[2020-08-02 09:33] LABS: Vancomycin,Trough 22.6 ug/mL (5.0-10.0)
--- NOTE | 2020-08-02 09:56 | HMH.ACPN2 ---
Internal Medicine - PN: Subj *Date: 08/02/20 *Time: 09:56 Interval history: no change in status, pt still very unstable. I spoke with sister zahraa eastman and radha has children but they were placed up for adoption at a very young age and both of her parents are . the sister states she is the oldest of all the siblings. Sister states she lost touch with radha years ago. I discussed radha condition with sister and the sister wants to come see her sister before she makes any decision on her care. Exam Vital signs and Labs for Last 24 Hours: Temp Pulse Resp BP Pulse Ox 96.7 F L 82 30 H 86/57 L 83 L 08/02/20 09:00 08/02/20 09:00 08/02/20 09:00 08/02/20 09:00 08/02/20 09:00 Laboratory Results - last 24 hr 08/01/20 07:21: Blood Type A Positive, Antibody Screen Negative, Crossmatch (AHG) See Detail 08/01/20 09:15: Vancomycin Trough 29.5 H 08/01/20 09:15: Random Gentamicin 17.9 08/01/20 11:25: Fibrinogen 572 H 08/01/20 11:25: D-Dimer 5.47 H 08/01/20 15:05: Random Gentamicin 13.1 08/01/20 15:05: Hgb 10.5 L D, Hct 32.5 L 08/02/20 05:20: Sodium 133 L, Potassium 4.4, Chloride 100, Carbon Dioxide 28, Anion Gap 9.4, BUN 39 H D, Creatinine 1.20 H D, Estimated Creat Clear 65, Estimated GFR 46 L, Est GFR ( Amer) 56 L D, Glucose 184 H D, Calcium 8.5, Total Bilirubin 2.3 H, AST 241 H D, ALT 149 H, Alkaline Phosphatase 325 H, Total Protein 4.6 L, Albumin 2.1 L, Globulin 2.5, Albumin/Globulin Ratio 0.8 L 08/02/20 05:20: WBC 16.2 H, RBC 3.35 L D, Hgb 10.6 L, Hct 31.6 L, MCV 94.1, MCH 31.6 H, MCHC 33.6, RDW 19.5 H, Plt Count 71 L D, MPV 11.5 H, Neut % (Auto) 88.5 H, Lymph % (Auto) 6.3 L, [place] % (Auto) 3.8, Eos % (Auto) 0.1, Baso % (Auto) 1.4, Neut # (Auto) 14.3 H, Lymph # (Auto) 1.0, [place] # (Auto) 0.6, Eos # (Auto) 0.0, Baso # (Auto) 0.2 08/02/20 06:51: Specimen Source Art line, O2 % 100, ABG pH 7.29 L, ABG pCO2 53.0 H, ABG pO2 123.6 H, ABG HCO3 25.0, ABG Total CO2 26.6, ABG O2 Saturation 98, ABG Base Excess -1.6, Ildefonso Test Patient unable, Vent Rate 30, Tidal Volume 450, PEEP 20 08/02/20 08:55: Vancomycin Trough 22.6 H I & O for Last 24 hours: Intake & Output 07/30/20 07/31/20 08/01/20 08/02/20 11:59 11:59 11:59 11:59 Intake Total 4115.333 / 4171.333 870.573 / 016.050 2264.792 / 5256.792 / Output Total 4217 / 4252 3390 / 3390 1712 / 1787 1145 / 1145 Balance -101.667 / -80.667 -2519.427 / -2519.427 3544.792 / 3469.792 840.204 / 840.204 Weight 165 lb 5.547 oz 165 lb 5.547 oz 171 lb 8.314 oz 176 lb 2.389 oz Microbiology Reports for the Last 24 Hours: Microbiology 07/30/20 14:51 Blood Blood Culture - Preliminary NO GROWTH AFTER 48 HOURS 07/30/20 14:51 Blood Blood Culture - Preliminary NO GROWTH AFTER 48 HOURS - Constitutional moderate distress, chronically ill appearing - *Routine HEENT Exam Head: Present: normocephalic Eye: Present: PERRL, other ENT: Present: mucous membranes moist - *Routine Neck Exam Present: supple. Absent: lymphadenopathy - *Routine Respiratory Exam Present: patient mechanically ventilated, decreased breath sounds, crackles - *Routine Cardiovascular Exam Present: RRR - *Routine Abdominal Exam Present: soft, normoactive bowel sounds. Absent: tenderness - *Routine Extremities Exam Absent: cyanosis, clubbing, edema - *Routine Skin Exam Present: warm, wounds, ecchymosis. Absent: rash Comments: numerous chavo bloody blisters on navya hands - *Routine Neurological Exam sedated - Routine Psychiatric Exam Present: unable to assess Assessment and Plan (1) Pneumonia due to COVID-19 virus Status: Acute Category: Medical Code(s): U07.1 - COVID-19; J12.82 - Pneumonia due to coronavirus disease 2019 (2) SRINATH (acute kidney injury) Status: Acute Category: Medical Code(s): N17.9 - Acute kidney failure, unspecified (3) Lactic acidosis Status: Acute Category: Medical Code(s): E87.
[2020-08-02 10:04] LABS: Corrected White Blood Count 14.9 K/mm3 (4.8-10.8); Lymphocytes % 12 % (10-50); Monocytes % 11 % (2-9); Neutrophils % 77 % (42-76); Nucleated Red Blood Cells 9; Platelet Estimate Marked Decrease; RBC Morphology Normal; Total Cells Counted 100
[2020-08-02 10:23] LABS: Lactate Arterial 2.9 mmol/L (0.4-2.0)
[2020-08-02 10:24] LABS: Reflex Lactic Add Lactic Reflex
[2020-08-02 10:29] LABS: ABG PCO2 49.7 mmhg (35.0-45.0); ABG PH 7.42 mmol/L (7.35-7.45)
[2020-08-02 10:30] LABS: ABG PO2 40.8 mmhg (80-100)
[2020-08-02 10:31] LABS: ABG Base Excess 6.1 mmol/L (-2.4-2.3); ABG HCO3 31.4 mmhg (22.0-26.0); ABG Oxygen Saturation 75 % (90-100); ABG TCO2 32.9 mmhg (23-27)
[2020-08-02 10:33] LABS: Oxygen 100 %; Source ALINE; Tidal Volume 450; Vent Rate 18
[2020-08-02 10:34] LABS: PEEP 20
[2020-08-02 11:03] LABS: Lactic Acid Follow Up (RFLX 1) 1.1 mmol/L (0.7-2.1)
--- NOTE | 2020-08-02 11:40 | PC.NURSE ---
0800 pulmonology office notified of critical lab values on ABG (jeremiah)
--- NOTE | 2020-08-02 13:42 | PC.NURSE ---
contacted [facility] [employer] Test [employer] in regards to tube feeds via kangaroo pump instead of bolus feeds, per Dr Peterson. awaiting call back at this time.
--- NOTE | 2020-08-02 13:44 | HMH.PHACONS ---
- Pharmacy Consult Date: 08/02/20 Time: 13:44 Referring provider: DR. CASE Reason for Consult:: VANCOMYCIN AND GENTAMICIN LEVELS AND DOSING Allergies and ADEs:: Allergies Allergy/AdvReac Type Severity Reaction Status Date / Time No Known Allergies Allergy Verified 07/17/20 14:01 Home Medications:: Home Medications Medication Instructions Recorded Confirmed Type ferrous sulfate 325 mg (65 mg 325 mg PO DAILY tab 08/02/17 07/25/20 History iron) tablet Cholecalciferol (Vitamin D3) 1,000 unit PO DAILY 01/09/20 07/25/20 History [Vitamin D3 1,000 Unit Cap] Ziprasidone HCl 60 mg PO BID 01/09/20 07/25/20 History atorvastatin 40 mg tablet 40 mg PO HS 01/22/20 07/25/20 History Acetaminophen [Tylenol 500mg 500 mg PO Q4HP PRN 01/31/20 07/25/20 History tablet] Apixaban [Eliquis 5mg tab] 5 mg PO BID 01/31/20 07/25/20 History lactulose 20 gram/30 mL oral 20 g PO DAILY PRN ml 02/04/20 07/25/20 History solution Fluticasone/Salmeterol [Advair 1 inh IH BID 02/20/20 07/25/20 History 250/50mcg Diskus] Ipratropium/Albuterol Sulfate 3 ml IH Q6HP PRN 02/20/20 07/25/20 History [Duoneb 3mL neb] Umeclidinium [place] [Incruse 1 puff IH DAILY 02/20/20 07/25/20 History Ellipta] predniSONE [Deltasone 20mg 20 mg PO BID 02/21/20 07/25/20 History tablet] docusate sodium 100 mg capsule 100 mg PO BID 04/14/20 07/25/20 History furosemide 40 mg tablet 40 mg PO DAILY tab 04/14/20 07/25/20 History ondansetron HCl 4 mg tablet 4 mg PO Q8H PRN 04/14/20 07/25/20 History sennosides 8.6 mg capsule 8.6 mg PO DAILY 04/14/20 07/25/20 History pantoprazole 40 mg tablet,delayed 40 mg PO BID #60 tab 05/03/20 07/25/20 Rx release Morphine Sulfate [Roxanol 20mg/mL 5 mg PO Q8H 07/10/20 07/25/20 History 1mL oral solution UDC] Potassium Chloride [Micro-K 10mEq 10 meq PO BID 07/10/20 07/25/20 History cap] levETIRAcetam [Keppra 500mg tablet] 500 mg PO HS 07/10/20 07/25/20 History levETIRAcetam [Levetiracetam] 1,000 mg PO DAILY 07/10/20 07/25/20 History Venlafaxine HCl [Venlafaxine HCl 75 mg PO DAILY 07/11/20 07/25/20 History ER] clonazepam 0.5 mg tablet 0.5 mg PO BID #60 tab 07/19/20 07/25/20 Rx Metoprolol Succinate [Toprol XL 50 mg PO DAILY 07/25/20 07/25/20 History 50mg Tablet] Metformin HCl 500 mg PO BID 07/26/20 07/26/20 History Morphine Sulfate [Roxanol 20mg/mL 5 mg PO Q4HP PRN 07/26/20 07/26/20 History 1mL oral solution UDC] Height: 1.63 m Weight: 79.9 kg Laboratory Results:: Laboratory Results - last 24 hr 07/31/20 05:00: ABG Lactate 2.9 H 07/31/20 05:06: Specimen Source [place], O2 % 100, ABG pH 7.42, ABG pCO2 49.7 H, ABG pO2 40.8 L, ABG HCO3 31.4 H, ABG Total CO2 32.9 H, ABG O2 Saturation 75 L*, ABG Base Excess 6.1 H, Vent Rate 18, Tidal Volume 450, PEEP 20 08/01/20 07:21: Crossmatch (AHG) See Detail 08/01/20 15:05: Random Gentamicin 13.1 08/01/20 15:05: Hgb 10.5 L D, Hct 32.5 L 08/02/20 05:20: Sodium 133 L, Potassium 4.4, Chloride 100, Carbon Dioxide 28, Anion Gap 9.4, BUN 39 H D, Creatinine 1.20 H D, Estimated Creat Clear 65, Estimated GFR 46 L, Est GFR ( Amer) 56 L D, Glucose 184 H D, Calcium 8.5, Total Bilirubin 2.3 H, AST 241 H D, ALT 149 H, Alkaline Phosphatase 325 H, Total Protein 4.6 L, Albumin 2.1 L, Globulin 2.5, Albumin/Globulin Ratio 0.8 L 08/02/20 05:20: WBC 16.2 H, Corrected WBC 14.9 H, RBC 3.35 L D, Hgb 10.6 L, Hct 31.6 L, MCV 94.1, MCH 31.6 H, MCHC 33.6, RDW 19.5 H, Plt Count 71 L D, MPV 11.5 H, Neut % (Auto) 88.5 H, Lymph % (Auto) 6.3 L, [place] % (Auto) 3.8, Eos % (Auto) 0.1, Baso % (Auto) 1.4, Neut # (Auto) 14.3 H, Lymph # (Auto) 1.0, [place] # (Auto) 0.6, Eos # (Auto) 0.0, Baso # (Auto) 0.2, Total Counted 100, Neutrophils % (Manual) 77 H, Lymphocytes % (Manual) 12, Monocytes % (Manual) 11 H, Nucleated RBCs 9, Platelet Estimate Marked decrease, RBC Morphology Normal 08/02/20 06:51: Specimen Source Art line, O2 % 100, ABG pH 7.29 L, ABG pCO2 53.0 H, ABG pO2 123.6 H, ABG HCO3
--- NOTE | 2020-08-02 14:24 | DIET.NUTRFU ---
Pt fluid overloaded, indicated to switch to continuous tube feeds. TF order changed to the following: Recommend initiating continuous tube feeding regimen of Pulmocare 1.5 at 20ml/hr and advance by 10ml/hr q 8hrs as tolerated to goal rate of 42ml/hr. Continue water flushes of 180ml q 4 hrs. Please follow order as written as tolerated, slow and low initiation important for tolerance. This regimen provides 1449kcal, 60g protein, 102g carbohydrate, 90g fat, and 758ml free water. Total fluids with formula and [id number], within conservative needs. Will monitor pt tolerance and alter as indicated. Continuous tube feeds likely to increase BG, monitoring closely. currently moderate avg. 150, weight up 4#, 2+ edema, no BM past 4 days, electrolytes wnl. Pt also receiving significant rate Propofol providing additional kcal, will monitor and alter TF rate as needed as goal rate is reached.
[2020-08-03] VITALS (15 sets, daily range): BP systolic 85–127; BP diastolic 43–96; PULSE 107–126; RESP 24–35; TEMP 36.3–36.8; O2SAT 89–97; BMI 30.1
--- NOTE | 2020-08-03 05:00 | XR_ITS ---
PROCEDURE: XR CHEST PORTABLE CLINICAL HISTORY: intubation Follow-up pneumonia COMPARISON: CT CT ANGIO CHEST from 07/25/2020 CR XR CHEST PORTABLE from 07/31/2020 CR XR CHEST PORTABLE from 08/01/2020 CR XR CHEST PORTABLE from 08/02/2020 FINDINGS: 5:30 a.m. Endotracheal tube nasogastric tube and left IJ central venous line are all present and in good position. No change diffuse bilateral pneumonia with superimposed chronic interstitial disease. No evidence of pneumothorax. IMPRESSION: No change in bilateral pneumonia Tubes and lines remain in good position. Dictated by: Ildefonso Durand MD 08/03/2020 05:41 Ildefonso Durand MD in OV 08/03/2020 05:41
[2020-08-03 06:10] LABS: Chloride 101 mmol/L (98-107); Potassium 4.9 mmoL/L (3.5-5.1); Sodium 133 mmol/L (136-145)
[2020-08-03 06:12] LABS: Alanine Aminotransferase 180 U/L (12-78); Aspartate Amino Transferase 296 U/L (14-36); Blood Urea Nitrogen 43 mg/dl (7-17); Creatinine Clearance Estimated 52 mL/min (50-200); Estimated Glomerular Filt Rate 36 ml/min (>60); GFR (African American) 43 ML/MIN (>60)
[2020-08-03 06:13] LABS: Albumin Level 2.3 g/dl (3.5-5.0); Albumin/Globulin Ratio 0.9 (1.1-1.8); Alkaline Phosphatase 436 U/L (38-126); Anion Gap 11.9 mEq/L (5-15); Bilirubin,Total 1.9 mg/dl (0.2-1.3); Calcium 8.5 mg/dl (8.4-10.2); Carbon Dioxide 25 mmol/L (22.0-30.0); Globulin 2.6 g/dL (1.3-3.2); Glucose 79 mg/dl (74-100); Total Protein,Serum 4.9 g/dl (6.3-8.2)
--- NOTE | 2020-08-03 06:29 | PC.NURSE ---
Patient has continuous weeping from bilateral forearms. Arterial line c/d/i with readings WNL. Central Line dressing changed this shift. Patient's sister from [place] this evening to visit and will return this AM to speak with doctor. Patient shows no s/s of acute distress at this time.
[2020-08-03 07:14] LABS: Basophils # 0.2 K/mm3 (0-0.2); Eosinophils % 0.2 % (0.1-12.0); Hematocrit 31.2 % (37.0-47.0); Hemoglobin 10.2 g/dL (12.2-16.2); Lymphocytes # 0.9 K/mm3 (0.7-4.5); Lymphocytes % 5.3 % (10-50); Mean Corpuscular HGB Conc 32.7 g/dL (31.8-35.4); Mean Corpuscular Hemoglobin 31.1 pg (27.0-31.2); Mean Platelet Volume 12.3 fl (7.4-10.4); Monocytes # 0.7 K/mm3 (0.1-1.0); Monocytes % 3.7 % (1.7-9.3); Neutrophils # 15.8 K/mm3 (1.8-7.8); Neutrophils % 89.8 % (37.0-80.0); Platelet Count 73 K/mm3 (142-424); Red Blood Count 3.29 M/mm3 (4.20-5.40); Red Cell Distribution Width 19.7 % (11.5-17.5); White Blood Count 17.6 K/mm3 (4.8-10.8)
[2020-08-03 07:20] LABS: ABG Base Excess -4.8 mmol/L (-2.4-2.3); ABG HCO3 21.2 mmhg (22.0-26.0); ABG Oxygen Saturation 83 % (90-100); ABG PCO2 41.4 mmhg (35.0-45.0); ABG PH 7.33 mmol/L (7.35-7.45); ABG TCO2 22.5 mmhg (23-27)
[2020-08-03 07:21] LABS: MANUAL DIFFERENTIAL MANUAL DIFFERENTIAL (MANUAL DIFF)
[2020-08-03 07:22] LABS: ABG PO2 48.9 mmhg (80-100); Allen's Test UNABLE; Oxygen 80 %; PEEP 18; Source ART LINE; Tidal Volume 450; Vent Rate 30
[2020-08-03 08:04] LABS: Corrected White Blood Count 16.4 K/mm3 (4.8-10.8); Lymphocytes % 6 % (10-50); Monocytes % 5 % (2-9); Neutrophils % 89 % (42-76); Nucleated Red Blood Cells 7; RBC Morphology Normal; Total Cells Counted 100
[2020-08-03 08:05] LABS: Platelet Estimate Slight Decrease
--- NOTE | 2020-08-03 08:25 | HMH.PULMPN ---
Internal Medicine - PN: Subj *Date: 08/03/20 *Time: 13:17 Interval history: Patient clinical status continued to be critical with no improvement from yesterday. Exam - Constitutional Constitutional:: Present: comfortable - HENMT Exam HENMT: Present: normocephalic, atraumatic - Respiratory Exam Respiratory:: Present: crackles - Cardiovascular Exam Cardiac:: Present: S1, S2 - Skin Exam Skin: Present: warm, rash - Extremities Exam Extremities: Present: edema Assessment and Plan (1) Pneumonia due to COVID-19 virus Status: Acute Category: Medical Code(s): U07.1 - COVID-19; J12.82 - Pneumonia due to coronavirus disease 2019 (2) SRINATH (acute kidney injury) Status: Acute Category: Medical Code(s): N17.9 - Acute kidney failure, unspecified (3) Lactic acidosis Status: Acute Category: Medical Code(s): E87.2 - Acidosis (4) Sepsis with acute hypoxic respiratory failure Status: Acute Qualifiers: Sepsis type: sepsis due to unspecified organism Severe sepsis shock status: without septic shock Qualified Code(s): A41.9 - Sepsis, unspecified organism; R65.20 - Severe sepsis without septic shock; J96.01 - Acute respiratory failure with hypoxia Category: Medical Code(s): A41.9 - Sepsis, unspecified organism; R65.20 - Severe sepsis without septic shock; J96.01 - Acute respiratory failure with hypoxia (5) Acute exacerbation of chronic obstructive airways disease Status: Acute Category: Medical Code(s): J44.1 - Chronic obstructive pulmonary disease with (acute) exacerbation (6) Overweight (BMI 25.0-29.9) Status: Acute Category: Medical Code(s): E66.3 - Overweight (7) Respiratory failure Problem details: Patient came in with acute respiratory failure with chest x-ray showing bilateral lower lobe worsening opacities. Also concern for aspiration. However after reviewing the patient's prior CT scans there is definitely a component of interstitial lung disease contributing to her respiratory failure and this needs to be further worked up. Chest x-ray from [address] abdomen in 2015 showed normal lower lung dooley without any evidence of interstitial lung disease. Patient is a chronic smoker not more than 30 packs a day currently smoking, denies any significant changes in her life, any significant exposure, any change in smoking habit since 2014. X-ray from May 2019 showed bilateral lower lobe infiltrates however no CT was available to evaluate for interstitial process. Chest x-ray from October 2019 showed significant interstitial opacities in the bilateral lower lobe and subsequent CTs also showed interstitial lung disease. Upon chart review and further questioning patient denies any acute respiratory illness or any hospital admissions noted around October 2019. Patient also had a recent PE on CTA from December 2019 and on anticoagulation and the venous Doppler was performed again on this admission which was negative for DVT. Echo from previous admission on December 2019 showed normal LV systolic function cannot evaluate the diastolic function. Severe TR along with increased RV size and RVSP of 72 mm Hg was noted at the time. X-ray showed gradual improvement in her infiltrates since admission. For involving pulmonary inpatient care will continue to follow. Please call with any questions or concerns regarding this patient care. Status: Acute Qualifiers: Chronicity: acute on chronic Respiratory failure complication: hypoxia Qualified Code(s): J96.21 - Acute and chronic respiratory failure with hypoxia Category: Medical Code(s): J96.90 - Respiratory failure, unspecified, unspecified whether with hypoxia or hypercapnia (8) Diabetes Status: Chronic Qualifiers: Diabetes mellitus type: type 2 Diabetes mellitus manager intermediate insulin use: unspecified fdc insulin use status Diabetes mellitus complication status: with other specified complication Qualified Code(s): E11.69 - Type 2
[2020-08-03 09:30] LABS: POC Glucose,Bedside 313 (70-110)
[2020-08-03 09:30] LABS: POC Glucose,Bedside 361 (70-110)
[2020-08-03 09:30] LABS: POC Glucose,Bedside 320 (70-110)
[2020-08-03 09:30] LABS: POC Glucose,Bedside 226 (70-110)
[2020-08-03 09:30] LABS: POC Glucose,Bedside 153 (70-110)
[2020-08-03 09:30] LABS: POC Glucose,Bedside 312 (70-110)
--- NOTE | 2020-08-03 10:22 | HMH.ACPN2 ---
Internal Medicine - PN: Subj *Date: 08/03/20 *Time: 19:44 Interval history: 59-year-old female patient lying in bed chemically sedated, worsening respiratory status and sepsis. Currently patient's oxygenation 90% on 100% FiO2 and Levophed at 24 mcg. Discussed patient's condition with Sister, explained possible medical outcomes and worsening status. Explained different options with sister, she agrees comfort care is the correct decision and request to see sister before care is withdrawn. Exam Vital signs and Labs for Last 24 Hours: Temp Pulse Resp BP Pulse Ox 97.6 F 113 H 33 H 95/62 L 91 L 08/03/20 09:57 08/03/20 09:57 08/03/20 09:57 08/03/20 09:57 08/03/20 09:57 Laboratory Results - last 24 hr 07/31/20 05:00: ABG Lactate 2.9 H 07/31/20 05:06: Specimen Source [place], O2 % 100, ABG pH 7.42, ABG pCO2 49.7 H, ABG pO2 40.8 L, ABG HCO3 31.4 H, ABG Total CO2 32.9 H, ABG O2 Saturation 75 L*, ABG Base Excess 6.1 H, Vent Rate 18, Tidal Volume 450, PEEP 20 07/31/20 12:39: POC Glucose 313 H* 07/31/20 22:04: POC Glucose 361 H* 08/01/20 11:23: POC Glucose 320 H* 08/01/20 16:50: POC Glucose 312 H* 08/02/20 04:26: POC Glucose 226 H 08/02/20 10:41: Lactate 1.1 08/02/20 17:56: POC Glucose 153 H 08/03/20 05:20: Sodium 133 L, Potassium 4.9, Chloride 101, Carbon Dioxide 25, Anion Gap 11.9, BUN 43 H, Creatinine 1.50 H D, Estimated Creat Clear 52, Estimated GFR 36 L, Est GFR ( Amer) 43 L D, Glucose 79 D, Calcium 8.5, Total Bilirubin 1.9 H, AST 296 H, ALT 180 H, Alkaline Phosphatase 436 H, Total Protein 4.9 L, Albumin 2.3 L, Globulin 2.6, Albumin/Globulin Ratio 0.9 L 08/03/20 05:20: WBC 17.6 H, Corrected WBC 16.4 H, RBC 3.29 L, Hgb 10.2 L, Hct 31.2 L, MCV 95.0, MCH 31.1, MCHC 32.7, RDW 19.7 H, Plt Count 73 L, MPV 12.3 H, Neut % (Auto) 89.8 H, Lymph % (Auto) 5.3 L, [place] % (Auto) 3.7, Eos % (Auto) 0.2, Baso % (Auto) 1.0, Neut # (Auto) 15.8 H, Lymph # (Auto) 0.9, [place] # (Auto) 0.7, Eos # (Auto) 0.0, Baso # (Auto) 0.2, Total Counted 100, Neutrophils % (Manual) 89 H, Lymphocytes % (Manual) 6 L, Monocytes % (Manual) 5, Nucleated RBCs 7, Platelet Estimate Slight decrease, RBC Morphology Normal 08/03/20 07:00: Specimen Source Art line, O2 % 80, ABG pH 7.33 L, ABG pCO2 41.4, ABG pO2 48.9 L, ABG HCO3 21.2 L, ABG Total CO2 22.5 L, ABG O2 Saturation 83 L*, ABG Base Excess -4.8 L, Ildefonso Test Unable, Vent Rate 30, Tidal Volume 450, PEEP 18 I & O for Last 24 hours: Intake & Output 07/31/20 08/01/20 08/02/20 08/03/20 23:59 23:59 23:59 23:59 Intake Total 2820.896 / 2820.896 4146.716 / 4210.716 2382.372 / 2430.372 1208.583 / 1208.583 Output Total 1721 / 1851 1297 / 1297 1015 / 1015 225 / 225 Balance 1099.896 / 409.998 9295.716 / 2913.716 1367.372 / 1415.372 983.583 / 983.583 Weight 165 lb 5.547 oz 165 lb 5.547 oz 176 lb 2.389 oz 176 lb 4 oz - Constitutional moderate distress, chronically ill appearing - *Routine Respiratory Exam Present: patient mechanically ventilated, crackles - *Routine Cardiovascular Exam Present: RRR. Absent: bradycardia - *Routine Abdominal Exam Present: soft. Absent: firm - *Routine Extremities Exam Present: cyanosis, edema, extremity cold to touch - *Routine Skin Exam Present: lesions Comments: weeping edema - *Routine Neurological Exam Present: altered mental status. Absent: alert, oriented X3 Chemically sedated - Routine Psychiatric Exam Present: unable to assess. Absent: normal affect, normal thought process Assessment and Plan (1) Pneumonia due to COVID-19 virus Status: Acute Category: Medical Code(s): U07.1 - COVID-19; J12.82 - Pneumonia due to coronavirus disease 2019 (2) SRINATH (acute kidney injury) Status: Acute Category: Medical Code(s): N17.9 - Acute kidney failure, unspecified (3) Lactic acidosis Status: Acute Category: Medical Code(s): E87.2 - Acidosis (4) Sepsis with acute hypoxic respiratory failure Status: Acute Qualifiers: Sepsis type: sepsis due to
[2020-08-03 11:22] LABS: POC Glucose,Bedside 251 (70-110)
[2020-08-03 11:22] LABS: POC Glucose,Bedside 150 (70-110)
[2020-08-03 11:22] LABS: POC Glucose,Bedside 157 (70-110)
[2020-08-03 11:22] LABS: POC Glucose,Bedside 330 (70-110)
[2020-08-03 11:22] LABS: POC Glucose,Bedside 179 (70-110)
[2020-08-03 11:34] LABS: Vancomycin,Trough 21.1 ug/mL (5.0-10.0)
--- NOTE | 2020-08-03 11:55 | PC.NURSE ---
RESPIRATORY CARE NOTE: 1150- RT TERMINALLY EXTUBATED PT AT THIS TIME; FAMILY AT BEDSIDE POST EXTUBATION.
--- NOTE | 2020-08-03 11:58 | PC.NURSE ---
1150- Patient terminally extubated at this time, family at bedside, provided comfort measures.
--- NOTE | 2020-08-03 12:38 | PC.NURSE ---
No signs of life noted at [address] Sheehan from the ER. Time of pronounced at that time. Sister at bedside. HUGO notified and patient is not a candidate for donation, spoke with Susu French, case #: [id number].
--- NOTE | 2020-08-03 12:47 | [facility].DCSUM ---
General - General Admission date:: 07/25/20 Discharge date: 08/03/20 HPI HPI: 59-year-old female that presents via EMS from [facility] due to hypoxia and hypotension with covid 19.. Upon arrival patient hypoxic in the 60s on a nonrebreather with slowed mentation and cyanosis. Pt admitted for covid pneumonia, while in ed pt was intubated and placed on vent. Hospital Course Hospital Course: 59-year-old female that presents via EMS from [facility] due to hypoxia and hypotension with covid 19.. Upon arrival patient hypoxic in the 60s on a nonrebreather with slowed mentation and cyanosis. Pt admitted for covid pneumonia, while in ed pt was intubated and placed on vent. 07/25/20 CXR: IMPRESSION: 1. Endotracheal tube and central line in good position. No evidence of pneumothorax. 2. No change in the diffuse pulmonary fibrosis and possible superimposed pneumonia Dictated by: Ladarius, 07/25/20 Chest CTA: IMPRESSION: 1. No evidence of pulmonary embolus. 2. Diffuse pulmonary fibrosis with superimposed ground-glass consolidation in both upper and lower lobes suspicious for superimposed pneumonia or edema. Covid19 19 pneumonia could cause this finding. Dictated by: Ladarius 07/27/20 KUB: FINDINGS: 08/21/2028Endotracheal tube is present with the tip in good position 4 cm above the carleen. Left IJ CVL tip is in the region the SVC. Orogastric tube tip in good position in the region the body of the stomach. No change in the pulmonary fibrosis with superimposed pneumonia. IMPRESSION: Orogastric tube tip in the region the body of stomach. Of the tubes and lines present with no change in the cardiopulmonary status Dictated by: Ladarius, 08/02/20 CXR: FINDINGS: 5:28 a.m. Endotracheal tube nasogastric tube and left IJ CVL remain in satisfactory position. No change in the diffuse pneumonia superimposed upon chronic lung disease. No evidence of pneumothorax. No acute bony abnormalities. IMPRESSION: No interval change Dictated by: Ladarius, On admission patient's lactic acid was elevated at 6.3 after IV fluids it was gradually decreased to 2.5. In the emergency department vancomycin and meropenem IV was started as well as IV fluids bolused, she was also intubated in the emergency department and remained intubated throughout her stay. Chest CT was negative for pulmonary embolism but did show bilateral pulmonary fibrosis and superimposed diffuse ground glass opacities in both upper and lower lobes suspicious for superimposed pneumonia or edema. She was frequently diuresed during her stay Urine culture was positive for Klebsiella, blood cultures positive for Staph aureus, endotracheal aspirates positive for Staph aureus and Klebsiella pneumonia. She was started on meropenem and vancomycin IV as well as a full course of remdesivir and dexamethasone IV for COVID-19. She did receive DVT and gastric ulcer prophylaxis. DVT prophylaxis initially starting with enoxaparin which was changed to a heparin drip, after developing bruising and bleeding issues she was switched back to enoxaparin Worsening septic shock and increased respiratory failure required increasing oxygenation with frequent FiO2 of 100% and PEEP of 20. These increased settings resulted in 88 to 90% oxygenation and Levophed IV as high as 30 mcg Patient was chemically sedated with propofol and fentanyl IV After discussion with her sister, explaining possible medical outcomes, sister requested comfort care only. At 1150 patient was extubated, tube feed, and all IV fluids except fentanyl were stopped as well. At 1223 patient was without vital signs as verified by Dr. Sheehan from the emergency department Objective Vital signs: Temp Pulse Resp BP Pulse Ox 97.3 F L 114 H 33 H 94/60 L 90 L 08/03/20 11:42 08/03/20 11:42 08/03/20 11:42 08/03/20 11:42 08/03/20 11:42 Result
--- NOTE | 2020-08-03 13:12 | PC.NURSE ---
SPOKE WITH HELEN AND NOTIFED THEM OF PATIENT . INFORMED [facility] THAT PATIENT HAD AND FAMILY IS REQUESTING THEIR SERVICES.
--- NOTE | 2020-08-03 13:13 | PC.NURSE ---
KAITLYNN RIDDLE, RT INFORMED ALEJANDRA KANG THAT PATIENT
--- NOTE | 2020-08-03 19:45 | [facility].DEATH ---
Pronouncement Note - Date and Time of Date of : 08/03/20 Time of : 12:23 - PCOD Preliminary cause of : Pneumonia (COVID Pneumonia) - Additional Data Confirmation of : no pulse, no respirations, no heart sounds, pupils fixed and dilated Family: at bedside Attending/PCP notified?: Yes Attending physician: Bright Wright MD Was code activated?: No Autopsy requested?: No principal examiner notified?: Yes Organ bank notified?: Yes Advance directives: Yes (Comfort Care)
== END 2020-08-03 14:40 | disposition expired | DRG 207 ==
LOC: ER 12:33 → ICU 16:23
PROVIDERS: Internal Medicine Adolescent Medicine; Internal Medicine Pulmonary Disease; Nurse Practitioner Family; Admitting Provider Internal Medicine Adolescent Medicine; Emergency Provider Emergency Medicine; PCP Emergency Medicine; Visit Provider Emergency Medicine
DX: U07.1 COVID-19 (principal); J96.21 Acute and chronic respiratory failure with hypoxia; R65.21 Severe sepsis with septic shock; J44.1 Chronic obstructive pulmonary disease with (acute) exacerbation; N17.9 Acute kidney failure, unspecified; N39.0 Urinary tract infection, site not specified; Z79.01 Long term (current) use of anticoagulants; Z79.84 Long term (current) use of oral hypoglycemic drugs; E11.9 Type 2 diabetes mellitus without complications; I07.1 Rheumatic tricuspid insufficiency; I11.0 Hypertensive heart disease with heart failure; I50.9 Heart failure, unspecified; I27.20 Pulmonary hypertension, unspecified; I50.810 Right heart failure, unspecified; J84.10 Pulmonary fibrosis, unspecified
CPT/HCPCS: 31500; 94002; 71045; 71275; 74018; 80048; 80053; 80170; 80202; 81001; 82009; 82803; 82962; 83605; 83735; 83880; 84100; 84145; 84443; 84484; 85007; 85014; 85018; 85025; 85378; 85384; 85651; 85730; 86140; 86328; 86850; 87040; 87070; 87077; 87081; 87086; 87088; 87186; 87205; 87581; 87633; 87798; 93005; 93308; 94003; 94640; 94761; 96365; 96366; 96367; 96372; 96375; 96376; 99285; C1751; J0330; J0456; J1953; J2185; J2704; J3370; P9016; Q9967; U0003